=== PATIENT | female | born 1965 | race Caucasian/White ===

== ENCOUNTER 2020-03-23 17:08 | Inpatient (IN) | payer OTHER, SELFPAY ==
[2020-03-23 18:32] VITALS: BP 137/92; PULSE 98; RESP 20; TEMP 36.4; O2SAT 95; BMI 38.7
--- NOTE | 2020-03-23 18:48 | ED_ITS ---
HPI - Psych General Chief Complaint: Psychiatric Symptoms Stated Complaint: crisis Time Seen by Provider: 03/23/20 23:00 Source: patient Mode of arrival: ambulatory Limitations: altered mental status History of Present Illness HPI Narrative: 54-year-old female presents with significant psychiatric history, hypertension, hyperlipidemia, presents with request for ECT. She states that she is not normal and cannot function, states that everything is a mess. She will not disclose any further information, has a flat affect, and keeps repeating that she needs ECT. She denies chest pain or pressure, palpitations, shortness of breath, abdominal pain, abdominal distention, dysuria, hematuria, fevers and chills. She denies auditory visual hallucinations at this time. MD complaint: feels depressed and anxiety Onset (ago): year(s) Duration: constant History of same: Yes Relieving factors: none Associated psychiatric symptoms: depression Associated symptoms: denies other symptoms Related Data Home Medications Medication Instructions Recorded Confirmed amitriptyline 1 tab PO BEDTIME 03/24/20 03/24/20 atenolol 1 tab PO DAILY 03/24/20 03/24/20 atorvastatin 1 tab PO DAILY 03/24/20 03/24/20 cetirizine 1 tab PO BEDTIME 03/24/20 03/24/20 clonazepam 1 tab PO BID PRN 03/24/20 03/24/20 fludrocortisone 0.1 mg PO Q12H 03/24/20 03/24/20 levothyroxine 1 tab PO DAILY@0630 03/24/20 03/24/20 losartan 1 tab PO DAILY 03/24/20 03/24/20 montelukast 1 tab PO DAILY@0730 03/24/20 03/24/20 tizanidine 1 tab PO TID 03/24/20 03/24/20 trazodone 1 tab PO BEDTIME 03/24/20 03/24/20 vilazodone [Viibryd] 1 tab PO DAILY@0730 03/24/20 03/24/20 Allergies Allergy/AdvReac Type Severity Reaction Status Date / Time gabapentin [GABAPENTIN] Allergy Unknown UNKNOWN Verified 03/23/20 22:45 morphine [MORPHINE] Allergy Unknown UNKNOWN Verified 03/23/20 22:47 oxycodone [OXYCODONE] Allergy Unknown UNKNOWN Unverified 11/12/20 22:47 topiramate [TOPIRAMATE] Allergy Unknown UNKNOWN Verified 03/23/20 22:47 Review of Systems Review of Systems: Constitutional: No Fever, No Chills ENT/Mouth: No Ear Pain, No Nasal Congestion, No sore throat Eyes: No Eye Pain, No Swelling, No Redness Cardiovascular: No Chest Pain, No SOB Respiratory: No Cough, No Sputum, No Dyspnea Gastrointestinal: No Nausea, No Vomiting, No Diarrhea, No Hematochezia, No Melena Genitourinary: No Dysuria, No Urinary Frequency, No Hematuria Musculoskeletal: No Myalgias Skin: No Skin Lesions, No rash Neuro: No Weakness, No Numbness, No Paresthesias, No Dizziness, No Headache Psych: positive Anxiety, positive Depression, No SI/HI Heme/Lymph: No Lymphadenopathy Endocrine: No Polyuria, No Polydipsia PMFSH Past Medical History Attestation statement: The following information was validated with the patient. Medical History Asthma Autonomic dysfunction Neuropathy Ulnar nerve damage Surgical History H/O spinal fusion H/O tubal ligation H/O ureter repair Previous section Social History Social History Smoking Status: Never smoker Use of substances other than those prescribed or required for medical reasons: Yes Substance Use Type: Marijuana Substance Use Frequency: Occasionally Advance Directives: No Advance Directives Information Provided: No Physical Exam Vital Signs: Vital Signs: Last Vital Signs Temp 98.4 F 03/23/20 23:22 Pulse 85 03/23/20 23:22 Resp 17 03/23/20 23:22 BP 123/85 03/23/20 23:22 Pulse Ox 97 03/23/20 23:22 Body Mass Index 38.7 Appearance: Alert. Oriented X3. No acute distress. Eyes: Pupils equal, round and reactive to light. ENT: Pharynx normal. Neck: Normal inspection. Neck supple. CVS: Normal heart rate and rhythm. Pulses normal. Respiratory: No respiratory distress. Breath sounds normal. Abdomen: Soft and nontender. Skin: Skin warm and dry. Normal skin color. Normal skin turgor. Extremities: No lower extremity edema. Neuro: No motor deficit. No sensory deficit. Course Course Course Narrative: 54-year-old female with significant psychiatric history presents for crisis. States that she is only looking for ECT, cannot function without it. Will order CBC, Chem 7, urinalysis and drugs of abuse screen to medically clear. PH and consult pending. White count is elevated however patient is on significant psychiatric medications which could be the reason why she has this leukocytosis. There is no indication of infection patient is afebrile. N consult completed, plan is to re-evaluate in the morning with N and care team to find a plan for this patient to have ECT or to contact the psychiatric team that has performed this procedure on her in the past to see if this is an option for her. MDM - Psych Differential Diagnosis Differential diagnosis: Likely acute psychosis, bipolar disorder, depression, drug-induced psychotic disorder, acute anxiety, post-traumatic stress disorder and mood disorder Restraints Face to Face Assessment: Face to Face Assessment: Current Situation: After assessment of the patient, a review of the pertinent medical record and a discussion with nursing staff, I feel the patient requires a restrain intervention. Reaction To: [] Medical Condition: [] Behavioral State: [] Continued Need: [] Medical Records Attestation: I reviewed the patient's medical records. Lab Data Attestation: I reviewed the patient's lab results. Result diagrams: 03/23/20 19:29 03/23/20 19:29 Labs: Lab Results 03/23/20 03/23/20 03/23/20 Range/Units 19:21 19:21 19:29 WBC 13.3 H (4.8-10.8) X10*3/uL RBC 4.60 (4.20-5.50) X10*6/uL Hgb 13.7 (12.0-16.0) g/dl Hct 42.3 (37-47) % MCV 92.0 (80-98) fL MCH 29.8 (27.0-33.0) pg MCHC 32.4 (31.0-35.0) g/dl RDW 13.4 (11.0-16.0) % Plt Count 316 (160-400) X10*3/uL MPV 10.0 (9.4-12.3) fL Immature Gran % (Auto) 0.3 (0.0-0.4) % Neut % (Auto) 69.6 (45-73) % Lymph % (Auto) 20.0 (20-40) % Phelps % (Auto) 7.6 (2-11) % Eos % (Auto) 1.9 (0-4) % Baso % (Auto) 0.6 (0-2) % Lymph # (Auto) 2.7 (1.2-4.9) X10*3/uL Phelps # (Auto) 1.0 (0.1-1.2) X10*3/uL Eos # (Auto) 0.3 (0.0-0.4) X10*3/uL Baso # (Auto) 0.1 (0.0-0.2) X10*3/uL Abs Immat Gran (auto) 0.04 H (0.00-0.03) X10*3/uL Absolute Neuts (auto) 9.2 H (2.0-8.3) X10*3/uL Absolute Nucleated RBC 0.000 (0.0-0.012) X10*3/uL Nucleated RBC % (auto) 0.0 (0.0-0.2) /100WBC Sodium (135-145) mmol/L Potassium (3.3-5.1) mmol/l Chloride (96-108) mmol/L Carbon Dioxide (22-29) mmol/L Anion Gap (12-20) BUN (9-16) mg/dL Creatinine (0.5-1.4) mg/dL Estim Creat Clear Calc Estimated GFR Random Glucose (60-115) mg/dL Calcium (8.4-10.2) mg/dL Total Bilirubin (0.0-1.0) mg/dL AST (5-31) U/L ALT (0-31) U/L Alkaline Phosphatase (39-117) U/L Total Protein (6.5-8.0) g/dL Albumin (3.5-5.0) g/dL Urine Test NEGATIVE (NEGATIVE) Salicylates (15-30) mg/dL Urine Opiates Screen Not Detected (Not Detect) Acetaminophen (<30) mcg/mL Ur Barbiturates Screen Not Detected (Not Detect) Ur Phencyclidine Scrn Not Detected (Not Detect) Ur Amphetamines Screen Not Detected (Not Detect) U Benzodiazepines Scrn Not Detected (Not Detect) Urine Cocaine Screen Not Detected (Not Detect) U Marijuana (THC) Screen Not Detected (Not Detect) Ethyl Alcohol mg/dL 03/23/20 03/23/20 Range/Units 19:29 19:29 WBC (4.8-10.8) X10*3/uL RBC (4.20-5.50) X10*6/uL Hgb (12.0-16.0) g/dl Hct (37-47) % MCV (80-98) fL MCH (27.0-33.0) pg MCHC (31.0-35.0) g/dl RDW (11.0-16.0) % Plt Count (160-400) X10*3/uL MPV (9.4-12.3) fL Immature Gran % (Auto) (0.0-0.4) % Neut % (Auto) (45-73) % Lymph % (Auto) (20-40) % Phelps % (Auto) (2-11) % Eos % (Auto) (0-4) % Baso % (Auto) (0-2) % Lymph # (Auto) (1.2-4.9) X10*3/uL Phelps # (Auto) (0.1-1.2) X10*3/uL Eos # (Auto) (0.0-0.4) X10*3/uL Baso # (Auto) (0.0-0.2) X10*3/uL Abs Immat Gran (auto) (0.00-0.03) X10*3/uL Absolute Neuts (auto) (2.0-8.3) X10*3/uL Absolute Nucleated RBC (0.0-0.012) X10*3/uL Nucleated RBC % (auto) (0.0-0.2) /100WBC Sodium 141 (135-145) mmol/L Potassium 4.3 (3.3-5.1) mmol/l Chloride 106 (96-108) mmol/L Carbon Dioxide 27 (22-29) mmol/L Anion Gap 12 (12-20) BUN 19 H (9-16) mg/dL Creatinine 1.06 (0.5-1.4) mg/dL Estim Creat Clear Calc 75.7 Estimated GFR 54 Random Glucose 97 (60-115) mg/dL Calcium 9.4 (8.4-10.2) mg/dL Total Bilirubin 0.4 (0.0-1.0) mg/dL AST 16 (5-31) U/L ALT 16 (0-31) U/L Alkaline Phosphatase 74 (39-117) U/L Total Protein 7.8 (6.5-8.0) g/dL Albumin 4.5 (3.5-5.0) g/dL Urine Test (NEGATIVE) Salicylates < 5.0 L (15-30) mg/dL Urine Opiates Screen (Not Detect) Acetaminophen < 1 (<30) mcg/mL Ur Barbiturates Screen (Not Detect) Ur Phencyclidine Scrn (Not Detect) Ur Amphetamines Screen (Not Detect) U Benzodiazepines Scrn (Not Detect) Urine Cocaine Screen (Not Detect) U Marijuana (THC) Screen (Not Detect) Ethyl Alcohol < 10 mg/dL Discharge Plan Discharge Clinical Impression: Acute psychosis, Chronic schizophrenia, Bipolar disorder Prescriptions: No Action cetirizine 10 mg tablet 1 tab PO BEDTIME RF: 0 atorvastatin 10 mg tablet 1 tab PO DAILY RF: 0 amitriptyline 150 mg tablet 1 tab PO BEDTIME RF: 0 tizanidine 4 mg tablet 1 tab PO TID RF: 0 clonazepam 0.5 mg tablet 1 tab PO BID PRN (Reason: Anxiety) RF: 0 atenolol 25 mg tablet 1 tab PO DAILY RF: 0 trazodone 100 mg tablet 1 tab PO BEDTIME RF: 0 levothyroxine 50 mcg tablet 1 tab PO DAILY@629 RF: 0 losartan 25 mg tablet 1 tab PO DAILY RF: 0 montelukast 10 mg tablet 1 tab PO DAILY@729 RF: 0 Viibryd 40 mg tablet 1 tab PO DAILY@729 RF: 0 fludrocortisone 0.1 mg tablet 0.1 mg PO Q12H RF: 0
[2020-03-23 19:32] LABS: UPreg QC Valid YES; Urine Pregnancy NEGATIVE (NEGATIVE)
[2020-03-23 19:36] LABS: Basophils Absolute Auto 0.1 X10*3/uL (0.0-0.2); Basophils Percent Auto 0.6 % (0-2); Eosinophils Absolute Auto 0.3 X10*3/uL (0.0-0.4); Eosinophils Percent Auto 1.9 % (0-4); Hematocrit 42.3 % (37-47); Hemoglobin 13.7 g/dl (12.0-16.0); Imm Gran Abs Auto 0.04 X10*3/uL (0.00-0.03); Imm Gran Pct Auto 0.3 % (0.0-0.4); Lymphocytes Absolute Auto 2.7 X10*3/uL (1.2-4.9); MANUAL DIFF FLAG NO; Mean Corpuscular HGB Conc 32.4 g/dl (31.0-35.0); Mean Corpuscular Hemoglobin 29.8 pg (27.0-33.0); Monocytes Percent Auto 7.6 % (2-11); Neutrophils Absolute Auto 9.2 X10*3/uL (2.0-8.3); Neutrophils Percent Auto 69.6 % (45-73); Platelet Count 316 X10*3/uL (160-400); Red Cell Distribution Width 13.4 % (11.0-16.0); White Blood Count 13.3 X10*3/uL (4.8-10.8)
[2020-03-23 19:52] LABS: Amphetamine Screen Urine Not Detected (Not Detect); Barbiturates, Urine Not Detected (Not Detect); Benzodiazepines Screen Urine Not Detected (Not Detect); Cannabinoid Screen Urine Not Detected (Not Detect); Cocaine Screen Urine Not Detected (Not Detect); Opiate Screen Urine Not Detected (Not Detect); Phencyclidine Screen Urine Not Detected (Not Detect)
[2020-03-23 20:08] LABS: Ethanol < 10 mg/dL
[2020-03-23 20:13] LABS: Alanine Aminotransferase 16 U/L (0-31); Albumin Level 4.5 g/dL (3.5-5.0); Alkaline Phosphatase 74 U/L (39-117); Anion Gap 12 (12-20); Aspartate Amino Transferase 16 U/L (5-31); Bilirubin Total 0.4 mg/dL (0.0-1.0); Blood Urea Nitrogen 19 mg/dL (9-16); Calcium 9.4 mg/dL (8.4-10.2); Carbon Dioxide 27 mmol/L (22-29); Chloride 106 mmol/L (96-108); Creatinine Clr Calc Pharmacy 75.7; Estimated Glomerular Filt Rate 54; Glucose Random 97 mg/dL (60-115); Potassium 4.3 mmol/l (3.3-5.1); Salicylate < 5.0 mg/dL (15-30); Sodium 141 mmol/L (135-145); Total Protein 7.8 g/dL (6.5-8.0)
[2020-03-23 20:15] LABS: Acetaminophen LAB < 1 mcg/mL (<30)
[2020-03-23 21:40] VITALS: BP 140/90; PULSE 75; RESP 18; TEMP 36.3; O2SAT 96
[2020-03-23] MEDS: TiZANidine HCL 4 MG TABLET 8 MG PO (23:15)
[2020-03-23] MEDS: traZODone HCL 100 MG TABLET PO (23:15)
[2020-03-23] MEDS: Amitriptyline HCl 50 MG TABLET 150 MG PO (23:15)
[2020-03-23 23:22] VITALS: BP 123/85; PULSE 85; RESP 17; TEMP 36.9; O2SAT 97
--- NOTE | 2020-03-23 23:28 | PC.NURSE ---
IVÁN faxed/called/spoke with Tammie/confirmed receipt of referral, patient requested her night time medication, patient'd pharmacy is not in network but patient has list of her medication, patient advised to have her family member fax med [place] [facility] [place] agreed/waiting for fax. One time of order of Amitriptyline 150 mg, Trazadone 100 mg, and Tizanidine 8 mg ordered by provider/administered as ordered/patient compliant. Patient denied distress, will continue to monitor.
--- NOTE | 2020-03-24 01:49 | PC.NURSE ---
PERLAN completed the assessment, patient's disposition is f/u in the morning care team related to ECT treatment program. Patient compliant with assessment process and engaged. No distress reported, will continue to monitor.
--- NOTE | 2020-03-24 04:25 | PC.NURSE ---
Patient in bed appears sleeping, no distress observed/reported, respiration +/=/non-labored bilaterally, will continue to monitor.
[2020-03-24] MEDS: Levothyroxine Sodium 50 MCG TABLET PO (06:38)
--- NOTE | 2020-03-24 06:49 | PC.NURSE ---
Patient in bed appears sleeping, compliant with 0630 medication, no distress observed/reported, respiration +/=/non-labored bilaterally. Will continue to monitor.
--- NOTE | 2020-03-24 07:31 | PC.NURSE ---
Report received from KANU Cintron. Pt resting, resp unlabored.
[2020-03-24] MEDS: Montelukast Sodium 10 MG TABLET PO (08:25)
[2020-03-24 08:44] VITALS: BP 127/81; PULSE 81; TEMP 36.2
[2020-03-24] MEDS: Vilazodone HCL 40 MG TABLET PO (09:01)
[2020-03-24] MEDS: Acetaminophen 325 MG TABLET 650 MG PO (09:02)
[2020-03-24 09:03] VITALS: BP 127/81; PULSE 81
[2020-03-24] MEDS: Losartan Potassium 25 MG TABLET PO (09:03)
[2020-03-24] MEDS: Atorvastatin Calcium 10 MG TABLET PO (09:03)
[2020-03-24] MEDS: TiZANidine HCL 4 MG TABLET PO ×3 (09:04→20:12)
--- NOTE | 2020-03-24 09:38 | PC.NURSE ---
Pt awake, alert- in shower currently, -seen by care team and is aware now of process for applying for ECT- pt states she is in agreement with plan to discharge and await for admission for ECT. pt states she can be safe if discharged. pt calling family for transportation home.
--- NOTE | 2020-03-24 10:08 | PC.NURSE ---
Pt about to be discharged when separator inserter called pt and advised pt not to sign discharge paperwork. Per pt, separator inserter states that pt must be admitted to in order to receive ECT. Care team called- in to evaluate, speaking w/ case repairer.
--- NOTE | 2020-03-24 10:25 | PC.NURSE ---
pt seen by prema vasquez and changed back into hospital [facility]- pt requesting to stay in order to be admitted to for ECT.
--- NOTE | 2020-03-24 12:41 | MHC.CARE ---
Spoke with Dalia OP provider from [facility] for Nyla, she is requesting [facility] admission for her to be able to have ECT treatment and also stating she is not safe on her own. It was explained to Dalia that provider from [facility] will review her case and consult again with N whom cleared her yesterday from their crisis assessment. Provider put in another request for BHN to reevaluated and this law writer informed Dalia to call [facility]N to inform them on her concern about safety this way the clinician evaluating will be able to have a better picture of what is happening. with patient.
--- NOTE | 2020-03-24 15:25 | PC.NURSE ---
pt medicated as requested and ordered for migraine, then nausea. C christina aware, pt given zofran. pt currently resting.
--- NOTE | 2020-03-24 15:36 | PC.NURSE ---
pharmacy called second time for =medication florinef.
[2020-03-24] MEDS: Fludrocortisone Acetate 0.1 MG TABLET PO (16:03)
[2020-03-24 16:52] VITALS: BP 118/82; PULSE 89; TEMP 36.5; O2SAT 96
--- NOTE | 2020-03-24 17:51 | PC.NURSE ---
Pt out in common area, watching television w/ another pt. Pt reports continued headache, aware that she is able to receive PRN, will re evaluate when medication is available. Pt affect even, no other concern reported.
--- NOTE | 2020-03-24 18:45 | PC.NURSE ---
pt requesting to receive atenolol in the evening instead of morning- providers aware.
--- NOTE | 2020-03-24 19:01 | PC.NURSE ---
Report received. PT is currently on the phone. Calm and collected. PT is preparing for discharge.
[2020-03-24 19:38] VITALS: BP 119/64; PULSE 95; RESP 18; TEMP 36.2; O2SAT 96
[2020-03-24 20:13] VITALS: BP 119/64; PULSE 95
[2020-03-24] MEDS: traZODone HCL 100 MG TABLET PO (20:13)
[2020-03-24] MEDS: atenoloL 25 MG TABLET PO (20:13)
[2020-03-24] MEDS: Loratadine 10 MG TABLET PO (20:15)
[2020-03-24] MEDS: Amitriptyline HCl 50 MG TABLET 150 MG PO (20:41)
[2020-03-24 21:25] VITALS: BP 103/53; PULSE 97; RESP 20; O2SAT 96
[2020-03-25] MEDS: Levothyroxine Sodium 50 MCG TABLET PO (06:22)
[2020-03-25] MEDS: Fludrocortisone Acetate 0.1 MG TABLET PO ×2 (06:23→13:33)
[2020-03-25 06:37] VITALS: BP 119/44; PULSE 87; RESP 18; TEMP 36.2; O2SAT 100
--- NOTE | 2020-03-25 07:13 | PC.NURSE ---
Report received. PT currently watching tv, pt denies complaints at this time. PT is inpatient bedsearch.
[2020-03-25] MEDS: clonazePAM 0.5 MG TABLET PO ×2 (07:16→19:58)
[2020-03-25] MEDS: Montelukast Sodium 10 MG TABLET PO (07:40)
[2020-03-25] MEDS: Vilazodone HCL 40 MG TABLET PO (08:08)
--- NOTE | 2020-03-25 08:10 | PC.NURSE ---
pt medicated per emar, tolerating po w/o issue. pleasant affect w this rn.
[2020-03-25 09:08] VITALS: BP 119/44; PULSE 87
[2020-03-25] MEDS: atenoloL 25 MG TABLET PO (09:08)
[2020-03-25 09:09] VITALS: BP 119/44; PULSE 87
[2020-03-25] MEDS: Losartan Potassium 25 MG TABLET PO (09:09)
[2020-03-25] MEDS: TiZANidine HCL 4 MG TABLET PO ×3 (09:09→20:32)
[2020-03-25] MEDS: Atorvastatin Calcium 10 MG TABLET PO (09:09)
[2020-03-25 10:09] VITALS: BP 94/61; PULSE 87; RESP 16; TEMP 36.3; O2SAT 97
[2020-03-25] MEDS: Lidocaine 4 % Patch ADH..PATCH 2 PATCH TRANSDERMA (11:24)
--- NOTE | 2020-03-25 13:21 | PC.NURSE ---
andrade called for ordered natali
--- NOTE | 2020-03-25 16:15 | PC.NURSE ---
pt sitting in millieu, conversing w other pts, calm and cooperative.
[2020-03-25 16:25] VITALS: BP 101/64; PULSE 89; RESP 18; TEMP 36.9; O2SAT 97
--- NOTE | 2020-03-25 20:26 | PC.NURSE ---
pt becoming increasingly anxious due to acuity in the pod, prn klonopin not effective
[2020-03-25] MEDS: Amitriptyline HCl 50 MG TABLET 150 MG PO (20:32)
[2020-03-25] MEDS: Loratadine 10 MG TABLET PO (20:33)
[2020-03-25] MEDS: traZODone HCL 100 MG TABLET PO (20:33)
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
[2020-03-25] MEDS: LORazepam 1 MG TABLET 2 MG PO (21:25)
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
--- NOTE | 2020-03-25 23:10 | PC.NURSE ---
PT found lying on the floor of the shower CAOx3. When asked why she was lying on the floor PT stated that she was trying to relax . PT was able to stand up, dry off, and get dressed on her own after being found. PT then went into her room and fell asleep.
[2020-03-26 06:22] VITALS: BP 102/53; PULSE 65; RESP 16; TEMP 36.6; O2SAT 95
[2020-03-26] MEDS: Levothyroxine Sodium 50 MCG TABLET PO (06:31)
[2020-03-26] MEDS: LORazepam 1 MG TABLET PO (07:19)
[2020-03-26] MEDS: Montelukast Sodium 10 MG TABLET PO (07:19)
[2020-03-26] MEDS: Vilazodone HCL 40 MG TABLET PO (07:19)
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
[2020-03-26 09:12] VITALS: BP 114/76; PULSE 88; RESP 18; TEMP 36.6; O2SAT 98
[2020-03-26 09:46] VITALS: BP 114/76; PULSE 88
[2020-03-26] MEDS: Fludrocortisone Acetate 0.1 MG TABLET PO ×2 (09:46→20:31)
[2020-03-26] MEDS: atenoloL 25 MG TABLET PO (09:46)
[2020-03-26] MEDS: Losartan Potassium 25 MG TABLET PO (09:46)
[2020-03-26] MEDS: Atorvastatin Calcium 10 MG TABLET PO (09:46)
[2020-03-26] MEDS: TiZANidine HCL 4 MG TABLET PO ×2 (09:47→20:30)
[2020-03-26] MEDS: clonazePAM 1 MG TABLET 0.5 MG PO (14:09)
--- NOTE | 2020-03-26 14:14 | PC.NURSE ---
PT requested medication for anxiety, while being medicated PT dropped a broken piece of peanut butter container, pt stated she was going to use it to cut but did not yet. Piece removed, pt medicated per EMAR, peanut butter containers removed from room, pt denied having anything else in the room. Pt then brought out an additional broken piece of peanut butter container to the nurse station, stated she found it in the blanket. Pt agrees to remain safe and to let staff know if feeling unsafe.
[2020-03-26 17:02] VITALS: BP 104/63; PULSE 72; RESP 20; TEMP 36.6; O2SAT 97
--- NOTE | 2020-03-26 18:08 | PC.NURSE ---
Pt reporting that she is feeling better than before, pt social with select peers, calm and cooperative, denies complaints at this time.
[2020-03-26] MEDS: traZODone HCL 100 MG TABLET PO (20:30)
[2020-03-26 20:31] VITALS: BP 104/73; PULSE 84; RESP 20; TEMP 36.6; O2SAT 96
[2020-03-26] MEDS: Loratadine 10 MG TABLET PO (20:31)
[2020-03-26] MEDS: Amitriptyline HCl 50 MG TABLET 150 MG PO (20:31)
[2020-03-26 22:00] VITALS: RESP 18
[2020-03-27] VITALS (12 sets, daily range): BP systolic 96–130; BP diastolic 59–99; PULSE 73–105; RESP 16–24; TEMP 36.1–36.9; O2SAT 95–97
--- NOTE | 2020-03-27 05:05 | PC.NURSE ---
S/E: Pt alert and oriented. Clear speech. Engaged to talking with other pod members and staffs. Calm and cooperative. No SI/HI during this shift. All scheduled HS med given and tolerated well. Slept well. NAD. BHN re-eval done. Pt will be placed on Section 12 as of today, and inpatient bed search continues.
[2020-03-27] MEDS: Levothyroxine Sodium 50 MCG TABLET PO (06:06)
--- NOTE | 2020-03-27 07:21 | PC.NURSE ---
Report received from KANU Sharma. Pt awake, alert. Affect even.
[2020-03-27] MEDS: Montelukast Sodium 10 MG TABLET PO (07:49)
[2020-03-27] MEDS: Vilazodone HCL 40 MG TABLET PO (07:49)
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
[2020-03-27] MEDS: TiZANidine HCL 4 MG TABLET PO ×3 (08:33→20:34)
[2020-03-27] MEDS: Atorvastatin Calcium 10 MG TABLET PO (08:33)
[2020-03-27] MEDS: Losartan Potassium 25 MG TABLET PO (08:34)
[2020-03-27] MEDS: Fludrocortisone Acetate 0.1 MG TABLET PO ×2 (08:37→20:35)
[2020-03-27] MEDS: clonazePAM 1 MG TABLET 0.5 MG PO (08:57)
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
--- NOTE | 2020-03-27 10:18 | PC.NURSE ---
Pt had requested bacitracin for abrasions but is currently sleeping. Resp unlabored.
--- NOTE | 2020-03-27 11:21 | PC.NURSE ---
Pt requested to receive atenelol later today.
--- NOTE | 2020-03-27 12:24 | PC.NURSE ---
pt resting, resp unlabored.
--- NOTE | 2020-03-27 13:33 | PC.NURSE ---
pt found sitting in a corner of her room. reporting anxiety. denies any attempt to harm herself. States she will let staff know if she feels unsafe. requesting something for anxiety- andre saul aware. States a weighted blanket would be helpful. M5, ICU, and [facility] called- unable to locate weighted blanket.
[2020-03-27] MEDS: clonazePAM 0.5 MG TABLET PO (13:59)
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
--- NOTE | 2020-03-27 15:15 | MHC.CARE ---
t/w met briefly with pt to provide additional support due to pt reporting feeling flooded from past trauma. Pt was given warm blankets and hot tea and was pleased with this reporting it was helping. Pt was also doing a word search and tv was on for added distraction.
--- NOTE | 2020-03-27 16:23 | PC.NURSE ---
Pt awake, alert. States that the interventions provided by Zahraa from the Care team were helpful.
--- NOTE | 2020-03-27 19:27 | PC.NURSE ---
Patient currently at Nurses station talking to staff member about puzzle, denied distress, received phone call from care team, patient will be going to M5 after 2300. Will continue to monitor.
[2020-03-27] MEDS: Loratadine 10 MG TABLET PO (20:35)
[2020-03-27] MEDS: atenoloL 25 MG TABLET PO (20:36)
[2020-03-27 22:35] LABS: Influenza A PCR NEGATIVE (Negative); Influenza B PCR NEGATIVE (Negative); Resp Syncy Virus RNA Qual PCR NEGATIVE (Negative); SARS COV2 PCR INHOUSE NEGATIVE (Negative)
--- NOTE | 2020-03-28 | ECG_ITS ---
Test Reason : PREOP ECT Blood Pressure : / mmHG Vent. Rate : 088 BPM Atrial Rate : 088 BPM P-R Int : 146 ms QRS Dur : 090 ms QT Int : 354 ms P-R-T Axes : 059 046 082 degrees QTc Int : 428 ms Normal sinus rhythm Nonspecific ST and T wave abnormality Abnormal ECG When compared with ECG of 07-MAR-2018 11:32, No significant change was found Referred By: Taye Courtney Electronically Signed By:SHAKA BERMUDEZ MD
[2020-03-28] MEDS: traZODone HCL 100 MG TABLET PO ×2 (00:36→21:15)
[2020-03-28] MEDS: Amitriptyline HCl 50 MG TABLET 150 MG PO ×2 (02:05→21:06)
[2020-03-28 06:00] VITALS: BP 130/80; PULSE 82; TEMP 36.9
[2020-03-28] MEDS: Levothyroxine Sodium 50 MCG TABLET PO (06:17)
[2020-03-28 06:30] VITALS: BP 130/80; PULSE 82
[2020-03-28] MEDS: Losartan Potassium 25 MG TABLET PO (06:30)
[2020-03-28 07:51] LABS: MANUAL DIFF FLAG NO
[2020-03-28 07:56] LABS: Basophils Absolute Auto 0.1 X10*3/uL (0.0-0.2); Basophils Percent Auto 0.6 % (0-2); Eosinophils Absolute Auto 0.4 X10*3/uL (0.0-0.4); Eosinophils Percent Auto 3.3 % (0-4); Hematocrit 40.3 % (37-47); Imm Gran Abs Auto 0.03 X10*3/uL (0.00-0.03); Imm Gran Pct Auto 0.2 % (0.0-0.4); Lymphocytes Absolute Auto 3.7 X10*3/uL (1.2-4.9); Lymphocytes Percent Auto 29.8 % (20-40); Mean Corpuscular HGB Conc 32.3 g/dl (31.0-35.0); Mean Corpuscular Hemoglobin 29.8 pg (27.0-33.0); Mean Corpuscular Volume 92.4 fL (80-98); Mean Platelet Volume 10.2 fL (9.4-12.3); Monocytes Absolute Auto 1.1 X10*3/uL (0.1-1.2); Monocytes Percent Auto 8.8 % (2-11); Neutrophils Absolute Auto 7.1 X10*3/uL (2.0-8.3); Neutrophils Percent Auto 57.3 % (45-73); Platelet Count 288 X10*3/uL (160-400); Red Blood Count 4.36 X10*6/uL (4.20-5.50); Red Cell Distribution Width 13.2 % (11.0-16.0); White Blood Count 12.3 X10*3/uL (4.8-10.8)
[2020-03-28 08:18] LABS: Alanine Aminotransferase 15 U/L (0-31); Alkaline Phosphatase 68 U/L (39-117); Anion Gap 12 (12-20); Aspartate Amino Transferase 14 U/L (5-31); Bilirubin Total 0.5 mg/dL (0.0-1.0); Blood Urea Nitrogen 18 mg/dL (9-16); Calcium 9.1 mg/dL (8.4-10.2); Carbon Dioxide 29 mmol/L (22-29); Chloride 104 mmol/L (96-108); Creatinine Clr Calc Pharmacy 81.9; Estimated Glomerular Filt Rate 59; Glucose Fasting 88 mg/dL (60-99); Potassium 4.5 mmol/l (3.3-5.1); Sodium 140 mmol/L (135-145); Total Protein 6.9 g/dL (6.5-8.0)
[2020-03-28] MEDS: Montelukast Sodium 10 MG TABLET PO (08:50)
[2020-03-28] MEDS: TiZANidine HCL 4 MG TABLET PO ×3 (08:50→21:06)
[2020-03-28] MEDS: Fludrocortisone Acetate 0.1 MG TABLET PO ×2 (08:50→21:15)
[2020-03-28] MEDS: Vilazodone HCL 40 MG TABLET PO (08:53)
[2020-03-28] MEDS: Atorvastatin Calcium 10 MG TABLET PO (08:53)
[2020-03-28] MEDS: clonazePAM 1 MG TABLET 0.5 MG PO (16:49)
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
[2020-03-28 16:58] VITALS: BP 102/69; PULSE 91; TEMP 36.4
[2020-03-28] MEDS: Loratadine 10 MG TABLET PO (21:06)
[2020-03-28 21:15] VITALS: BP 101/59; PULSE 82
--- NOTE | 2020-03-28 21:44 | HO.PSYCHPN ---
Subjective Subjective Reason For Visit: Depression Diagnostics Vital Signs (24Hr): Vital Signs - 24 hr 03/28/20 06:00 03/28/20 06:30 03/28/20 16:58 Temperature 98.5 F 97.5 F Pulse Rate 82 82 91 Blood Pressure 130/80 130/80 102/69 03/28/20 21:15 Temperature Pulse Rate 82 Blood Pressure 101/59 L Body Mass Index 38.7 Labs Results: 03/28/20 07:43 03/28/20 07:43 Labs: Laboratory Results - last 48 hr 03/27/20 03/28/20 03/28/20 21:51 07:43 07:43 WBC 12.3 H RBC 4.36 Hgb 13.0 Hct 40.3 MCV 92.4 MCH 29.8 MCHC 32.3 RDW 13.2 Plt Count 288 MPV 10.2 Immature Gran % (Auto) 0.2 Neut % (Auto) 57.3 Lymph % (Auto) 29.8 [place] % (Auto) 8.8 Eos % (Auto) 3.3 Baso % (Auto) 0.6 Lymph # (Auto) 3.7 [place] # (Auto) 1.1 Eos # (Auto) 0.4 Baso # (Auto) 0.1 Abs Immat Gran (auto) 0.03 Absolute Neuts (auto) 7.1 Absolute Nucleated RBC 0.000 Nucleated RBC % (auto) 0.0 Sodium 140 Potassium 4.5 Chloride 104 Carbon Dioxide 29 Anion Gap 12 BUN 18 H Creatinine 0.98 Estim Creat Clear Calc 81.9 Estimated GFR 59 Fasting Glucose 88 Calcium 9.1 Total Bilirubin 0.5 AST 14 ALT 15 Alkaline Phosphatase 68 Total Protein 6.9 Albumin 4.0 Coronavirus (PCR) NEGATIVE Influenza Type A (PCR) NEGATIVE Influenza Type B (PCR) NEGATIVE RSV RNA Qual (PCR) NEGATIVE Medications Medications Current Medications Generic Name Dose Route Start Last Admin Trade Name Freq PRN Reason Stop Dose Admin Acetaminophen 650 mg 03/28/20 00:48 Acetaminophen 325 Mg Tablet PO Q6H PRN Headache/Pain Mild Scale (1-3) Acetaminophen/Butalbital/Caffeine 1 tab 03/24/20 14:40 03/25/20 06:13 Butalb/Acetamin/Caff 50/325/40 1 Tab Tablet PO 1 tab RQ4H PRN Administration headache Al Hydroxide/Mg Hydroxide 30 ml 03/28/20 00:48 Magnesium Hydrox/Alum Hydrox 30 Ml Oral.Susp PO Q6H PRN Heartburn/Nausea Amitriptyline HCl 150 mg 03/24/20 21:00 03/28/20 21:06 Amitriptyline Hcl 50 Mg Tablet PO 150 mg BEDTIME SOO Administration Atenolol 25 mg 03/27/20 21:00 03/28/20 21:15 Atenolol 25 Mg Tablet PO Not Given BEDTIME SOO Protocol Atorvastatin Calcium 10 mg 03/24/20 09:00 03/28/20 08:53 Atorvastatin Calcium 10 Mg Tablet PO 10 mg DAILY SOO Administration Clonazepam 0.5 mg 03/28/20 16:53 Clonazepam 0.5 Mg Tablet PO BID PRN Anxiety Fludrocortisone Acetate 0.1 mg 03/26/20 09:00 03/28/20 21:15 Fludrocortisone Acetate 0.1 Mg Tablet PO 0.1 mg BID SOO Administration Hydroxyzine HCl 25 mg 03/28/20 00:48 Hydroxyzine Hcl 25 Mg Tablet PO BEDTIME PRN Anxiety Levothyroxine Sodium 50 mcg 03/24/20 06:30 03/28/20 06:17 Levothyroxine Sodium 50 Mcg Tablet PO 50 mcg DAILY@0630 SOO Administration Loratadine 10 mg 03/24/20 21:00 03/28/20 21:06 Loratadine 10 Mg Tablet PO 10 mg BEDTIME SOO Administration Losartan Potassium 25 mg 03/24/20 09:00 03/28/20 06:30 Losartan Potassium 25 Mg Tablet PO 25 mg DAILY SOO Administration Protocol Magnesium Hydroxide 30 ml 03/28/20 00:48 Milk Of Magnesia 30 Ml Oral.Susp PO DAILY PRN Constipation Montelukast Sodium 10 mg 03/24/20 07:30 03/28/20 08:50 Montelukast Sodium 10 Mg Tablet PO 10 mg DAILY@0730 SOO Administration Ondansetron HCl 4 mg 03/24/20 14:40 03/24/20 14:47 Ondansetron Odt 4 Mg Tab.Rapdis TRANSLINGU 4 mg RQ6H PRN Administration Nausea/Vomiting Tizanidine HCl 4 mg 03/24/20 09:00 03/28/20 21:06 Tizanidine Hcl 4 Mg Tablet PO 4 mg TID OSO Administration Trazodone HCl 100 mg 03/24/20 21:00 03/28/20 21:15 Trazodone Hcl 100 Mg Tablet PO 100 mg BEDTIME SOO Administration Vilazodone HCl 40 mg 03/24/20 07:30 03/28/20 08:53 Vilazodone Hcl 40 Mg Tablet PO 40 mg DAILY@0730 SOO Administration Allergies Allergies Allergy/AdvReac Type Severity Reaction Status Date / Time gabapentin [GABAPENTIN] Allergy Unknown UNKNOWN Verified 03/25/20 19:56 morphine [MORPHINE] Allergy Unknown UNKNOWN Verified 03/25/20 19:56 oxycodone [OXYCODONE] Allergy Unknown UNKNOWN Verified 03/25/20 19:56 topiramate [TOPIRAMATE] Allergy Unknown UNKNOWN Verified 03/25/20 19:56 Assessment & Plan Greater than 50% of the session was spent on counseling and/or coordination of care
[2020-03-29 06:00] VITALS: BP 115/60; PULSE 70; RESP 18; TEMP 36.8
[2020-03-29] MEDS: Levothyroxine Sodium 50 MCG TABLET PO (06:42)
[2020-03-29 08:30] VITALS: BP 115/60; PULSE 70
[2020-03-29] MEDS: Losartan Potassium 25 MG TABLET PO (08:30)
[2020-03-29] MEDS: TiZANidine HCL 4 MG TABLET PO ×3 (08:30→22:27)
[2020-03-29] MEDS: Montelukast Sodium 10 MG TABLET PO (08:31)
[2020-03-29] MEDS: Atorvastatin Calcium 10 MG TABLET PO (08:31)
[2020-03-29] MEDS: Vilazodone HCL 40 MG TABLET PO (08:31)
[2020-03-29] MEDS: Fludrocortisone Acetate 0.1 MG TABLET PO ×2 (08:31→22:26)
--- NOTE | 2020-03-29 12:13 | P.CONIM_ITS ---
History of Present Illness Data of Consult Service Date: 03/29/20 Requesting physician: Taye Courtney Primary Care Provider: Unknown Physician HPI Reason for consult: ECT evaluation 54 year female with asthma, autonomic dysfunction, peripheral neuropathy, CKD3 here with decompensated major depressive desorder and is mali consider for ECT. She has had ECT in the past and benefited and this seem to have any apparent complicatiions. She has no known cardiovascular disease. She has no chest pain, no angina, no heart failure symptoms. ECG shows no acute ischemic changes. No fever, no respiratory symptoms at this time. Review of Systems Review of Systems: Gen: no fever Resp: no sob, no cough CV: no chest, no PAGAN, no leg edema GI: No n/v, no abd pain Neuro: No confusion Yes all other systems are reviewed and are negative [facility] Medical History (Updated 03/29/20 @ 12:19 by Eliezer Herr MD) Asthma At risk for bleeding associated with tonsillectomy and adenoidectomy Autonomic dysfunction HLD (hyperlipidemia) Major depressive disorder, recurrent, severe with psychotic symptoms Neuropathy PTSD (post-traumatic stress disorder) Renal insufficiency Suicidal ideation Ulnar nerve damage Functional capacity: independent ambulation Pertinent family history: HTN in father Surgical History H/O spinal fusion H/O tubal ligation H/O ureter repair Previous section Social History Household Members: Family Housing: House Do you presently have visiting nurse or other home services: No Smoking Status: Never smoker Smoked in Last 30 Days: No Patient Interested in Nicotine Replacement: No Patient Given Instructions on How to Stop Smoking: No Second Hand Smoke Exposure: No Use of substances other than those prescribed or required for medical reasons: Yes Substance Use Type: Marijuana Substance Use Frequency: Monthly Last Used Substance: Unknown Currently Displaying Signs/Symptoms of Drug Intoxication Withdrawal: No Any prior treatment program specific to substance use: No Have you been hit, kicked, punched, or otherwise hurt by someone within the past year? If so, by whom?: No Do you feel safe in your current relationship?: No Current Relationship Is there a partner from a previous relationship who is making you feel unsafe now?: No Are you made to feel afraid or neglected: No Spiritual Healthcare Practices: unable to assess during admit Jewish Healthcare Practices: unable to assess during admit Cultural Healthcare Practices: unable to assess during admit Advance Directives: No Advance Directives Information Provided: No Advance Directives on File: No Do you have thoughts of harming others: None Do you have a plan to hurt others: No Plan Recently lost weight without trying: No service: No Sexual orientation: Straight/Heterosexual Meds Allergies Allergy/AdvReac Type Severity Reaction Status Date / Time gabapentin [GABAPENTIN] Allergy Unknown UNKNOWN Verified 03/25/20 19:56 morphine [MORPHINE] Allergy Unknown UNKNOWN Verified 03/25/20 19:56 oxycodone [OXYCODONE] Allergy Unknown UNKNOWN Verified 03/25/20 19:56 topiramate [TOPIRAMATE] Allergy Unknown UNKNOWN Verified 03/25/20 19:56 Home Medications Medication Instructions Recorded Confirmed Type amitriptyline 1 tab PO BEDTIME 03/24/20 03/24/20 History atenolol 1 tab PO DAILY 03/24/20 03/24/20 History atorvastatin 1 tab PO DAILY 03/24/20 03/24/20 History cetirizine 1 tab PO BEDTIME 03/24/20 03/24/20 History clonazepam 1 tab PO BID PRN 03/24/20 03/24/20 History fludrocortisone 0.1 mg PO Q12H 03/24/20 03/24/20 History levothyroxine 1 tab PO DAILY@0630 03/24/20 03/24/20 History losartan 1 tab PO DAILY 03/24/20 03/24/20 History montelukast 1 tab PO DAILY@0730 03/24/20 03/24/20 History tizanidine 1 tab PO TID 03/24/20 03/24/20 History trazodone 1 tab PO BEDTIME 03/24/20 03/24/20 History vilazodone [Viibryd] 1 tab PO DAILY@0730 03/24/20 03/24/20 History Physical Exam Vital Signs and Narrative: Vital Signs: Last Vital Signs Temp 98.3 F 03/29/20 06:00 Pulse 70 03/29/20 08:30 Resp 18 03/29/20 06:00 BP 115/60 03/29/20 08:30 Pulse Ox 96 03/27/20 20:38 Body Mass Index 38.7 Constitutional Awake and Alert, No apparent distress Neck Supple, No lymphadenopathy Cardiovascular RRR, No M/R/G, S1 S2, No S3 S4, No pedal edema Respiratory Lungs clear, No respiratory distress Gastrointestinal Non tender, Non-distended Skin No rash Neurological Alert & oriented x3 Psychological Appropriate affect, no SI Results Labs CBC and Chem 7: 03/28/20 07:43 03/28/20 07:43 Assessment and Plan (1) PTSD (post-traumatic stress disorder): Status: Acute (2) Major depressive disorder, recurrent, severe with psychotic symptoms: Status: Acute (3) Bipolar disorder: Qualifiers: Active/Remission status: currently active Current bipolar episode type: depressed Current episode severity: severe Psychotic features: with psychotic features Qualified Code(s): F31.5 - Bipolar disorder, current episode depressed, severe, with psychotic features Status: Acute (4) Chronic schizophrenia: Status: Acute (5) Suicidal ideation: Status: Acute 54 year female with major depression being consider for ECT, I reviewd ECG with no acute finding, no anginal or heart failure symptoms. She has tolerated the procedure in the past, At this point no medical contraindication and observe usual ECT standards and protocols. Continue all other care. Thanks for the consult.
[2020-03-29] MEDS: clonazePAM 0.5 MG TABLET PO (13:44)
[2020-03-29] MEDS: Acetaminophen 325 MG TABLET 650 MG PO (16:43)
[2020-03-29] MEDS: QUEtiapine Fumarate 25 MG TABLET PO ×2 (16:44→22:27)
[2020-03-29 18:00] VITALS: BP 98/56; PULSE 101; TEMP 36.8
--- NOTE | 2020-03-29 20:21 | P.PNPSI_ITS ---
Subjective Subjective Reason For Visit: Depression Subjective Notes: Conditional Voluntary Interim History: patient with anxiety and rumination but no self-harming behavior using clonazepam encouraged to use Seroquel for anxiety medically evaluated for ECT Medication Compliance: Yes Side effects from medications: No Attending Groups: Intermittent Review of Systems Review of Systems Gen: no fever Resp: no sob, no cough CV: no chest, no PAGAN, no leg edema GI: No n/v, no abd pain Neuro: No confusion Mental Status Exam Mental Status Exam Patient Appearance: Appropriate Patient Orientation: Person, Place, Time and Situation Level of Consciousness: Awake Patient Behavior: Appropriate and Guarded Mood Description: Blunted, Flat, Sad and Apprehensive Affect Description: Constricted, Depressed, Anxious and Blunted Patient Cognition Impaired: No Ability to Follow Directions: Good Memory Description: Intact Thought Process: Intact and Goal Oriented Thought Content: positive for Obsessional Thoughts and positive for Preoccupation Depressive Symptoms: Increased Anxiety and Feelings of Worthlessness Judgement: Good Judgement and Insight: adequate impulse control this time Diagnostics Vital Signs (24Hr): Vital Signs - 24 hr 03/28/20 21:15 03/29/20 06:00 03/29/20 08:30 Temperature 98.3 F Pulse Rate 82 70 70 Respiratory Rate 18 Blood Pressure 101/59 L 115/60 115/60 Body Mass Index 38.7 Labs Results: 03/28/20 07:43 03/28/20 07:43 Labs: Laboratory Results - last 48 hr 03/27/20 03/28/20 03/28/20 21:51 07:43 07:43 WBC 12.3 H RBC 4.36 Hgb 13.0 Hct 40.3 MCV 92.4 MCH 29.8 MCHC 32.3 RDW 13.2 Plt Count 288 MPV 10.2 Immature Gran % (Auto) 0.2 Neut % (Auto) 57.3 Lymph % (Auto) 29.8 [place] % (Auto) 8.8 Eos % (Auto) 3.3 Baso % (Auto) 0.6 Lymph # (Auto) 3.7 [place] # (Auto) 1.1 Eos # (Auto) 0.4 Baso # (Auto) 0.1 Abs Immat Gran (auto) 0.03 Absolute Neuts (auto) 7.1 Absolute Nucleated RBC 0.000 Nucleated RBC % (auto) 0.0 Sodium 140 Potassium 4.5 Chloride 104 Carbon Dioxide 29 Anion Gap 12 BUN 18 H Creatinine 0.98 Estim Creat Clear Calc 81.9 Estimated GFR 59 Fasting Glucose 88 Calcium 9.1 Total Bilirubin 0.5 AST 14 ALT 15 Alkaline Phosphatase 68 Total Protein 6.9 Albumin 4.0 Coronavirus (PCR) NEGATIVE Influenza Type A (PCR) NEGATIVE Influenza Type B (PCR) NEGATIVE RSV RNA Qual (PCR) NEGATIVE Medications Medications Current Medications Generic Name Dose Route Start Last Admin Trade Name Freq PRN Reason Stop Dose Admin Acetaminophen 650 mg 03/28/20 00:48 03/29/20 16:43 Acetaminophen 325 Mg Tablet PO 650 mg Q6H PRN Administration Headache/Pain Mild Scale (1-3) Acetaminophen/Butalbital/Caffeine 1 tab 03/24/20 14:40 03/25/20 06:13 Butalb/Acetamin/Caff 50/325/40 1 Tab Tablet PO 1 tab RQ4H PRN Administration headache Al Hydroxide/Mg Hydroxide 30 ml 03/28/20 00:48 Magnesium Hydrox/Alum Hydrox 30 Ml Oral.Susp PO Q6H PRN Heartburn/Nausea Albuterol Sulfate 2 puff 03/29/20 15:57 Albuterol Sulfate 90 Mcg 8 Gm Inhaler INHALE RQ4H PRN Shortness of Breath Amitriptyline HCl 150 mg 03/24/20 21:00 03/28/20 21:06 Amitriptyline Hcl 50 Mg Tablet PO 150 mg BEDTIME SOO Administration Atenolol 25 mg 03/27/20 21:00 03/28/20 21:15 Atenolol 25 Mg Tablet PO Not Given BEDTIME SOO Protocol Atorvastatin Calcium 10 mg 03/24/20 09:00 03/29/20 08:31 Atorvastatin Calcium 10 Mg Tablet PO 10 mg DAILY SOO Administration Clonazepam 0.5 mg 03/28/20 16:53 03/29/20 13:44 Clonazepam 0.5 Mg Tablet PO 0.5 mg BID PRN Administration Anxiety Fludrocortisone Acetate 0.1 mg 03/26/20 09:00 03/29/20 08:31 Fludrocortisone Acetate 0.1 Mg Tablet PO 0.1 mg BID SOO Administration Hydroxyzine HCl 25 mg 03/28/20 00:48 Hydroxyzine Hcl 25 Mg Tablet PO BEDTIME PRN Anxiety Levothyroxine Sodium 50 mcg 03/24/20 06:30 03/29/20 06:42 Levothyroxine Sodium 50 Mcg Tablet PO 50 mcg DAILY@0630 SOO Administration Loratadine 10 mg 03/24/20 21:00 03/28/20 21:06 Loratadine 10 Mg Tablet PO 10 mg BEDTIME SOO Administration Losartan Potassium 25 mg 03/24/20 09:00 03/29/20 08:30 Losartan Potassium 25 Mg Tablet PO 25 mg DAILY SOO Administration Protocol Magnesium Hydroxide 30 ml 03/28/20 00:48 Milk Of Magnesia 30 Ml Oral.Susp PO DAILY PRN Constipation Montelukast Sodium 10 mg 03/24/20 07:30 03/29/20 08:31 Montelukast Sodium 10 Mg Tablet PO 10 mg DAILY@0730 SOO Administration Ondansetron HCl 4 mg 03/24/20 14:40 03/24/20 14:47 Ondansetron Odt 4 Mg Tab.Rapdis TRANSLINGU 4 mg RQ6H PRN Administration Nausea/Vomiting Quetiapine Fumarate 25 mg 03/28/20 21:50 03/28/20 23:08 Quetiapine Fumarate 25 Mg Tablet PO Not Given BEDTIME [facility] Quetiapine Fumarate 25 mg 03/28/20 21:52 03/29/20 16:44 Quetiapine Fumarate 25 Mg Tablet PO 25 mg Q4H PRN Administration Anxiety Tizanidine HCl 4 mg 03/24/20 09:00 03/29/20 14:49 Tizanidine Hcl 4 Mg Tablet PO 4 mg TID SOO Administration Trazodone HCl 100 mg 03/24/20 21:00 03/28/20 21:15 Trazodone Hcl 100 Mg Tablet PO 100 mg BEDTIME SOO Administration Vilazodone HCl 40 mg 03/24/20 07:30 03/29/20 08:31 Vilazodone Hcl 40 Mg Tablet PO 40 mg DAILY@0730 SOO Administration Allergies Allergies Allergy/AdvReac Type Severity Reaction Status Date / Time gabapentin [GABAPENTIN] Allergy Unknown UNKNOWN Verified 03/25/20 19:56 morphine [MORPHINE] Allergy Unknown UNKNOWN Verified 03/25/20 19:56 oxycodone [OXYCODONE] Allergy Unknown UNKNOWN Verified 03/25/20 19:56 topiramate [TOPIRAMATE] Allergy Unknown UNKNOWN Verified 03/25/20 19:56 Assessment & Plan Assessment & Plan (1) PTSD (post-traumatic stress disorder): Status: Acute Code(s): F43.10 - Post-traumatic stress disorder, unspecified (2) Major depressive disorder, recurrent, severe with psychotic symptoms: Status: Acute Code(s): F33.3 - Major depressive disorder, recurrent, severe with psychotic symptoms (3) Suicidal ideation: Status: Acute Code(s): R45.851 - Suicidal ideations (4) Renal insufficiency: Status: Acute Code(s): N28.9 - Disorder of kidney and ureter, unspecified Assessment and Plan: you patient medically evaluated for ECT will start as soon as can be scheduled monitor safety Greater than 50% of the session was spent on counseling and/or coordination of care
[2020-03-29] MEDS: Loratadine 10 MG TABLET PO (22:26)
[2020-03-29] MEDS: Amitriptyline HCl 50 MG TABLET 150 MG PO (22:26)
[2020-03-29] MEDS: traZODone HCL 100 MG TABLET PO (22:27)
[2020-03-30 06:17] VITALS: BP 119/69; PULSE 78; RESP 16; TEMP 36.4; O2SAT 97
[2020-03-30] MEDS: Levothyroxine Sodium 50 MCG TABLET PO (06:43)
[2020-03-30 07:00] VITALS: BMI 38.7
[2020-03-30 09:10] VITALS: BP 119/69; PULSE 78
[2020-03-30] MEDS: Vilazodone HCL 40 MG TABLET PO (09:10)
[2020-03-30] MEDS: Fludrocortisone Acetate 0.1 MG TABLET PO ×2 (09:10→20:27)
[2020-03-30] MEDS: Losartan Potassium 25 MG TABLET PO (09:10)
[2020-03-30] MEDS: Montelukast Sodium 10 MG TABLET PO (09:10)
[2020-03-30] MEDS: Atorvastatin Calcium 10 MG TABLET PO (09:11)
[2020-03-30] MEDS: TiZANidine HCL 4 MG TABLET PO ×3 (09:11→20:27)
--- NOTE | 2020-03-30 10:17 | HO.PSYCHPN ---
Subjective Subjective Reason For Visit: Depression Subjective Notes: Conditional Voluntary Interim History: Patient depressed anxious ruminating her Seroquel minimally effective denies active self-harm in this setting ECT to start tomorrow Medication Compliance: Yes Side effects from medications: No Review of Systems Review of Systems Gen: no fever Resp: no sob, no cough CV: no chest, no PAGAN, no leg edema GI: No n/v, no abd pain Neuro: No confusion Mental Status Exam Mental Status Exam Patient Appearance: Appropriate Patient Orientation: Person, Place, Time and Situation Level of Consciousness: Awake Patient Behavior: Appropriate and Guarded Mood Description: Blunted, Flat, Sad and Apprehensive Affect Description: Constricted, Depressed, Anxious and Blunted Patient Cognition Impaired: No Ability to Follow Directions: Good Memory Description: Intact Hallucinations: None Delusions: Not Present Perceptual Disturbances: Depersonalization Thought Process: Goal Oriented Thought Content: positive for Obsessional Thoughts and positive for Suicidal Ideation (denies plan intent ) Depressive Symptoms: Increased Anxiety, Increased Irritability and Hopelessness Judgement: Fair Diagnostics Vital Signs (24Hr): Vital Signs - 24 hr 03/29/20 18:00 03/30/20 06:17 03/30/20 09:10 Temperature 98.3 F 97.5 F Pulse Rate 101 H 78 78 Respiratory Rate 16 Blood Pressure 98/56 L 119/69 119/69 Pulse Oximetry 97 Body Mass Index 38.7 Labs Results: 03/28/20 07:43 03/28/20 07:43 Medications Medications Current Medications Generic Name Dose Route Start Last Admin Trade Name Freq PRN Reason Stop Dose Admin Acetaminophen 650 mg 03/28/20 00:48 03/29/20 16:43 Acetaminophen 325 Mg Tablet PO 650 mg Q6H PRN Administration Headache/Pain Mild Scale (1-3) Acetaminophen/Butalbital/Caffeine 1 tab 03/24/20 14:40 03/25/20 06:13 Butalb/Acetamin/Caff 50/325/40 1 Tab Tablet PO 1 tab RQ4H PRN Administration headache Al Hydroxide/Mg Hydroxide 30 ml 03/28/20 00:48 Magnesium Hydrox/Alum Hydrox 30 Ml Oral.Susp PO Q6H PRN Heartburn/Nausea Albuterol Sulfate 2 puff 03/29/20 15:57 Albuterol Sulfate 90 Mcg 8 Gm Inhaler INHALE RQ4H PRN Shortness of Breath Amitriptyline HCl 150 mg 03/24/20 21:00 03/29/20 22:26 Amitriptyline Hcl 50 Mg Tablet PO 150 mg BEDTIME SOO Administration Atenolol 25 mg 03/27/20 21:00 03/29/20 22:28 Atenolol 25 Mg Tablet PO Not Given BEDTIME SOO Protocol Atorvastatin Calcium 10 mg 03/24/20 09:00 03/30/20 09:11 Atorvastatin Calcium 10 Mg Tablet PO 10 mg DAILY SOO Administration Clonazepam 0.5 mg 03/28/20 16:53 03/29/20 13:44 Clonazepam 0.5 Mg Tablet PO 0.5 mg BID PRN Administration Anxiety Fludrocortisone Acetate 0.1 mg 03/26/20 09:00 03/30/20 09:10 Fludrocortisone Acetate 0.1 Mg Tablet PO 0.1 mg BID SOO Administration Hydroxyzine HCl 25 mg 03/28/20 00:48 Hydroxyzine Hcl 25 Mg Tablet PO BEDTIME PRN Anxiety Levothyroxine Sodium 50 mcg 03/24/20 06:30 03/30/20 06:43 Levothyroxine Sodium 50 Mcg Tablet PO 50 mcg DAILY@0630 SOO Administration Loratadine 10 mg 03/24/20 21:00 03/29/20 22:26 Loratadine 10 Mg Tablet PO 10 mg BEDTIME SOO Administration Losartan Potassium 25 mg 03/24/20 09:00 03/30/20 09:10 Losartan Potassium 25 Mg Tablet PO 25 mg DAILY SOO Administration Protocol Magnesium Hydroxide 30 ml 03/28/20 00:48 Milk Of Magnesia 30 Ml Oral.Susp PO DAILY PRN Constipation Montelukast Sodium 10 mg 03/24/20 07:30 03/30/20 09:10 Montelukast Sodium 10 Mg Tablet PO 10 mg DAILY@0730 SOO Administration Ondansetron HCl 4 mg 03/24/20 14:40 03/24/20 14:47 Ondansetron Odt 4 Mg Tab.Rapdis TRANSLINGU 4 mg RQ6H PRN Administration Nausea/Vomiting Quetiapine Fumarate 25 mg 03/28/20 21:50 03/29/20 22:27 Quetiapine Fumarate 25 Mg Tablet PO 25 mg BEDTIME SOO Administration Quetiapine Fumarate 25 mg 03/28/20 21:52 03/29/20 16:44 Quetiapine Fumarate 25 Mg Tablet PO 25 mg Q4H PRN Administration Anxiety Tizanidine HCl 4 mg 03/24/20 09:00 03/30/20 09:11 Tizanidine Hcl 4 Mg Tablet PO 4 mg TID SOO Administration Trazodone HCl 100 mg 03/24/20 21:00 03/29/20 22:27 Trazodone Hcl 100 Mg Tablet PO 100 mg BEDTIME SOO Administration Vilazodone HCl 40 mg 03/24/20 07:30 03/30/20 09:10 Vilazodone Hcl 40 Mg Tablet PO 40 mg DAILY@0730 SOO Administration Allergies Allergies Allergy/AdvReac Type Severity Reaction Status Date / Time gabapentin [GABAPENTIN] Allergy Unknown UNKNOWN Verified 03/25/20 19:56 morphine [MORPHINE] Allergy Unknown UNKNOWN Verified 03/25/20 19:56 oxycodone [OXYCODONE] Allergy Unknown UNKNOWN Verified 03/25/20 19:56 topiramate [TOPIRAMATE] Allergy Unknown UNKNOWN Verified 03/25/20 19:56 Assessment & Plan Assessment & Plan (1) PTSD (post-traumatic stress disorder): Status: Acute Code(s): F43.10 - Post-traumatic stress disorder, unspecified (2) Major depressive disorder, recurrent, severe with psychotic symptoms: Status: Acute Code(s): F33.3 - Major depressive disorder, recurrent, severe with psychotic symptoms (3) Suicidal ideation: Status: Acute Code(s): R45.851 - Suicidal ideations (4) Renal insufficiency: Status: Acute Code(s): N28.9 - Disorder of kidney and ureter, unspecified Assessment and Plan: ect in am inc seroquel 25 tid monitor safety Greater than 50% of the session was spent on counseling and/or coordination of care
[2020-03-30] MEDS: Acetaminophen 325 MG TABLET 650 MG PO (13:28)
[2020-03-30] MEDS: QUEtiapine Fumarate 25 MG TABLET PO ×2 (14:10→20:27)
[2020-03-30] MEDS: Omeprazole 40 MG CAPSULE.DR PO (15:40)
[2020-03-30 18:00] VITALS: BP 111/63; PULSE 103; TEMP 36.8
[2020-03-30] MEDS: Loratadine 10 MG TABLET PO (20:25)
[2020-03-30] MEDS: Amitriptyline HCl 50 MG TABLET 150 MG PO (20:25)
[2020-03-30 20:26] VITALS: BP 111/67; PULSE 103
[2020-03-30] MEDS: atenoloL 25 MG TABLET PO (20:26)
[2020-03-30] MEDS: traZODone HCL 100 MG TABLET PO (20:26)
[2020-03-31] VITALS (11 sets, daily range): BP systolic 110–132; BP diastolic 64–82; PULSE 63–82; RESP 14–18; TEMP 35.8–37.1; O2SAT 94–97; BMI 38.7
--- NOTE | 2020-03-31 08:48 | P.CONAN_ITS ---
[facility] Past Medical History Medical History Asthma At risk for bleeding associated with tonsillectomy and adenoidectomy Autonomic dysfunction HLD (hyperlipidemia) Major depressive disorder, recurrent, severe with psychotic symptoms Neuropathy PTSD (post-traumatic stress disorder) Renal insufficiency Suicidal ideation Ulnar nerve damage Functional capacity: independent ambulation Surgical History Surgical History H/O spinal fusion H/O tubal ligation H/O ureter repair Previous section Social History Social History Household Members: Family Housing: House Do you presently have visiting nurse or other home services: No Smoking Status: Never smoker Smoked in Last 30 Days: No Patient Interested in Nicotine Replacement: No Patient Given Instructions on How to Stop Smoking: No Second Hand Smoke Exposure: No Use of substances other than those prescribed or required for medical reasons: Yes Substance Use Type: Marijuana Substance Use Frequency: Monthly Last Used Substance: Unknown Currently Displaying Signs/Symptoms of Drug Intoxication Withdrawal: No Any prior treatment program specific to substance use: No Have you been hit, kicked, punched, or otherwise hurt by someone within the past year? If so, by whom?: No Do you feel safe in your current relationship?: No Current Relationship Is there a partner from a previous relationship who is making you feel unsafe now?: No Are you made to feel afraid or neglected: No Spiritual Healthcare Practices: unable to assess during admit Evangelical Healthcare Practices: unable to assess during admit Cultural Healthcare Practices: unable to assess during admit Advance Directives: No Advance Directives Information Provided: No Advance Directives on File: No Do you have thoughts of harming others: None Do you have a plan to hurt others: No Plan Recently lost weight without trying: No service: No Sexual orientation: Straight/Heterosexual Meds Allergies Allergy/AdvReac Type Severity Reaction Status Date / Time gabapentin [GABAPENTIN] Allergy Unknown UNKNOWN Verified 03/25/20 19:56 morphine [MORPHINE] Allergy Unknown UNKNOWN Verified 03/25/20 19:56 oxycodone [OXYCODONE] Allergy Unknown UNKNOWN Verified 03/25/20 19:56 topiramate [TOPIRAMATE] Allergy Unknown UNKNOWN Verified 03/25/20 19:56 Home Medications Medication Instructions Recorded Confirmed Type amitriptyline 1 tab PO BEDTIME 03/24/20 03/24/20 History atenolol 1 tab PO DAILY 03/24/20 03/24/20 History atorvastatin 1 tab PO DAILY 03/24/20 03/24/20 History cetirizine 1 tab PO BEDTIME 03/24/20 03/24/20 History clonazepam 1 tab PO BID PRN 03/24/20 03/24/20 History fludrocortisone 0.1 mg PO Q12H 03/24/20 03/24/20 History levothyroxine 1 tab PO DAILY@0630 03/24/20 03/24/20 History losartan 1 tab PO DAILY 03/24/20 03/24/20 History montelukast 1 tab PO DAILY@0730 03/24/20 03/24/20 History tizanidine 1 tab PO TID 03/24/20 03/24/20 History trazodone 1 tab PO BEDTIME 03/24/20 03/24/20 History vilazodone [Viibryd] 1 tab PO DAILY@0730 03/24/20 03/24/20 History Exam Exam Date and Time: March 31, 2020 0848 Height,Weight and Vital Signs: Height 5 ft 6 in Weight 108.86 kg Last Vital Signs Temp 97.4 F 03/31/20 08:16 Pulse 70 03/31/20 08:16 Resp 18 03/31/20 08:16 BP 117/74 03/31/20 08:16 Pulse Ox 97 03/31/20 08:16 Pertinent Lab Results Pertinent Lab Results: Laboratory Tests 03/23/20 03/23/20 03/23/20 19:21 19:21 19:29 WBC 13.3 H RBC 4.60 Hgb 13.7 Hct 42.3 MCV 92.0 MCH 29.8 MCHC 32.4 RDW 13.4 Plt Count 316 MPV 10.0 Immature Gran % (Auto) 0.3 Neut % (Auto) 69.6 Lymph % (Auto) 20.0 [place] % (Auto) 7.6 Eos % (Auto) 1.9 Baso % (Auto) 0.6 Lymph # (Auto) 2.7 [place] # (Auto) 1.0 Eos # (Auto) 0.3 Baso # (Auto) 0.1 Abs Immat Gran (auto) 0.04 H Absolute Neuts (auto) 9.2 H Absolute Nucleated RBC 0.000 Nucleated RBC % (auto) 0.0 Sodium Potassium Chloride Carbon Dioxide Anion Gap BUN Creatinine Estim Creat Clear Calc Estimated GFR Random Glucose Fasting Glucose Calcium Total Bilirubin AST ALT Alkaline Phosphatase Total Protein Albumin Urine Test NEGATIVE Salicylates Urine Opiates Screen Not Detected Acetaminophen Ur Barbiturates Screen Not Detected Ur Phencyclidine Scrn Not Detected Ur Amphetamines Screen Not Detected U Benzodiazepines Scrn Not Detected Urine Cocaine Screen Not Detected U Marijuana (THC) Screen Not Detected Ethyl Alcohol Coronavirus (PCR) Influenza Type A (PCR) Influenza Type B (PCR) RSV RNA Qual (PCR) 03/23/20 03/23/20 03/27/20 19:29 19:29 21:51 WBC RBC Hgb Hct MCV MCH MCHC RDW Plt Count MPV Immature Gran % (Auto) Neut % (Auto) Lymph % (Auto) [place] % (Auto) Eos % (Auto) Baso % (Auto) Lymph # (Auto) [place] # (Auto) Eos # (Auto) Baso # (Auto) Abs Immat Gran (auto) Absolute Neuts (auto) Absolute Nucleated RBC Nucleated RBC % (auto) Sodium 141 Potassium 4.3 Chloride 106 Carbon Dioxide 27 Anion Gap 12 BUN 19 H Creatinine 1.06 Estim Creat Clear Calc 75.7 Estimated GFR 54 Random Glucose 97 Fasting Glucose Calcium 9.4 Total Bilirubin 0.4 AST 16 ALT 16 Alkaline Phosphatase 74 Total Protein 7.8 Albumin 4.5 Urine Test Salicylates < 5.0 L Urine Opiates Screen Acetaminophen < 1 Ur Barbiturates Screen Ur Phencyclidine Scrn Ur Amphetamines Screen U Benzodiazepines Scrn Urine Cocaine Screen U Marijuana (THC) Screen Ethyl Alcohol < 10 Coronavirus (PCR) NEGATIVE Influenza Type A (PCR) NEGATIVE Influenza Type B (PCR) NEGATIVE RSV RNA Qual (PCR) NEGATIVE 03/28/20 03/28/20 07:43 07:43 WBC 12.3 H RBC 4.36 Hgb 13.0 Hct 40.3 MCV 92.4 MCH 29.8 MCHC 32.3 RDW 13.2 Plt Count 288 MPV 10.2 Immature Gran % (Auto) 0.2 Neut % (Auto) 57.3 Lymph % (Auto) 29.8 [place] % (Auto) 8.8 Eos % (Auto) 3.3 Baso % (Auto) 0.6 Lymph # (Auto) 3.7 [place] # (Auto) 1.1 Eos # (Auto) 0.4 Baso # (Auto) 0.1 Abs Immat Gran (auto) 0.03 Absolute Neuts (auto) 7.1 Absolute Nucleated RBC 0.000 Nucleated RBC % (auto) 0.0 Sodium 140 Potassium 4.5 Chloride 104 Carbon Dioxide 29 Anion Gap 12 BUN 18 H Creatinine 0.98 Estim Creat Clear Calc 81.9 Estimated GFR 59 Random Glucose Fasting Glucose 88 Calcium 9.1 Total Bilirubin 0.5 AST 14 ALT 15 Alkaline Phosphatase 68 Total Protein 6.9 Albumin 4.0 Urine Test Salicylates Urine Opiates Screen Acetaminophen Ur Barbiturates Screen Ur Phencyclidine Scrn Ur Amphetamines Screen U Benzodiazepines Scrn Urine Cocaine Screen U Marijuana (THC) Screen Ethyl Alcohol Coronavirus (PCR) Influenza Type A (PCR) Influenza Type B (PCR) RSV RNA Qual (PCR) Airway Mallampati Class: II TM Dist: >3cm Neck ROM: Full Heart: RRR Lungs: CTA Assessment and Plan Assessment Anesthesia Assessment: Anesthesia Plan Discussed and Chart Reviewed Final Anesthetic Review NPO: Yes ASA Class: II Final Preanesthetic Review: Meds/Allgs Chart Reviewed, Consent Obtained/Reviewed and Anes Risks/Benef Reviewed Patient Risk: Intermediate Procedure Risk: Intermediate Anesthetic Plan Anesthetic Plan: GA Disposition: Standard PACU
--- NOTE | 2020-03-31 09:40 | P.CONAN_ITS ---
[facility] Past Medical History Medical History Asthma At risk for bleeding associated with tonsillectomy and adenoidectomy Autonomic dysfunction HLD (hyperlipidemia) Major depressive disorder, recurrent, severe with psychotic symptoms Neuropathy PTSD (post-traumatic stress disorder) Renal insufficiency Suicidal ideation Ulnar nerve damage Functional capacity: independent ambulation Surgical History Surgical History H/O spinal fusion H/O tubal ligation H/O ureter repair Previous section Social History Social History Household Members: Family Housing: House Do you presently have visiting nurse or other home services: No Smoking Status: Never smoker Smoked in Last 30 Days: No Patient Interested in Nicotine Replacement: No Patient Given Instructions on How to Stop Smoking: No Second Hand Smoke Exposure: No Use of substances other than those prescribed or required for medical reasons: Yes Substance Use Type: Marijuana Substance Use Frequency: Monthly Last Used Substance: Unknown Currently Displaying Signs/Symptoms of Drug Intoxication Withdrawal: No Any prior treatment program specific to substance use: No Have you been hit, kicked, punched, or otherwise hurt by someone within the past year? If so, by whom?: No Do you feel safe in your current relationship?: No Current Relationship Is there a partner from a previous relationship who is making you feel unsafe now?: No Are you made to feel afraid or neglected: No Spiritual Healthcare Practices: unable to assess during admit Orthodoxy Healthcare Practices: unable to assess during admit Cultural Healthcare Practices: unable to assess during admit Advance Directives: No Advance Directives Information Provided: No Advance Directives on File: No Do you have thoughts of harming others: None Do you have a plan to hurt others: No Plan Recently lost weight without trying: No service: No Sexual orientation: Straight/Heterosexual Meds Allergies Allergy/AdvReac Type Severity Reaction Status Date / Time gabapentin [GABAPENTIN] Allergy Unknown UNKNOWN Verified 03/25/20 19:56 morphine [MORPHINE] Allergy Unknown UNKNOWN Verified 03/25/20 19:56 oxycodone [OXYCODONE] Allergy Unknown UNKNOWN Verified 03/25/20 19:56 topiramate [TOPIRAMATE] Allergy Unknown UNKNOWN Verified 03/25/20 19:56 Home Medications Medication Instructions Recorded Confirmed Type amitriptyline 1 tab PO BEDTIME 03/24/20 03/24/20 History atenolol 1 tab PO DAILY 03/24/20 03/24/20 History atorvastatin 1 tab PO DAILY 03/24/20 03/24/20 History cetirizine 1 tab PO BEDTIME 03/24/20 03/24/20 History clonazepam 1 tab PO BID PRN 03/24/20 03/24/20 History fludrocortisone 0.1 mg PO Q12H 03/24/20 03/24/20 History levothyroxine 1 tab PO DAILY@0630 03/24/20 03/24/20 History losartan 1 tab PO DAILY 03/24/20 03/24/20 History montelukast 1 tab PO DAILY@0730 03/24/20 03/24/20 History tizanidine 1 tab PO TID 03/24/20 03/24/20 History trazodone 1 tab PO BEDTIME 03/24/20 03/24/20 History vilazodone [Viibryd] 1 tab PO DAILY@0730 03/24/20 03/24/20 History Exam Exam Date and Time: March 31, 2020 0940 Height,Weight and Vital Signs: Height 5 ft 6 in Weight 108.86 kg Last Vital Signs Temp 97.4 F 03/31/20 08:16 Pulse 70 03/31/20 08:16 Resp 18 03/31/20 08:16 BP 117/74 03/31/20 08:16 Pulse Ox 97 03/31/20 08:16 Pertinent Lab Results Pertinent Lab Results: Laboratory Tests 03/23/20 03/23/20 03/23/20 19:21 19:21 19:29 WBC 13.3 H RBC 4.60 Hgb 13.7 Hct 42.3 MCV 92.0 MCH 29.8 MCHC 32.4 RDW 13.4 Plt Count 316 MPV 10.0 Immature Gran % (Auto) 0.3 Neut % (Auto) 69.6 Lymph % (Auto) 20.0 [place] % (Auto) 7.6 Eos % (Auto) 1.9 Baso % (Auto) 0.6 Lymph # (Auto) 2.7 [place] # (Auto) 1.0 Eos # (Auto) 0.3 Baso # (Auto) 0.1 Abs Immat Gran (auto) 0.04 H Absolute Neuts (auto) 9.2 H Absolute Nucleated RBC 0.000 Nucleated RBC % (auto) 0.0 Sodium Potassium Chloride Carbon Dioxide Anion Gap BUN Creatinine Estim Creat Clear Calc Estimated GFR Random Glucose Fasting Glucose Calcium Total Bilirubin AST ALT Alkaline Phosphatase Total Protein Albumin Urine Test NEGATIVE Salicylates Urine Opiates Screen Not Detected Acetaminophen Ur Barbiturates Screen Not Detected Ur Phencyclidine Scrn Not Detected Ur Amphetamines Screen Not Detected U Benzodiazepines Scrn Not Detected Urine Cocaine Screen Not Detected U Marijuana (THC) Screen Not Detected Ethyl Alcohol Coronavirus (PCR) Influenza Type A (PCR) Influenza Type B (PCR) RSV RNA Qual (PCR) 03/23/20 03/23/20 03/27/20 19:29 19:29 21:51 WBC RBC Hgb Hct MCV MCH MCHC RDW Plt Count MPV Immature Gran % (Auto) Neut % (Auto) Lymph % (Auto) [place] % (Auto) Eos % (Auto) Baso % (Auto) Lymph # (Auto) [place] # (Auto) Eos # (Auto) Baso # (Auto) Abs Immat Gran (auto) Absolute Neuts (auto) Absolute Nucleated RBC Nucleated RBC % (auto) Sodium 141 Potassium 4.3 Chloride 106 Carbon Dioxide 27 Anion Gap 12 BUN 19 H Creatinine 1.06 Estim Creat Clear Calc 75.7 Estimated GFR 54 Random Glucose 97 Fasting Glucose Calcium 9.4 Total Bilirubin 0.4 AST 16 ALT 16 Alkaline Phosphatase 74 Total Protein 7.8 Albumin 4.5 Urine Test Salicylates < 5.0 L Urine Opiates Screen Acetaminophen < 1 Ur Barbiturates Screen Ur Phencyclidine Scrn Ur Amphetamines Screen U Benzodiazepines Scrn Urine Cocaine Screen U Marijuana (THC) Screen Ethyl Alcohol < 10 Coronavirus (PCR) NEGATIVE Influenza Type A (PCR) NEGATIVE Influenza Type B (PCR) NEGATIVE RSV RNA Qual (PCR) NEGATIVE 03/28/20 03/28/20 07:43 07:43 WBC 12.3 H RBC 4.36 Hgb 13.0 Hct 40.3 MCV 92.4 MCH 29.8 MCHC 32.3 RDW 13.2 Plt Count 288 MPV 10.2 Immature Gran % (Auto) 0.2 Neut % (Auto) 57.3 Lymph % (Auto) 29.8 [place] % (Auto) 8.8 Eos % (Auto) 3.3 Baso % (Auto) 0.6 Lymph # (Auto) 3.7 [place] # (Auto) 1.1 Eos # (Auto) 0.4 Baso # (Auto) 0.1 Abs Immat Gran (auto) 0.03 Absolute Neuts (auto) 7.1 Absolute Nucleated RBC 0.000 Nucleated RBC % (auto) 0.0 Sodium 140 Potassium 4.5 Chloride 104 Carbon Dioxide 29 Anion Gap 12 BUN 18 H Creatinine 0.98 Estim Creat Clear Calc 81.9 Estimated GFR 59 Random Glucose Fasting Glucose 88 Calcium 9.1 Total Bilirubin 0.5 AST 14 ALT 15 Alkaline Phosphatase 68 Total Protein 6.9 Albumin 4.0 Urine Test Salicylates Urine Opiates Screen Acetaminophen Ur Barbiturates Screen Ur Phencyclidine Scrn Ur Amphetamines Screen U Benzodiazepines Scrn Urine Cocaine Screen U Marijuana (THC) Screen Ethyl Alcohol Coronavirus (PCR) Influenza Type A (PCR) Influenza Type B (PCR) RSV RNA Qual (PCR) Airway Mallampati Class: II TM Dist: >3cm
--- NOTE | 2020-03-31 09:41 | MHC.SHP ---
Pre-Procedural Eval Section A The patient is an INPATIENT: Yes Changes since office visit: Yes Changes in Medication and Yes Patient answered all questions; No Cold of Flu in the past 2 weeks and No New Medical Problems The History & Physical has been completed within 30 days and I have reviewed it.: Yes Section B Chief Complaint: Depression Allergies: Allergies Allergy/AdvReac Type Severity Reaction Status Date / Time gabapentin [GABAPENTIN] Allergy Unknown UNKNOWN Verified 03/25/20 19:56 morphine [MORPHINE] Allergy Unknown UNKNOWN Verified 03/25/20 19:56 oxycodone [OXYCODONE] Allergy Unknown UNKNOWN Verified 03/25/20 19:56 topiramate [TOPIRAMATE] Allergy Unknown UNKNOWN Verified 03/25/20 19:56 Plan Patient has been examined and remains a candidate for the planned procedure
[2020-03-31] MEDS: QUEtiapine Fumarate 25 MG TABLET PO ×3 (11:18→21:52)
[2020-03-31] MEDS: Omeprazole 40 MG CAPSULE.DR PO (11:18)
[2020-03-31] MEDS: Fludrocortisone Acetate 0.1 MG TABLET PO ×2 (11:19→21:53)
[2020-03-31] MEDS: Vilazodone HCL 40 MG TABLET PO (11:19)
[2020-03-31] MEDS: Levothyroxine Sodium 50 MCG TABLET PO (13:17)
[2020-03-31] MEDS: Losartan Potassium 25 MG TABLET PO (13:17)
[2020-03-31] MEDS: Acetaminophen 325 MG TABLET 650 MG PO (15:27)
[2020-03-31] MEDS: Atorvastatin Calcium 10 MG TABLET PO (21:52)
[2020-03-31] MEDS: Montelukast Sodium 10 MG TABLET PO (21:52)
[2020-03-31] MEDS: Amitriptyline HCl 50 MG TABLET 150 MG PO (21:53)
[2020-03-31] MEDS: atenoloL 25 MG TABLET PO (22:02)
--- NOTE | 2020-03-31 22:07 | HO.ECTPROC ---
ECT Procedure Note Diagnosis/Treatment Diagnosis: Major Depressive Disorder Current Treatment Number: 1 Treatment: Series Interval Clinical Notes: patient severely depressed anxious ruminating history of good response to ECT ECT Settings Device: THYMATRON DGx Electrode Placement: Right Unilateral Program/Pulse Width: 0.50 Energy Percent: 100 Seizure Duration By EEG (in seconds): 52 Medications Administration General Anesthetic: Ketamine (100) Muscle Relaxant: Succinylcholine (100) Ancillary Medications Anti-emetics: Zofran - Pre ECT Miscillaneous Medications: Propofol (30 mg post) and Flumazenil (0.5) Airway Management Airway Management: Bag Mask Ventilation Treatment Recommendations No Changes Recommended: No change Pt Tolerated Procedure w/o Issue: Yes
[2020-04-01] MEDS: Levothyroxine Sodium 50 MCG TABLET PO (06:44)
[2020-04-01] MEDS: Omeprazole 40 MG CAPSULE.DR PO (06:45)
[2020-04-01 07:22] VITALS: TEMP 36.5
[2020-04-01 09:00] VITALS: BP 110/80; PULSE 82
[2020-04-01] MEDS: QUEtiapine Fumarate 25 MG TABLET PO ×3 (09:00→20:56)
[2020-04-01] MEDS: Vilazodone HCL 40 MG TABLET PO (09:00)
[2020-04-01] MEDS: Losartan Potassium 25 MG TABLET PO (09:00)
[2020-04-01] MEDS: Fludrocortisone Acetate 0.1 MG TABLET PO ×2 (09:05→20:56)
[2020-04-01] MEDS: Acetaminophen 325 MG TABLET 650 MG PO (09:09)
--- NOTE | 2020-04-01 11:14 | P.PNPSI_ITS ---
Subjective Subjective Date of Service: 04/01/20 Reason For Visit: Depression Interim History: Pt reports that she is feeling overall better and that she has not engaged in any self-harm since coming to the unit. Pt asks for Zanaflex for post ECT muscle aches, saying she takes it at home. She at first asks for Motrin for headache (post ect), but says her canal superintendent recommended against it; she agrees to increase in Acetaminophen (continuity writer reviewd labs and Liver enzymes WNL). Otherwise pt has no complaints. discussed case with nursing staff who report pt has been doing well on unit, with appropriate behaviors and w/out any SI and not engaging in self harm; nursing staff feels pt is appropriate to go to q15 minutes to which continuity writer agrees. Medication Compliance: Yes Side effects from medications: No Review of Systems Review of Systems Yes all other systems are reviewed and are negative Mental Status Exam Mental Status Exam Patient Appearance: Unkempt Patient Orientation: Person, Place, Time and Situation Level of Consciousness: Awake and Appropriate Patient Behavior: Appropriate, Cooperative and Good Eye Contact Mood Description: Depressed (but pt reports symptoms are better ) Affect Description: Calm and Depressed Patient Cognition Impaired: No Ability to Follow Directions: Good Speech Pattern: Clear and Spontaneous Speech Delusions: Not Present Thought Process: Intact, Goal Oriented and Linear Thought Content: positive for Intact Judgement: Fair Judgement and Insight: appears intact Diagnostics Vital Signs (24Hr): Vital Signs - 24 hr 03/31/20 11:30 03/31/20 13:17 03/31/20 22:02 Temperature Pulse Rate 74 69 82 Blood Pressure 128/72 122/79 110/80 Pulse Oximetry 03/31/20 22:04 04/01/20 07:22 04/01/20 09:00 Temperature 97.7 F Pulse Rate 82 82 Blood Pressure 110/80 110/80 Pulse Oximetry 97 Body Mass Index 38.7 Labs Results: 03/28/20 07:43 03/28/20 07:43 Medications Medications Current Medications Generic Name Dose Route Start Last Admin Trade Name Freq PRN Reason Stop Dose Admin Acetaminophen 1,000 mg 04/01/20 11:06 Acetaminophen 325 Mg Tablet PO Q6H PRN Headache/Pain Mild Scale (1-3) Acetaminophen/Butalbital/Caffeine 1 tab 03/31/20 10:59 03/31/20 11:19 Butalb/Acetamin/Caff 50/325/40 1 Tab Tablet PO 1 tab Q4H PRN Administration Headache Al Hydroxide/Mg Hydroxide 30 ml 03/31/20 10:42 Magnesium Hydrox/Alum Hydrox 30 Ml Oral.Susp PO Q6H PRN Heartburn/Nausea Albuterol Sulfate 2 puff 03/31/20 10:59 Albuterol Sulfate 90 Mcg 8 Gm Inhaler INHALE RQ6H PRN Shortness of Breath Amitriptyline HCl 150 mg 03/31/20 21:00 03/31/20 21:53 Amitriptyline Hcl 50 Mg Tablet PO 150 mg BEDTIME SOO Administration Atenolol 25 mg 03/31/20 21:00 03/31/20 22:02 Atenolol 25 Mg Tablet PO 25 mg BEDTIME SOO Administration Protocol Atorvastatin Calcium 10 mg 03/31/20 21:00 03/31/20 21:52 Atorvastatin Calcium 10 Mg Tablet PO 10 mg BEDTIME SOO Administration Clonazepam 0.5 mg 03/31/20 10:59 Clonazepam 0.5 Mg Tablet PO BID PRN anxiety/restlessness Fludrocortisone Acetate 0.1 mg 03/31/20 11:00 04/01/20 09:05 Fludrocortisone Acetate 0.1 Mg Tablet PO 0.1 mg BID SOO Administration Hydroxyzine HCl 25 mg 03/31/20 10:42 Hydroxyzine Hcl 25 Mg Tablet PO BEDTIME PRN Anxiety Levothyroxine Sodium 50 mcg 03/31/20 13:05 04/01/20 06:44 Levothyroxine Sodium 50 Mcg Tablet PO 50 mcg DAILY@0600 SOO Administration Losartan Potassium 25 mg 03/31/20 13:10 04/01/20 09:00 Losartan Potassium 25 Mg Tablet PO 25 mg DAILY SOO Administration Protocol Magnesium Hydroxide 30 ml 03/31/20 10:42 Milk Of Magnesia 30 Ml Oral.Susp PO DAILY PRN Constipation Montelukast Sodium 10 mg 03/31/20 21:00 03/31/20 21:52 Montelukast Sodium 10 Mg Tablet PO 10 mg BEDTIME SOO Administration Omeprazole 40 mg 03/31/20 11:00 04/01/20 06:45 Omeprazole 40 Mg Capsule.Dr PO 40 mg DAILY@0630 SOO Administration Quetiapine Fumarate 25 mg 03/31/20 11:00 11/21/20 09:00 Quetiapine Fumarate 25 Mg Tablet PO 25 mg TID SOO Administration Tizanidine HCl 4 mg 04/01/20 11:13 Tizanidine Hcl 4 Mg Tablet PO BID PRN muscle cramps Trazodone HCl 50 mg 03/31/20 10:42 Trazodone Hcl 50 Mg Tablet PO BEDTIME PRN Insomnia Vilazodone HCl 40 mg 03/31/20 11:00 04/01/20 09:00 Vilazodone Hcl 40 Mg Tablet PO 40 mg DAILY SOO Administration Allergies Allergies Allergy/AdvReac Type Severity Reaction Status Date / Time gabapentin [GABAPENTIN] Allergy Unknown UNKNOWN Verified 03/25/20 19:56 morphine [MORPHINE] Allergy Unknown UNKNOWN Verified 03/25/20 19:56 oxycodone [OXYCODONE] Allergy Unknown UNKNOWN Verified 03/25/20 19:56 topiramate [TOPIRAMATE] Allergy Unknown UNKNOWN Verified 03/25/20 19:56 Assessment & Plan Pt remains depressed but symptoms are improving stable on unit with appropriate behaviors; no self-harm will advance to q15min checks (but retain low threshold for increasing frequency if needed) Pt c/o headache, muscle aches Increased tylenol to 1000mg (with max daily dose of 3000mg from all sources) Started Prn Zanaflex for muscle aches Otherwise, continue with current tx plan Greater than 50% of the session was spent on counseling and/or coordination of care Patient educated on: medication risk/benefits Informed Consent: understands Reason for contiued inpatient stay Substantial Risk for: harm to self (moderate to low; improving)
[2020-04-01] MEDS: TiZANidine HCL 4 MG TABLET PO ×2 (12:00→20:56)
[2020-04-01 16:07] VITALS: BP 119/83; PULSE 76
[2020-04-01 16:08] VITALS: BP 114/87; PULSE 84
--- NOTE | 2020-04-01 16:32 | HO.POSTANES ---
Post Anesthesia Evaluation Post Anesthesia Evaluation Vital Signs: Vital Signs Temp Pulse BP 04/01/20 16:08 84 114/87 04/01/20 16:07 76 119/83 04/01/20 09:00 82 110/80 04/01/20 07:22 97.7 F Anesthesia: General Mental Status: Awake Pain Control: Satisfactory Nausea/Vomiting: None Hydration: Adequate Anesthesia-Related Issues: No Anes. Related Issues
[2020-04-01] MEDS: clonazePAM 0.5 MG TABLET PO ×2 (16:34→23:47)
[2020-04-01] MEDS: Acetaminophen 325 MG TABLET 975 MG PO (16:35)
[2020-04-01 18:00] VITALS: BP 118/63; PULSE 92; TEMP 36.2
[2020-04-01] MEDS: Atorvastatin Calcium 10 MG TABLET PO (20:56)
[2020-04-01] MEDS: Amitriptyline HCl 50 MG TABLET 150 MG PO (20:56)
[2020-04-01 20:57] VITALS: BP 151/92; PULSE 91
[2020-04-01] MEDS: Montelukast Sodium 10 MG TABLET PO (20:57)
[2020-04-01] MEDS: atenoloL 25 MG TABLET PO (20:57)
[2020-04-01] MEDS: hydrOXYzine HCL 25 MG TABLET PO (23:48)
[2020-04-02 06:00] VITALS: BP 121/74; PULSE 71; TEMP 36.3
[2020-04-02] MEDS: Omeprazole 40 MG CAPSULE.DR PO (07:14)
[2020-04-02] MEDS: Levothyroxine Sodium 50 MCG TABLET PO (07:14)
[2020-04-02 08:55] VITALS: BP 121/74; PULSE 71
[2020-04-02] MEDS: Fludrocortisone Acetate 0.1 MG TABLET PO ×2 (08:55→21:25)
[2020-04-02] MEDS: QUEtiapine Fumarate 25 MG TABLET PO ×3 (08:55→21:27)
[2020-04-02] MEDS: Vilazodone HCL 40 MG TABLET PO (08:55)
[2020-04-02] MEDS: Losartan Potassium 25 MG TABLET PO (08:55)
[2020-04-02 18:00] VITALS: BP 144/63; PULSE 92; TEMP 36.8
--- NOTE | 2020-04-02 20:38 | PC.NURSE ---
Patient signed 3 day notice which is up 04/05/2020. Patient inidciated that she needs to go home after ECT on Friday. Calls placed to Yazmin Barillas and Antonina Mcfadden.
--- NOTE | 2020-04-02 21:07 | P.PNPSI_ITS ---
Subjective Subjective Date of Service: 04/02/20 Reason For Visit: Depression Interim History: Vitals reviewed Labs reviewed Pt seen, chart reviewed and case discussed with nursing staff Pt lying on bed upon approach; pt is quiet and only nods to internal communications writer. When asked how come so quiet, pt does not answer. Eventually she says she has some things on her mind; internal communications writer offers to discuss but she says she rather not talk right now. She denies any SI or urge to superficially self harm. Pt reports muscle relaxant ordered yesterday was helpful. Staff reports pt is med adherent, remains social in milue, eating well and safe on the unit without behavioral incident Medication Compliance: Yes Side effects from medications: No Attending Groups: Yes Mental Status Exam Mental Status Exam Patient Appearance: Unkempt Patient Orientation: Person, Place, Time and Situation Level of Consciousness: Awake and Appropriate Patient Behavior: Uncooperative and Poor Eye Contact Mood Description: Constricted and Depressed Affect Description: Constricted Speech Pattern: Mumbled Thought Process: Goal Oriented Thought Content: positive for Suicidal Ideation (None) Judgement: Fair Judgement and Insight: appears intact Diagnostics Vital Signs (24Hr): Vital Signs - 24 hr 04/02/20 06:00 04/02/20 08:55 04/02/20 18:00 Temperature 97.4 F 98.2 F Pulse Rate 71 71 92 Blood Pressure 121/74 121/74 144/63 H Body Mass Index 38.7 Labs Results: 03/28/20 07:43 03/28/20 07:43 Medications Medications Current Medications Generic Name Dose Route Start Last Admin Trade Name Freq PRN Reason Stop Dose Admin Acetaminophen 975 mg 04/01/20 11:20 04/01/20 16:35 Acetaminophen 325 Mg Tablet PO 975 mg Q6H PRN Administration Headache/Pain Mild Scale (1-3) Acetaminophen/Butalbital/Caffeine 1 tab 03/31/20 10:59 03/31/20 11:19 Butalb/Acetamin/Caff 50/325/40 1 Tab Tablet PO 1 tab Q4H PRN Administration Headache Al Hydroxide/Mg Hydroxide 30 ml 03/31/20 10:42 Magnesium Hydrox/Alum Hydrox 30 Ml Oral.Susp PO Q6H PRN Heartburn/Nausea Albuterol Sulfate 2 puff 03/31/20 10:59 Albuterol Sulfate 90 Mcg 8 Gm Inhaler INHALE RQ6H PRN Shortness of Breath Amitriptyline HCl 150 mg 03/31/20 21:00 04/01/20 20:56 Amitriptyline Hcl 50 Mg Tablet PO 150 mg BEDTIME SOO Administration Atenolol 25 mg 03/31/20 21:00 04/01/20 20:57 Atenolol 25 Mg Tablet PO 25 mg BEDTIME SOO Administration Protocol Atorvastatin Calcium 10 mg 03/31/20 21:00 04/01/20 20:56 Atorvastatin Calcium 10 Mg Tablet PO 10 mg BEDTIME SOO Administration Clonazepam 0.5 mg 03/31/20 10:59 04/01/20 23:47 Clonazepam 0.5 Mg Tablet PO 0.5 mg BID PRN Administration anxiety/restlessness Fludrocortisone Acetate 0.1 mg 03/31/20 11:00 04/02/20 08:55 Fludrocortisone Acetate 0.1 Mg Tablet PO 0.1 mg BID SOO Administration Hydroxyzine HCl 25 mg 03/31/20 10:42 04/01/20 23:48 Hydroxyzine Hcl 25 Mg Tablet PO 25 mg BEDTIME PRN Administration Anxiety Levothyroxine Sodium 50 mcg 03/31/20 13:05 04/02/20 07:14 Levothyroxine Sodium 50 Mcg Tablet PO 50 mcg DAILY@0600 SOO Administration Losartan Potassium 25 mg 03/31/20 13:10 04/02/20 08:55 Losartan Potassium 25 Mg Tablet PO 25 mg DAILY SOO Administration Protocol Magnesium Hydroxide 30 ml 03/31/20 10:42 Milk Of Magnesia 30 Ml Oral.Susp PO DAILY PRN Constipation Montelukast Sodium 10 mg 03/31/20 21:00 04/01/20 20:57 Montelukast Sodium 10 Mg Tablet PO 10 mg BEDTIME SOO Administration Omeprazole 40 mg 03/31/20 11:00 04/02/20 07:14 Omeprazole 40 Mg Capsule.Dr PO 40 mg DAILY@0630 SOO Administration Quetiapine Fumarate 25 mg 03/31/20 11:00 04/02/20 15:13 Quetiapine Fumarate 25 Mg Tablet PO 25 mg TID SOO Administration Tizanidine HCl 4 mg 04/01/20 11:13 04/01/20 20:56 Tizanidine Hcl 4 Mg Tablet PO 4 mg BID PRN Administration muscle cramps Trazodone HCl 50 mg 03/31/20 10:42 Trazodone Hcl 50 Mg Tablet PO BEDTIME PRN Insomnia Vilazodone HCl 40 mg 03/31/20 11:00 04/02/20 08:55 Vilazodone Hcl 40 Mg Tablet PO 40 mg DAILY SOO Administration Allergies Allergies Allergy/AdvReac Type Severity Reaction Status Date / Time gabapentin [GABAPENTIN] Allergy Unknown UNKNOWN Verified 03/25/20 19:56 morphine [MORPHINE] Allergy Unknown UNKNOWN Verified 03/25/20 19:56 oxycodone [OXYCODONE] Allergy Unknown UNKNOWN Verified 03/25/20 19:56 topiramate [TOPIRAMATE] Allergy Unknown UNKNOWN Verified 03/25/20 19:56 Assessment & Plan Pt quiet today, choosing not to engage with internal communications writer. Staff reports pt remains stable continue with current treatment plan
[2020-04-02 21:25] VITALS: BP 151/70; PULSE 97
[2020-04-02] MEDS: Atorvastatin Calcium 10 MG TABLET PO (21:25)
[2020-04-02] MEDS: atenoloL 25 MG TABLET PO (21:25)
[2020-04-02] MEDS: Amitriptyline HCl 50 MG TABLET 150 MG PO (21:26)
[2020-04-02] MEDS: Montelukast Sodium 10 MG TABLET PO (21:27)
[2020-04-02] MEDS: TiZANidine HCL 4 MG TABLET PO (21:35)
[2020-04-02] MEDS: traZODone HCL 50 MG TABLET PO (23:12)
[2020-04-03] VITALS (12 sets, daily range): BP systolic 113–152; BP diastolic 59–80; PULSE 64–91; RESP 14–18; TEMP 35.9–36.7; O2SAT 94–97; BMI 38.7
[2020-04-03] MEDS: traZODone HCL 50 MG TABLET PO ×2 (01:13→21:26)
--- NOTE | 2020-04-03 07:11 | HO.ECTPROC ---
ECT Procedure Note Diagnosis/Treatment Diagnosis: Major Depressive Disorder Previous ECT Date: 03/31/20 Current Treatment Number: 2 Treatment: Series Interval Clinical Notes: Depressed. Had bad ORDONEZ post ECT. Fioricet used w + effect. TyleniolIV not effective ECT Settings Device: THYMATRON DGx Electrode Placement: Right Unilateral Program/Pulse Width: 0.50 Energy Percent: 100 Seizure Duration By EEG (in seconds): 44 By Motor Observation (in seconds): 38 Medications Administration General Anesthetic: Ketamine (100) Muscle Relaxant: Succinylcholine (100) and Rocuronium (5) Ancillary Medications Analgesics: Torodol - Pre ECT (NO NSAIDS) and Acetaminophen (1g pre ECT IV (not effective)) Anti-emetics: Zofran - Pre ECT (4) Cardiovascular Medications: Glycopyrrolate (0.2 to prevent Ketamine related hypersailvation) Miscillaneous Medications: Propofol (30), Midazolam (2mg post) and Flumazenil (0.5) Airway Management Airway Management: Bag Mask Ventilation Treatment Recommendations Electrode Placement: Right Unilateral Program/Pulse Width: 0.50 Energy Percent: 80 Notes: Dc IV Tylenol pre ECT. Check efficacy of Rocuronium and need for postECT Fentanyl. for bad ORDONEZ. Check if needs Glyco Pt Tolerated Procedure w/o Issue: Yes
--- NOTE | 2020-04-03 07:11 | MHC.SHP ---
Pre-Procedural Eval Section A The patient is an INPATIENT: Yes Changes since office visit: No Cold of Flu in the past 2 weeks, No New Medical Problems, No Changes in Medication and No Patient answered all questions The History & Physical has been completed within 30 days and I have reviewed it.: Yes Section B Chief Complaint: Depression Allergies: Allergies Allergy/AdvReac Type Severity Reaction Status Date / Time gabapentin [GABAPENTIN] Allergy Unknown UNKNOWN Verified 03/25/20 19:56 morphine [MORPHINE] Allergy Unknown UNKNOWN Verified 03/25/20 19:56 oxycodone [OXYCODONE] Allergy Unknown UNKNOWN Verified 03/25/20 19:56 topiramate [TOPIRAMATE] Allergy Unknown UNKNOWN Verified 03/25/20 19:56 Plan Patient has been examined and remains a candidate for the planned procedure
[2020-04-03] MEDS: Lactated Ringers 1,000 ML 50 ML IVCONT (07:21)
--- NOTE | 2020-04-03 07:55 | HO.ANESPROP2 ---
[facility] Past Medical History Medical History Asthma At risk for bleeding associated with tonsillectomy and adenoidectomy Autonomic dysfunction HLD (hyperlipidemia) Major depressive disorder, recurrent, severe with psychotic symptoms Neuropathy PTSD (post-traumatic stress disorder) Renal insufficiency Suicidal ideation Ulnar nerve damage Functional capacity: independent ambulation Surgical History Surgical History H/O spinal fusion H/O tubal ligation H/O ureter repair History of sinus surgery History of tonsillectomy Previous section Social History Social History Household Members: Family Housing: House Do you presently have visiting nurse or other home services: No Smoking Status: Never smoker Smoked in Last 30 Days: No Patient Interested in Nicotine Replacement: No Patient Given Instructions on How to Stop Smoking: No Second Hand Smoke Exposure: No Use of substances other than those prescribed or required for medical reasons: Yes Substance Use Type: Marijuana Substance Use Frequency: Monthly Last Used Substance: Unknown Currently Displaying Signs/Symptoms of Drug Intoxication Withdrawal: No Any prior treatment program specific to substance use: No Have you been hit, kicked, punched, or otherwise hurt by someone within the past year? If so, by whom?: No Do you feel safe in your current relationship?: No Current Relationship Is there a partner from a previous relationship who is making you feel unsafe now?: No Are you made to feel afraid or neglected: No Spiritual Healthcare Practices: unable to assess during admit Spiritism Healthcare Practices: unable to assess during admit Cultural Healthcare Practices: unable to assess during admit Advance Directives: No Advance Directives Information Provided: No Advance Directives on File: No Do you have thoughts of harming others: None Do you have a plan to hurt others: No Plan Recently lost weight without trying: No service: No Sexual orientation: Straight/Heterosexual Meds Allergies Allergy/AdvReac Type Severity Reaction Status Date / Time gabapentin [GABAPENTIN] Allergy Unknown UNKNOWN Verified 03/25/20 19:56 morphine [MORPHINE] Allergy Unknown UNKNOWN Verified 03/25/20 19:56 oxycodone [OXYCODONE] Allergy Unknown UNKNOWN Verified 03/25/20 19:56 topiramate [TOPIRAMATE] Allergy Unknown UNKNOWN Verified 03/25/20 19:56 Home Medications Medication Instructions Recorded Confirmed Type amitriptyline 1 tab PO BEDTIME 03/24/20 03/24/20 History atenolol 1 tab PO DAILY 03/24/20 03/24/20 History atorvastatin 1 tab PO DAILY 03/24/20 03/24/20 History cetirizine 1 tab PO BEDTIME 03/24/20 03/24/20 History clonazepam 1 tab PO BID PRN 03/24/20 03/24/20 History fludrocortisone 0.1 mg PO Q12H 03/24/20 03/24/20 History levothyroxine 1 tab PO DAILY@0630 03/24/20 03/24/20 History losartan 1 tab PO DAILY 03/24/20 03/24/20 History montelukast 1 tab PO DAILY@0730 03/24/20 03/24/20 History tizanidine 1 tab PO TID 03/24/20 03/24/20 History trazodone 1 tab PO BEDTIME 03/24/20 03/24/20 History vilazodone [Viibryd] 1 tab PO DAILY@0730 03/24/20 03/24/20 History Exam Exam Date and Time: April 03, 2020 0755 Height,Weight and Vital Signs: Height 5 ft 6 in Weight 108.86 kg Last Vital Signs Temp 98.0 F 04/03/20 06:20 Pulse 75 04/03/20 06:20 Resp 18 04/03/20 06:20 BP 125/71 04/03/20 06:20 Pulse Ox 96 04/03/20 06:20 Pertinent Lab Results Pertinent Lab Results: Laboratory Tests 03/23/20 03/23/20 03/23/20 19:21 19:21 19:29 WBC 13.3 H RBC 4.60 Hgb 13.7 Hct 42.3 MCV 92.0 MCH 29.8 MCHC 32.4 RDW 13.4 Plt Count 316 MPV 10.0 Immature Gran % (Auto) 0.3 Neut % (Auto) 69.6 Lymph % (Auto) 20.0 [place] % (Auto) 7.6 Eos % (Auto) 1.9 Baso % (Auto) 0.6 Lymph # (Auto) 2.7 [place] # (Auto) 1.0 Eos # (Auto) 0.3 Baso # (Auto) 0.1 Abs Immat Gran (auto) 0.04 H Absolute Neuts (auto) 9.2 H Absolute Nucleated RBC 0.000 Nucleated RBC % (auto) 0.0 Sodium Potassium Chloride Carbon Dioxide Anion Gap BUN Creatinine Estim Creat Clear Calc Estimated GFR Random Glucose Fasting Glucose Calcium Total Bilirubin AST ALT Alkaline Phosphatase Total Protein Albumin Urine Test NEGATIVE Salicylates Urine Opiates Screen Not Detected Acetaminophen Ur Barbiturates Screen Not Detected Ur Phencyclidine Scrn Not Detected Ur Amphetamines Screen Not Detected U Benzodiazepines Scrn Not Detected Urine Cocaine Screen Not Detected U Marijuana (THC) Screen Not Detected Ethyl Alcohol Coronavirus (PCR) Influenza Type A (PCR) Influenza Type B (PCR) RSV RNA Qual (PCR) 03/23/20 03/23/20 03/27/20 19:29 19:29 21:51 WBC RBC Hgb Hct MCV MCH MCHC RDW Plt Count MPV Immature Gran % (Auto) Neut % (Auto) Lymph % (Auto) [place] % (Auto) Eos % (Auto) Baso % (Auto) Lymph # (Auto) [place] # (Auto) Eos # (Auto) Baso # (Auto) Abs Immat Gran (auto) Absolute Neuts (auto) Absolute Nucleated RBC Nucleated RBC % (auto) Sodium 141 Potassium 4.3 Chloride 106 Carbon Dioxide 27 Anion Gap 12 BUN 19 H Creatinine 1.06 Estim Creat Clear Calc 75.7 Estimated GFR 54 Random Glucose 97 Fasting Glucose Calcium 9.4 Total Bilirubin 0.4 AST 16 ALT 16 Alkaline Phosphatase 74 Total Protein 7.8 Albumin 4.5 Urine Test Salicylates < 5.0 L Urine Opiates Screen Acetaminophen < 1 Ur Barbiturates Screen Ur Phencyclidine Scrn Ur Amphetamines Screen U Benzodiazepines Scrn Urine Cocaine Screen U Marijuana (THC) Screen Ethyl Alcohol < 10 Coronavirus (PCR) NEGATIVE Influenza Type A (PCR) NEGATIVE Influenza Type B (PCR) NEGATIVE RSV RNA Qual (PCR) NEGATIVE 03/28/20 03/28/20 07:43 07:43 WBC 12.3 H RBC 4.36 Hgb 13.0 Hct 40.3 MCV 92.4 MCH 29.8 MCHC 32.3 RDW 13.2 Plt Count 288 MPV 10.2 Immature Gran % (Auto) 0.2 Neut % (Auto) 57.3 Lymph % (Auto) 29.8 [place] % (Auto) 8.8 Eos % (Auto) 3.3 Baso % (Auto) 0.6 Lymph # (Auto) 3.7 [place] # (Auto) 1.1 Eos # (Auto) 0.4 Baso # (Auto) 0.1 Abs Immat Gran (auto) 0.03 Absolute Neuts (auto) 7.1 Absolute Nucleated RBC 0.000 Nucleated RBC % (auto) 0.0 Sodium 140 Potassium 4.5 Chloride 104 Carbon Dioxide 29 Anion Gap 12 BUN 18 H Creatinine 0.98 Estim Creat Clear Calc 81.9 Estimated GFR 59 Random Glucose Fasting Glucose 88 Calcium 9.1 Total Bilirubin 0.5 AST 14 ALT 15 Alkaline Phosphatase 68 Total Protein 6.9 Albumin 4.0 Urine Test Salicylates Urine Opiates Screen Acetaminophen Ur Barbiturates Screen Ur Phencyclidine Scrn Ur Amphetamines Screen U Benzodiazepines Scrn Urine Cocaine Screen U Marijuana (THC) Screen Ethyl Alcohol Coronavirus (PCR) Influenza Type A (PCR) Influenza Type B (PCR) RSV RNA Qual (PCR) Assessment and Plan Assessment Anesthesia Assessment: Anesthesia Plan Discussed and Chart Reviewed Final Anesthetic Review NPO: Yes ASA Class: III Final Preanesthetic Review: No Changes in Pt Med Stat, Meds/Allgs Chart Reviewed, Consent Obtained/Reviewed and Anes Risks/Benef Reviewed Patient Risk: Intermediate Procedure Risk: Low Anesthetic Plan Anesthetic Plan: GA Disposition: Standard PACU
[2020-04-03] MEDS: QUEtiapine Fumarate 25 MG TABLET PO ×3 (09:26→21:27)
[2020-04-03] MEDS: Omeprazole 40 MG CAPSULE.DR PO (09:26)
[2020-04-03] MEDS: Levothyroxine Sodium 50 MCG TABLET PO (09:26)
[2020-04-03] MEDS: Losartan Potassium 25 MG TABLET PO (09:27)
[2020-04-03] MEDS: Vilazodone HCL 40 MG TABLET PO (09:27)
--- NOTE | 2020-04-03 11:55 | HO.PSYCHPN ---
Subjective Subjective Reason For Visit: Depression Subjective Notes: Conditional Voluntary and 3 Day Interim History: who patient submitted a 3 day notice wants to leave by Thanksgiving. Feeling better with ECT and hoping to complete this as an outpatient. Denies any active thoughts of self-harm see ECT note Medication Compliance: Yes Mental Status Exam Mental Status Exam Patient Appearance: Unkempt Patient Orientation: Person, Place, Time and Situation Level of Consciousness: Awake and Appropriate Patient Behavior: Uncooperative and Poor Eye Contact Mood Description: Constricted and Depressed Affect Description: Constricted Speech Pattern: Mumbled Thought Process: Goal Oriented Thought Content: positive for Suicidal Ideation (None) Judgement: Fair Judgement and Insight: appears intact Diagnostics Vital Signs (24Hr): Vital Signs - 24 hr 04/02/20 18:00 04/02/20 21:25 04/03/20 05:50 Temperature 98.2 F 97.5 F Pulse Rate 92 97 64 Respiratory Rate 18 Blood Pressure 144/63 H 151/70 H 120/67 Pulse Oximetry 95 04/03/20 06:14 04/03/20 06:20 04/03/20 08:20 Temperature 97.5 F 98.0 F 97.8 F Pulse Rate 64 75 77 Respiratory Rate 18 18 14 Blood Pressure 120/67 125/71 124/72 Pulse Oximetry 95 96 95 04/03/20 08:25 04/03/20 08:30 04/03/20 08:35 Temperature Pulse Rate 80 78 85 Respiratory Rate 16 16 18 Blood Pressure 113/78 118/79 121/80 Pulse Oximetry 96 96 97 04/03/20 08:50 04/03/20 09:27 04/03/20 10:00 Temperature 97.8 F Pulse Rate 78 74 74 Respiratory Rate 16 16 Blood Pressure 124/76 115/72 115/72 Pulse Oximetry 95 94 Body Mass Index 38.7 Labs Results: 03/28/20 07:43 03/28/20 07:43 Medications Medications Current Medications Generic Name Dose Route Start Last Admin Trade Name Freq PRN Reason Stop Dose Admin Acetaminophen 975 mg 04/01/20 11:20 04/01/20 16:35 Acetaminophen 325 Mg Tablet PO 975 mg Q6H PRN Administration Headache/Pain Mild Scale (1-3) Acetaminophen/Butalbital/Caffeine 1 tab 03/31/20 10:59 11/20/20 11:19 Butalb/Acetamin/Caff 50/325/40 1 Tab Tablet PO 1 tab Q4H PRN Administration Headache Al Hydroxide/Mg Hydroxide 30 ml 03/31/20 10:42 Magnesium Hydrox/Alum Hydrox 30 Ml Oral.Susp PO Q6H PRN Heartburn/Nausea Albuterol Sulfate 2 puff 03/31/20 10:59 Albuterol Sulfate 90 Mcg 8 Gm Inhaler INHALE RQ6H PRN Shortness of Breath Amitriptyline HCl 150 mg 03/31/20 21:00 04/02/20 21:26 Amitriptyline Hcl 50 Mg Tablet PO 150 mg BEDTIME SOO Administration Atenolol 25 mg 03/31/20 21:00 04/02/20 21:25 Atenolol 25 Mg Tablet PO 25 mg BEDTIME SOO Administration Protocol Atorvastatin Calcium 10 mg 03/31/20 21:00 04/02/20 21:25 Atorvastatin Calcium 10 Mg Tablet PO 10 mg BEDTIME SOO Administration Clonazepam 0.5 mg 03/31/20 10:59 04/01/20 23:47 Clonazepam 0.5 Mg Tablet PO 0.5 mg BID PRN Administration anxiety/restlessness Fentanyl 25 mcg 04/03/20 08:07 Fentanyl Citrate/Pf 100 Mcg/2 Ml Vial IVPUSH Q5M PRN Pain, Moderate (Pain Scale 4-6 Fludrocortisone Acetate 0.1 mg 03/31/20 11:00 04/02/20 21:25 Fludrocortisone Acetate 0.1 Mg Tablet PO 0.1 mg BID SOO Administration Hydroxyzine HCl 25 mg 03/31/20 10:42 04/01/20 23:48 Hydroxyzine Hcl 25 Mg Tablet PO 25 mg BEDTIME PRN Administration Anxiety Levothyroxine Sodium 50 mcg 03/31/20 13:05 04/03/20 09:26 Levothyroxine Sodium 50 Mcg Tablet PO 50 mcg DAILY@0600 SOO Administration Losartan Potassium 25 mg 03/31/20 13:10 04/03/20 09:27 Losartan Potassium 25 Mg Tablet PO 25 mg DAILY SOO Administration Protocol Magnesium Hydroxide 30 ml 03/31/20 10:42 Milk Of Magnesia 30 Ml Oral.Susp PO DAILY PRN Constipation Montelukast Sodium 10 mg 03/31/20 21:00 04/02/20 21:27 Montelukast Sodium 10 Mg Tablet PO 10 mg BEDTIME SOO Administration Omeprazole 40 mg 03/31/20 11:00 04/03/20 09:26 Omeprazole 40 Mg Capsule.Dr PO 40 mg DAILY@0630 SOO Administration Ondansetron HCl 4 mg 04/03/20 08:07 Ondansetron Hcl 4 Mg/2 Ml Vial IVPUSH ONCE PRN Nausea and Vomiting Quetiapine Fumarate 25 mg 03/31/20 11:00 04/03/20 09:26 Quetiapine Fumarate 25 Mg Tablet PO 25 mg TID SOO Administration Tizanidine HCl 4 mg 04/01/20 11:13 04/02/20 21:35 Tizanidine Hcl 4 Mg Tablet PO 4 mg BID PRN Administration muscle cramps Trazodone HCl 50 mg 03/31/20 10:42 04/03/20 01:13 Trazodone Hcl 50 Mg Tablet PO 50 mg BEDTIME PRN Administration Insomnia Vilazodone HCl 40 mg 03/31/20 11:00 04/03/20 09:27 Vilazodone Hcl 40 Mg Tablet PO 40 mg DAILY SOO Administration Allergies Allergies Allergy/AdvReac Type Severity Reaction Status Date / Time gabapentin [GABAPENTIN] Allergy Unknown UNKNOWN Verified 03/25/20 19:56 morphine [MORPHINE] Allergy Unknown UNKNOWN Verified 03/25/20 19:56 oxycodone [OXYCODONE] Allergy Unknown UNKNOWN Verified 03/25/20 19:56 topiramate [TOPIRAMATE] Allergy Unknown UNKNOWN Verified 03/25/20 19:56 Assessment & Plan Assessment & Plan (1) Suicidal ideation: Status: Acute Code(s): R45.851 - Suicidal ideations Assessment and Plan: denies si no self harm urges (2) Renal insufficiency: Status: Acute Code(s): N28.9 - Disorder of kidney and ureter, unspecified Assessment and Plan: no nsaid (3) PTSD (post-traumatic stress disorder): Status: Acute Code(s): F43.10 - Post-traumatic stress disorder, unspecified Assessment and Plan: vilazadone seroquel (4) Major depressive disorder, recurrent, severe with psychotic symptoms: Status: Acute Code(s): F33.3 - Major depressive disorder, recurrent, severe with psychotic symptoms Assessment and Plan: ect Greater than 50% of the session was spent on counseling and/or coordination of care
[2020-04-03] MEDS: Fludrocortisone Acetate 0.1 MG TABLET PO ×2 (14:14→21:26)
[2020-04-03] MEDS: TiZANidine HCL 4 MG TABLET PO ×2 (15:11→21:28)
[2020-04-03] MEDS: Acetaminophen 325 MG TABLET 975 MG PO (19:50)
[2020-04-03] MEDS: Amitriptyline HCl 50 MG TABLET 150 MG PO (21:25)
[2020-04-03] MEDS: clonazePAM 0.5 MG TABLET PO (21:25)
[2020-04-03] MEDS: hydrOXYzine HCL 25 MG TABLET PO (21:26)
[2020-04-03] MEDS: Montelukast Sodium 10 MG TABLET PO (21:27)
[2020-04-03] MEDS: atenoloL 25 MG TABLET PO (21:29)
[2020-04-03] MEDS: Atorvastatin Calcium 10 MG TABLET PO (21:29)
[2020-04-04 06:20] VITALS: BP 101/58; PULSE 59; RESP 18; TEMP 36.4; O2SAT 94
[2020-04-04] MEDS: Levothyroxine Sodium 50 MCG TABLET PO (06:21)
[2020-04-04] MEDS: Omeprazole 40 MG CAPSULE.DR PO (06:21)
[2020-04-04 08:32] VITALS: BP 101/58; PULSE 59
[2020-04-04] MEDS: Losartan Potassium 25 MG TABLET PO (08:32)
[2020-04-04] MEDS: Vilazodone HCL 40 MG TABLET PO (08:32)
[2020-04-04] MEDS: QUEtiapine Fumarate 25 MG TABLET PO ×3 (08:33→20:31)
[2020-04-04] MEDS: Fludrocortisone Acetate 0.1 MG TABLET PO ×2 (08:33→20:32)
[2020-04-04] MEDS: clonazePAM 0.5 MG TABLET PO ×2 (11:22→16:57)
[2020-04-04 12:44] LABS: Cholesterol 170 mg/dL; HDL Cholesterol 41 mg/dL; LDL Cholesterol Calculated 71 mg/dl; Triglycerides 290 mg/dL
[2020-04-04 12:55] LABS: Reflex LDLD? No
--- NOTE | 2020-04-04 13:27 | HO.POSTANES ---
Post Anesthesia Evaluation Post Anesthesia Evaluation Vital Signs: Vital Signs Temp Pulse Resp BP Pulse Ox 04/04/20 08:32 59 101/58 L 04/04/20 06:20 97.6 F 59 18 101/58 L 94 Anesthesia: General Mental Status: Awake Pain Control: Satisfactory Nausea/Vomiting: None Hydration: Adequate Anesthesia-Related Issues: No Anes. Related Issues
[2020-04-04 18:00] VITALS: BP 132/60; PULSE 85; TEMP 36.2
[2020-04-04] MEDS: Montelukast Sodium 10 MG TABLET PO (20:30)
[2020-04-04] MEDS: Atorvastatin Calcium 10 MG TABLET PO (20:31)
[2020-04-04] MEDS: traZODone HCL 50 MG TABLET PO (20:32)
[2020-04-04] MEDS: Amitriptyline HCl 50 MG TABLET 150 MG PO (20:32)
[2020-04-04] MEDS: TiZANidine HCL 4 MG TABLET PO (20:32)
[2020-04-04 20:36] VITALS: BP 132/60; PULSE 85
[2020-04-04] MEDS: atenoloL 25 MG TABLET PO (20:36)
--- NOTE | 2020-04-04 22:11 | HO.PSYCHPN ---
Subjective Subjective Date of Service: 04/04/20 Reason For Visit: Depression Subjective Notes: 3 Day Interim History: patient feeling better less labile less anxiety feels Seroquel is helpful feels safe to leave after tomorrow's ECT Medication Compliance: Yes Mental Status Exam Mental Status Exam Patient Appearance: Appropriate Patient Orientation: Person, Place, Time and Situation Level of Consciousness: Awake and Appropriate Patient Behavior: Uncooperative and Poor Eye Contact Mood Description: Constricted and Depressed Affect Description: Constricted Speech Pattern: Mumbled Thought Process: Goal Oriented Thought Content: positive for Suicidal Ideation (None) Judgement: Fair Judgement and Insight: appears intact Diagnostics Vital Signs (24Hr): Vital Signs - 24 hr 04/04/20 06:20 04/04/20 08:32 04/04/20 20:36 Temperature 97.6 F Pulse Rate 59 59 85 Respiratory Rate 18 Blood Pressure 101/58 L 101/58 L 132/60 Pulse Oximetry 94 Body Mass Index 38.7 Labs Results: 03/28/20 07:43 03/28/20 07:43 Labs: Laboratory Results - last 48 hr 04/04/20 12:06 Triglycerides 290 Cholesterol 170 LDL Cholesterol, Calc 71 HDL Cholesterol 41 Medications Medications Current Medications Generic Name Dose Route Start Last Admin Trade Name Freq PRN Reason Stop Dose Admin Acetaminophen 975 mg 04/01/20 11:20 04/03/20 19:50 Acetaminophen 325 Mg Tablet PO 975 mg Q6H PRN Administration Headache/Pain Mild Scale (1-3) Acetaminophen/Butalbital/Caffeine 1 tab 03/31/20 10:59 03/31/20 11:19 Butalb/Acetamin/Caff 50/325/40 1 Tab Tablet PO 1 tab Q4H PRN Administration Headache Al Hydroxide/Mg Hydroxide 30 ml 03/31/20 10:42 Magnesium Hydrox/Alum Hydrox 30 Ml Oral.Susp PO Q6H PRN Heartburn/Nausea Albuterol Sulfate 2 puff 03/31/20 10:59 Albuterol Sulfate 90 Mcg 8 Gm Inhaler INHALE RQ6H PRN Shortness of Breath Amitriptyline HCl 150 mg 03/31/20 21:00 04/04/20 20:32 Amitriptyline Hcl 50 Mg Tablet PO 150 mg BEDTIME SOO Administration Atenolol 25 mg 03/31/20 21:00 11/24/20 20:36 Atenolol 25 Mg Tablet PO 25 mg BEDTIME SOO Administration Protocol Atorvastatin Calcium 10 mg 03/31/20 21:00 04/04/20 20:31 Atorvastatin Calcium 10 Mg Tablet PO 10 mg BEDTIME SOO Administration Clonazepam 0.5 mg 03/31/20 10:59 04/04/20 16:57 Clonazepam 0.5 Mg Tablet PO 0.5 mg BID PRN Administration anxiety/restlessness Fentanyl 25 mcg 04/03/20 08:07 Fentanyl Citrate/Pf 100 Mcg/2 Ml Vial IVPUSH Q5M PRN Pain, Moderate (Pain Scale 4-6 Fludrocortisone Acetate 0.1 mg 03/31/20 11:00 04/04/20 20:32 Fludrocortisone Acetate 0.1 Mg Tablet PO 0.1 mg BID SOO Administration Hydroxyzine HCl 25 mg 03/31/20 10:42 04/03/20 21:26 Hydroxyzine Hcl 25 Mg Tablet PO 25 mg BEDTIME PRN Administration Anxiety Levothyroxine Sodium 50 mcg 03/31/20 13:05 04/04/20 06:21 Levothyroxine Sodium 50 Mcg Tablet PO 50 mcg DAILY@0600 [place] Administration Losartan Potassium 25 mg 03/31/20 13:10 04/04/20 08:32 Losartan Potassium 25 Mg Tablet PO 25 mg DAILY SOO Administration Protocol Magnesium Hydroxide 30 ml 03/31/20 10:42 Milk Of Magnesia 30 Ml Oral.Susp PO DAILY PRN Constipation Montelukast Sodium 10 mg 03/31/20 21:00 04/04/20 20:30 Montelukast Sodium 10 Mg Tablet PO 10 mg BEDTIME SOO Administration Omeprazole 40 mg 03/31/20 11:00 04/04/20 06:21 Omeprazole 40 Mg Capsule.Dr PO 40 mg DAILY@0630 SOO Administration Ondansetron HCl 4 mg 04/03/20 08:07 Ondansetron Hcl 4 Mg/2 Ml Vial IVPUSH ONCE PRN Nausea and Vomiting Quetiapine Fumarate 25 mg 03/31/20 11:00 04/04/20 20:31 Quetiapine Fumarate 25 Mg Tablet PO 25 mg TID SOO Administration Tizanidine HCl 4 mg 04/01/20 11:13 04/04/20 20:32 Tizanidine Hcl 4 Mg Tablet PO 4 mg BID PRN Administration muscle cramps Trazodone HCl 50 mg 03/31/20 10:42 04/04/20 20:32 Trazodone Hcl 50 Mg Tablet PO 50 mg BEDTIME PRN Administration Insomnia Vilazodone HCl 40 mg 03/31/20 11:00 04/04/20 08:32 Vilazodone Hcl 40 Mg Tablet PO 40 mg DAILY SOO Administration Allergies Allergies Allergy/AdvReac Type Severity Reaction Status Date / Time gabapentin [GABAPENTIN] Allergy Unknown UNKNOWN Verified 03/25/20 19:56 morphine [MORPHINE] Allergy Unknown UNKNOWN Verified 03/25/20 19:56 oxycodone [OXYCODONE] Allergy Unknown UNKNOWN Verified 03/25/20 19:56 topiramate [TOPIRAMATE] Allergy Unknown UNKNOWN Verified 03/25/20 19:56 Assessment & Plan Assessment & Plan (1) PTSD (post-traumatic stress disorder): Status: Acute Code(s): F43.10 - Post-traumatic stress disorder, unspecified (2) Major depressive disorder, recurrent, severe with psychotic symptoms: Status: Acute Code(s): F33.3 - Major depressive disorder, recurrent, severe with psychotic symptoms Assessment and Plan: cont ect ? d/ctomm Greater than 50% of the session was spent on counseling and/or coordination of care Patient educated on: medication risk/benefits, ECT and therapeutic strategies Informed Consent: understands Reason for contiued inpatient stay Substantial Risk for: harm to self
[2020-04-05] VITALS (11 sets, daily range): BP systolic 102–137; BP diastolic 63–85; PULSE 66–87; RESP 14–19; TEMP 36.7–37.1; O2SAT 94–97; BMI 38.7
--- NOTE | 2020-04-05 07:27 | HO.ECTPROC ---
ECT Procedure Note Diagnosis/Treatment Diagnosis: Major Depressive Disorder Current Treatment Number: 3 Treatment: Series Interval Clinical Notes: PT IMPROVING SOME ORDONEZ CAN GIVE OCC TORADOL PRE ECT SEE KIDNEY FX NORMALIZED DO NOT GIVE DAILY ROCURONIUM HELPFUL CONTINUE ECT OUTPT ECT Settings Device: THYMATRON DGx Electrode Placement: Right Unilateral Program/Pulse Width: 0.50 Energy Percent: 80 Seizure Duration By EEG (in seconds): 38 Medications Administration General Anesthetic: Ketamine (100) Muscle Relaxant: Succinylcholine (100) and Rocuronium (5) Ancillary Medications Analgesics: Torodol - Pre ECT (15 MG) Anti-emetics: Zofran - Pre ECT Cardiovascular Medications: Glycopyrrolate Miscillaneous Medications: Propofol (30 MG), Midazolam (2 MG) and Flumazenil (0.5 MG) Airway Management Airway Management: Bag Mask Ventilation Treatment Recommendations No Changes Recommended: No change
[2020-04-05] MEDS: Losartan Potassium 25 MG TABLET PO (09:09)
[2020-04-05] MEDS: Vilazodone HCL 40 MG TABLET PO (09:09)
[2020-04-05] MEDS: Omeprazole 40 MG CAPSULE.DR PO (09:09)
[2020-04-05] MEDS: QUEtiapine Fumarate 25 MG TABLET PO (09:09)
[2020-04-05] MEDS: Levothyroxine Sodium 50 MCG TABLET PO (09:09)
[2020-04-05] MEDS: Fludrocortisone Acetate 0.1 MG TABLET PO (09:10)
[2020-04-05] MEDS: Lactated Ringers 1,000 ML 100 ML IVCONT (10:35)
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
[2020-04-05] MEDS: Acetaminophen 325 MG TABLET 975 MG PO (12:59)
--- NOTE | 2020-04-10 07:15 | HO.ANESPROP2 ---
[facility] Past Medical History Medical History Asthma At risk for bleeding associated with tonsillectomy and adenoidectomy Autonomic dysfunction HLD (hyperlipidemia) Major depressive disorder, recurrent, severe with psychotic symptoms Neuropathy PTSD (post-traumatic stress disorder) Renal insufficiency Suicidal ideation Ulnar nerve damage Functional capacity: independent ambulation Surgical History Surgical History H/O spinal fusion H/O tubal ligation H/O ureter repair History of sinus surgery History of tonsillectomy Previous section Social History Social History Household Members: Family Housing: House Smoking Status: Never smoker Second Hand Smoke Exposure: No Substance Use Type: Marijuana Advance Directives: No Advance Directives Information Provided: No service: No Sexual orientation: Straight/Heterosexual Meds Allergies Allergy/AdvReac Type Severity Reaction Status Date / Time gabapentin [GABAPENTIN] Allergy Unknown UNKNOWN Verified 03/25/20 19:56 morphine [MORPHINE] Allergy Unknown UNKNOWN Verified 03/25/20 19:56 oxycodone [OXYCODONE] Allergy Unknown UNKNOWN Verified 03/25/20 19:56 topiramate [TOPIRAMATE] Allergy Unknown UNKNOWN Verified 03/25/20 19:56 Home Medications Medication Instructions Recorded Confirmed Type Viibryd 1 tab PO DAILY@0730 03/24/20 03/24/20 History amitriptyline 1 tab PO BEDTIME 03/24/20 03/24/20 History atenolol 1 tab PO DAILY 03/24/20 03/24/20 History atorvastatin 1 tab PO DAILY 03/24/20 03/24/20 History cetirizine 1 tab PO BEDTIME 03/24/20 03/24/20 History clonazepam 1 tab PO BID PRN 03/24/20 03/24/20 History fludrocortisone 0.1 mg PO Q12H 03/24/20 03/24/20 History levothyroxine 1 tab PO DAILY@0630 03/24/20 03/24/20 History losartan 1 tab PO DAILY 03/24/20 03/24/20 History montelukast 1 tab PO DAILY@0730 03/24/20 03/24/20 History tizanidine 1 tab PO TID 03/24/20 03/24/20 History trazodone 1 tab PO BEDTIME 03/24/20 03/24/20 History Exam Exam Date and Time: April 10, 2020 0715 Height,Weight and Vital Signs: Height 5 ft 6 in Weight 108.86 kg Last Vital Signs Temp 98.1 F 04/05/20 08:18 Pulse 77 04/05/20 09:09 Resp 16 04/05/20 08:48 BP 120/85 04/05/20 09:09 Pulse Ox 97 04/05/20 08:48 Pertinent Lab Results Pertinent Lab Results: Laboratory Tests 03/23/20 03/23/20 03/23/20 19:21 19:21 19:29 WBC 13.3 H RBC 4.60 Hgb 13.7 Hct 42.3 MCV 92.0 MCH 29.8 MCHC 32.4 RDW 13.4 Plt Count 316 MPV 10.0 Immature Gran % (Auto) 0.3 Neut % (Auto) 69.6 Lymph % (Auto) 20.0 [place] % (Auto) 7.6 Eos % (Auto) 1.9 Baso % (Auto) 0.6 Lymph # (Auto) 2.7 [place] # (Auto) 1.0 Eos # (Auto) 0.3 Baso # (Auto) 0.1 Abs Immat Gran (auto) 0.04 H Absolute Neuts (auto) 9.2 H Absolute Nucleated RBC 0.000 Nucleated RBC % (auto) 0.0 Sodium Potassium Chloride Carbon Dioxide Anion Gap BUN Creatinine Estim Creat Clear Calc Estimated GFR Random Glucose Fasting Glucose Calcium Total Bilirubin AST ALT Alkaline Phosphatase Total Protein Albumin Triglycerides Cholesterol LDL Cholesterol, Calc HDL Cholesterol Urine Test NEGATIVE Salicylates Urine Opiates Screen Not Detected Acetaminophen Ur Barbiturates Screen Not Detected Ur Phencyclidine Scrn Not Detected Ur Amphetamines Screen Not Detected U Benzodiazepines Scrn Not Detected Urine Cocaine Screen Not Detected U Marijuana (THC) Screen Not Detected Ethyl Alcohol Coronavirus (PCR) Influenza Type A (PCR) Influenza Type B (PCR) RSV RNA Qual (PCR) 03/23/20 03/23/20 03/27/20 19:29 19:29 21:51 WBC RBC Hgb Hct MCV MCH MCHC RDW Plt Count MPV Immature Gran % (Auto) Neut % (Auto) Lymph % (Auto) [place] % (Auto) Eos % (Auto) Baso % (Auto) Lymph # (Auto) [place] # (Auto) Eos # (Auto) Baso # (Auto) Abs Immat Gran (auto) Absolute Neuts (auto) Absolute Nucleated RBC Nucleated RBC % (auto) Sodium 141 Potassium 4.3 Chloride 106 Carbon Dioxide 27 Anion Gap 12 BUN 19 H Creatinine 1.06 Estim Creat Clear Calc 75.7 Estimated GFR 54 Random Glucose 97 Fasting Glucose Calcium 9.4 Total Bilirubin 0.4 AST 16 ALT 16 Alkaline Phosphatase 74 Total Protein 7.8 Albumin 4.5 Triglycerides Cholesterol LDL Cholesterol, Calc HDL Cholesterol Urine Test Salicylates < 5.0 L Urine Opiates Screen Acetaminophen < 1 Ur Barbiturates Screen Ur Phencyclidine Scrn Ur Amphetamines Screen U Benzodiazepines Scrn Urine Cocaine Screen U Marijuana (THC) Screen Ethyl Alcohol < 10 Coronavirus (PCR) NEGATIVE Influenza Type A (PCR) NEGATIVE Influenza Type B (PCR) NEGATIVE RSV RNA Qual (PCR) NEGATIVE 03/28/20 03/28/20 04/04/20 07:43 07:43 12:06 WBC 12.3 H RBC 4.36 Hgb 13.0 Hct 40.3 MCV 92.4 MCH 29.8 MCHC 32.3 RDW 13.2 Plt Count 288 MPV 10.2 Immature Gran % (Auto) 0.2 Neut % (Auto) 57.3 Lymph % (Auto) 29.8 [place] % (Auto) 8.8 Eos % (Auto) 3.3 Baso % (Auto) 0.6 Lymph # (Auto) 3.7 [place] # (Auto) 1.1 Eos # (Auto) 0.4 Baso # (Auto) 0.1 Abs Immat Gran (auto) 0.03 Absolute Neuts (auto) 7.1 Absolute Nucleated RBC 0.000 Nucleated RBC % (auto) 0.0 Sodium 140 Potassium 4.5 Chloride 104 Carbon Dioxide 29 Anion Gap 12 BUN 18 H Creatinine 0.98 Estim Creat Clear Calc 81.9 Estimated GFR 59 Random Glucose Fasting Glucose 88 Calcium 9.1 Total Bilirubin 0.5 AST 14 ALT 15 Alkaline Phosphatase 68 Total Protein 6.9 Albumin 4.0 Triglycerides 290 Cholesterol 170 LDL Cholesterol, Calc 71 HDL Cholesterol 41 Urine Test Salicylates Urine Opiates Screen Acetaminophen Ur Barbiturates Screen Ur Phencyclidine Scrn Ur Amphetamines Screen U Benzodiazepines Scrn Urine Cocaine Screen U Marijuana (THC) Screen Ethyl Alcohol Coronavirus (PCR) Influenza Type A (PCR) Influenza Type B (PCR) RSV RNA Qual (PCR) Airway Mallampati Class: III TM Dist: >3cm Neck ROM: Full
--- NOTE | 2020-04-10 08:13 | P.CONAN_ITS ---
[facility] Past Medical History Medical History Asthma At risk for bleeding associated with tonsillectomy and adenoidectomy Autonomic dysfunction HLD (hyperlipidemia) Major depressive disorder, recurrent, severe with psychotic symptoms Neuropathy PTSD (post-traumatic stress disorder) Renal insufficiency Suicidal ideation Ulnar nerve damage Functional capacity: independent ambulation Surgical History Surgical History H/O spinal fusion H/O tubal ligation H/O ureter repair History of sinus surgery History of tonsillectomy Previous section Social History Social History Household Members: Family Housing: House Smoking Status: Never smoker Second Hand Smoke Exposure: No Substance Use Type: Marijuana Advance Directives: No Advance Directives Information Provided: No service: No Sexual orientation: Straight/Heterosexual Meds Allergies Allergy/AdvReac Type Severity Reaction Status Date / Time gabapentin [GABAPENTIN] Allergy Unknown UNKNOWN Verified 03/25/20 19:56 morphine [MORPHINE] Allergy Unknown UNKNOWN Verified 03/25/20 19:56 oxycodone [OXYCODONE] Allergy Unknown UNKNOWN Verified 03/25/20 19:56 topiramate [TOPIRAMATE] Allergy Unknown UNKNOWN Verified 03/25/20 19:56 Home Medications Medication Instructions Recorded Confirmed Type Viibryd 1 tab PO DAILY@0730 03/24/20 03/24/20 History amitriptyline 1 tab PO BEDTIME 03/24/20 03/24/20 History atenolol 1 tab PO DAILY 03/24/20 03/24/20 History atorvastatin 1 tab PO DAILY 03/24/20 03/24/20 History cetirizine 1 tab PO BEDTIME 03/24/20 03/24/20 History clonazepam 1 tab PO BID PRN 03/24/20 03/24/20 History fludrocortisone 0.1 mg PO Q12H 03/24/20 03/24/20 History levothyroxine 1 tab PO DAILY@0630 03/24/20 03/24/20 History losartan 1 tab PO DAILY 03/24/20 03/24/20 History montelukast 1 tab PO DAILY@0730 03/24/20 03/24/20 History tizanidine 1 tab PO TID 03/24/20 03/24/20 History trazodone 1 tab PO BEDTIME 03/24/20 03/24/20 History Exam Exam Date and Time: April 10, 2020 0813 Height,Weight and Vital Signs: Height 5 ft 6 in Weight 108.86 kg Last Vital Signs Temp 98.1 F 04/05/20 08:18 Pulse 77 04/05/20 09:09 Resp 16 04/05/20 08:48 BP 120/85 04/05/20 09:09 Pulse Ox 97 04/05/20 08:48 Pertinent Lab Results Pertinent Lab Results: Laboratory Tests 03/23/20 03/23/20 03/23/20 19:21 19:21 19:29 WBC 13.3 H RBC 4.60 Hgb 13.7 Hct 42.3 MCV 92.0 MCH 29.8 MCHC 32.4 RDW 13.4 Plt Count 316 MPV 10.0 Immature Gran % (Auto) 0.3 Neut % (Auto) 69.6 Lymph % (Auto) 20.0 [place] % (Auto) 7.6 Eos % (Auto) 1.9 Baso % (Auto) 0.6 Lymph # (Auto) 2.7 [place] # (Auto) 1.0 Eos # (Auto) 0.3 Baso # (Auto) 0.1 Abs Immat Gran (auto) 0.04 H Absolute Neuts (auto) 9.2 H Absolute Nucleated RBC 0.000 Nucleated RBC % (auto) 0.0 Sodium Potassium Chloride Carbon Dioxide Anion Gap BUN Creatinine Estim Creat Clear Calc Estimated GFR Random Glucose Fasting Glucose Calcium Total Bilirubin AST ALT Alkaline Phosphatase Total Protein Albumin Triglycerides Cholesterol LDL Cholesterol, Calc HDL Cholesterol Urine Test NEGATIVE Salicylates Urine Opiates Screen Not Detected Acetaminophen Ur Barbiturates Screen Not Detected Ur Phencyclidine Scrn Not Detected Ur Amphetamines Screen Not Detected U Benzodiazepines Scrn Not Detected Urine Cocaine Screen Not Detected U Marijuana (THC) Screen Not Detected Ethyl Alcohol Coronavirus (PCR) Influenza Type A (PCR) Influenza Type B (PCR) RSV RNA Qual (PCR) 03/23/20 03/23/20 03/27/20 19:29 19:29 21:51 WBC RBC Hgb Hct MCV MCH MCHC RDW Plt Count MPV Immature Gran % (Auto) Neut % (Auto) Lymph % (Auto) [place] % (Auto) Eos % (Auto) Baso % (Auto) Lymph # (Auto) [place] # (Auto) Eos # (Auto) Baso # (Auto) Abs Immat Gran (auto) Absolute Neuts (auto) Absolute Nucleated RBC Nucleated RBC % (auto) Sodium 141 Potassium 4.3 Chloride 106 Carbon Dioxide 27 Anion Gap 12 BUN 19 H Creatinine 1.06 Estim Creat Clear Calc 75.7 Estimated GFR 54 Random Glucose 97 Fasting Glucose Calcium 9.4 Total Bilirubin 0.4 AST 16 ALT 16 Alkaline Phosphatase 74 Total Protein 7.8 Albumin 4.5 Triglycerides Cholesterol LDL Cholesterol, Calc HDL Cholesterol Urine Test Salicylates < 5.0 L Urine Opiates Screen Acetaminophen < 1 Ur Barbiturates Screen Ur Phencyclidine Scrn Ur Amphetamines Screen U Benzodiazepines Scrn Urine Cocaine Screen U Marijuana (THC) Screen Ethyl Alcohol < 10 Coronavirus (PCR) NEGATIVE Influenza Type A (PCR) NEGATIVE Influenza Type B (PCR) NEGATIVE RSV RNA Qual (PCR) NEGATIVE 03/28/20 03/28/20 04/04/20 07:43 07:43 12:06 WBC 12.3 H RBC 4.36 Hgb 13.0 Hct 40.3 MCV 92.4 MCH 29.8 MCHC 32.3 RDW 13.2 Plt Count 288 MPV 10.2 Immature Gran % (Auto) 0.2 Neut % (Auto) 57.3 Lymph % (Auto) 29.8 [place] % (Auto) 8.8 Eos % (Auto) 3.3 Baso % (Auto) 0.6 Lymph # (Auto) 3.7 [place] # (Auto) 1.1 Eos # (Auto) 0.4 Baso # (Auto) 0.1 Abs Immat Gran (auto) 0.03 Absolute Neuts (auto) 7.1 Absolute Nucleated RBC 0.000 Nucleated RBC % (auto) 0.0 Sodium 140 Potassium 4.5 Chloride 104 Carbon Dioxide 29 Anion Gap 12 BUN 18 H Creatinine 0.98 Estim Creat Clear Calc 81.9 Estimated GFR 59 Random Glucose Fasting Glucose 88 Calcium 9.1 Total Bilirubin 0.5 AST 14 ALT 15 Alkaline Phosphatase 68 Total Protein 6.9 Albumin 4.0 Triglycerides 290 Cholesterol 170 LDL Cholesterol, Calc 71 HDL Cholesterol 41 Urine Test Salicylates Urine Opiates Screen Acetaminophen Ur Barbiturates Screen Ur Phencyclidine Scrn Ur Amphetamines Screen U Benzodiazepines Scrn Urine Cocaine Screen U Marijuana (THC) Screen Ethyl Alcohol Coronavirus (PCR) Influenza Type A (PCR) Influenza Type B (PCR) RSV RNA Qual (PCR) Airway Mallampati Class: II TM Dist: >3cm Neck ROM: Full
== END 2020-04-05 14:25 | disposition home or self-care (01) | DRG 885 ==
LOC: HO.ED 03-27 20:29 → HO.PM5 03-27 23:51
PROVIDERS: Nurse Practitioner Primary Care; Psychiatry & Neurology Psychiatry; Admitting Provider Psychiatry & Neurology Psychiatry; Emergency Provider Emergency Medicine; Visit Provider Psychiatry & Neurology Psychiatry
PROC: GZB4ZZZ Other Electroconvulsive Therapy (ICD-10-PCS; CPT 90870; principal; 2020-03-31 15:30)
DX: F33.3 Major depressive disorder, recurrent, severe with psychotic symptoms (principal); R45.851 Suicidal ideations; I10 Essential (primary) hypertension; E78.5 Hyperlipidemia, unspecified; Z20.828 Contact with and (suspected) exposure to other viral communicable diseases; Z88.5 Allergy status to narcotic agent; Z79.890 Hormone replacement therapy; Z79.899 Other long term (current) drug therapy
CPT/HCPCS: 0241U; 36415; 80053; 80061; 80307; 80320; 81025; 85025; 90792; 90870; 93005; 99232; 99239; 99285; G0480; J0131; J0330; J2250; J2405; J3010

== ENCOUNTER 2020-04-10 06:56 | Day surgery (SDC) | payer OTHER, SELFPAY ==
[2020-04-10] VITALS (7 sets, daily range): BP systolic 125–140; BP diastolic 71–98; PULSE 84–91; RESP 15–18; TEMP 36.6–37; O2SAT 93–97; BMI 39.5
--- NOTE | 2020-04-10 07:14 | MHC.SHP ---
Pre-Procedural Eval Section A The patient is an INPATIENT: No Changes since office visit: Yes Patient answered all questions; No Cold of Flu in the past 2 weeks and No New Medical Problems The History & Physical has been completed within 30 days and I have reviewed it.: Yes Section B Chief Complaint: Severe Depression Allergies: Allergies Allergy/AdvReac Type Severity Reaction Status Date / Time gabapentin [GABAPENTIN] Allergy Unknown UNKNOWN Verified 03/25/20 19:56 morphine [MORPHINE] Allergy Unknown UNKNOWN Verified 03/25/20 19:56 oxycodone [OXYCODONE] Allergy Unknown UNKNOWN Verified 03/25/20 19:56 topiramate [TOPIRAMATE] Allergy Unknown UNKNOWN Verified 03/25/20 19:56 Plan Patient has been examined and remains a candidate for the planned procedure
--- NOTE | 2020-04-10 07:45 | HO.ECTPROC ---
ECT Procedure Note Diagnosis/Treatment Diagnosis: Major Depressive Disorder Previous ECT Date: 04/05/20 Current Treatment Number: 4 Treatment: Series Interval Clinical Notes: pt remains depressed anxious states she is safe ECT Settings Device: THYMATRON DGx Electrode Placement: Right Unilateral Program/Pulse Width: 0.50 Energy Percent: 90 Seizure Duration By EEG (in seconds): 55 Medications Administration General Anesthetic: Ketamine (100) Muscle Relaxant: Succinylcholine (100) and Rocuronium (5) Ancillary Medications Analgesics: Torodol - Pre ECT (15) Cardiovascular Medications: Glycopyrrolate (0.2) Miscillaneous Medications: Propofol (30 ) and Midazolam (2mg) Airway Management Airway Management: Bag Mask Ventilation Treatment Recommendations No Changes Recommended: No change Notes: inc seroquel 50 tid for depression anxiety consider bifrontal if no improvement continue tx series Pt Tolerated Procedure w/o Issue: Yes
--- NOTE | 2020-04-10 09:00 | HO.POSTANES ---
Post Anesthesia Evaluation Post Anesthesia Evaluation Vital Signs: Vital Signs Temp Pulse Resp BP Pulse Ox 04/10/20 08:27 98.6 F 89 18 140/89 H 96 04/10/20 08:12 91 16 140/87 H 94 04/10/20 07:57 89 15 136/83 96 04/10/20 07:52 91 16 136/82 96 04/10/20 07:47 89 16 134/98 H 96 04/10/20 07:42 98.1 F 84 133/71 93 04/10/20 06:37 97.8 F 85 18 125/80 97 Anesthesia: General (mask) Mental Status: Awake Pain Control: Satisfactory Nausea/Vomiting: None Hydration: Adequate Anesthesia-Related Issues: No Anes. Related Issues
== END 2020-04-10 23:59 | disposition home or self-care (01) ==
PROVIDERS: PCP Psychiatry & Neurology Psychiatry; Visit Provider Psychiatry & Neurology Psychiatry
PROC: (CPT 90870; principal; 2020-04-10 07:00)
DX: F33.2 Major depressive disorder, recurrent severe without psychotic features (principal)
CPT/HCPCS: 90870; J0330; J1885; J2250; J2405

== ENCOUNTER 2020-04-12 06:22 | Day surgery (SDC) | payer OTHER, SELFPAY ==
[2020-04-12] VITALS (7 sets, daily range): BP systolic 112–128; BP diastolic 72–77; PULSE 78–92; RESP 16–18; TEMP 36.1–36.7; O2SAT 94–97; BMI 39.5
--- NOTE | 2020-04-12 07:04 | MHC.SHP ---
Pre-Procedural Eval Section A The patient is an INPATIENT: No Changes since office visit: No Cold of Flu in the past 2 weeks, No New Medical Problems, No Changes in Medication and No Patient answered all questions The History & Physical has been completed within 30 days and I have reviewed it.: Yes Section B Chief Complaint: Severe Depression Allergies: Allergies Allergy/AdvReac Type Severity Reaction Status Date / Time gabapentin [GABAPENTIN] Allergy Unknown UNKNOWN Verified 03/25/20 19:56 morphine [MORPHINE] Allergy Unknown UNKNOWN Verified 03/25/20 19:56 oxycodone [OXYCODONE] Allergy Unknown UNKNOWN Verified 03/25/20 19:56 topiramate [TOPIRAMATE] Allergy Unknown UNKNOWN Verified 03/25/20 19:56 Plan Patient has been examined and remains a candidate for the planned procedure
--- NOTE | 2020-04-12 07:04 | HO.ECTPROC ---
ECT Procedure Note Diagnosis/Treatment Diagnosis: Major Depressive Disorder Previous ECT Date: 04/10/20 Current Treatment Number: 5 Treatment: Series Interval Clinical Notes: No change in mood. Depressed. Increased apathy but safe ECT Settings Device: THYMATRON DGx Electrode Placement: Bifrontal Program/Pulse Width: 0.50 Energy Percent: 90 Seizure Duration By EEG (in seconds): 46 By Motor Observation (in seconds): 28 Medications Administration General Anesthetic: Ketamine (100) Muscle Relaxant: Succinylcholine (100) Ancillary Medications Analgesics: Torodol - Post ECT (15) Anti-emetics: Zofran - Post ECT (4) Cardiovascular Medications: Glycopyrrolate (0.2) Miscillaneous Medications: Propofol (30) and Midazolam (2) Airway Management Airway Management: Bag Mask Ventilation Treatment Recommendations No Changes Recommended: No change Electrode Placement: Bifrontal Program/Pulse Width: 0.50 Energy Percent: 90 Notes: Switched to BiF Pt Tolerated Procedure w/o Issue: Yes
--- NOTE | 2020-04-12 07:10 | HO.ANESPROP2 ---
[facility] Past Medical History Medical History Asthma At risk for bleeding associated with tonsillectomy and adenoidectomy Autonomic dysfunction HLD (hyperlipidemia) Major depressive disorder, recurrent, severe with psychotic symptoms Neuropathy PTSD (post-traumatic stress disorder) Renal insufficiency Suicidal ideation Ulnar nerve damage Surgical History Surgical History H/O spinal fusion H/O tubal ligation H/O ureter repair History of sinus surgery History of tonsillectomy Previous section Social History Social History Household Members: Family Housing: House Smoking Status: Never smoker Second Hand Smoke Exposure: No Substance Use Type: Marijuana Advance Directives: No Advance Directives Information Provided: Yes service: No Sexual orientation: Straight/Heterosexual Meds Allergies Allergy/AdvReac Type Severity Reaction Status Date / Time gabapentin [GABAPENTIN] Allergy Unknown UNKNOWN Verified 03/25/20 19:56 morphine [MORPHINE] Allergy Unknown UNKNOWN Verified 03/25/20 19:56 oxycodone [OXYCODONE] Allergy Unknown UNKNOWN Verified 03/25/20 19:56 topiramate [TOPIRAMATE] Allergy Unknown UNKNOWN Verified 03/25/20 19:56 Home Medications Medication Instructions Recorded Confirmed Type Viibryd 1 tab PO DAILY@0730 03/24/20 03/24/20 History amitriptyline 1 tab PO BEDTIME 03/24/20 03/24/20 History atenolol 1 tab PO DAILY 03/24/20 03/24/20 History atorvastatin 1 tab PO DAILY 03/24/20 03/24/20 History cetirizine 1 tab PO BEDTIME 03/24/20 03/24/20 History clonazepam 1 tab PO BID PRN 03/24/20 03/24/20 History fludrocortisone 0.1 mg PO Q12H 03/24/20 03/24/20 History levothyroxine 1 tab PO DAILY@0630 03/24/20 03/24/20 History losartan 1 tab PO DAILY 03/24/20 03/24/20 History montelukast 1 tab PO DAILY@0730 03/24/20 03/24/20 History tizanidine 1 tab PO TID 03/24/20 03/24/20 History trazodone 1 tab PO BEDTIME 03/24/20 03/24/20 History Exam Exam Date and Time: April 12, 2020 0710 Height,Weight and Vital Signs: Height 5 ft 6 in Weight 111.13 kg Last Vital Signs Temp 98.1 F 04/12/20 06:30 Pulse 78 04/12/20 06:30 Resp 16 04/12/20 06:30 BP 112/72 04/12/20 06:30 Pulse Ox 96 04/12/20 06:30 Airway Mallampati Class: II TM Dist: >3cm Neck ROM: Full Loose/Missing/Broken Teeth: No Heart: RRR Lungs: CTA Assessment and Plan Assessment Anesthesia Assessment: Anesthesia Plan Discussed and Chart Reviewed Final Anesthetic Review NPO: Yes ASA Class: II Final Preanesthetic Review: Meds/Allgs Chart Reviewed, Consent Obtained/Reviewed and Anes Risks/Benef Reviewed Patient Risk: Low Procedure Risk: Intermediate Anesthetic Plan Anesthetic Plan: GA Disposition: Standard PACU
== END 2020-04-12 08:41 | disposition home or self-care (01) ==
PROVIDERS: Visit Provider Psychiatry & Neurology Psychiatry
PROC: (CPT 90870; principal; 2020-04-12 07:00)
DX: F31.5 Bipolar disorder, current episode depressed, severe, with psychotic features (principal); R45.851 Suicidal ideations; F20.9 Schizophrenia, unspecified; F45.8 Other somatoform disorders; N18.30 Chronic kidney disease, stage 3 unspecified; F43.10 Post-traumatic stress disorder, unspecified; J45.909 Unspecified asthma, uncomplicated; G62.9 Polyneuropathy, unspecified; Z88.8 Allergy status to other drugs, medicaments and biological substances
CPT/HCPCS: 90870; J0330; J1885; J2250; J2405

== ENCOUNTER 2020-04-26 06:12 | Day surgery (SDC) | payer OTHER, SELFPAY ==
[2020-04-26] VITALS (7 sets, daily range): BP systolic 131–148; BP diastolic 77–91; PULSE 83–99; RESP 13–20; TEMP 36.3–36.8; O2SAT 96–97; BMI 40.3
--- NOTE | 2020-04-26 07:30 | MHC.SHP ---
Pre-Procedural Eval Section A The patient is an INPATIENT: No Changes since office visit: Yes Patient answered all questions; No Cold of Flu in the past 2 weeks, No New Medical Problems and No Changes in Medication The History & Physical has been completed within 30 days and I have reviewed it.: Yes Section B Chief Complaint: Severe Depression Allergies: Allergies Allergy/AdvReac Type Severity Reaction Status Date / Time gabapentin [GABAPENTIN] Allergy Unknown UNKNOWN Verified 03/25/20 19:56 morphine [MORPHINE] Allergy Unknown UNKNOWN Verified 03/25/20 19:56 oxycodone [OXYCODONE] Allergy Unknown UNKNOWN Verified 03/25/20 19:56 topiramate [TOPIRAMATE] Allergy Unknown UNKNOWN Verified 03/25/20 19:56 Plan Patient has been examined and remains a candidate for the planned procedure
--- NOTE | 2020-04-26 07:50 | HO.ECTPROC ---
ECT Procedure Note Diagnosis/Treatment Current Treatment Number: 6 Treatment: Series Interval Clinical Notes: pt depressed flat denies si staes safe outpt feeling better ECT Settings Device: THYMATRON DGx Electrode Placement: Bifrontal Program/Pulse Width: 0.50 Energy Percent: 90 Seizure Duration By EEG (in seconds): 66 Medications Administration General Anesthetic: Ketamine (100) Muscle Relaxant: Succinylcholine (100) Ancillary Medications Analgesics: Torodol - Post ECT (15) Anti-emetics: Zofran - Post ECT (4) Cardiovascular Medications: Glycopyrrolate (0.2) Miscillaneous Medications: Propofol (30) and Midazolam (2) Airway Management Airway Management: Bag Mask Ventilation Treatment Recommendations No Changes Recommended: No change Notes: continue tx Pt Tolerated Procedure w/o Issue: Yes
--- NOTE | 2020-04-26 09:11 | HO.POSTANES ---
Post Anesthesia Evaluation Post Anesthesia Evaluation Vital Signs: Vital Signs Temp Pulse Resp BP Pulse Ox 04/26/20 08:42 98.2 F 94 20 148/82 H 96 04/26/20 08:26 94 16 137/89 96 04/26/20 08:11 99 16 96 04/26/20 08:06 91 15 131/91 H 96 04/26/20 08:01 93 17 134/86 96 04/26/20 07:56 97.4 F 91 13 131/77 97 04/26/20 06:28 97.5 F 83 18 131/80 96 Anesthesia: General (mask) Mental Status: Awake Pain Control: Satisfactory Nausea/Vomiting: None Hydration: Adequate Anesthesia-Related Issues: No Anes. Related Issues
== END 2020-04-26 09:28 | disposition home or self-care (01) ==
PROVIDERS: Visit Provider Psychiatry & Neurology Psychiatry
PROC: (CPT 90870; principal; 2020-04-26 08:00)
DX: F33.3 Major depressive disorder, recurrent, severe with psychotic symptoms (principal); F43.10 Post-traumatic stress disorder, unspecified; J45.909 Unspecified asthma, uncomplicated; N18.30 Chronic kidney disease, stage 3 unspecified; G90.9 Disorder of the autonomic nervous system, unspecified; Z88.8 Allergy status to other drugs, medicaments and biological substances; Z79.899 Other long term (current) drug therapy
CPT/HCPCS: 90870; J2250

== ENCOUNTER 2020-05-03 06:16 | Day surgery (SDC) | payer OTHER, SELFPAY ==
[2020-05-03 06:15] VITALS: BMI 40.3
--- NOTE | 2020-05-03 07:37 | MHC.SHP ---
Pre-Procedural Eval Section A The patient is an INPATIENT: No Changes since office visit: Yes Patient answered all questions; No Cold of Flu in the past 2 weeks, No New Medical Problems and No Changes in Medication The History & Physical has been completed within 30 days and I have reviewed it.: Yes Section B Chief Complaint: depression Details of Present Illness: recurrent depression Relevant Family History (Specify if Yes): No Relevant Social History: None Present Medications: see Short Stay Collaborative assessment Medical History: Significant History (SUNG) History of Previous Operations: Relevant previous surgery/procedure and date(s) (ect) Allergies: Allergies Allergy/AdvReac Type Severity Reaction Status Date / Time gabapentin [GABAPENTIN] Allergy Unknown UNKNOWN Verified 03/25/20 19:56 morphine [MORPHINE] Allergy Unknown UNKNOWN Verified 03/25/20 19:56 oxycodone [OXYCODONE] Allergy Unknown UNKNOWN Verified 03/25/20 19:56 topiramate [TOPIRAMATE] Allergy Unknown UNKNOWN Verified 03/25/20 19:56 Review of Systems Sugical H&P ROS: Negative: Cardiovascular, Respiratory and Neurological Exam Surgical H&P Exam: Normal: Heart, Normal: Lungs and Normal: Neurological Plan Diagnosis/Plan: Unchanged I have reviewed the history and physical and performed a pertinent physical examination on my patient. No changes have occurred unless specified.
--- NOTE | 2020-05-03 08:04 | HO.ECTPROC ---
ECT Procedure Note Diagnosis/Treatment Diagnosis: Major Depressive Disorder and Other (ptsd) Current Treatment Number: 7 Treatment: Series Interval Clinical Notes: pt depressed flat denies si states safe outpt feeling flat dysphoric ECT Settings Device: THYMATRON DGx Electrode Placement: Bifrontal Program/Pulse Width: 0.50 Energy Percent: 80 Seizure Duration By EEG (in seconds): 36 Medications Administration General Anesthetic: Ketamine (100) Muscle Relaxant: Succinylcholine (100) Ancillary Medications Analgesics: Acetaminophen (IV PRE TX ) Anti-emetics: Zofran - Pre ECT Miscillaneous Medications: Propofol (50 MG) Airway Management Airway Management: Bag Mask Ventilation Treatment Recommendations No Changes Recommended: No change Notes: SCHEDULE 2 TX NEXT WEEK SECONDARY TO CONTINUED DEPRESSIVE SX NO C/O SIDE EFFECTS ALERT NOT CONFUSED Pt Tolerated Procedure w/o Issue: Yes
[2020-05-03 08:15] VITALS: BP 125/67; PULSE 85; RESP 16; TEMP 36.2; O2SAT 97
[2020-05-03 08:20] VITALS: BP 128/75; PULSE 90; RESP 18; O2SAT 97
[2020-05-03 08:25] VITALS: BP 130/75; PULSE 93; RESP 18; O2SAT 97
[2020-05-03 08:30] VITALS: BP 135/87; PULSE 89; RESP 18; O2SAT 98
[2020-05-03 08:45] VITALS: BP 139/82; PULSE 85; RESP 16; O2SAT 97
== END 2020-05-03 09:00 ==
LOC: HO.SSS 06:17
PROVIDERS: Visit Provider Psychiatry & Neurology Psychiatry
PROC: (CPT 90870; principal; 2020-05-03 07:00)
DX: F33.3 Major depressive disorder, recurrent, severe with psychotic symptoms (principal); F43.10 Post-traumatic stress disorder, unspecified; J45.909 Unspecified asthma, uncomplicated; Z88.8 Allergy status to other drugs, medicaments and biological substances
CPT/HCPCS: 90870; J0131; J0330; J2405

== ENCOUNTER 2020-05-08 06:13 | Day surgery (SDC) | payer OTHER, SELFPAY ==
[2020-05-08 06:24] VITALS: BMI 39.5
[2020-05-08 06:31] VITALS: BP 128/79; PULSE 78; RESP 18; TEMP 36.6; O2SAT 97
--- NOTE | 2020-05-08 06:50 | HO.ANESPROP2 ---
[facility] Past Medical History Medical History Asthma At risk for bleeding associated with tonsillectomy and adenoidectomy Autonomic dysfunction HLD (hyperlipidemia) Major depressive disorder, recurrent, severe with psychotic symptoms Neuropathy PTSD (post-traumatic stress disorder) Renal insufficiency Suicidal ideation Ulnar nerve damage Surgical History Surgical History H/O spinal fusion H/O tubal ligation H/O ureter repair History of sinus surgery History of tonsillectomy Previous section Social History Social History Household Members: Family Housing: House Smoking Status: Never smoker Second Hand Smoke Exposure: No Substance Use Type: Marijuana Advance Directives: No Advance Directives Information Provided: No service: No Sexual orientation: Straight/Heterosexual Meds Allergies Allergy/AdvReac Type Severity Reaction Status Date / Time gabapentin [GABAPENTIN] Allergy Unknown UNKNOWN Verified 03/25/20 19:56 morphine [MORPHINE] Allergy Unknown UNKNOWN Verified 03/25/20 19:56 oxycodone [OXYCODONE] Allergy Unknown UNKNOWN Verified 03/25/20 19:56 topiramate [TOPIRAMATE] Allergy Unknown UNKNOWN Verified 03/25/20 19:56 Home Medications Medication Instructions Recorded Confirmed Type Viibryd 1 tab PO DAILY@0730 03/24/20 03/24/20 History amitriptyline 1 tab PO BEDTIME 03/24/20 03/24/20 History atenolol 1 tab PO DAILY 03/24/20 03/24/20 History atorvastatin 1 tab PO DAILY 03/24/20 03/24/20 History cetirizine 1 tab PO BEDTIME 03/24/20 03/24/20 History clonazepam 1 tab PO BID PRN 03/24/20 03/24/20 History fludrocortisone 0.1 mg PO Q12H 03/24/20 03/24/20 History levothyroxine 1 tab PO DAILY@0630 03/24/20 03/24/20 History losartan 1 tab PO DAILY 03/24/20 03/24/20 History montelukast 1 tab PO DAILY@0730 03/24/20 03/24/20 History tizanidine 1 tab PO TID 03/24/20 03/24/20 History trazodone 1 tab PO BEDTIME 03/24/20 03/24/20 History Exam Exam Date and Time: May 08, 2020 0650 Height,Weight and Vital Signs: Height 5 ft 6 in Weight 111.13 kg Last Vital Signs Temp 97.8 F 05/08/20 06:31 Pulse 78 05/08/20 06:31 Resp 18 05/08/20 06:31 BP 128/79 05/08/20 06:31 Pulse Ox 97 05/08/20 06:31 Airway Mallampati Class: III TM Dist: >3cm Denture: Upper Heart: RRR Lungs: CTA
--- NOTE | 2020-05-08 06:56 | MHC.SHP ---
Pre-Procedural Eval Section A The patient is an INPATIENT: No Changes since office visit: No Cold of Flu in the past 2 weeks, No New Medical Problems, No Changes in Medication and No Patient answered all questions The History & Physical has been completed within 30 days and I have reviewed it.: Yes Section B Chief Complaint: depression Allergies: Allergies Allergy/AdvReac Type Severity Reaction Status Date / Time gabapentin [GABAPENTIN] Allergy Unknown UNKNOWN Verified 03/25/20 19:56 morphine [MORPHINE] Allergy Unknown UNKNOWN Verified 03/25/20 19:56 oxycodone [OXYCODONE] Allergy Unknown UNKNOWN Verified 03/25/20 19:56 topiramate [TOPIRAMATE] Allergy Unknown UNKNOWN Verified 03/25/20 19:56 Plan I have reviewed the history and physical and performed a pertinent physical examination on my patient. No changes have occurred unless specified.
--- NOTE | 2020-05-08 07:39 | HO.ANESPROP2 ---
[facility] Past Medical History Medical History Asthma At risk for bleeding associated with tonsillectomy and adenoidectomy Autonomic dysfunction HLD (hyperlipidemia) Major depressive disorder, recurrent, severe with psychotic symptoms Neuropathy PTSD (post-traumatic stress disorder) Renal insufficiency Suicidal ideation Ulnar nerve damage Surgical History Surgical History H/O spinal fusion H/O tubal ligation H/O ureter repair History of sinus surgery History of tonsillectomy Previous section Social History Social History Household Members: Family Housing: House Smoking Status: Never smoker Second Hand Smoke Exposure: No Substance Use Type: Marijuana Advance Directives: No Advance Directives Information Provided: No service: No Sexual orientation: Straight/Heterosexual Meds Allergies Allergy/AdvReac Type Severity Reaction Status Date / Time gabapentin [GABAPENTIN] Allergy Unknown UNKNOWN Verified 03/25/20 19:56 morphine [MORPHINE] Allergy Unknown UNKNOWN Verified 03/25/20 19:56 oxycodone [OXYCODONE] Allergy Unknown UNKNOWN Verified 03/25/20 19:56 topiramate [TOPIRAMATE] Allergy Unknown UNKNOWN Verified 03/25/20 19:56 Home Medications Medication Instructions Recorded Confirmed Type Viibryd 1 tab PO DAILY@0730 03/24/20 03/24/20 History amitriptyline 1 tab PO BEDTIME 03/24/20 03/24/20 History atenolol 1 tab PO DAILY 03/24/20 03/24/20 History atorvastatin 1 tab PO DAILY 03/24/20 03/24/20 History cetirizine 1 tab PO BEDTIME 03/24/20 03/24/20 History clonazepam 1 tab PO BID PRN 03/24/20 03/24/20 History fludrocortisone 0.1 mg PO Q12H 03/24/20 03/24/20 History levothyroxine 1 tab PO DAILY@0630 03/24/20 03/24/20 History losartan 1 tab PO DAILY 03/24/20 03/24/20 History montelukast 1 tab PO DAILY@0730 03/24/20 03/24/20 History tizanidine 1 tab PO TID 03/24/20 03/24/20 History trazodone 1 tab PO BEDTIME 03/24/20 03/24/20 History Exam Exam Date and Time: May 08, 2020 0739 Height,Weight and Vital Signs: Height 5 ft 6 in Weight 111.13 kg Last Vital Signs Temp 97.8 F 05/08/20 06:31 Pulse 78 05/08/20 06:31 Resp 18 05/08/20 06:31 BP 128/79 05/08/20 06:31 Pulse Ox 97 05/08/20 06:31 Assessment and Plan Assessment Anesthesia Assessment: Anesthesia Plan Discussed Final Anesthetic Review NPO: Yes ASA Class: III Final Preanesthetic Review: No Changes in Pt Med Stat, Meds/Allgs Chart Reviewed, Consent Obtained/Reviewed and Anes Risks/Benef Reviewed Patient Risk: Intermediate Procedure Risk: Low Anesthetic Plan Anesthetic Plan: GA Disposition: Standard PACU
--- NOTE | 2020-05-08 07:49 | HO.ECTPROC ---
ECT Procedure Note Diagnosis/Treatment Previous ECT Date: 05/03/20 Current Treatment Number: 8 Treatment: Series Interval Clinical Notes: Mood depressed but improving ECT Settings Device: THYMATRON DGx Electrode Placement: Bifrontal Program/Pulse Width: 0.50 Energy Percent: 80 Seizure Duration By EEG (in seconds): 64 By Motor Observation (in seconds): 42 Medications Administration General Anesthetic: Ketamine (100) Muscle Relaxant: Succinylcholine (100) Ancillary Medications Analgesics: Acetaminophen (1gm) Anti-emetics: Zofran - Pre ECT (4) Miscillaneous Medications: Propofol (50) Airway Management Airway Management: Bag Mask Ventilation Treatment Recommendations No Changes Recommended: No change Electrode Placement: Bifrontal Program/Pulse Width: 0.50 Pt Tolerated Procedure w/o Issue: Yes
[2020-05-08 07:55] VITALS: BP 146/76; PULSE 89; RESP 16; TEMP 36.5; O2SAT 95
[2020-05-08 08:00] VITALS: BP 141/85; PULSE 91; RESP 18; O2SAT 97
[2020-05-08 08:05] VITALS: BP 139/79; PULSE 92; RESP 18; O2SAT 97
[2020-05-08 08:10] VITALS: BP 129/77; PULSE 93; RESP 18; O2SAT 96
[2020-05-08 08:25] VITALS: BP 131/91; PULSE 93; RESP 16; O2SAT 96
== END 2020-05-08 08:55 | disposition home or self-care (01) ==
PROVIDERS: Visit Provider Psychiatry & Neurology Psychiatry
PROC: (CPT 90870; principal; 2020-05-08 15:10)
DX: F33.3 Major depressive disorder, recurrent, severe with psychotic symptoms (principal); F43.10 Post-traumatic stress disorder, unspecified; F45.8 Other somatoform disorders; J45.909 Unspecified asthma, uncomplicated; Z79.51 Long term (current) use of inhaled steroids; Z79.899 Other long term (current) drug therapy; Z88.8 Allergy status to other drugs, medicaments and biological substances
CPT/HCPCS: 90870; J0131; J0330; J2405

== ENCOUNTER 2020-05-10 06:07 | Day surgery (SDC) | payer OTHER, SELFPAY ==
--- NOTE | 2020-05-03 08:09 | P.CONAN_ITS ---
[facility] Past Medical History Medical History Asthma At risk for bleeding associated with tonsillectomy and adenoidectomy Autonomic dysfunction HLD (hyperlipidemia) Major depressive disorder, recurrent, severe with psychotic symptoms Neuropathy PTSD (post-traumatic stress disorder) Renal insufficiency Suicidal ideation Ulnar nerve damage Surgical History Surgical History H/O spinal fusion H/O tubal ligation H/O ureter repair History of sinus surgery History of tonsillectomy Previous section Social History Social History Household Members: Family Housing: House Smoking Status: Never smoker Second Hand Smoke Exposure: No Substance Use Type: Marijuana Advance Directives: No Advance Directives Information Provided: No service: No Sexual orientation: Straight/Heterosexual Meds Allergies Allergy/AdvReac Type Severity Reaction Status Date / Time gabapentin [GABAPENTIN] Allergy Unknown UNKNOWN Verified 03/25/20 19:56 morphine [MORPHINE] Allergy Unknown UNKNOWN Verified 03/25/20 19:56 oxycodone [OXYCODONE] Allergy Unknown UNKNOWN Verified 03/25/20 19:56 topiramate [TOPIRAMATE] Allergy Unknown UNKNOWN Verified 03/25/20 19:56 Home Medications Medication Instructions Recorded Confirmed Type Viibryd 1 tab PO DAILY@0730 03/24/20 03/24/20 History amitriptyline 1 tab PO BEDTIME 03/24/20 03/24/20 History atenolol 1 tab PO DAILY 03/24/20 03/24/20 History atorvastatin 1 tab PO DAILY 03/24/20 03/24/20 History cetirizine 1 tab PO BEDTIME 03/24/20 03/24/20 History clonazepam 1 tab PO BID PRN 03/24/20 03/24/20 History fludrocortisone 0.1 mg PO Q12H 03/24/20 03/24/20 History levothyroxine 1 tab PO DAILY@0630 03/24/20 03/24/20 History losartan 1 tab PO DAILY 03/24/20 03/24/20 History montelukast 1 tab PO DAILY@0730 03/24/20 03/24/20 History tizanidine 1 tab PO TID 03/24/20 03/24/20 History trazodone 1 tab PO BEDTIME 03/24/20 03/24/20 History Exam Exam Date and Time: May 03, 2020 0809 Airway Mallampati Class: III TM Dist: >3cm Neck ROM: Full Heart: RR Lungs: CTA
--- NOTE | 2020-05-03 08:14 | HO.ANESPROP2 ---
[facility] Past Medical History Medical History Asthma At risk for bleeding associated with tonsillectomy and adenoidectomy Autonomic dysfunction HLD (hyperlipidemia) Major depressive disorder, recurrent, severe with psychotic symptoms Neuropathy PTSD (post-traumatic stress disorder) Renal insufficiency Suicidal ideation Ulnar nerve damage Surgical History Surgical History H/O spinal fusion H/O tubal ligation H/O ureter repair History of sinus surgery History of tonsillectomy Previous section Social History Social History Household Members: Family Housing: House Smoking Status: Never smoker Second Hand Smoke Exposure: No Substance Use Type: Marijuana Advance Directives: No Advance Directives Information Provided: No service: No Sexual orientation: Straight/Heterosexual Meds Allergies Allergy/AdvReac Type Severity Reaction Status Date / Time gabapentin [GABAPENTIN] Allergy Unknown UNKNOWN Verified 03/25/20 19:56 morphine [MORPHINE] Allergy Unknown UNKNOWN Verified 03/25/20 19:56 oxycodone [OXYCODONE] Allergy Unknown UNKNOWN Verified 03/25/20 19:56 topiramate [TOPIRAMATE] Allergy Unknown UNKNOWN Verified 03/25/20 19:56 Home Medications Medication Instructions Recorded Confirmed Type Viibryd 1 tab PO DAILY@0730 03/24/20 03/24/20 History amitriptyline 1 tab PO BEDTIME 03/24/20 03/24/20 History atenolol 1 tab PO DAILY 03/24/20 03/24/20 History atorvastatin 1 tab PO DAILY 03/24/20 03/24/20 History cetirizine 1 tab PO BEDTIME 03/24/20 03/24/20 History clonazepam 1 tab PO BID PRN 03/24/20 03/24/20 History fludrocortisone 0.1 mg PO Q12H 03/24/20 03/24/20 History levothyroxine 1 tab PO DAILY@0630 03/24/20 03/24/20 History losartan 1 tab PO DAILY 03/24/20 03/24/20 History montelukast 1 tab PO DAILY@0730 03/24/20 03/24/20 History tizanidine 1 tab PO TID 03/24/20 03/24/20 History trazodone 1 tab PO BEDTIME 03/24/20 03/24/20 History Exam Exam Date and Time: May 03, 2020 0814 Airway Mallampati Class: III TM Dist: >3cm Neck ROM: Full Heart: RR Lungs: CTA
--- NOTE | 2020-05-03 08:26 | HO.POSTANES ---
Post Anesthesia Evaluation Post Anesthesia Evaluation Anesthesia: General Mental Status: Awake Pain Control: Satisfactory Nausea/Vomiting: None Hydration: Adequate Anesthesia-Related Issues: No Anes. Related Issues
[2020-05-10] VITALS (7 sets, daily range): BP systolic 114–155; BP diastolic 77–96; PULSE 76–96; RESP 16–20; TEMP 36.7; O2SAT 95–97; BMI 39.5
--- NOTE | 2020-05-10 07:37 | MHC.SHP ---
Pre-Procedural Eval Section A The patient is an INPATIENT: Yes Changes since office visit: Yes Patient answered all questions; No Cold of Flu in the past 2 weeks, No New Medical Problems and No Changes in Medication The History & Physical has been completed within 30 days and I have reviewed it.: Yes Section B Chief Complaint: depression Allergies: Allergies Allergy/AdvReac Type Severity Reaction Status Date / Time gabapentin [GABAPENTIN] Allergy Unknown UNKNOWN Verified 03/25/20 19:56 morphine [MORPHINE] Allergy Unknown UNKNOWN Verified 03/25/20 19:56 oxycodone [OXYCODONE] Allergy Unknown UNKNOWN Verified 03/25/20 19:56 topiramate [TOPIRAMATE] Allergy Unknown UNKNOWN Verified 03/25/20 19:56 Plan I have reviewed the history and physical and performed a pertinent physical examination on my patient. No changes have occurred unless specified.
--- NOTE | 2020-05-10 07:40 | HO.ECTPROC ---
ECT Procedure Note Diagnosis/Treatment Diagnosis: Major Depressive Disorder Current Treatment Number: 9 Treatment: Series Interval Clinical Notes: pt feeling somewhat better no active si no c/o side effects ECT Settings Device: THYMATRON DGx Electrode Placement: Bitemporal Program/Pulse Width: 0.50 Energy Percent: 65 Seizure Duration By EEG (in seconds): 46 Medications Administration General Anesthetic: Ketamine (100) Muscle Relaxant: Succinylcholine (100) Ancillary Medications Analgesics: Acetaminophen (1gm) Anti-emetics: Zofran - Pre ECT (4) Cardiovascular Medications: Glycopyrrolate Miscillaneous Medications: Propofol (50) Airway Management Airway Management: Bag Mask Ventilation Treatment Recommendations No Changes Recommended: No change Pt Tolerated Procedure w/o Issue: Yes
--- NOTE | 2020-05-10 10:39 | P.CONAN_ITS ---
[facility] Past Medical History Medical History Asthma At risk for bleeding associated with tonsillectomy and adenoidectomy Autonomic dysfunction HLD (hyperlipidemia) Major depressive disorder, recurrent, severe with psychotic symptoms Neuropathy PTSD (post-traumatic stress disorder) Renal insufficiency Suicidal ideation Ulnar nerve damage Surgical History Surgical History H/O spinal fusion H/O tubal ligation H/O ureter repair History of sinus surgery History of tonsillectomy Previous section Social History Social History Household Members: Family Housing: House Smoking Status: Never smoker Second Hand Smoke Exposure: No Substance Use Type: Marijuana service: No Sexual orientation: Straight/Heterosexual Meds Allergies Allergy/AdvReac Type Severity Reaction Status Date / Time gabapentin [GABAPENTIN] Allergy Unknown UNKNOWN Verified 03/25/20 19:56 morphine [MORPHINE] Allergy Unknown UNKNOWN Verified 03/25/20 19:56 oxycodone [OXYCODONE] Allergy Unknown UNKNOWN Verified 03/25/20 19:56 topiramate [TOPIRAMATE] Allergy Unknown UNKNOWN Verified 03/25/20 19:56 Home Medications Medication Instructions Recorded Confirmed Type Viibryd 1 tab PO DAILY@0730 03/24/20 03/24/20 History amitriptyline 1 tab PO BEDTIME 03/24/20 03/24/20 History atenolol 1 tab PO DAILY 03/24/20 03/24/20 History atorvastatin 1 tab PO DAILY 03/24/20 03/24/20 History cetirizine 1 tab PO BEDTIME 03/24/20 03/24/20 History clonazepam 1 tab PO BID PRN 03/24/20 03/24/20 History fludrocortisone 0.1 mg PO Q12H 03/24/20 03/24/20 History levothyroxine 1 tab PO DAILY@0630 03/24/20 03/24/20 History losartan 1 tab PO DAILY 03/24/20 03/24/20 History montelukast 1 tab PO DAILY@0730 03/24/20 03/24/20 History tizanidine 1 tab PO TID 03/24/20 03/24/20 History trazodone 1 tab PO BEDTIME 03/24/20 03/24/20 History Exam Exam Date and Time: May 10, 2020 1039 Height,Weight and Vital Signs: Height 5 ft 6 in Weight 111.13 kg Last Vital Signs Temp 98.1 F 05/10/20 07:55 Pulse 87 05/10/20 08:40 Resp 20 05/10/20 08:40 BP 135/84 05/10/20 08:40 Pulse Ox 96 05/10/20 08:40 Airway Mallampati Class: III TM Dist: >3cm Neck ROM: Full Heart: RRR Lungs: CTA
--- NOTE | 2020-05-10 10:42 | HO.POSTANES ---
Post Anesthesia Evaluation Post Anesthesia Evaluation Vital Signs: Vital Signs Temp Pulse Resp BP Pulse Ox 05/10/20 08:40 87 20 135/84 96 05/10/20 08:25 90 18 114/80 95 05/10/20 08:10 96 17 155/77 H 96 05/10/20 08:05 96 18 143/92 H 95 05/10/20 08:00 96 18 154/91 H 96 05/10/20 07:55 98.1 F 92 16 140/86 H 97 05/10/20 06:10 98.0 F 76 16 123/96 H 96
--- NOTE | 2020-05-10 10:46 | HO.POSTANES ---
Post Anesthesia Evaluation Post Anesthesia Evaluation Vital Signs: Vital Signs Temp Pulse Resp BP Pulse Ox 05/10/20 08:40 87 20 135/84 96 05/10/20 08:25 90 18 114/80 95 05/10/20 08:10 96 17 155/77 H 96 05/10/20 08:05 96 18 143/92 H 95 05/10/20 08:00 96 18 154/91 H 96 05/10/20 07:55 98.1 F 92 16 140/86 H 97 05/10/20 06:10 98.0 F 76 16 123/96 H 96 Anesthesia: Monitored Mental Status: Awake Pain Control: Satisfactory Nausea/Vomiting: None Hydration: Adequate Anesthesia-Related Issues: No Anes. Related Issues
== END 2020-05-10 08:50 | disposition home or self-care (01) ==
PROVIDERS: Visit Provider Psychiatry & Neurology Psychiatry
PROC: (CPT 90870; principal; 2020-05-10 07:00)
DX: F33.3 Major depressive disorder, recurrent, severe with psychotic symptoms (principal); F43.10 Post-traumatic stress disorder, unspecified; F45.8 Other somatoform disorders; J45.909 Unspecified asthma, uncomplicated; Z79.899 Other long term (current) drug therapy; Z79.51 Long term (current) use of inhaled steroids; N28.9 Disorder of kidney and ureter, unspecified; Z88.8 Allergy status to other drugs, medicaments and biological substances
CPT/HCPCS: 90870; J0131; J0330; J2405

== ENCOUNTER 2020-06-09 06:08 | Day surgery (SDC) | payer OTHER, SELFPAY ==
[2020-06-09] VITALS (7 sets, daily range): BP systolic 121–134; BP diastolic 78–83; PULSE 82–95; RESP 16–18; TEMP 36.3–37.1; O2SAT 93–96; BMI 39.5
--- NOTE | 2020-06-09 07:04 | P.CONAN_ITS ---
FORMERLY [facility] Past Medical History Medical History Asthma At risk for bleeding associated with tonsillectomy and adenoidectomy Autonomic dysfunction HLD (hyperlipidemia) Major depressive disorder, recurrent, severe with psychotic symptoms Neuropathy PTSD (post-traumatic stress disorder) Renal insufficiency Suicidal ideation Ulnar nerve damage Surgical History Surgical History H/O spinal fusion H/O tubal ligation H/O ureter repair History of sinus surgery History of tonsillectomy Previous section Social History Social History Household Members: Family Housing: House Smoking Status: Never smoker Second Hand Smoke Exposure: No Substance Use Type: Marijuana Substance Use Frequency: Occasionally Have you been hit, kicked, punched, or otherwise hurt by someone within the past year? If so, by whom?: No Advance Directives: No Advance Directives Information Provided: Yes Recently lost weight without trying: No service: No Sexual orientation: Straight/Heterosexual Meds Allergies Allergy/AdvReac Type Severity Reaction Status Date / Time gabapentin [GABAPENTIN] Allergy Unknown UNKNOWN Verified 03/25/20 19:56 morphine [MORPHINE] Allergy Unknown UNKNOWN Verified 03/25/20 19:56 oxycodone [OXYCODONE] Allergy Unknown UNKNOWN Verified 03/25/20 19:56 topiramate [TOPIRAMATE] Allergy Unknown UNKNOWN Verified 03/25/20 19:56 Home Medications Medication Instructions Recorded Confirmed Type Viibryd 1 tab PO DAILY@0730 03/24/20 03/24/20 History amitriptyline 1 tab PO BEDTIME 03/24/20 03/24/20 History atenolol 1 tab PO DAILY 03/24/20 03/24/20 History atorvastatin 1 tab PO DAILY 03/24/20 03/24/20 History cetirizine 1 tab PO BEDTIME 03/24/20 03/24/20 History clonazepam 1 tab PO BID PRN 03/24/20 03/24/20 History fludrocortisone 0.1 mg PO Q12H 03/24/20 03/24/20 History levothyroxine 1 tab PO DAILY@0630 03/24/20 03/24/20 History losartan 1 tab PO DAILY 03/24/20 03/24/20 History montelukast 1 tab PO DAILY@0730 03/24/20 03/24/20 History tizanidine 1 tab PO TID 03/24/20 03/24/20 History trazodone 1 tab PO BEDTIME 03/24/20 03/24/20 History Exam Exam Date and Time: June 09, 2020 0704 Height,Weight and Vital Signs: Height 5 ft 6 in Weight 111.13 kg Airway Mallampati Class: II TM Dist: >3cm Neck ROM: Full Assessment and Plan Assessment Anesthesia Assessment: Anesthesia Plan Discussed and Chart Reviewed Final Anesthetic Review NPO: Yes ASA Class: II Final Preanesthetic Review: No Changes in Pt Med Stat, Meds/Allgs Chart Reviewed, Consent Obtained/Reviewed and Anes Risks/Benef Reviewed Patient Risk: Low Procedure Risk: Low Assessment/Block/Sedation in SS: Assess/Block/Sedation-SS Anesthetic Plan Anesthetic Plan: GA Disposition: Standard PACU
--- NOTE | 2020-06-09 07:09 | MHC.SHP ---
Pre-Procedural Eval Section B Chief Complaint: severe depression Details of Present Illness: recurrent depression recent 2 weeks ago flu like sx has quarentined x 2 weeks Relevant Social History: None Present Medications: see Short Stay Collaborative assessment Medical History: Significant History (mobley disease ) History of Previous Operations: No relevant previous surgery (ect) Allergies: Allergies Allergy/AdvReac Type Severity Reaction Status Date / Time gabapentin [GABAPENTIN] Allergy Unknown UNKNOWN Verified 03/25/20 19:56 morphine [MORPHINE] Allergy Unknown UNKNOWN Verified 03/25/20 19:56 oxycodone [OXYCODONE] Allergy Unknown UNKNOWN Verified 03/25/20 19:56 topiramate [TOPIRAMATE] Allergy Unknown UNKNOWN Verified 03/25/20 19:56 Review of Systems Sugical H&P ROS: Negative: Cardiovascular, Respiratory, Hem-Onc and Integumentary and Yes, Specify: Constitution (recent fatigue ) Exam Surgical H&P Exam: Normal: HEENT, Normal: Heart (rr no murmur ) and Normal: Lungs Plan Diagnosis/Plan: Unchanged I have reviewed the history and physical and performed a pertinent physical examination on my patient. No changes have occurred unless specified.
--- NOTE | 2020-06-09 07:48 | HO.ECTPROC ---
ECT Procedure Note Diagnosis/Treatment Diagnosis: Major Depressive Disorder Previous ECT Date: 05/08/20 Current Treatment Number: 10 Treatment: Maintenance (10) Interval Clinical Notes: Pt feeling better generally no c/o side effects ECT Settings Device: THYMATRON DGx Electrode Placement: Bitemporal Program/Pulse Width: 0.50 Energy Percent: 100 Seizure Duration By EEG (in seconds): 36 Medications Administration General Anesthetic: Ketamine (100) Muscle Relaxant: Succinylcholine (100) Ancillary Medications Anti-emetics: Zofran - Pre ECT Miscillaneous Medications: Propofol (30 mg) Airway Management Airway Management: Bag Mask Ventilation Treatment Recommendations No Changes Recommended: No change Notes: next tx maintenance 4 weeks cognitively clear Pt Tolerated Procedure w/o Issue: Yes
--- NOTE | 2020-06-09 08:35 | HO.POSTANES ---
Post Anesthesia Evaluation Post Anesthesia Evaluation Vital Signs: Vital Signs Temp Pulse Resp BP Pulse Ox 06/09/20 08:25 98.7 F 82 18 129/83 96 06/09/20 08:10 83 17 134/78 93 06/09/20 07:55 91 18 133/82 94 06/09/20 07:50 95 16 133/82 96 06/09/20 07:45 91 16 125/83 96 06/09/20 07:40 89 18 121/80 96 06/09/20 07:35 97.3 F 86 16 133/81 96 Anesthesia: General Mental Status: Awake Pain Control: Satisfactory Nausea/Vomiting: None Hydration: Adequate Anesthesia-Related Issues: No Anes. Related Issues
[2020-06-09 08:52] LABS: TSH reflex Free T4 3.34 mIU/mL (0.32-4.0)
== END 2020-06-09 08:32 | disposition home or self-care (01) ==
PROVIDERS: Visit Provider Psychiatry & Neurology Psychiatry
PROC: (CPT 90870; principal; 2020-06-09 08:00)
DX: F33.3 Major depressive disorder, recurrent, severe with psychotic symptoms (principal); F43.10 Post-traumatic stress disorder, unspecified; F45.8 Other somatoform disorders; R45.851 Suicidal ideations; N18.30 Chronic kidney disease, stage 3 unspecified; J45.909 Unspecified asthma, uncomplicated; G62.9 Polyneuropathy, unspecified; Z79.899 Other long term (current) drug therapy; Z88.8 Allergy status to other drugs, medicaments and biological substances
CPT/HCPCS: 36415; 84443; 90870; J0131; J0330; J2405

== ENCOUNTER 2024-01-08 22:04 | Inpatient (IN) | payer OTHER, SELFPAY ==
[2024-01-08 22:53] VITALS: BP 113/78; BP 125/67; PULSE 74; PULSE 84; RESP 20; TEMP 36.6; O2SAT 97; BMI 44.6
--- NOTE | 2024-01-08 23:25 | ED.PSYCH ---
HPI - Psych General Chief Complaint: Psychiatric Symptoms Stated Complaint: sect.12 SI Time Seen by Provider: 01/08/24 23:18 Source: patient and EMS Mode of arrival: EMS Limitations: no limitations History of Present Illness ED Provider: Dr. Melinda Mulligan HPI Narrative: patient comes to the emergency room from respite. According to the patient, patient has been feeling very anxious, suicidal, dissociative. Patient states that when she was in respite, she has scratched the sternal area with her nails causing an abrasion. Per patient, patient tried during this to relieve some anxiety. Patient states that in the past she was treated with ECT and it worked very well for her. Patient takes the medications and states she is compliant with them. Patient denies HI. Patient states that someone from her respite program spoke with Dr. Courtney for a possible direct admission Related Data Home Medications ?Medication ?Instructions ?Recorded ?Confirmed amitriptyline 150 mg tablet 1 tab PO BEDTIME 03/24/20 03/24/20 atenolol 25 mg tablet 1 tab PO DAILY 03/24/20 03/24/20 atorvastatin 10 mg tablet 1 tab PO DAILY 03/24/20 03/24/20 cetirizine 10 mg tablet 1 tab PO BEDTIME 03/24/20 03/24/20 clonazepam 0.5 mg tablet 1 tab PO BID PRN Anxiety 03/24/20 03/24/20 fludrocortisone 0.1 mg tablet 0.1 mg PO Q12H 03/24/20 03/24/20 levothyroxine 50 mcg tablet 1 tab PO DAILY@0630 03/24/20 03/24/20 losartan 25 mg tablet 1 tab PO DAILY 03/24/20 03/24/20 montelukast 10 mg tablet 1 tab PO DAILY@0730 03/24/20 03/24/20 tizanidine 4 mg tablet 1 tab PO TID 03/24/20 03/24/20 trazodone 100 mg tablet 1 tab PO BEDTIME 03/24/20 03/24/20 vilazodone 40 mg tablet (Viibryd) 1 tab PO DAILY@0730 03/24/20 03/24/20 Previous Rx's ?Medication ?Instructions ?Recorded quetiapine 25 mg tablet 25 mg PO TID 30 days #90 tabs 04/05/20 prednisone 20 mg tablet 20 mg PO DAILY 9 days #18 tabs 07/10/20 Allergies Allergy/AdvReac Type Severity Reaction Status Date / Time gabapentin [GABAPENTIN] Allergy Unknown UNKNOWN Verified 01/08/24 23:00 morphine [MORPHINE] Allergy Unknown UNKNOWN Verified 01/08/24 23:00 oxycodone [OXYCODONE] Allergy Unknown UNKNOWN Verified 01/08/24 23:00 topiramate [TOPIRAMATE] Allergy Unknown UNKNOWN Verified 01/08/24 23:00 Review of Systems Review of Systems: Constitutional : No Weight loss, No Fever, No Chills, No Night Sweats, No Fatigue, No Malaise ENT/Mouth : No Hearing loss, No Ear Pain, No Nasal Congestion, No Sinus Pain, No Hoarseness, No sore throat, No Rhinorrhea, No Swallowing Difficulty Eyes: No Eye Pain, No Swelling, No Redness, No Foreign Body, No Discharge, No Vision Changes Cardiovascular : No Chest Pain, No SOB, No Dyspnea on Exertion, No Orthopnea, No Edema, No Palpitations Respiratory : No Cough, No Sputum, No Wheezing, No Smoke Exposure, No Dyspnea Gastrointestinal : No Nausea, No Vomiting, No Diarrhea, No Constipation, No abdominal Pain, No Hematochezia, No Melena Genitourinary : no irregular bleeding, No Dysuria, No Urinary Frequency, No Hematuria, No Urinary Incontinence, No Urgency, No Flank Pain, No Urinary Flow Changes, No Hesitancy Musculoskeletal : No joint pain, No Myalgias, No Joint Swelling Skin : minor abrasion to the sternum and forearms Neuro : No Weakness, No Numbness, No Paresthesias, No Loss of Consciousness, No Dizziness, No Headache Psych : complaining of anxiety and depression, vague SI, no HI Heme/Lymph: No Bruising, No Bleeding,No Lymphadenopathy Endocrine : No Polyuria, No Polydipsia, No Temperature Intolerance PMFSH Past Medical History Medical History At risk for bleeding associated with tonsillectomy and adenoidectomy HLD (hyperlipidemia) Suicidal ideation Renal insufficiency PTSD (post-traumatic stress disorder) Major depressive disorder, recurrent, 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 Neuropathy Autonomic dysfunction Asthma Surgical History H/O spinal fusion H/O tubal ligation H/O ureter repair History of sinus surgery History of tonsillectomy Previous section Social History Social History Household Members: Family Housing: House Do you presently have visiting nurse or other home services: No Comment: pt asleep Second Hand Smoke Exposure: No Substance Use Type: Marijuana Advance Directives: Yes Advance Directives Information Provided: No Advance Directives on File: No Do you have a plan to hurt others: No Plan service: No Sexual orientation: Straight/Heterosexual Physical Exam Vital Signs: Vital Signs: Last Vital Signs Temp 98 F 01/08/24 22:53 Pulse 74 01/08/24 22:53 Resp 20 01/08/24 22:53 BP 125/67 01/08/24 22:53 Pulse Ox 97 01/08/24 22:53 O2 Del Method Room Air 01/08/24 22:53 BMI result Body Mass Index 44.6 Const: Other: Appearance: Alert. Oriented X3. No acute distress. Eyes: Pupils equal, round and reactive to light. ENT: Pharynx normal. Neck: Normal inspection. Neck supple. No lymph nodes noted. No crepitus CVS: Normal heart rate and rhythm. Pulses normal. Normal S1 and S2 Respiratory: No respiratory distress. Breath sounds normal. No Wheezing. No rales Abdomen: Soft and nontender. No rigidity. No distention. Skin: 1 cm x 1 cm abrasion to the middle of the sternum, superficial. Extremities: No lower extremity edema. No Lacerations. No Rash Neuro: Oriented X 3. No motor deficit. No sensory deficit. Moving all extremities. No slurred speech. CN 2 through 12 grossly intact Psych: calm, cooperative, normal affect Course Course Course Narrative: - all of patient's labs pending - patient was Sectioned 12 in the community - care team consult pending - physician observation started at 23:30 Medical Decision Making Medical Decision Making MDM Narrative: - 01:00: Patient was accepted by Dr. Gutierrez. Differential Diagnosis Differential Diagnoses: The differential diagnosis associated with the presentation includes ( anxiety, depression, suicidal ideation) Admission/Observation Consideration of admission/observation: Escalation of care including admission/observation considered ( patient is on a Section 12, care team will confirm if the patient has a direct admission to Psychiatry) Consult Healthcare Provider Management of the patient was discussed with: Behavioral Health Provider Lab Data [facility] Lab Attestation statement: I reviewed the patient's lab results. 01/08/24 23:39 01/08/24 23:39 Labs: Lab Results 01/08/24 Range/Units 23:39 WBC 14.2 H (4.8-10.8) X10*3/uL RBC 4.15 L (4.20-5.50) X10*6/uL Hgb 12.5 (12.0-16.0) g/dl Hct 37.3 (37.0-47.0) % MCV 89.9 (80.0-98.0) fL MCH 30.1 (27.0-33.0) pg MCHC 33.5 (31.0-35.0) g/dl RDW 13.6 (11.0-16.0) % Plt Count 262 (160-400) X10*3/uL MPV 10.0 (9.4-12.3) fL Immature Gran % (Auto) 0.8 H (0.0-0.4) % Neut % (Auto) 65.1 (45-73) % Lymph % (Auto) 23.4 (20-40) % Greenlee % (Auto) 8.0 (2-11) % Eos % (Auto) 2.1 (0-4) % Baso % (Auto) 0.6 (0-2) % Lymph # (Auto) 3.3 (1.2-4.9) X10*3/uL Greenlee # (Auto) 1.1 (0.1-1.2) X10*3/uL Eos # (Auto) 0.3 (0.0-0.4) X10*3/uL Baso # (Auto) 0.1 (0.0-0.2) X10*3/uL Abs Immat Gran (auto) 0.11 H (0.00-0.03) X10*3/uL Absolute Neuts (auto) 9.3 H (2.0-8.3) x10*3/uL Absolute Nucleated RBC 0.000 (0.0-0.012) X10*3/uL Nucleated RBC % (auto) 0.0 (0.0-0.2) /100WBC Sodium 142 (135-145) mmol/L Potassium 3.7 (3.3-5.1) mmol/L Chloride 109 H (96-108) mmol/L Carbon Dioxide 27 (22-29) mmol/L Anion Gap 10 L (12-20) BUN 14 (9-16) mg/dL Creatinine 1.08 (0.5-1.4) mg/dL Estim Creat Clear Calc 74.2 Estimated GFR 52 Random Glucose 107 (60-115) mg/dL Calcium 9.2 (8.4-10.2) mg/dL Total Bilirubin 0.3 (0.0-1.0) mg/dL Direct Bilirubin 0.1 (0.0-0.5) mg/dL AST 12 (5-31) U/L ALT 12 (0-31) U/L Alkaline Phosphatase 62 (39-117) U/L Total Protein 6.5 (6.5-8.0) g/dL Albumin 3.7 (3.5-5.0) g/dL Ethyl Alcohol < 10 mg/dL Critical Care Time Critical Care Time Critical Care Time: Yes Total Critical Care Time: 30 Attestation: I have personally provided critical care time. Time includes review of lab data, radiology results, discussion with consultants, and monitoring for potential decompensation. Intervention performed as documented. Discharge Plan Discharge Clinical Impression: Anxiety and depression, Suicidal ideation Patient Disposition: Admitted As Inpatient Prescriptions: No Action cetirizine 10 mg tablet 1 tab PO BEDTIME atorvastatin 10 mg tablet 1 tab PO DAILY amitriptyline 150 mg tablet 1 tab PO BEDTIME tizanidine 4 mg tablet 1 tab PO TID clonazepam 0.5 mg tablet 1 tab PO BID PRN (Reason: Anxiety) atenolol 25 mg tablet 1 tab PO DAILY trazodone 100 mg tablet 1 tab PO BEDTIME levothyroxine 50 mcg tablet 1 tab PO DAILY@0630 losartan 25 mg tablet 1 tab PO DAILY montelukast 10 mg tablet 1 tab PO DAILY@0730 Viibryd 40 mg tablet 1 tab PO DAILY@0730 fludrocortisone 0.1 mg tablet 0.1 mg PO Q12H quetiapine 25 mg Tablet 25 mg PO TID 30 Days Qty: 90 0RF Rx Instructions: may take additional 1 daily as needed anxiety may take 1 with sip of water prior to coming for ect prednisone 20 mg tablet 20 mg PO DAILY 9 Days Qty: 18 0RF Rx Instructions: 3 tabs/60mg for 3 days 2 tabs/40mg for 3 days 1 tab/20mg for 3 days Interventions: Zavala-Suicide Risk Severity Scale Last Done: 01/08/24 23:27 Print Language: Yoruba
[2024-01-08 23:43] LABS: MANUAL DIFF FLAG NO
[2024-01-08 23:46] LABS: Basophils Absolute Auto 0.1 X10*3/uL (0.0-0.2); Basophils Percent Auto 0.6 % (0-2); Eosinophils Absolute Auto 0.3 X10*3/uL (0.0-0.4); Eosinophils Percent Auto 2.1 % (0-4); Hematocrit 37.3 % (37.0-47.0); Hemoglobin 12.5 g/dl (12.0-16.0); Imm Gran Abs Auto 0.11 X10*3/uL (0.00-0.03); Imm Gran Pct Auto 0.8 % (0.0-0.4); Lymphocytes Absolute Auto 3.3 X10*3/uL (1.2-4.9); Lymphocytes Percent Auto 23.4 % (20-40); Mean Corpuscular HGB Conc 33.5 g/dl (31.0-35.0); Mean Corpuscular Hemoglobin 30.1 pg (27.0-33.0); Mean Corpuscular Volume 89.9 fL (80.0-98.0); Monocytes Absolute Auto 1.1 X10*3/uL (0.1-1.2); Neutrophils Absolute Auto 9.3 x10*3/uL (2.0-8.3); Neutrophils Percent Auto 65.1 % (45-73); Platelet Count 262 X10*3/uL (160-400); Red Blood Count 4.15 X10*6/uL (4.20-5.50); Red Cell Distribution Width 13.6 % (11.0-16.0); White Blood Count 14.2 X10*3/uL (4.8-10.8)
--- NOTE | 2024-01-09 | ECG_ITS ---
Test Reason : ECT Blood Pressure : / mmHG Vent. Rate : 074 BPM Atrial Rate : 074 BPM P-R Int : 156 ms QRS Dur : 088 ms QT Int : 376 ms P-R-T Axes : 061 040 069 degrees QTc Int : 417 ms Normal sinus rhythm Nonspecific ST abnormality Abnormal ECG When compared with ECG of 29-MAR-2020 10:12, No significant change was found Referred By: Galo Gutierrez Electronically Signed By:HERO LLAMAS
[2024-01-09 00:04] LABS: Alanine Aminotransferase 12 U/L (0-31); Albumin Level 3.7 g/dL (3.5-5.0); Alkaline Phosphatase 62 U/L (39-117); Anion Gap 10 (12-20); Aspartate Amino Transferase 12 U/L (5-31); Bilirubin Direct 0.1 mg/dL (0.0-0.5); Bilirubin Total 0.3 mg/dL (0.0-1.0); Blood Urea Nitrogen 14 mg/dL (9-16); Calcium 9.2 mg/dL (8.4-10.2); Carbon Dioxide 27 mmol/L (22-29); Chloride 109 mmol/L (96-108); Creatinine Clr Calc Pharmacy 74.2; Estimated Glomerular Filt Rate 52; Ethanol < 10 mg/dL; Glucose Random 107 mg/dL (60-115); Potassium 3.7 mmol/L (3.3-5.1); Sodium 142 mmol/L (135-145); Total Protein 6.5 g/dL (6.5-8.0)
[2024-01-09 02:58] VITALS: BP 136/82; PULSE 74; RESP 17; TEMP 36.4; O2SAT 96
[2024-01-09 03:04] VITALS: BMI 45.2
--- NOTE | 2024-01-09 04:01 | PC.ADMIT ---
58 yr old female who presents to from [facility] for self harm (picking skin and scratching) and worsening depression. Patient reports I am not suicidal, I feel inside She reports no recent stressors. Patient states It's like a switch flips one minute I am feeling good and then I dont. Patient reports dissociation. This patient has a history of chronic Schizophrenia, Bipolar disorder, SI, acute Psychotic episodes, MDD, PTSD, HTN, HLD, CKD, Asthma. Skin check performed by 2 RN's, patient has superficial scratch buck on her chest, in between her breasts, and is actively picking at her arms. She appears anxious, slightly unkempt,wearing hospital johnnies. She does not smoke cigarettes and is refusing nicotine replacement. She normally drinks several times a month but has been drinking approx. 12 oz. Amaretto every day over the past 2 weeks to self medicate. No history of sz or withdrawals. She reports being proactive this time and discussing ECT with her [facility] worker which she feels is the only thing that works which is another reason why she is here. She has a history at [facility] with our providers. She lives with her family, has transportation and appears to have a positive support system with family and providers. She is pleasant and cooperative but came up at 0130 and wanted to get to sleep. She is safe on the unit, has been here before about 3 yrs ago but re-acclimated. Denies SI/HI, AH/VH. Patient states she isolates when upset and does not know if she would speak with staff or advocate for herself if feeling like self harming or having intrusive thoughts. RN encouraged her to do so and is currently placed on 15 minute checks. Will continue to monitor behaviors and sleep pattern and continue care with behavioral health team in the morning.
--- NOTE | 2024-01-09 07:06 | PHA.MEDREC ---
Pharmacy Consult ? Medication Reconciliation Pharmacy has completed the medication reconciliation. Reviewed med rec done by nursing.
[2024-01-09 08:00] VITALS: BP 131/75; PULSE 72; RESP 14; TEMP 36.8; O2SAT 95
[2024-01-09 08:34] LABS: MANUAL DIFF FLAG NO
[2024-01-09 08:37] LABS: Basophils Absolute Auto 0.1 X10*3/uL (0.0-0.2); Basophils Percent Auto 0.8 % (0-2); Eosinophils Absolute Auto 0.3 X10*3/uL (0.0-0.4); Eosinophils Percent Auto 2.3 % (0-4); Hematocrit 40.1 % (37.0-47.0); Hemoglobin 13.5 g/dl (12.0-16.0); Imm Gran Pct Auto 0.8 % (0.0-0.4); Lymphocytes Absolute Auto 3.2 X10*3/uL (1.2-4.9); Lymphocytes Percent Auto 24.7 % (20-40); Mean Corpuscular HGB Conc 33.7 g/dl (31.0-35.0); Mean Corpuscular Volume 89.1 fL (80.0-98.0); Monocytes Percent Auto 7.6 % (2-11); Neutrophils Absolute Auto 8.3 x10*3/uL (2.0-8.3); Neutrophils Percent Auto 63.8 % (45-73); Platelet Count 275 X10*3/uL (160-400); Red Cell Distribution Width 13.4 % (11.0-16.0); White Blood Count 12.9 X10*3/uL (4.8-10.8)
[2024-01-09 08:51] LABS: Estimated Average Glucose 105 mg/dL; Hemoglobin A1c % 5.3 % (<6.0)
[2024-01-09 09:01] LABS: Cholesterol 157 mg/dL (<200); HDL Cholesterol 43 mg/dL (>40); LDL Cholesterol Calculated 80 mg/dL (<100); Triglycerides 174 mg/dL (<150)
[2024-01-09 09:16] LABS: TSH reflex Free T4 2.82 uIU/mL (0.32-4.0)
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
[2024-01-09] MEDS: Omeprazole 20 MG CAPSULE.DR PO (13:14)
[2024-01-09] MEDS: Fludrocortisone Acetate 0.1 MG TABLET PO ×2 (13:14→20:44)
[2024-01-09 13:26] LABS: Appearance Urine Clear; Color Urine Yellow; Glucose Urine UA Negative (Negative); Leukocyte Esterase Urine Negative (Negative); Nitrite Urine Negative (Negative); Specific Gravity - Urine 1.015 (1.005-1.025); Urine Blood Negative (Negative); Urine Ketones Negative (Negative); Urine Protein Negative (Neg-Trace)
[2024-01-09 13:55] LABS: Amphetamine Screen Urine Not Detected (Not Detect); Barbiturates, Urine Not Detected (Not Detect); Benzodiazepines Screen Urine Not Detected (Not Detect); Buprenorphine Scr Not Detected (Not Detect); Cannabinoid Screen Urine Not Detected (Not Detect); Cocaine Screen Urine Not Detected (Not Detect); Fentanyl, urine Not Detected (Not Detect); Methadone Screen, Urine Not Detected (Not Detect); Opiate Screen Urine Not Detected (Not Detect); Oxycodone Screen Urine Not Detected (Not Detect); Phencyclidine Screen Urine Not Detected (Not Detect)
[2024-01-09] MEDS: Vilazodone HCL 40 MG TABLET PO (14:02)
[2024-01-09] MEDS: QUEtiapine Fumarate 50 MG TABLET PO (14:42)
--- NOTE | 2024-01-09 18:06 | HO.ECT-CONS ---
History of Present Illness Data of Consult Service Date: 01/09/24 Primary Care Provider: Nonstaff Physician HPI Reason for consult: ECT risk stratification Patient is a 58-year-old female PMH significant for mild intermittent asthma, pots, peripheral neuropathy, CKD 3, autonomic dysfunction, anxiety, and depression who [facility] anxiety, dissociation, depression, and SI. While at [facility] patient apparently had scratched her chest with her nails in the attempts of causing her self-harm. Hospitalist consult for ECT risk stratification. Patient reports that she has had ECT done in the past which she found helpful, with last ECT in [id number] while at [facility]. Specifically requested to be brought here to resume ECT. Reports history of mild intermittent asthma, though only rarely needs to use her inhaler. Denies history of cerebral hemorrhage or ischemic stroke, space-occupying intracranial lesion, or TBI. No significant cardiac history including CAD, WI, or heart arrhythmias. No severe pulmonary conditions. Denies history PAD or bleeding disorders. No previous complications from anesthesia. EKG reviewed, negative for prolonged QTc or acute ischemic changes. Patient herself denies chest pain/pressure, palpitations. No shortness a breath or difficulty breathing. Denies lightheadedness or dizziness. No fever, chills, nausea, vomiting, abdominal pain. Denies hematemesis, hemoptysis, hematochezia, or melena. Review of Systems Review of Systems: Patient denies any acute medical complaints at this time [facility] Medical History MDD (major depressive disorder), recurrent severe, without psychosis At risk for bleeding associated with tonsillectomy and adenoidectomy HLD (hyperlipidemia) Suicidal ideation Renal insufficiency PTSD (post-traumatic stress disorder) Major depressive disorder, recurrent, 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 Neuropathy Autonomic dysfunction Asthma Surgical History History of sinus surgery History of tonsillectomy H/O ureter repair H/O tubal ligation Previous section H/O spinal fusion Social History Household Members: Family Housing: House Do you presently have visiting nurse or other home services: No Comment: pt asleep Patient Tobacco Use Status: Never used Tobacco Smoked in Last 30 Days: No e-Cigarette/Vaping Use: Never Used Patient Interested in Nicotine Replacement: No Patient Given Instructions on How to Stop Smoking: No (doesnt smoke) Second Hand Smoke Exposure: No Use of substances other than those prescribed or required for medical reasons: Yes Substance Use Type: Marijuana Substance Use Frequency: Weekly Last Used Substance: Days (ago) Currently Displaying Signs/Symptoms of Drug Intoxication Withdrawal: No Any prior treatment program specific to substance use: No Have you been hit, kicked, punched, or otherwise hurt by someone within the past year? If so, by whom?: No Do you feel safe in your current relationship?: No Current Relationship Is there a partner from a previous relationship who is making you feel unsafe now?: No Are you made to feel afraid or neglected: No Spiritual Healthcare Practices: none Cheondoism Healthcare Practices: none Cultural Healthcare Practices: none Advance Directives: Yes Advance Directives Information Provided: No Advance Directives on File: No Do you have thoughts of harming others: None Do you have a plan to hurt others: No Plan Recently lost weight without trying: No Eating poorly because of decreased appetite: No Nutrition Risks: No Nutritional Risk Patient : No : No Poor oral hygiene: No service: No Sexual orientation: Straight/Heterosexual Meds Allergies Allergy/AdvReac Type Severity Reaction Status Date / Time gabapentin [GABAPENTIN] Allergy Unknown UNKNOWN Verified 01/08/24 23:00 morphine [MORPHINE] Allergy Unknown UNKNOWN Verified 01/08/24 23:00 oxycodone [OXYCODONE] Allergy Unknown UNKNOWN Verified 01/08/24 23:00 topiramate [TOPIRAMATE] Allergy Unknown UNKNOWN Verified 01/08/24 23:00 Active Medications: Current Medications Acetaminophen (Acetaminophen 325 Mg Tablet) 650 mg PO Q6H PRN PRN Reason: Headache/Pain Mild Scale (1-3) Al Hydroxide/Mg Hydroxide (Magnesium Hydrox/Alum Hydrox 30 Ml Oral.Susp) 30 ml PO Q6H PRN PRN Reason: Heartburn/Nausea Albuterol Sulfate (Albuterol Sulfate 90 Mcg 8 Gm Inhaler) 2 puff INHALE Q4H PRN PRN Reason: Shortness Of Breath Or Wheezing Amitriptyline HCl (Amitriptyline Hcl 25 Mg Tablet) 25 mg PO BEDTIME SOO Atenolol (Atenolol 25 Mg Tablet) 25 mg PO DAILY SOO; Protocol Atorvastatin Calcium (Atorvastatin Calcium 40 Mg Tablet) 40 mg PO BEDTIME [facility] Chlorpromazine HCl (Chlorpromazine Hcl 25 Mg Tablet) 25 mg PO QID PRN PRN Reason: moderate anxiety Clonazepam (Clonazepam 0.5 Mg Tablet) 0.5 mg PO DAILY PRN PRN Reason: Anxiety Fludrocortisone Acetate (Fludrocortisone Acetate 0.1 Mg Tablet) 0.1 mg PO BID [facility] Last Admin: 01/09/24 13:14 Dose: 0.1 mg Hydroxyzine HCl (Hydroxyzine Hcl 25 Mg Tablet) 25 mg PO Q6H PRN PRN Reason: Anxiety Hydroxyzine HCl (Hydroxyzine Hcl 25 Mg Tablet) 25 mg PO Q6H PRN PRN Reason: mild anxiety Loratadine (Loratadine 10 Mg Tablet) 10 mg PO BEDTIME [facility] Magnesium Hydroxide (Milk Of Magnesia 30 Ml Oral.Susp) 30 ml PO DAILY PRN PRN Reason: Constipation Montelukast Sodium (Montelukast Sodium 10 Mg Tablet) 10 mg PO BEDTIME [facility] Nicotine (Nicotine 21 Mg Patch.Td24) 21 mg TRANSDERMA DAILY PRN PRN Reason: smoking cessation Nicotine Polacrilex (Nicotine Polacrilex 2 Mg Gum) 4 mg BUCCAL Q2H PRN PRN Reason: Nicotine Cravings Omeprazole (Omeprazole 20 Mg Capsule.Dr) 20 mg PO BID@0630,1630 [facility] Last Admin: 01/09/24 17:53 Dose: Not Given Quetiapine Fumarate (Quetiapine Fumarate 100 Mg Tablet) 100 mg PO BEDTIME [facility] Quetiapine Fumarate (Quetiapine Fumarate 50 Mg Tablet) 50 mg PO BID@0900,1200 [facility] Trazodone HCl (Trazodone Hcl 50 Mg Tablet) 50 mg PO BEDTIME MRX1 PRN PRN Reason: Insomnia Trazodone HCl (Trazodone Hcl 100 Mg Tablet) 200 mg PO BEDTIME [facility] Vilazodone HCl (Vilazodone Hcl 40 Mg Tablet) 40 mg PO DAILY@1200 [facility] Last Admin: 01/09/24 14:02 Dose: 40 mg Home Medications ?Medication ?Instructions ?Recorded ?Confirmed ?Last Taken ?Type atenolol 25 mg tablet 1 tab PO DAILY 03/24/20 01/09/24 03/23/20 10:00 History 25 mg cetirizine 10 mg tablet 1 tab PO BEDTIME 03/24/20 01/09/24 03/22/20 21:00 History 10 mg clonazepam 0.5 mg tablet 1 tab PO 1XD PRN Anxiety 03/24/20 01/09/24 Unknown History fludrocortisone 0.1 mg tablet 0.1 mg PO 2XD 03/24/20 01/09/24 Unknown History levothyroxine 50 mcg tablet 1 tab PO DAILY@0630 03/24/20 01/09/24 03/23/20 08:00 History 50 mcg montelukast 10 mg tablet 1 tab PO BEDTIME 03/24/20 01/09/24 03/23/20 08:00 History 10 mg trazodone 100 mg tablet 2 tab PO BEDTIME PRN Insomnia 03/24/20 01/09/24 03/23/20 23:00 History 100 mg vilazodone 40 mg tablet (Viibryd) 1 tab PO 1XD 03/24/20 01/09/24 03/23/20 08:00 History 40 mg albuterol sulfate 90 mcg/actuation 2 puff inhalation Q4-6H PRN 01/09/24 01/09/24 Unknown History aerosol inhaler Shortness Of Breath Or Wheezing amitriptyline 25 mg tablet 25 mg PO BEDTIME 01/09/24 01/09/24 Unknown History atorvastatin 40 mg tablet 40 mg PO BEDTIME 01/09/24 01/09/24 Unknown History diclofenac sodium 1 % topical gel 1 topical PRN Pain, Moderate 01/09/24 Unknown History (Arthritis Pain (diclofenac)) nystatin 100,000 unit/gram topical 1 appl topical 2XD PRN Skin 01/09/24 01/09/24 Unknown History powder Irritation omeprazole 20 mg tablet,delayed 20 mg PO BID 01/09/24 01/09/24 Unknown History release quetiapine 100 mg tablet 100 mg PO BEDTIME 01/09/24 01/09/24 Unknown History quetiapine 50 mg tablet 50 mg PO 2XD 01/09/24 01/09/24 Unknown History Physical Exam Vital Signs and Narrative: Vital Signs: Last Vital Signs Temp 98.2 F 01/09/24 08:00 Pulse 72 01/09/24 08:00 Resp 14 01/09/24 08:00 BP 131/75 01/09/24 08:00 Pulse Ox 95 01/09/24 08:00 O2 Del Method Room Air 01/09/24 08:00 BMI result Body Mass Index 45.2 General: AOx3, no acute distress Resp: CTA bilaterally CVS: S1, S2, RRR GI: +BS, NT, no distention Skin: Warm, dry Neuro: Cranial nerves II-XII grossly intact bilaterally. Motor grossly intact bilaterally Extremities: No edema Psych: Appropriate affect Results Labs 01/09/24 08:27 01/08/24 23:39 Labs: Laboratory Results - last 24 hr 01/08/24 01/09/24 01/09/24 23:39 08:27 13:00 MCV 89.9 89.1 MCH 30.1 30.0 MCHC 33.5 33.7 RDW 13.6 13.4 Plt Count 262 275 MPV 10.0 10.0 Immature Gran % (Auto) 0.8 H 0.8 H Neut % (Auto) 65.1 63.8 Lymph % (Auto) 23.4 24.7 [place] % (Auto) 8.0 7.6 Eos % (Auto) 2.1 2.3 Baso % (Auto) 0.6 0.8 Lymph # (Auto) 3.3 3.2 [place] # (Auto) 1.1 1.0 Eos # (Auto) 0.3 0.3 Baso # (Auto) 0.1 0.1 Abs Immat Gran (auto) 0.11 H 0.10 H Absolute Neuts (auto) 9.3 H 8.3 Absolute Nucleated RBC 0.000 0.000 Nucleated RBC % (auto) 0.0 0.0 Anion Gap 10 L Estim Creat Clear Calc 74.2 Estimated GFR 52 Random Glucose 107 Estimat Average Glucose 105 Hemoglobin A1c % 5.3 Calcium 9.2 Total Bilirubin 0.3 Direct Bilirubin 0.1 AST 12 ALT 12 Alkaline Phosphatase 62 Total Protein 6.5 Albumin 3.7 Triglycerides 174 H Cholesterol 157 LDL Cholesterol, Calc 80 HDL Cholesterol 43 TSH 2.82 Urine Color Yellow Urine Appearance Clear Urine pH 7.0 Ur Specific [place] 1.015 Urine Protein Negative Urine Glucose (UA) Negative Urine Ketones Negative Urine Blood Negative Urine Nitrite Negative Ur Leukocyte Esterase Negative Urine Opiates Screen Not Detected Ur Buprenorphine Scrn Not Detected Ur Oxycodone Screen Not Detected Urine Methadone Screen Not Detected Urine Fentanyl Screen Not Detected Ur Barbiturates Screen Not Detected Ur Phencyclidine Scrn Not Detected Ur Amphetamines Screen Not Detected U Benzodiazepines Scrn Not Detected Urine Cocaine Screen Not Detected U Marijuana (THC) Screen Not Detected Ethyl Alcohol < 10 Assessment and Plan (1) Pre-op evaluation: Status: Acute Plan Patient is a 58-year-old female PMH significant for mild intermittent asthma, pots, peripheral neuropathy, CKD 3, autonomic dysfunction, anxiety, and depression who was [facility] with increased anxiety, dissociation, depression, and SI. While at respite patient apparently had scratched her chest with her nails in the attempts of causing her self-harm. Hospitalist consult for ECT risk stratification. ECT risk stratification Based on stated PMH and exam, there are no apparent medical contraindications indications to the planned procedure Patient without previous problems with anesthesia, has previously underwent ECT RCRI class 1 risk No further treatment or workup indicated at this time Thank you for allowing us to participate in the care of this patient. Signing off at this time. Please re-consult if any acute issue or need arises.
[2024-01-09 20:00] VITALS: BP 131/63; PULSE 75; RESP 16; TEMP 36.5; O2SAT 97
[2024-01-09] MEDS: Amitriptyline HCl 25 MG TABLET PO (20:44)
[2024-01-09] MEDS: Montelukast Sodium 10 MG TABLET PO (20:44)
[2024-01-09] MEDS: QUEtiapine Fumarate 100 MG TABLET PO (20:44)
[2024-01-09] MEDS: Loratadine 10 MG TABLET PO (20:44)
[2024-01-09] MEDS: Atorvastatin Calcium 40 MG TABLET PO (20:44)
[2024-01-09] MEDS: traZODone HCL 100 MG TABLET 200 MG PO (20:44)
[2024-01-09] MEDS: Acetaminophen 325 MG TABLET 650 MG PO (20:48)
[2024-01-10 08:00] VITALS: BP 126/74; PULSE 87; RESP 18; TEMP 36.4; O2SAT 93
[2024-01-10] MEDS: Omeprazole 20 MG CAPSULE.DR PO ×2 (08:34→17:02)
[2024-01-10] MEDS: Fludrocortisone Acetate 0.1 MG TABLET PO ×2 (08:35→20:43)
[2024-01-10] MEDS: QUEtiapine Fumarate 50 MG TABLET PO ×2 (08:35→12:18)
[2024-01-10] MEDS: atenoloL 25 MG TABLET PO (08:35)
[2024-01-10] MEDS: hydrOXYzine HCL 25 MG TABLET PO ×2 (08:48→17:02)
--- NOTE | 2024-01-10 08:48 | P.PNPSI_ITS ---
Subjective Subjective Date of Service: 01/10/24 Reason For Visit: sect.12 SI Interim History: Pt reporting pain with several documented allergies. Review of regime with pt. Will increase Tylenol to 975 mg prn Plans ECT to begin on 01/13. Apprehensive yet hopeful it will address current sx. Diagnostics Vital Signs (24Hr): Vital Signs - 24 hr 01/09/24 20:00 01/10/24 08:00 Temperature 97.7 F 97.5 F Pulse Rate 75 87 Respiratory Rate 16 18 Blood Pressure 131/63 126/74 Pulse Oximetry 97 93 Oxygen Delivery Method Room Air Room Air BMI result Body Mass Index 45.2 Labs 01/09/24 08:27 01/08/24 23:39 Labs: Laboratory Results - last 48 hr 01/08/24 01/09/24 01/09/24 23:39 08:27 13:00 WBC 14.2 H 12.9 H RBC 4.15 L 4.50 Hgb 12.5 13.5 Hct 37.3 40.1 MCV 89.9 89.1 MCH 30.1 30.0 MCHC 33.5 33.7 RDW 13.6 13.4 Plt Count 262 275 MPV 10.0 10.0 Immature Gran % (Auto) 0.8 H 0.8 H Neut % (Auto) 65.1 63.8 Lymph % (Auto) 23.4 24.7 Garrett % (Auto) 8.0 7.6 Eos % (Auto) 2.1 2.3 Baso % (Auto) 0.6 0.8 Lymph # (Auto) 3.3 3.2 Garrett # (Auto) 1.1 1.0 Eos # (Auto) 0.3 0.3 Baso # (Auto) 0.1 0.1 Abs Immat Gran (auto) 0.11 H 0.10 H Absolute Neuts (auto) 9.3 H 8.3 Absolute Nucleated RBC 0.000 0.000 Nucleated RBC % (auto) 0.0 0.0 Sodium 142 Potassium 3.7 Chloride 109 H Carbon Dioxide 27 Anion Gap 10 L BUN 14 Creatinine 1.08 Estim Creat Clear Calc 74.2 Estimated GFR 52 Random Glucose 107 Estimat Average Glucose 105 Hemoglobin A1c % 5.3 Calcium 9.2 Total Bilirubin 0.3 Direct Bilirubin 0.1 AST 12 ALT 12 Alkaline Phosphatase 62 Total Protein 6.5 Albumin 3.7 Triglycerides 174 H Cholesterol 157 LDL Cholesterol, Calc 80 HDL Cholesterol 43 TSH 2.82 Urine Color Yellow Urine Appearance Clear Urine pH 7.0 Ur Specific [place] 1.015 Urine Protein Negative Urine Glucose (UA) Negative Urine Ketones Negative Urine Blood Negative Urine Nitrite Negative Ur Leukocyte Esterase Negative Urine Opiates Screen Not Detected Ur Buprenorphine Scrn Not Detected Ur Oxycodone Screen Not Detected Urine Methadone Screen Not Detected Urine Fentanyl Screen Not Detected Ur Barbiturates Screen Not Detected Ur Phencyclidine Scrn Not Detected Ur Amphetamines Screen Not Detected U Benzodiazepines Scrn Not Detected Urine Cocaine Screen Not Detected U Marijuana (THC) Screen Not Detected Ethyl Alcohol < 10 Medications Medications Current Medications Acetaminophen (Acetaminophen 325 Mg Tablet) 650 mg PO Q6H PRN PRN Reason: Headache/Pain Mild Scale (1-3) Last Admin: 01/09/24 20:48 Dose: 650 mg Al Hydroxide/Mg Hydroxide (Magnesium Hydrox/Alum Hydrox 30 Ml Oral.Susp) 30 ml PO Q6H PRN PRN Reason: Heartburn/Nausea Albuterol Sulfate (Albuterol Sulfate 90 Mcg 8 Gm Inhaler) 2 puff INHALE Q4H PRN PRN Reason: Shortness Of Breath Or Wheezing Amitriptyline HCl (Amitriptyline Hcl 25 Mg Tablet) 25 mg PO BEDTIME [facility] Last Admin: 01/09/24 20:44 Dose: 25 mg Atenolol (Atenolol 25 Mg Tablet) 25 mg PO DAILY [facility]; Protocol Last Admin: 01/10/24 08:35 Dose: 25 mg Atorvastatin Calcium (Atorvastatin Calcium 40 Mg Tablet) 40 mg PO BEDTIME SOO Last Admin: 01/09/24 20:44 Dose: 40 mg Chlorpromazine HCl (Chlorpromazine Hcl 25 Mg Tablet) 25 mg PO QID PRN PRN Reason: moderate anxiety Clonazepam (Clonazepam 0.5 Mg Tablet) 0.5 mg PO DAILY PRN PRN Reason: Anxiety Fludrocortisone Acetate (Fludrocortisone Acetate 0.1 Mg Tablet) 0.1 mg PO BID [facility] Last Admin: 01/10/24 08:35 Dose: 0.1 mg Hydroxyzine HCl (Hydroxyzine Hcl 25 Mg Tablet) 25 mg PO Q6H PRN PRN Reason: Anxiety Last Admin: 01/10/24 08:48 Dose: 25 mg Hydroxyzine HCl (Hydroxyzine Hcl 25 Mg Tablet) 25 mg PO Q6H PRN PRN Reason: mild anxiety Loratadine (Loratadine 10 Mg Tablet) 10 mg PO BEDTIME [facility] Last Admin: 01/09/24 20:44 Dose: 10 mg Magnesium Hydroxide (Milk Of Magnesia 30 Ml Oral.Susp) 30 ml PO DAILY PRN PRN Reason: Constipation Montelukast Sodium (Montelukast Sodium 10 Mg Tablet) 10 mg PO BEDTIME [facility] Last Admin: 01/09/24 20:44 Dose: 10 mg Nicotine (Nicotine 21 Mg Patch.Td24) 21 mg TRANSDERMA DAILY PRN PRN Reason: smoking cessation Nicotine Polacrilex (Nicotine Polacrilex 2 Mg Gum) 4 mg BUCCAL Q2H PRN PRN Reason: Nicotine Cravings Omeprazole (Omeprazole 20 Mg Capsule.Dr) 20 mg PO BID@0630,1630 [facility] Last Admin: 01/10/24 08:34 Dose: 20 mg Quetiapine Fumarate (Quetiapine Fumarate 100 Mg Tablet) 100 mg PO BEDTIME [facility] Last Admin: 01/09/24 20:44 Dose: 100 mg Quetiapine Fumarate (Quetiapine Fumarate 50 Mg Tablet) 50 mg PO BID@0900,1200 [facility] Last Admin: 01/10/24 08:35 Dose: 50 mg Trazodone HCl (Trazodone Hcl 50 Mg Tablet) 50 mg PO BEDTIME MRX1 PRN PRN Reason: Insomnia Trazodone HCl (Trazodone Hcl 100 Mg Tablet) 200 mg PO BEDTIME [facility] Last Admin: 01/09/24 20:44 Dose: 200 mg Vilazodone HCl (Vilazodone Hcl 40 Mg Tablet) 40 mg PO DAILY@1200 [facility] Last Admin: 01/09/24 14:02 Dose: 40 mg Allergies Allergies Allergy/AdvReac Type Severity Reaction Status Date / Time gabapentin [GABAPENTIN] Allergy Unknown UNKNOWN Verified 01/08/24 23:00 morphine [MORPHINE] Allergy Unknown UNKNOWN Verified 01/08/24 23:00 oxycodone [OXYCODONE] Allergy Unknown UNKNOWN Verified 01/08/24 23:00 topiramate [TOPIRAMATE] Allergy Unknown UNKNOWN Verified 01/08/24 23:00 Assessment & Plan Assessment & Plan (1) PTSD (post-traumatic stress disorder): Status: Acute Code(s): F43.10 - Post-traumatic stress disorder, unspecified (2) Major depressive disorder, recurrent, severe with psychotic symptoms: Status: Acute Code(s): F33.3 - Major depressive disorder, recurrent, severe with psychotic symptoms Plan Patient is a 58-year-old female PMH significant for mild intermittent asthma, pots, peripheral neuropathy, CKD 3, autonomic dysfunction, anxiety, and depression who was admitted to Psychiatric unit from respite with increased anxiety, dissociation, depression, and SI. While at respite patient apparently had scratched her chest with her nails in the attempts of causing her self-harm. Hospitalist consult for ECT risk stratification. ECT risk stratification Based on stated PMH and exam, there are no apparent medical contraindications indications to the planned procedure Patient without previous problems with anesthesia, has previously underwent ECT RCRI class 1 risk No further treatment or workup indicated at this time Thank you for allowing us to participate in the care of this patient. Signing off at this time. Please re-consult if any acute issue or need arises. 01/09- Tylenol 975 mg prn for pain Continue plan for ECT on 01/14/24. Reason for continued inpatient stay Substantial Risk for: rapid decompensation Time Spent With Patient Time: Total time managing care of this patient today ____ minutes.
[2024-01-10] MEDS: Vilazodone HCL 40 MG TABLET PO (13:08)
[2024-01-10] MEDS: Acetaminophen 325 MG TABLET 975 MG PO ×2 (13:52→20:48)
[2024-01-10 20:34] VITALS: BP 131/76; PULSE 75; RESP 18; TEMP 36.2; O2SAT 95
[2024-01-10] MEDS: Amitriptyline HCl 25 MG TABLET PO (20:43)
[2024-01-10] MEDS: Loratadine 10 MG TABLET PO (20:43)
[2024-01-10] MEDS: traZODone HCL 100 MG TABLET 200 MG PO (20:43)
[2024-01-10] MEDS: Atorvastatin Calcium 40 MG TABLET PO (20:43)
[2024-01-10] MEDS: Montelukast Sodium 10 MG TABLET PO (20:44)
[2024-01-10] MEDS: QUEtiapine Fumarate 100 MG TABLET PO (20:44)
[2024-01-11] MEDS: Acetaminophen 325 MG TABLET 975 MG PO ×3 (07:55→20:41)
[2024-01-11] MEDS: hydrOXYzine HCL 25 MG TABLET PO (07:57)
[2024-01-11] MEDS: Omeprazole 20 MG CAPSULE.DR PO ×2 (07:57→17:12)
[2024-01-11 08:00] VITALS: BP 131/65; PULSE 76; RESP 18; TEMP 36.7; O2SAT 98
[2024-01-11] MEDS: atenoloL 25 MG TABLET PO (08:00)
[2024-01-11] MEDS: QUEtiapine Fumarate 50 MG TABLET PO ×2 (08:00→12:37)
[2024-01-11] MEDS: Fludrocortisone Acetate 0.1 MG TABLET PO ×2 (08:00→20:42)
[2024-01-11] MEDS: Vilazodone HCL 40 MG TABLET PO (12:37)
[2024-01-11] MEDS: Cyclobenzaprine HCl 10 MG TABLET PO (12:42)
[2024-01-11] MEDS: TiZANidine HCL 4 MG TABLET PO ×2 (14:13→20:44)
--- NOTE | 2024-01-11 16:16 | P.PNPSI_ITS ---
Subjective Subjective Date of Service: 01/11/24 Reason For Visit: sect.12 SI Interim History: Pt continues to report pain. By history, she has used Tinazadine and Flexeril without adverse response she reports. We will trial for efficacy and lack of side effects. Medication Compliance: Yes Side effects from medications: No Attending Groups: Intermittent Review of Systems Acute medical concerns: No Review of Systems Review of Systems back pain Mental Status Exam Mental Status Exam Patient Appearance: Disheveled Patient Orientation: Person, Place, Time and Situation Level of Consciousness: Alert Patient Behavior: Appropriate, Talkative and Cooperative Mood Description: Anxious Affect Description: Anxious Patient Cognition Impaired: No Ability to Follow Directions: Good Speech Pattern: Spontaneous Speech Memory Description: Intact Thought Content: positive for Perseveration Depressive Symptoms: Increased Anxiety Judgement: Fair Judgement and Insight: Reports depression 4/10 and anxiety 4/10. Diagnostics Vital Signs (24Hr): Vital Signs - 24 hr 01/10/24 20:34 01/11/24 08:00 01/11/24 08:00 Temperature 97.1 F 98.0 F Pulse Rate 75 76 76 Respiratory Rate 18 18 Blood Pressure 131/76 131/65 131/65 Pulse Oximetry 95 98 Oxygen Delivery Method Room Air Room Air BMI result Body Mass Index 45.2 Labs 01/09/24 08:27 01/08/24 23:39 Medications Medications Current Medications Acetaminophen (Acetaminophen 325 Mg Tablet) 975 mg PO Q6H PRN PRN Reason: Pain, Severe (Pain Scale 7-10) Last Admin: 01/11/24 14:13 Dose: 975 mg Al Hydroxide/Mg Hydroxide (Magnesium Hydrox/Alum Hydrox 30 Ml Oral.Susp) 30 ml PO Q6H PRN PRN Reason: Heartburn/Nausea Albuterol Sulfate (Albuterol Sulfate 90 Mcg 8 Gm Inhaler) 2 puff INHALE Q4H PRN PRN Reason: Shortness Of Breath Or Wheezing Amitriptyline HCl (Amitriptyline Hcl 25 Mg Tablet) 25 mg PO BEDTIME [facility] Last Admin: 01/10/24 20:43 Dose: 25 mg Atenolol (Atenolol 25 Mg Tablet) 25 mg PO DAILY SOO; Protocol Last Admin: 01/11/24 08:00 Dose: 25 mg Atorvastatin Calcium (Atorvastatin Calcium 40 Mg Tablet) 40 mg PO BEDTIME [facility] Last Admin: 01/10/24 20:43 Dose: 40 mg Chlorpromazine HCl (Chlorpromazine Hcl 25 Mg Tablet) 25 mg PO QID PRN PRN Reason: moderate anxiety Clonazepam (Clonazepam 0.5 Mg Tablet) 0.5 mg PO DAILY PRN PRN Reason: Anxiety Cyclobenzaprine HCl (Cyclobenzaprine Hcl 10 Mg Tablet) 10 mg PO TID PRN PRN Reason: spasm, back pain Last Admin: 01/11/24 12:42 Dose: 10 mg Fludrocortisone Acetate (Fludrocortisone Acetate 0.1 Mg Tablet) 0.1 mg PO BID [facility] Last Admin: 01/11/24 08:00 Dose: 0.1 mg Hydroxyzine HCl (Hydroxyzine Hcl 25 Mg Tablet) 25 mg PO Q6H PRN PRN Reason: Anxiety Last Admin: 01/11/24 07:57 Dose: 25 mg Hydroxyzine HCl (Hydroxyzine Hcl 25 Mg Tablet) 25 mg PO Q6H PRN PRN Reason: mild anxiety Last Admin: 01/10/24 17:02 Dose: 25 mg Loratadine (Loratadine 10 Mg Tablet) 10 mg PO BEDTIME [facility] Last Admin: 01/10/24 20:43 Dose: 10 mg Magnesium Hydroxide (Milk Of Magnesia 30 Ml Oral.Susp) 30 ml PO DAILY PRN PRN Reason: Constipation Montelukast Sodium (Montelukast Sodium 10 Mg Tablet) 10 mg PO BEDTIME [facility] Last Admin: 01/10/24 20:44 Dose: 10 mg Nicotine (Nicotine 21 Mg Patch.Td24) 21 mg TRANSDERMA DAILY PRN PRN Reason: smoking cessation Nicotine Polacrilex (Nicotine Polacrilex 2 Mg Gum) 4 mg BUCCAL Q2H PRN PRN Reason: Nicotine Cravings Omeprazole (Omeprazole 20 Mg Capsule.Dr) 20 mg PO BID@0630,1630 [facility] Last Admin: 01/11/24 07:57 Dose: 20 mg Quetiapine Fumarate (Quetiapine Fumarate 100 Mg Tablet) 100 mg PO BEDTIME [facility] Last Admin: 01/10/24 20:44 Dose: 100 mg Quetiapine Fumarate (Quetiapine Fumarate 50 Mg Tablet) 50 mg PO BID@0900,1200 [facility] Last Admin: 01/11/24 12:37 Dose: 50 mg Tizanidine HCl (Tizanidine Hcl 4 Mg Tablet) 4 mg PO TID [facility] Last Admin: 01/11/24 14:13 Dose: 4 mg Trazodone HCl (Trazodone Hcl 50 Mg Tablet) 50 mg PO BEDTIME MRX1 PRN PRN Reason: Insomnia Trazodone HCl (Trazodone Hcl 100 Mg Tablet) 200 mg PO BEDTIME [facility] Last Admin: 01/10/24 20:43 Dose: 200 mg Vilazodone HCl (Vilazodone Hcl 40 Mg Tablet) 40 mg PO DAILY@1200 [facility] Last Admin: 01/11/24 12:37 Dose: 40 mg Allergies Allergies Allergy/AdvReac Type Severity Reaction Status Date / Time gabapentin [GABAPENTIN] Allergy Unknown UNKNOWN Verified 01/08/24 23:00 morphine [MORPHINE] Allergy Unknown UNKNOWN Verified 01/08/24 23:00 oxycodone [OXYCODONE] Allergy Unknown UNKNOWN Verified 01/08/24 23:00 topiramate [TOPIRAMATE] Allergy Unknown UNKNOWN Verified 01/08/24 23:00 Assessment & Plan Assessment & Plan (1) Major depressive disorder, recurrent, severe with psychotic symptoms: Status: Acute Code(s): F33.3 - Major depressive disorder, recurrent, severe with psychotic symptoms Assessment and Plan: 01/10: Continue current plan of care. ECT 01/13. Plan Patient is a 58-year-old female PMH significant for mild intermittent asthma, pots, peripheral neuropathy, CKD 3, autonomic dysfunction, anxiety, and depression who was admitted to [facility] from respite with increased anxiety, dissociation, depression, and SI. While at respite patient apparently had scratched her chest with her nails in the attempts of causing her self-harm. Hospitalist consult for ECT risk stratification. ECT risk stratification Based on stated PMH and exam, there are no apparent medical contraindications indications to the planned procedure Patient without previous problems with anesthesia, has previously underwent ECT RCRI class 1 risk No further treatment or workup indicated at this time Thank you for allowing us to participate in the care of this patient. Signing off at this time. Please re-consult if any acute issue or need arises. Reason for continued inpatient stay Substantial Risk for: rapid decompensation and med/psych decompensation Time Spent With Patient Time: Total time managing care of this patient today ____ minutes.
[2024-01-11] MEDS: clonazePAM 0.5 MG TABLET PO (17:12)
[2024-01-11 20:00] VITALS: BP 104/56; PULSE 69; RESP 18; TEMP 36.4; O2SAT 93
[2024-01-11] MEDS: QUEtiapine Fumarate 100 MG TABLET PO (20:42)
[2024-01-11] MEDS: traZODone HCL 100 MG TABLET 200 MG PO (20:42)
[2024-01-11] MEDS: Atorvastatin Calcium 40 MG TABLET PO (20:42)
[2024-01-11] MEDS: Montelukast Sodium 10 MG TABLET PO (20:42)
[2024-01-11] MEDS: Loratadine 10 MG TABLET PO (20:42)
[2024-01-11] MEDS: Amitriptyline HCl 25 MG TABLET PO (20:42)
--- NOTE | 2024-01-12 | ECG_ITS ---
Test Reason : reports neck, jaw, chest pain Blood Pressure : / mmHG Vent. Rate : 063 BPM Atrial Rate : 063 BPM P-R Int : 152 ms QRS Dur : 088 ms QT Int : 418 ms P-R-T Axes : 024 039 052 degrees QTc Int : 427 ms Normal sinus rhythm Normal ECG When compared with ECG of 09-JAN-2024 10:44, Nonspecific ST abnormality is no longer Present Referred By: Destini Sinha Electronically Signed By:HERO LLAMAS
[2024-01-12 07:58] VITALS: PULSE 69; RESP 18; TEMP 37.2; O2SAT 94
[2024-01-12] MEDS: QUEtiapine Fumarate 50 MG TABLET PO ×2 (08:26→12:43)
[2024-01-12] MEDS: Fludrocortisone Acetate 0.1 MG TABLET PO ×2 (08:26→21:41)
[2024-01-12] MEDS: TiZANidine HCL 4 MG TABLET PO ×2 (08:26→21:41)
[2024-01-12] MEDS: Omeprazole 20 MG CAPSULE.DR PO ×2 (08:26→16:37)
[2024-01-12 08:34] VITALS: BP 123/57
--- NOTE | 2024-01-12 08:35 | P.PNPSI_ITS ---
Subjective Subjective Date of Service: 01/12/24 Reason For Visit: sect.12 SI Interim History: Pt asking to work with her colored pencils today which were ordered. This a.m. she approached team reporting radiating jaw, neck, chest pain. EKG WNL Hospitalist consult completed. Troponins <2.7 1001 and <2.7 1423 Medication Compliance: Yes Side effects from medications: Yes Review of Systems Acute medical concerns: No Medical Review of Systems: unchanged Review of Systems Review of Systems jaw, neck radiating chest pain today. Medical eval negative thus far. Mental Status Exam Mental Status Exam Patient Appearance: Disheveled Patient Orientation: Person, Place, Time and Situation Level of Consciousness: Alert Patient Behavior: Appropriate, Talkative and Cooperative Mood Description: Anxious Affect Description: Anxious Patient Cognition Impaired: No Ability to Follow Directions: Good Speech Pattern: Spontaneous Speech Memory Description: Intact Thought Content: positive for Perseveration Depressive Symptoms: Increased Anxiety Judgement: Fair Judgement and Insight: Reports depression 4/10 and anxiety 4/10. Diagnostics Vital Signs (24Hr): Vital Signs - 24 hr 01/11/24 20:00 01/12/24 07:58 01/12/24 08:34 Temperature 97.5 F 98.9 F Pulse Rate 69 69 Respiratory Rate 18 18 Blood Pressure 104/56 L 123/57 L Pulse Oximetry 93 94 Oxygen Delivery Method Room Air Room Air BMI result Body Mass Index 45.2 Labs 01/09/24 08:27 01/08/24 23:39 Medications Medications Current Medications Acetaminophen (Acetaminophen 325 Mg Tablet) 975 mg PO Q6H PRN PRN Reason: Pain, Severe (Pain Scale 7-10) Last Admin: 01/11/24 20:41 Dose: 975 mg Al Hydroxide/Mg Hydroxide (Magnesium Hydrox/Alum Hydrox 30 Ml Oral.Susp) 30 ml PO Q6H PRN PRN Reason: Heartburn/Nausea Albuterol Sulfate (Albuterol Sulfate 90 Mcg 8 Gm Inhaler) 2 puff INHALE Q4H PRN PRN Reason: Shortness Of Breath Or Wheezing Amitriptyline HCl (Amitriptyline Hcl 25 Mg Tablet) 25 mg PO BEDTIME [facility] Last Admin: 01/11/24 20:42 Dose: 25 mg Atenolol (Atenolol 25 Mg Tablet) 25 mg PO DAILY [facility]; Protocol Last Admin: 01/11/24 08:00 Dose: 25 mg Atorvastatin Calcium (Atorvastatin Calcium 40 Mg Tablet) 40 mg PO BEDTIME [facility] Last Admin: 01/11/24 20:42 Dose: 40 mg Chlorpromazine HCl (Chlorpromazine Hcl 25 Mg Tablet) 25 mg PO QID PRN PRN Reason: moderate anxiety Clonazepam (Clonazepam 0.5 Mg Tablet) 0.5 mg PO DAILY PRN PRN Reason: Anxiety Last Admin: 01/11/24 17:12 Dose: 0.5 mg Cyclobenzaprine HCl (Cyclobenzaprine Hcl 10 Mg Tablet) 10 mg PO TID PRN PRN Reason: spasm, back pain Last Admin: 01/11/24 12:42 Dose: 10 mg Fludrocortisone Acetate (Fludrocortisone Acetate 0.1 Mg Tablet) 0.1 mg PO BID [facility] Last Admin: 01/12/24 08:26 Dose: 0.1 mg Hydroxyzine HCl (Hydroxyzine Hcl 25 Mg Tablet) 25 mg PO Q6H PRN PRN Reason: Anxiety Last Admin: 01/11/24 07:57 Dose: 25 mg Hydroxyzine HCl (Hydroxyzine Hcl 25 Mg Tablet) 25 mg PO Q6H PRN PRN Reason: mild anxiety Last Admin: 01/10/24 17:02 Dose: 25 mg Loratadine (Loratadine 10 Mg Tablet) 10 mg PO BEDTIME [facility] Last Admin: 01/11/24 20:42 Dose: 10 mg Magnesium Hydroxide (Milk Of Magnesia 30 Ml Oral.Susp) 30 ml PO DAILY PRN PRN Reason: Constipation Montelukast Sodium (Montelukast Sodium 10 Mg Tablet) 10 mg PO BEDTIME [facility] Last Admin: 01/11/24 20:42 Dose: 10 mg Nicotine (Nicotine 21 Mg Patch.Td24) 21 mg TRANSDERMA DAILY PRN PRN Reason: smoking cessation Nicotine Polacrilex (Nicotine Polacrilex 2 Mg Gum) 4 mg BUCCAL Q2H PRN PRN Reason: Nicotine Cravings Omeprazole (Omeprazole 20 Mg Capsule.Dr) 20 mg PO BID@0630,1630 [facility] Last Admin: 01/12/24 08:26 Dose: 20 mg Quetiapine Fumarate (Quetiapine Fumarate 100 Mg Tablet) 100 mg PO BEDTIME [facility] Last Admin: 01/11/24 20:42 Dose: 100 mg Quetiapine Fumarate (Quetiapine Fumarate 50 Mg Tablet) 50 mg PO BID@0900,1200 [facility] Last Admin: 01/12/24 08:26 Dose: 50 mg Tizanidine HCl (Tizanidine Hcl 4 Mg Tablet) 4 mg PO TID [facility] Last Admin: 01/12/24 08:26 Dose: 4 mg Trazodone HCl (Trazodone Hcl 50 Mg Tablet) 50 mg PO BEDTIME MRX1 PRN PRN Reason: Insomnia Trazodone HCl (Trazodone Hcl 100 Mg Tablet) 200 mg PO BEDTIME [facility] Last Admin: 01/11/24 20:42 Dose: 200 mg Vilazodone HCl (Vilazodone Hcl 40 Mg Tablet) 40 mg PO DAILY@1200 [facility] Last Admin: 01/11/24 12:37 Dose: 40 mg Allergies Allergies Allergy/AdvReac Type Severity Reaction Status Date / Time gabapentin [GABAPENTIN] Allergy Unknown UNKNOWN Verified 01/08/24 23:00 morphine [MORPHINE] Allergy Unknown UNKNOWN Verified 01/08/24 23:00 oxycodone [OXYCODONE] Allergy Unknown UNKNOWN Verified 01/08/24 23:00 topiramate [TOPIRAMATE] Allergy Unknown UNKNOWN Verified 01/08/24 23:00 Assessment & Plan Assessment & Plan (1) Major depressive disorder, recurrent, severe with psychotic symptoms: Status: Acute Code(s): F33.3 - Major depressive disorder, recurrent, severe with psychotic symptoms Assessment and Plan: 01/12/24: Anxious with physical sx today. Medical work up negative thus far. Support, encourage milieu. ECT 01/14/24. Plan Patient is a 58-year-old female PMH significant for mild intermittent asthma, pots, peripheral neuropathy, CKD 3, autonomic dysfunction, anxiety, and depression who [facility] anxiety, dissociation, depression, and SI. [facility] patient apparently had scratched her chest with her nails in the attempts of causing her self-harm. Hospitalist consult for ECT risk stratification. ECT risk stratification Based on stated PMH and exam, there are no apparent medical contraindications indications to the planned procedure Patient without previous problems with anesthesia, has previously underwent ECT RCRI class 1 risk No further treatment or workup indicated at this time Thank you for allowing us to participate in the care of this patient. Signing off at this time. Please re-consult if any acute issue or need arises. Reason for continued inpatient stay Substantial Risk for: rapid decompensation Time Spent With Patient Time: Total time managing care of this patient today ____ minutes.
[2024-01-12] MEDS: atenoloL 25 MG TABLET PO (08:36)
[2024-01-12] MEDS: Acetaminophen 325 MG TABLET 975 MG PO (09:33)
[2024-01-12] MEDS: Magnesium Hydrox/Alum Hydrox 30 ML ORAL.SUSP PO (09:33)
[2024-01-12 09:45] VITALS: BP 141/62; PULSE 62; RESP 19; O2SAT 97
--- NOTE | 2024-01-12 10:20 | PM.EVENT ---
Event Note Date of Service: 01/12/24 Event Note: called to see patient, having right sided burning chest pain, ekg NSR no ischemia, follow up troponin, most likely reflux, continue ppi and maalox Time Spent With Patient Time: Total time managing care of this patient today ____ minutes.
[2024-01-12 10:29] LABS: Troponin-I High Sensitivity < 2.7 ng/L (<3.5-17.0)
--- NOTE | 2024-01-12 10:32 | PC.NURSE ---
Addendum entered by Zoie Ruvalcaba RN 01/12/24 15:15: Second troponin normal 2.7 at 1400 and pt reports her heartburn has improved as has her pain between shoulder blades and right jaw. She believes she slept wrong and it was muscular in nature. Original Note: Pt came up to medication window at 9:30 am asking for Tylenol for pain 7/10 to right jaw/throat that radiated down in between shoulder blades. Pain was non reproducible in nature. She also reported having heartburn/nausea and felt fatigued. No additional symptoms reported/observed. She was medicated with Tylenol 975 mg and Maalox. Notified Elvira Martinez and Hospitalist Victor Hugo of above. Vitals obtained at 0945: BP 141/62, pulse 62, oxygen saturation on RA 97%, and breathing comfortably. EKG obtained showing NSR, and high sensitivity Troponin ordered was 2.7. Pt reports pain is still there and hasn't really changed. Lying in bed and trying to sleep. Dr. Gay up to see her at 10:20 am. Will continue to monitor and obtain additional cardiac markers this afternoon.
[2024-01-12] MEDS: Vilazodone HCL 40 MG TABLET PO (12:43)
[2024-01-12] MEDS: hydrOXYzine HCL 25 MG TABLET PO (14:01)
[2024-01-12 14:50] LABS: Troponin-I High Sensitivity < 2.7 ng/L (<3.5-17.0)
[2024-01-12] MEDS: clonazePAM 0.5 MG TABLET PO (16:37)
[2024-01-12 19:47] VITALS: BP 121/78; PULSE 75; RESP 18; TEMP 36.2; O2SAT 97
[2024-01-12] MEDS: QUEtiapine Fumarate 100 MG TABLET PO (21:41)
[2024-01-12] MEDS: traZODone HCL 100 MG TABLET 200 MG PO (21:41)
[2024-01-12] MEDS: Loratadine 10 MG TABLET PO (21:41)
[2024-01-12] MEDS: Atorvastatin Calcium 40 MG TABLET PO (21:41)
[2024-01-12] MEDS: Montelukast Sodium 10 MG TABLET PO (21:41)
[2024-01-12] MEDS: Amitriptyline HCl 25 MG TABLET PO (21:41)
[2024-01-13 08:00] VITALS: BP 106/61; PULSE 69; RESP 14; TEMP 36.3; O2SAT 94
[2024-01-13] MEDS: atenoloL 25 MG TABLET PO (09:02)
[2024-01-13] MEDS: Omeprazole 20 MG CAPSULE.DR PO ×2 (09:03→17:38)
[2024-01-13] MEDS: Fludrocortisone Acetate 0.1 MG TABLET PO ×2 (09:03→21:25)
[2024-01-13] MEDS: TiZANidine HCL 4 MG TABLET PO ×3 (09:03→21:24)
[2024-01-13] MEDS: QUEtiapine Fumarate 50 MG TABLET PO ×2 (09:03→12:47)
--- NOTE | 2024-01-13 10:10 | HO.PSYCHPN ---
Subjective Subjective Date of Service: 01/13/24 Reason For Visit: sect.12 SI Interim History: met with patient; discussed with team; reviewed chart Patient reports that her mood is overall okay but that she is exceedingly anxious and looking forward to ECT. She says that because of the anxiety she is not leaving her room at all and in her room she is able to cope with it. Last night, 01/12/24 Event Note: called to see patient, having right sided burning chest pain, ekg NSR no ischemia, follow up troponin, most likely reflux, continue ppi and maalox Mental Status Exam Mental Status Exam Narrative: Pt is alert and oriented; behavior is cooperative, and calm; patient is not in distress; dressed in casual attire with unkempt hair but adequate hygiene; mood is described as anxious and affect congruent; eye contact appropriate; Speech is normal rate, volume and prosody and not pressured; psychomotor retardation present; thought process is organized and goal directed; Thought content is on dealing with overwhelming anxiety, ECT; otherwise pertinent to relevant topics and without any delusional content, paranoid ideations or grandiosity; denies any SI/HI. Denies AVH and There is no evidence of perceptual disturbance. Patients insight and judgment impaired Diagnostics Vital Signs (24Hr): Vital Signs - 24 hr 01/12/24 19:47 01/13/24 08:00 Temperature 97.1 F 97.3 F Pulse Rate 75 69 Respiratory Rate 18 14 Blood Pressure 121/78 106/61 Pulse Oximetry 97 94 Oxygen Delivery Method Room Air Room Air BMI result Body Mass Index 45.2 Labs 01/09/24 08:27 01/08/24 23:39 Labs: Laboratory Results - last 48 hr 01/12/24 01/12/24 10:02 14:23 Troponin I High Sens < 2.7 < 2.7 Medications Medications Current Medications Acetaminophen (Acetaminophen 325 Mg Tablet) 975 mg PO Q6H PRN PRN Reason: Pain, Severe (Pain Scale 7-10) Last Admin: 01/12/24 09:33 Dose: 975 mg Al Hydroxide/Mg Hydroxide (Magnesium Hydrox/Alum Hydrox 30 Ml Oral.Susp) 30 ml PO Q6H PRN PRN Reason: Heartburn/Nausea Last Admin: 01/12/24 09:33 Dose: 30 ml Albuterol Sulfate (Albuterol Sulfate 90 Mcg 8 Gm Inhaler) 2 puff INHALE Q4H PRN PRN Reason: Shortness Of Breath Or Wheezing Amitriptyline HCl (Amitriptyline Hcl 25 Mg Tablet) 25 mg PO BEDTIME [facility] Last Admin: 01/12/24 21:41 Dose: 25 mg Atenolol (Atenolol 25 Mg Tablet) 25 mg PO DAILY [facility]; Protocol Last Admin: 01/13/24 09:02 Dose: 25 mg Atorvastatin Calcium (Atorvastatin Calcium 40 Mg Tablet) 40 mg PO BEDTIME [facility] Last Admin: 01/12/24 21:41 Dose: 40 mg Chlorpromazine HCl (Chlorpromazine Hcl 25 Mg Tablet) 25 mg PO QID PRN PRN Reason: moderate anxiety Clonazepam (Clonazepam 0.5 Mg Tablet) 0.5 mg PO DAILY PRN PRN Reason: Anxiety Last Admin: 01/12/24 16:37 Dose: 0.5 mg Cyclobenzaprine HCl (Cyclobenzaprine Hcl 10 Mg Tablet) 10 mg PO TID PRN PRN Reason: spasm, back pain Last Admin: 01/11/24 12:42 Dose: 10 mg Fludrocortisone Acetate (Fludrocortisone Acetate 0.1 Mg Tablet) 0.1 mg PO BID [facility] Last Admin: 01/13/24 09:03 Dose: 0.1 mg Hydroxyzine HCl (Hydroxyzine Hcl 25 Mg Tablet) 25 mg PO Q6H PRN PRN Reason: Anxiety Last Admin: 01/12/24 14:01 Dose: 25 mg Hydroxyzine HCl (Hydroxyzine Hcl 25 Mg Tablet) 25 mg PO Q6H PRN PRN Reason: mild anxiety Last Admin: 01/10/24 17:02 Dose: 25 mg Loratadine (Loratadine 10 Mg Tablet) 10 mg PO BEDTIME [facility] Last Admin: 01/12/24 21:41 Dose: 10 mg Magnesium Hydroxide (Milk Of Magnesia 30 Ml Oral.Susp) 30 ml PO DAILY PRN PRN Reason: Constipation Montelukast Sodium (Montelukast Sodium 10 Mg Tablet) 10 mg PO BEDTIME [facility] Last Admin: 01/12/24 21:41 Dose: 10 mg Nicotine (Nicotine 21 Mg Patch.Td24) 21 mg TRANSDERMA DAILY PRN PRN Reason: smoking cessation Nicotine Polacrilex (Nicotine Polacrilex 2 Mg Gum) 4 mg BUCCAL Q2H PRN PRN Reason: Nicotine Cravings Omeprazole (Omeprazole 20 Mg Capsule.Dr) 20 mg PO BID@0630,1630 [facility] Last Admin: 01/13/24 09:03 Dose: 20 mg Quetiapine Fumarate (Quetiapine Fumarate 100 Mg Tablet) 100 mg PO BEDTIME [facility] Last Admin: 01/12/24 21:41 Dose: 100 mg Quetiapine Fumarate (Quetiapine Fumarate 50 Mg Tablet) 50 mg PO BID@0900,1200 [facility] Last Admin: 01/13/24 09:03 Dose: 50 mg Tizanidine HCl (Tizanidine Hcl 4 Mg Tablet) 4 mg PO TID [facility] Last Admin: 01/13/24 09:03 Dose: 4 mg Trazodone HCl (Trazodone Hcl 50 Mg Tablet) 50 mg PO BEDTIME MRX1 PRN PRN Reason: Insomnia Trazodone HCl (Trazodone Hcl 100 Mg Tablet) 200 mg PO BEDTIME [facility] Last Admin: 01/12/24 21:41 Dose: 200 mg Vilazodone HCl (Vilazodone Hcl 40 Mg Tablet) 40 mg PO DAILY@1200 [facility] Last Admin: 01/12/24 12:43 Dose: 40 mg Allergies Allergies Allergy/AdvReac Type Severity Reaction Status Date / Time gabapentin [GABAPENTIN] Allergy Unknown UNKNOWN Verified 01/08/24 23:00 morphine [MORPHINE] Allergy Unknown UNKNOWN Verified 01/08/24 23:00 oxycodone [OXYCODONE] Allergy Unknown UNKNOWN Verified 01/08/24 23:00 topiramate [TOPIRAMATE] Allergy Unknown UNKNOWN Verified 01/08/24 23:00 Assessment & Plan Assessment & Plan (1) Major depressive disorder, recurrent, severe with psychotic symptoms: Status: Acute Code(s): F33.3 - Major depressive disorder, recurrent, severe with psychotic symptoms Assessment and Plan: 01/12/24: Anxious with physical sx today. Medical work up negative thus far. Support, encourage milieu. ECT 01/14/24. Plan Patient is a 58-year-old woman with history major depression, PTSD and intermittent severe anxiety, POTS who self presents for sudden onset of severe anxiety and wanting ECT. Patient reports that for the past 3 and half years she has been overall doing well on current medication regimen. She says about 3 weeks ago, suddenly as a light switch turns on she started becoming extremely anxious, started dissociating, scratching her arms and body, shaking. She denies feeling any significant depression but this constant anxiety has become overwhelming. Sometimes she will have many such episodes that are much less in intensity and resolve on their own after a day or so, so patient try to endured this ongoing anxiety hoping it would resolve. It continued however and felt unbearable. Patient says this happens every few years and it eventually leads to her wanting to end her life due to the overwhelming anxiety. Patient decided this time she would instead present for ECT which he says is the only thing that stops the episode. Patient is organized in speech and behavior and denies all other symptoms of andrew or history of manic episodes; denies any AVH; no drug or alcohol abuse. Formulation/Clinical reason: Patient seems to have been stable on current medication regimen and does not want changes. She says that this event happens every several years and feels that whatever triggers it is not medication related. Patient has had ECT in the past which was a successful treatment and she feels ECT is essential. [employer] Room Custodian agrees that she meets criteria for ECT as it has been helpful in the past and patient reports that if this overwhelming anxiety progresses she will become suicidal. Patient agrees to see if some medications can help as a p.r.n. Hospital course: 01/10 Pt continues to report pain. By history, she has used Tinazadine and Flexeril without adverse response she reports. We will trial for efficacy and lack of side effects. 01/12 Patient reports that her mood is overall okay but that she is exceedingly anxious and looking forward to ECT. She says that because of the anxiety she is not leaving her room at all and in her room she is able to cope with it. Plan: CV Q 15 minute checks ECT #1 pending for 01/13 NPO Continue home medication regimen Add Thorazine 25 mg p.r.n. to see if can help with overwhelming anxiety Continue hydroxyzine which patient said was helpful as a p.r.n. for anxiety Patient educated on: diagnosis, medication risk/benefits, ECT and therapeutic strategies Informed Consent: understands Reason for continued inpatient stay Substantial Risk for: rapid decompensation Time Spent With Patient Time: Total time managing care of this patient today ____ minutes.
[2024-01-13] MEDS: Vilazodone HCL 40 MG TABLET PO (12:47)
[2024-01-13 20:00] VITALS: BP 99/51; PULSE 66; RESP 18; TEMP 36.4; O2SAT 97
[2024-01-13] MEDS: Atorvastatin Calcium 40 MG TABLET PO (21:24)
[2024-01-13] MEDS: QUEtiapine Fumarate 100 MG TABLET PO (21:24)
[2024-01-13] MEDS: Montelukast Sodium 10 MG TABLET PO (21:24)
[2024-01-13] MEDS: Amitriptyline HCl 25 MG TABLET PO (21:24)
[2024-01-13] MEDS: Loratadine 10 MG TABLET PO (21:25)
[2024-01-13] MEDS: traZODone HCL 100 MG TABLET 200 MG PO (21:25)
[2024-01-13] MEDS: clonazePAM 0.5 MG TABLET PO (21:30)
[2024-01-14] VITALS (10 sets, daily range): BP systolic 94–136; BP diastolic 51–92; PULSE 66–77; RESP 14–20; TEMP 36.3–36.9; O2SAT 94–99
[2024-01-14] MEDS: Omeprazole 20 MG CAPSULE.DR PO ×2 (06:47→19:15)
[2024-01-14] MEDS: atenoloL 25 MG TABLET PO (09:47)
[2024-01-14] MEDS: TiZANidine HCL 4 MG TABLET PO ×2 (09:47→14:36)
[2024-01-14] MEDS: Fludrocortisone Acetate 0.1 MG TABLET PO (09:48)
[2024-01-14] MEDS: QUEtiapine Fumarate 50 MG TABLET PO ×2 (09:48→13:33)
[2024-01-14] MEDS: hydrOXYzine HCL 25 MG TABLET PO ×2 (09:52→20:18)
[2024-01-14] MEDS: LORazepam 2 MG/ML VIAL 1 MG IM (14:10)
--- NOTE | 2024-01-14 15:25 | P.PNPSI_ITS ---
Subjective Subjective Date of Service: 01/14/24 Reason For Visit: sect.12 SI Interim History: Met with patient; discussed with team Patient reports severe anxiety and asks for p.r.n. medications; she very much wants ECT. She says she is nervous about getting ECT but knows it will help. Patient reports nightmares; reviewed possible medications including prazosin but does not want to start medication at this time, 1st wanting to see if ECT will help clear up symptoms Mental Status Exam Mental Status Exam Narrative: Pt is alert and oriented; behavior is cooperative, and calm; patient is not in distress; dressed in casual attire with unkempt hair but adequate hygiene; mood is described as anxious and affect congruent; eye contact appropriate; Speech is normal rate, volume and prosody and not pressured; psychomotor retardation present; thought process is organized and goal directed; Thought content is on dealing with overwhelming anxiety, ECT; otherwise pertinent to relevant topics and without any delusional content, paranoid ideations or grandiosity; denies any SI/HI. Denies AVH and There is no evidence of perceptual disturbance. Patients insight and judgment impaired Diagnostics Vital Signs (24Hr): Vital Signs - 24 hr 01/13/24 20:00 01/14/24 08:00 01/14/24 09:47 Temperature 97.5 F 97.5 F Pulse Rate 66 68 68 Respiratory Rate 18 Blood Pressure 99/51 L 125/68 125/68 Pulse Oximetry 97 97 Oxygen Delivery Method Room Air Room Air BMI result Body Mass Index 45.2 Labs 01/09/24 08:27 01/08/24 23:39 Medications Medications Current Medications Acetaminophen (Acetaminophen 325 Mg Tablet) 975 mg PO Q6H PRN PRN Reason: Pain, Severe (Pain Scale 7-10) Last Admin: 01/12/24 09:33 Dose: 975 mg Al Hydroxide/Mg Hydroxide (Magnesium Hydrox/Alum Hydrox 30 Ml Oral.Susp) 30 ml PO Q6H PRN PRN Reason: Heartburn/Nausea Last Admin: 01/12/24 09:33 Dose: 30 ml Albuterol Sulfate (Albuterol Sulfate 90 Mcg 8 Gm Inhaler) 2 puff INHALE Q4H PRN PRN Reason: Shortness Of Breath Or Wheezing Amitriptyline HCl (Amitriptyline Hcl 25 Mg Tablet) 25 mg PO BEDTIME [facility] Last Admin: 01/13/24 21:24 Dose: 25 mg Atenolol (Atenolol 25 Mg Tablet) 25 mg PO DAILY [facility]; Protocol Last Admin: 01/14/24 09:47 Dose: 25 mg Atorvastatin Calcium (Atorvastatin Calcium 40 Mg Tablet) 40 mg PO BEDTIME [facility] Last Admin: 01/13/24 21:24 Dose: 40 mg Chlorpromazine HCl (Chlorpromazine Hcl 25 Mg Tablet) 25 mg PO QID PRN PRN Reason: moderate anxiety Clonazepam (Clonazepam 0.5 Mg Tablet) 0.5 mg PO DAILY PRN PRN Reason: Anxiety Last Admin: 01/13/24 21:30 Dose: 0.5 mg Cyclobenzaprine HCl (Cyclobenzaprine Hcl 10 Mg Tablet) 10 mg PO TID PRN PRN Reason: spasm, back pain Last Admin: 01/11/24 12:42 Dose: 10 mg Fludrocortisone Acetate (Fludrocortisone Acetate 0.1 Mg Tablet) 0.1 mg PO BID [facility] Last Admin: 01/14/24 09:48 Dose: 0.1 mg Hydroxyzine HCl (Hydroxyzine Hcl 25 Mg Tablet) 25 mg PO Q6H PRN PRN Reason: Anxiety Last Admin: 01/14/24 09:52 Dose: 25 mg Hydroxyzine HCl (Hydroxyzine Hcl 25 Mg Tablet) 25 mg PO Q6H PRN PRN Reason: mild anxiety Last Admin: 01/10/24 17:02 Dose: 25 mg Loratadine (Loratadine 10 Mg Tablet) 10 mg PO BEDTIME [facility] Last Admin: 01/13/24 21:25 Dose: 10 mg Magnesium Hydroxide (Milk Of Magnesia 30 Ml Oral.Susp) 30 ml PO DAILY PRN PRN Reason: Constipation Montelukast Sodium (Montelukast Sodium 10 Mg Tablet) 10 mg PO BEDTIME [facility] Last Admin: 01/13/24 21:24 Dose: 10 mg Nicotine (Nicotine 21 Mg Patch.Td24) 21 mg TRANSDERMA DAILY PRN PRN Reason: smoking cessation Nicotine Polacrilex (Nicotine Polacrilex 2 Mg Gum) 4 mg BUCCAL Q2H PRN PRN Reason: Nicotine Cravings Omeprazole (Omeprazole 20 Mg Capsule.Dr) 20 mg PO BID@0630,1630 [facility] Last Admin: 01/14/24 06:47 Dose: 20 mg Quetiapine Fumarate (Quetiapine Fumarate 100 Mg Tablet) 100 mg PO BEDTIME [facility] Last Admin: 01/13/24 21:24 Dose: 100 mg Quetiapine Fumarate (Quetiapine Fumarate 50 Mg Tablet) 50 mg PO BID@0900,1200 [facility] Last Admin: 01/14/24 13:33 Dose: 50 mg Tizanidine HCl (Tizanidine Hcl 4 Mg Tablet) 4 mg PO TID [facility] Last Admin: 01/14/24 14:36 Dose: 4 mg Trazodone HCl (Trazodone Hcl 50 Mg Tablet) 50 mg PO BEDTIME MRX1 PRN PRN Reason: Insomnia Trazodone HCl (Trazodone Hcl 100 Mg Tablet) 200 mg PO BEDTIME [facility] Last Admin: 01/13/24 21:25 Dose: 200 mg Vilazodone HCl (Vilazodone Hcl 40 Mg Tablet) 40 mg PO DAILY@1200 [facility] Last Admin: 01/14/24 13:33 Dose: Not Given Allergies Allergies Allergy/AdvReac Type Severity Reaction Status Date / Time gabapentin [GABAPENTIN] Allergy Unknown UNKNOWN Verified 01/08/24 23:00 morphine [MORPHINE] Allergy Unknown UNKNOWN Verified 01/08/24 23:00 oxycodone [OXYCODONE] Allergy Unknown UNKNOWN Verified 01/08/24 23:00 topiramate [TOPIRAMATE] Allergy Unknown UNKNOWN Verified 01/08/24 23:00 Assessment & Plan Assessment & Plan (1) Major depressive disorder, recurrent, severe with psychotic symptoms: Status: Acute Code(s): F33.3 - Major depressive disorder, recurrent, severe with psychotic symptoms Assessment and Plan: 01/12/24: Anxious with physical sx today. Medical work up negative thus far. Support, encourage milieu. ECT 01/14/24. Plan Patient is a 58-year-old woman with history major depression, PTSD and intermittent severe anxiety, POTS who self presents for sudden onset of severe anxiety and wanting ECT. Patient reports that for the past 3 and half years she has been overall doing well on current medication regimen. She says about 3 weeks ago, suddenly as a light switch turns on she started becoming extremely anxious, started dissociating, scratching her arms and body, shaking. She denies feeling any significant depression but this constant anxiety has become overwhelming. Sometimes she will have many such episodes that are much less in intensity and resolve on their own after a day or so, so patient try to endured this ongoing anxiety hoping it would resolve. It continued however and felt unbearable. Patient says this happens every few years and it eventually leads to her wanting to end her life due to the overwhelming anxiety. Patient decided this time she would instead present for ECT which he says is the only thing that stops the episode. Patient is organized in speech and behavior and denies all other symptoms of andrwe or history of manic episodes; denies any AVH; no drug or alcohol abuse. Formulation/Clinical reason: Patient seems to have been stable on current medication regimen and does not want changes. She says that this event happens every several years and feels that whatever triggers it is not medication related. Patient has had ECT in the past which was a successful treatment and she feels ECT is essential. Head Of Digital Advertising & Integration agrees that she meets criteria for ECT as it has been helpful in the past and patient reports that if this overwhelming anxiety progresses she will become suicidal. Patient agrees to see if some medications can help as a p.r.n. Hospital course: 01/10 Pt continues to report pain. By history, she has used Tinazadine and Flexeril without adverse response she reports. We will trial for efficacy and lack of side effects. 01/12 Patient reports that her mood is overall okay but that she is exceedingly anxious and looking forward to ECT. She says that because of the anxiety she is not leaving her room at all and in her room she is able to cope with it. 01/13 very anxious; nightmares; hoping that ECT will be effective which is scheduled for later this afternoon Plan: CV Q 15 minute checks ECT #1 pending for 01/13 NPO Continue home medication regimen Add Thorazine 25 mg p.r.n. to see if can help with overwhelming anxiety Continue hydroxyzine which patient said was helpful as a p.r.n. for anxiety Patient educated on: diagnosis, medication risk/benefits and ECT Informed Consent: understands Reason for continued inpatient stay Substantial Risk for: rapid decompensation Time Spent With Patient Time: Total time managing care of this patient today ____ minutes.
--- NOTE | 2024-01-14 21:31 | MHC.SHP ---
Pre-Procedural Eval Section A - 24 Hr Update-Section A only Date of Service: 01/14/24 The patient is an INPATIENT: Yes Changes since office visit: No Cold of Flu in the past 2 weeks, No New Medical Problems, No Changes in Medication and No Patient answered all questions The patient has been examined within 24 hours of the surgical procedure. The History & Physical has been completed within 30 days and I have reviewed it.: Yes Section B - Complete if H&P > 30 days Chief Complaint: sect.12 SI Details of Present Illness: Chronic depression, now with SI previously improved with ECT Relevant Family History (Specify if Yes): No Relevant Social History: None Present Medications: see Short Stay Collaborative assessment Medical History: No relevant PMH History of Previous Operations: No relevant previous surgery Allergies: Allergies Allergy/AdvReac Type Severity Reaction Status Date / Time gabapentin [GABAPENTIN] Allergy Unknown UNKNOWN Verified 01/08/24 23:00 morphine [MORPHINE] Allergy Unknown UNKNOWN Verified 01/08/24 23:00 oxycodone [OXYCODONE] Allergy Unknown UNKNOWN Verified 01/08/24 23:00 topiramate [TOPIRAMATE] Allergy Unknown UNKNOWN Verified 01/08/24 23:00 Review of Systems Sugical H&P ROS: Negative: Constitution, Cardiovascular, Respiratory, Neurological, Psychiatric, Hem-Onc, Allergic/Immunologic, Gastrointestinal, Genitourinary, Musculoskeletal, Integumentary, Endocrine and Eyes/Ears/Nose/Throat Exam Surgical H&P Exam: Normal: HEENT, Normal: Heart, Normal: Lungs, Normal: Extremities, Normal: Abdomen, Normal: Skin and Normal: Neurological Plan Diagnosis/Plan: Unchanged I have reviewed the history and physical and performed a pertinent physical examination on my patient. No changes have occurred unless specified. Time Spent With Patient Time: Total time managing care of this patient today __15__ minutes.
--- NOTE | 2024-01-14 23:06 | HO.ECTPROC ---
ECT Procedure Note Diagnosis/Treatment Date of Service: 01/14/24 Diagnosis: Major Depressive Disorder Interval Clinical Notes: ECT CANCELLED BY ANESTHESIOLOGIST, UNABLE TO BE SEDATED WITH ETOMIDATE 14, RECEIVED SUCCYINILCHOLINE 100 Time: Total time managing care of this patient today ____ minutes. ECT Settings Device: THYMATRON DGx Treatment Recommendations Notes: ECT CANCELLED BY ANESTHESIOLOGIST
[2024-01-15 00:10] VITALS: BP 125/76; PULSE 68; RESP 14; TEMP 36.4; O2SAT 95
--- NOTE | 2024-01-15 00:16 | P.CONAN_ITS ---
FORMERLY [facility] Active Problems Active Problems: All Active Problems Pre-op evaluation (Acute) MDD (major depressive disorder), recurrent severe, without psychosis (Acute) Suicidal ideation (Acute) Anxiety and depression (Acute) Strain of lumbar paraspinal muscle (Acute) PTSD (post-traumatic stress disorder) (Acute) Major depressive disorder, recurrent, severe with psychotic symptoms (Acute) Past Medical History Medical History MDD (major depressive disorder), recurrent severe, without psychosis At risk for bleeding associated with tonsillectomy and adenoidectomy HLD (hyperlipidemia) Suicidal ideation Renal insufficiency PTSD (post-traumatic stress disorder) Major depressive disorder, recurrent, 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 Neuropathy Autonomic dysfunction Asthma Functional capacity: independent ambulation Family History Family history of problems with anesthesia: No Surgical History Surgical History History of sinus surgery History of tonsillectomy H/O ureter repair H/O tubal ligation Previous section H/O spinal fusion History of Problems with Anesthesia: No Social History Social History Household Members: Family Housing: House Do you presently have visiting nurse or other home services: No Patient Tobacco Use Status: Never used Tobacco Smoked in Last 30 Days: No e-Cigarette/Vaping Use: Never Used Patient Interested in Nicotine Replacement: No Patient Given Instructions on How to Stop Smoking: No (doesnt smoke) Second Hand Smoke Exposure: No Use of substances other than those prescribed or required for medical reasons: Yes Substance Use Type: Marijuana Substance Use Frequency: Weekly Last Used Substance: Days (ago) Currently Displaying Signs/Symptoms of Drug Intoxication Withdrawal: No Any prior treatment program specific to substance use: No Have you been hit, kicked, punched, or otherwise hurt by someone within the past year? If so, by whom?: No Do you feel safe in your current relationship?: No Current Relationship Is there a partner from a previous relationship who is making you feel unsafe now?: No Are you made to feel afraid or neglected: No Spiritual Healthcare Practices: none Nondenominational Healthcare Practices: none Cultural Healthcare Practices: none Advance Directives: Yes Advance Directives Information Provided: No Advance Directives on File: No Do you have thoughts of harming others: None Do you have a plan to hurt others: No Plan Recently lost weight without trying: No Eating poorly because of decreased appetite: No Nutrition Risks: No Nutritional Risk Patient : No : No Poor oral hygiene: No service: No Sexual orientation: Straight/Heterosexual Meds Allergies Allergy/AdvReac Type Severity Reaction Status Date / Time gabapentin [GABAPENTIN] Allergy Unknown UNKNOWN Verified 01/08/24 23:00 morphine [MORPHINE] Allergy Unknown UNKNOWN Verified 01/08/24 23:00 oxycodone [OXYCODONE] Allergy Unknown UNKNOWN Verified 01/08/24 23:00 topiramate [TOPIRAMATE] Allergy Unknown UNKNOWN Verified 01/08/24 23:00 Active Medications: Current Medications Acetaminophen (Acetaminophen 325 Mg Tablet) 975 mg PO Q6H PRN PRN Reason: Pain, Severe (Pain Scale 7-10) Last Admin: 01/12/24 09:33 Dose: 975 mg Al Hydroxide/Mg Hydroxide (Magnesium Hydrox/Alum Hydrox 30 Ml Oral.Susp) 30 ml PO Q6H PRN PRN Reason: Heartburn/Nausea Last Admin: 01/12/24 09:33 Dose: 30 ml Albuterol Sulfate (Albuterol Sulfate 90 Mcg 8 Gm Inhaler) 2 puff INHALE Q4H PRN PRN Reason: Shortness Of Breath Or Wheezing Amitriptyline HCl (Amitriptyline Hcl 25 Mg Tablet) 25 mg PO BEDTIME SOO Last Admin: 01/13/24 21:24 Dose: 25 mg Atenolol (Atenolol 25 Mg Tablet) 25 mg PO DAILY SOO; Protocol Last Admin: 01/14/24 09:47 Dose: 25 mg Atorvastatin Calcium (Atorvastatin Calcium 40 Mg Tablet) 40 mg PO BEDTIME SOO Last Admin: 01/13/24 21:24 Dose: 40 mg Chlorpromazine HCl (Chlorpromazine Hcl 25 Mg Tablet) 25 mg PO QID PRN PRN Reason: moderate anxiety Clonazepam (Clonazepam 0.5 Mg Tablet) 0.5 mg PO DAILY PRN PRN Reason: Anxiety Last Admin: 01/13/24 21:30 Dose: 0.5 mg Cyclobenzaprine HCl (Cyclobenzaprine Hcl 10 Mg Tablet) 10 mg PO TID PRN PRN Reason: spasm, back pain Last Admin: 01/11/24 12:42 Dose: 10 mg Fludrocortisone Acetate (Fludrocortisone Acetate 0.1 Mg Tablet) 0.1 mg PO BID [facility] Last Admin: 01/14/24 09:48 Dose: 0.1 mg Hydroxyzine HCl (Hydroxyzine Hcl 25 Mg Tablet) 25 mg PO Q6H PRN PRN Reason: Anxiety Last Admin: 01/14/24 20:18 Dose: 25 mg Hydroxyzine HCl (Hydroxyzine Hcl 25 Mg Tablet) 25 mg PO Q6H PRN PRN Reason: mild anxiety Last Admin: 01/10/24 17:02 Dose: 25 mg Loratadine (Loratadine 10 Mg Tablet) 10 mg PO BEDTIME [facility] Last Admin: 01/13/24 21:25 Dose: 10 mg Magnesium Hydroxide (Milk Of Magnesia 30 Ml Oral.Susp) 30 ml PO DAILY PRN PRN Reason: Constipation Montelukast Sodium (Montelukast Sodium 10 Mg Tablet) 10 mg PO BEDTIME [facility] Last Admin: 01/13/24 21:24 Dose: 10 mg Nicotine (Nicotine 21 Mg Patch.Td24) 21 mg TRANSDERMA DAILY PRN PRN Reason: smoking cessation Nicotine Polacrilex (Nicotine Polacrilex 2 Mg Gum) 4 mg BUCCAL Q2H PRN PRN Reason: Nicotine Cravings Omeprazole (Omeprazole 20 Mg Capsule.Dr) 20 mg PO BID@0630,1630 [facility] Last Admin: 01/14/24 19:15 Dose: 20 mg Quetiapine Fumarate (Quetiapine Fumarate 100 Mg Tablet) 100 mg PO BEDTIME [facility] Last Admin: 01/13/24 21:24 Dose: 100 mg Quetiapine Fumarate (Quetiapine Fumarate 50 Mg Tablet) 50 mg PO BID@0900,1200 [facility] Last Admin: 01/14/24 13:33 Dose: 50 mg Tizanidine HCl (Tizanidine Hcl 4 Mg Tablet) 4 mg PO TID [facility] Last Admin: 01/14/24 14:36 Dose: 4 mg Trazodone HCl (Trazodone Hcl 50 Mg Tablet) 50 mg PO BEDTIME MRX1 PRN PRN Reason: Insomnia Trazodone HCl (Trazodone Hcl 100 Mg Tablet) 200 mg PO BEDTIME [facility] Last Admin: 01/13/24 21:25 Dose: 200 mg Vilazodone HCl (Vilazodone Hcl 40 Mg Tablet) 40 mg PO DAILY@1200 [facility] Last Admin: 01/14/24 13:33 Dose: Not Given Home Medications ?Medication ?Instructions ?Recorded ?Confirmed ?Last Taken ?Type atenolol 25 mg tablet 1 tab PO DAILY 03/24/20 01/09/24 03/23/20 10:00 History 25 mg cetirizine 10 mg tablet 1 tab PO BEDTIME 03/24/20 01/09/24 03/22/20 21:00 Histor y 10 mg clonazepam 0.5 mg tablet 1 tab PO 1XD PRN Anxiety 03/24/20 01/09/24 Unknown History fludrocortisone 0.1 mg tablet 0.1 mg PO 2XD 03/24/20 01/09/24 Unknown History levothyroxine 50 mcg tablet 1 tab PO DAILY@0630 03/24/20 01/09/24 03/23/20 08:00 History 50 mcg montelukast 10 mg tablet 1 tab PO BEDTIME 03/24/20 01/09/24 03/23/20 08:00 History 10 mg trazodone 100 mg tablet 2 tab PO BEDTIME PRN Insomnia 03/24/20 01/09/24 03/23/20 23:00 History 100 mg vilazodone 40 mg tablet (Viibryd) 1 tab PO 1XD 03/24/20 01/09/24 03/23/20 08:00 History 40 mg albuterol sulfate 90 mcg/actuation 2 puff inhalation Q4-6H PRN 01/09/24 01/09/24 Unknown History aerosol inhaler Shortness Of Breath Or Wheezing amitriptyline 25 mg tablet 25 mg PO BEDTIME 01/09/24 01/09/24 Unknown History atorvastatin 40 mg tablet 40 mg PO BEDTIME 01/09/24 01/09/24 Unknown History diclofenac sodium 1 % topical gel 1 topical PRN Pain, Moderate 01/09/24 Unknown History (Arthritis Pain (diclofenac)) nystatin 100,000 unit/gram topical 1 appl topical 2XD PRN Skin 01/09/24 01/09/24 Unknown History powder Irritation omeprazole 20 mg tablet,delayed 20 mg PO BID 01/09/24 01/09/24 Unknown History release quetiapine 100 mg tablet 100 mg PO BEDTIME 01/09/24 01/09/24 Unknown History quetiapine 50 mg tablet 50 mg PO 2XD 01/09/24 01/09/24 Unknown History Exam Height,Weight and Vital Signs: Height 5 ft 5 in Weight 123.1 kg Last Vital Signs Temp 97.6 F 01/15/24 00:10 Pulse 68 01/15/24 00:10 Resp 14 01/15/24 00:10 BP 125/76 01/15/24 00:10 Pulse Ox 95 01/15/24 00:10 O2 Del Method Room Air 01/14/24 23:45 Pertinent Lab Results Pertinent Lab Results: Laboratory Tests 01/08/24 01/09/24 01/09/24 23:39 08:27 13:00 WBC 14.2 H 12.9 H RBC 4.15 L 4.50 Hgb 12.5 13.5 Hct 37.3 40.1 MCV 89.9 89.1 MCH 30.1 30.0 MCHC 33.5 33.7 RDW 13.6 13.4 Plt Count 262 275 MPV 10.0 10.0 Immature Gran % (Auto) 0.8 H 0.8 H Neut % (Auto) 65.1 63.8 Lymph % (Auto) 23.4 24.7 [place] % (Auto) 8.0 7.6 Eos % (Auto) 2.1 2.3 Baso % (Auto) 0.6 0.8 Lymph # (Auto) 3.3 3.2 [place] # (Auto) 1.1 1.0 Eos # (Auto) 0.3 0.3 Baso # (Auto) 0.1 0.1 Abs Immat Gran (auto) 0.11 H 0.10 H Absolute Neuts (auto) 9.3 H 8.3 Absolute Nucleated RBC 0.000 0.000 Nucleated RBC % (auto) 0.0 0.0 Sodium 142 Potassium 3.7 Chloride 109 H Carbon Dioxide 27 Anion Gap 10 L BUN 14 Creatinine 1.08 Estim Creat Clear Calc 74.2 Estimated GFR 52 Random Glucose 107 Estimat Average Glucose 105 Hemoglobin A1c % 5.3 Calcium 9.2 Total Bilirubin 0.3 Direct Bilirubin 0.1 AST 12 ALT 12 Alkaline Phosphatase 62 Troponin I High Sens Total Protein 6.5 Albumin 3.7 Triglycerides 174 H Cholesterol 157 LDL Cholesterol, Calc 80 HDL Cholesterol 43 TSH 2.82 Urine Color Yellow Urine Appearance Clear Urine pH 7.0 Ur Specific [place] 1.015 Urine Protein Negative Urine Glucose (UA) Negative Urine Ketones Negative Urine Blood Negative Urine Nitrite Negative Ur Leukocyte Esterase Negative Urine Opiates Screen Not Detected Ur Buprenorphine Scrn Not Detected Ur Oxycodone Screen Not Detected Urine Methadone Screen Not Detected Urine Fentanyl Screen Not Detected Ur Barbiturates Screen Not Detected Ur Phencyclidine Scrn Not Detected Ur Amphetamines Screen Not Detected U Benzodiazepines Scrn Not Detected Urine Cocaine Screen Not Detected U Marijuana (THC) Screen Not Detected Ethyl Alcohol < 10 01/12/24 01/12/24 10:02 14:23 WBC RBC Hgb Hct MCV MCH MCHC RDW Plt Count MPV Immature Gran % (Auto) Neut % (Auto) Lymph % (Auto) [place] % (Auto) Eos % (Auto) Baso % (Auto) Lymph # (Auto) [place] # (Auto) Eos # (Auto) Baso # (Auto) Abs Immat Gran (auto) Absolute Neuts (auto) Absolute Nucleated RBC Nucleated RBC % (auto) Sodium Potassium Chloride Carbon Dioxide Anion Gap BUN Creatinine Estim Creat Clear Calc Estimated GFR Random Glucose Estimat Average Glucose Hemoglobin A1c % Calcium Total Bilirubin Direct Bilirubin AST ALT Alkaline Phosphatase Troponin I High Sens < 2.7 < 2.7 Total Protein Albumin Triglycerides Cholesterol LDL Cholesterol, Calc HDL Cholesterol TSH Urine Color Urine Appearance Urine pH Ur Specific [place] Urine Protein Urine Glucose (UA) Urine Ketones Urine Blood Urine Nitrite Ur Leukocyte Esterase Urine Opiates Screen Ur Buprenorphine Scrn Ur Oxycodone Screen Urine Methadone Screen Urine Fentanyl Screen Ur Barbiturates Screen Ur Phencyclidine Scrn Ur Amphetamines Screen U Benzodiazepines Scrn Urine Cocaine Screen U Marijuana (THC) Screen Ethyl Alcohol Airway Mallampati Class: III TM Dist: >3cm Neck ROM: Full Heart: RRR Lungs: CTA Assessment and Plan Assessment Anesthesia Assessment: Anesthesia Plan Discussed, Smoking Cess. Discussed and Chart Reviewed Final Anesthetic Review Family History of Problems with Anesthesia: No History of Problems with Anesthesia: No NPO: Yes ASA Class: III and Emergency Final Preanesthetic Review: Meds/Allgs Chart Reviewed, Consent Obtained/Reviewed and Anes Risks/Benef Reviewed Patient Risk: Intermediate Procedure Risk: Intermediate Anesthetic Plan Anesthetic Plan: GA Disposition: Standard PACU
--- NOTE | 2024-01-15 00:18 | HO.POSTANES ---
Post Anesthesia Evaluation Post Anesthesia Evaluation Date of Service: 01/14/24 Vital Signs: Vital Signs Temp Pulse Resp BP Pulse Ox O2 Del Method 01/15/24 00:10 97.6 F 68 14 125/76 95 01/14/24 23:45 97.4 F 69 20 105/82 98 Room Air 01/14/24 23:30 97.7 F 69 14 105/83 96 Room Air 01/14/24 23:25 66 14 97/51 L 96 Room Air 01/14/24 23:20 69 18 94/59 L 94 Room Air 01/14/24 23:15 97.7 F 73 18 120/70 94 Room Air 01/14/24 21:21 97.9 F 77 20 122/81 99 Room Air 01/14/24 21:09 98.4 F 76 14 136/92 H 96 01/14/24 19:41 97.6 F 67 16 124/70 95 Anesthesia: General Mental Status: Awake Pain Control: Satisfactory Nausea/Vomiting: None Hydration: Adequate Anesthesia-Related Issues: No Anes. Related Issues Comments: ECT abandoned for safety reason , SaO2 decreased,.Pt. needs LMA placement next time
[2024-01-15] MEDS: Montelukast Sodium 10 MG TABLET PO ×2 (00:27→21:36)
[2024-01-15] MEDS: Acetaminophen 325 MG TABLET 975 MG PO ×4 (00:27→22:00)
[2024-01-15] MEDS: Atorvastatin Calcium 40 MG TABLET PO ×2 (00:27→21:36)
[2024-01-15] MEDS: Amitriptyline HCl 25 MG TABLET PO ×2 (00:27→21:36)
[2024-01-15] MEDS: Fludrocortisone Acetate 0.1 MG TABLET PO ×3 (00:27→21:36)
[2024-01-15] MEDS: Loratadine 10 MG TABLET PO ×2 (00:28→21:36)
[2024-01-15] MEDS: TiZANidine HCL 4 MG TABLET PO ×4 (01:42→21:59)
[2024-01-15] MEDS: QUEtiapine Fumarate 100 MG TABLET PO ×2 (01:43→21:36)
[2024-01-15] MEDS: traZODone HCL 100 MG TABLET 200 MG PO ×2 (01:44→21:36)
[2024-01-15] MEDS: Omeprazole 20 MG CAPSULE.DR PO ×2 (06:47→15:48)
[2024-01-15 07:52] VITALS: BP 139/93; PULSE 100; RESP 18; TEMP 36.6; O2SAT 96
[2024-01-15] MEDS: QUEtiapine Fumarate 50 MG TABLET PO ×2 (08:24→11:32)
[2024-01-15] MEDS: atenoloL 25 MG TABLET PO (08:25)
--- NOTE | 2024-01-15 10:02 | HO.PSYCHPN ---
Subjective Subjective Date of Service: 01/15/24 Reason For Visit: sect.12 SI Interim History: met with patient; discussed with team did not get ECT last night; got succ but conscious; expressed that it was a very traumatic experience and not sure if she ECT today; will consider Mental Status Exam Mental Status Exam Narrative: Pt is alert and oriented; behavior is cooperative, and calm; patient is not in distress; dressed in casual attire with unkempt hair but adequate hygiene; mood is described as anxious and affect congruent; eye contact appropriate; Speech is normal rate, volume and prosody and not pressured; psychomotor retardation present; thought process is organized and goal directed; Thought content is on dealing with overwhelming anxiety, ECT; otherwise pertinent to relevant topics and without any delusional content, paranoid ideations or grandiosity; denies any SI/HI. Denies AVH and There is no evidence of perceptual disturbance. Patients insight and judgment impaired Diagnostics Vital Signs (24Hr): Vital Signs - 24 hr 01/14/24 19:41 01/14/24 21:09 01/14/24 21:21 Temperature 97.6 F 98.4 F 97.9 F Pulse Rate 67 76 77 Respiratory Rate 16 14 20 Blood Pressure 124/70 136/92 H 122/81 Pulse Oximetry 95 96 99 Oxygen Delivery Method Room Air 01/14/24 23:15 01/14/24 23:20 01/14/24 23:25 Temperature 97.7 F Pulse Rate 73 69 66 Respiratory Rate 18 18 14 Blood Pressure 120/70 94/59 L 97/51 L Pulse Oximetry 94 94 96 Oxygen Delivery Method Room Air Room Air Room Air 01/14/24 23:30 01/14/24 23:45 01/15/24 00:10 Temperature 97.7 F 97.4 F 97.6 F Pulse Rate 69 69 68 Respiratory Rate 14 20 14 Blood Pressure 105/83 105/82 125/76 Pulse Oximetry 96 98 95 Oxygen Delivery Method Room Air Room Air 01/15/24 07:52 Temperature 97.8 F Pulse Rate 100 Respiratory Rate 18 Blood Pressure 139/93 H Pulse Oximetry 96 Oxygen Delivery Method Room Air BMI result Body Mass Index 45.2 Labs 01/09/24 08:27 01/08/24 23:39 Medications Medications Current Medications Acetaminophen (Acetaminophen 325 Mg Tablet) 975 mg PO Q6H PRN PRN Reason: Pain, Severe (Pain Scale 7-10) Last Admin: 01/15/24 08:52 Dose: 975 mg Al Hydroxide/Mg Hydroxide (Magnesium Hydrox/Alum Hydrox 30 Ml Oral.Susp) 30 ml PO Q6H PRN PRN Reason: Heartburn/Nausea Last Admin: 01/12/24 09:33 Dose: 30 ml Albuterol Sulfate (Albuterol Sulfate 90 Mcg 8 Gm Inhaler) 2 puff INHALE Q4H PRN PRN Reason: Shortness Of Breath Or Wheezing Amitriptyline HCl (Amitriptyline Hcl 25 Mg Tablet) 25 mg PO BEDTIME [facility] Last Admin: 01/15/24 00:27 Dose: 25 mg Atenolol (Atenolol 25 Mg Tablet) 25 mg PO DAILY [facility]; Protocol Last Admin: 01/15/24 08:25 Dose: 25 mg Atorvastatin Calcium (Atorvastatin Calcium 40 Mg Tablet) 40 mg PO BEDTIME SOO Last Admin: 01/15/24 00:27 Dose: 40 mg Chlorpromazine HCl (Chlorpromazine Hcl 25 Mg Tablet) 25 mg PO QID PRN PRN Reason: moderate anxiety Clonazepam (Clonazepam 0.5 Mg Tablet) 0.5 mg PO DAILY PRN PRN Reason: Anxiety Last Admin: 01/13/24 21:30 Dose: 0.5 mg Cyclobenzaprine HCl (Cyclobenzaprine Hcl 10 Mg Tablet) 10 mg PO TID PRN PRN Reason: spasm, back pain Last Admin: 01/11/24 12:42 Dose: 10 mg Fludrocortisone Acetate (Fludrocortisone Acetate 0.1 Mg Tablet) 0.1 mg PO BID [facility] Last Admin: 01/15/24 08:25 Dose: 0.1 mg Hydroxyzine HCl (Hydroxyzine Hcl 25 Mg Tablet) 25 mg PO Q6H PRN PRN Reason: Anxiety Last Admin: 01/14/24 20:18 Dose: 25 mg Hydroxyzine HCl (Hydroxyzine Hcl 25 Mg Tablet) 25 mg PO Q6H PRN PRN Reason: mild anxiety Last Admin: 01/10/24 17:02 Dose: 25 mg Loratadine (Loratadine 10 Mg Tablet) 10 mg PO BEDTIME [facility] Last Admin: 01/15/24 00:28 Dose: 10 mg Magnesium Hydroxide (Milk Of Magnesia 30 Ml Oral.Susp) 30 ml PO DAILY PRN PRN Reason: Constipation Montelukast Sodium (Montelukast Sodium 10 Mg Tablet) 10 mg PO BEDTIME [facility] Last Admin: 01/15/24 00:27 Dose: 10 mg Nicotine (Nicotine 21 Mg Patch.Td24) 21 mg TRANSDERMA DAILY PRN PRN Reason: smoking cessation Nicotine Polacrilex (Nicotine Polacrilex 2 Mg Gum) 4 mg BUCCAL Q2H PRN PRN Reason: Nicotine Cravings Olanzapine (Olanzapine 2.5 Mg Tablet) 2.5 mg PO Q4H PRN PRN Reason: agitation Omeprazole (Omeprazole 20 Mg Capsule.Dr) 20 mg PO BID@0630,1630 [facility] Last Admin: 01/15/24 06:47 Dose: 20 mg Quetiapine Fumarate (Quetiapine Fumarate 100 Mg Tablet) 100 mg PO BEDTIME [facility] Last Admin: 01/15/24 01:43 Dose: 100 mg Quetiapine Fumarate (Quetiapine Fumarate 50 Mg Tablet) 50 mg PO BID@0900,1200 [facility] Last Admin: 01/15/24 08:24 Dose: 50 mg Tizanidine HCl (Tizanidine Hcl 4 Mg Tablet) 4 mg PO TID [facility] Last Admin: 01/15/24 08:24 Dose: 4 mg Trazodone HCl (Trazodone Hcl 50 Mg Tablet) 50 mg PO BEDTIME MRX1 PRN PRN Reason: Insomnia Trazodone HCl (Trazodone Hcl 100 Mg Tablet) 200 mg PO BEDTIME [facility] Last Admin: 01/15/24 01:44 Dose: 200 mg Vilazodone HCl (Vilazodone Hcl 40 Mg Tablet) 40 mg PO DAILY@1200 [facility] Last Admin: 01/14/24 13:33 Dose: Not Given Allergies Allergies Allergy/AdvReac Type Severity Reaction Status Date / Time gabapentin [GABAPENTIN] Allergy Unknown UNKNOWN Verified 01/08/24 23:00 morphine [MORPHINE] Allergy Unknown UNKNOWN Verified 01/08/24 23:00 oxycodone [OXYCODONE] Allergy Unknown UNKNOWN Verified 01/08/24 23:00 topiramate [TOPIRAMATE] Allergy Unknown UNKNOWN Verified 01/08/24 23:00 Assessment & Plan Assessment & Plan (1) Major depressive disorder, recurrent, severe with psychotic symptoms: Status: Acute Code(s): F33.3 - Major depressive disorder, recurrent, severe with psychotic symptoms Assessment and Plan: 01/12/24: Anxious with physical sx today. Medical work up negative thus far. Support, encourage milieu. ECT 01/14/24. Plan Patient is a 58-year-old woman with history major depression, PTSD and intermittent severe anxiety, POTS who self presents for sudden onset of severe anxiety and wanting ECT. Patient reports that for the past 3 and half years she has been overall doing well on current medication regimen. She says about 3 weeks ago, suddenly as a light switch turns on she started becoming extremely anxious, started dissociating, scratching her arms and body, shaking. She denies feeling any significant depression but this constant anxiety has become overwhelming. Sometimes she will have many such episodes that are much less in intensity and resolve on their own after a day or so, so patient try to endured this ongoing anxiety hoping it would resolve. It continued however and felt unbearable. Patient says this happens every few years and it eventually leads to her wanting to end her life due to the overwhelming anxiety. Patient decided this time she would instead present for ECT which he says is the only thing that stops the episode. Patient is organized in speech and behavior and denies all other symptoms of andrew or history of manic episodes; denies any AVH; no drug or alcohol abuse. Formulation/Clinical reason: Patient seems to have been stable on current medication regimen and does not want changes. She says that this event happens every several years and feels that whatever triggers it is not medication related. Patient has had ECT in the past which was a successful treatment and she feels ECT is essential. [employer] agrees that she meets criteria for ECT as it has been helpful in the past and patient reports that if this overwhelming anxiety progresses she will become suicidal. Patient agrees to see if some medications can help as a p.r.n. Hospital course: 01/10 Pt continues to report pain. By history, she has used Tinazadine and Flexeril without adverse response she reports. We will trial for efficacy and lack of side effects. 01/12 Patient reports that her mood is overall okay but that she is exceedingly anxious and looking forward to ECT. She says that because of the anxiety she is not leaving her room at all and in her room she is able to cope with it. 01/13 very anxious; nightmares; hoping that ECT will be effective which is scheduled for later this afternoon 01/14 did not get ECT last night; traumatic experience; not sure if will get Plan: CV Q 15 minute checks ECT #1 pending for 01/15 NPO Continue home medication regimen Add Thorazine 25 mg p.r.n. to see if can help with overwhelming anxiety Continue hydroxyzine which patient said was helpful as a p.r.n. for anxiety Patient educated on: diagnosis and ECT Informed Consent: understands Reason for continued inpatient stay Substantial Risk for: rapid decompensation Time Spent With Patient Time: Total time managing care of this patient today ____ minutes.
[2024-01-15] MEDS: Ondansetron ODT 4 MG TAB.RAPDIS TRANSLINGU (11:32)
[2024-01-15] MEDS: Vilazodone HCL 40 MG TABLET PO (13:03)
[2024-01-15] MEDS: clonazePAM 0.5 MG TABLET PO (14:49)
[2024-01-15] MEDS: hydrOXYzine HCL 25 MG TABLET PO (17:36)
[2024-01-15 20:00] VITALS: BP 123/75; PULSE 79; RESP 15; TEMP 36.4; O2SAT 94
[2024-01-16] VITALS (9 sets, daily range): BP systolic 126–161; BP diastolic 71–92; PULSE 74–91; RESP 15–20; TEMP 36.1–36.9; O2SAT 91–94
--- NOTE | 2024-01-16 10:01 | MHC.SHP ---
Pre-Procedural Eval Section A - 24 Hr Update-Section A only Date of Service: 01/16/24 The patient is an INPATIENT: Yes Changes since office visit: Yes Changes in Medication and Yes Patient answered all questions; No Cold of Flu in the past 2 weeks and No New Medical Problems The patient has been examined within 24 hours of the surgical procedure. The History & Physical has been completed within 30 days and I have reviewed it.: Yes Section B - Complete if H&P > 30 days Chief Complaint: sect.12 SI Allergies: Allergies Allergy/AdvReac Type Severity Reaction Status Date / Time gabapentin [GABAPENTIN] Allergy Unknown UNKNOWN Verified 01/08/24 23:00 morphine [MORPHINE] Allergy Unknown UNKNOWN Verified 01/08/24 23:00 oxycodone [OXYCODONE] Allergy Unknown UNKNOWN Verified 01/08/24 23:00 topiramate [TOPIRAMATE] Allergy Unknown UNKNOWN Verified 01/08/24 23:00 Plan I have reviewed the history and physical and performed a pertinent physical examination on my patient. No changes have occurred unless specified. Time Spent With Patient Time: Total time managing care of this patient today ____ minutes.
--- NOTE | 2024-01-16 10:09 | P.CONAN_ITS ---
[facility] Active Problems Active Problems: All Active Problems Pre-op evaluation (Acute) MDD (major depressive disorder), recurrent severe, without psychosis (Acute) Suicidal ideation (Acute) Anxiety and depression (Acute) Strain of lumbar paraspinal muscle (Acute) PTSD (post-traumatic stress disorder) (Acute) Major depressive disorder, recurrent, severe with psychotic symptoms (Acute) Past Medical History Medical History MDD (major depressive disorder), recurrent severe, without psychosis At risk for bleeding associated with tonsillectomy and adenoidectomy HLD (hyperlipidemia) Suicidal ideation Renal insufficiency PTSD (post-traumatic stress disorder) Major depressive disorder, recurrent, 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 Neuropathy Autonomic dysfunction Asthma Functional capacity: independent ambulation Family History Family history of problems with anesthesia: No Surgical History Surgical History History of sinus surgery History of tonsillectomy H/O ureter repair H/O tubal ligation Previous section H/O spinal fusion History of Problems with Anesthesia: No Social History Social History Household Members: Family Housing: House Do you presently have visiting nurse or other home services: No Patient Tobacco Use Status: Never used Tobacco Smoked in Last 30 Days: No e-Cigarette/Vaping Use: Never Used Patient Interested in Nicotine Replacement: No Patient Given Instructions on How to Stop Smoking: No (doesnt smoke) Second Hand Smoke Exposure: No Use of substances other than those prescribed or required for medical reasons: Yes Substance Use Type: Marijuana Substance Use Frequency: Weekly Last Used Substance: Days (ago) Currently Displaying Signs/Symptoms of Drug Intoxication Withdrawal: No Any prior treatment program specific to substance use: No Have you been hit, kicked, punched, or otherwise hurt by someone within the past year? If so, by whom?: No Do you feel safe in your current relationship?: No Current Relationship Is there a partner from a previous relationship who is making you feel unsafe now?: No Are you made to feel afraid or neglected: No Spiritual Healthcare Practices: none Jewish Healthcare Practices: none Cultural Healthcare Practices: none Advance Directives: Yes Advance Directives Information Provided: No Advance Directives on File: No Do you have thoughts of harming others: None Do you have a plan to hurt others: No Plan Recently lost weight without trying: No Eating poorly because of decreased appetite: No Nutrition Risks: No Nutritional Risk Patient : No : No Poor oral hygiene: No service: No Sexual orientation: Straight/Heterosexual Meds Allergies Allergy/AdvReac Type Severity Reaction Status Date / Time gabapentin [GABAPENTIN] Allergy Unknown UNKNOWN Verified 01/08/24 23:00 morphine [MORPHINE] Allergy Unknown UNKNOWN Verified 01/08/24 23:00 oxycodone [OXYCODONE] Allergy Unknown UNKNOWN Verified 01/08/24 23:00 topiramate [TOPIRAMATE] Allergy Unknown UNKNOWN Verified 01/08/24 23:00 Active Medications: Current Medications Acetaminophen (Acetaminophen 325 Mg Tablet) 975 mg PO Q6H PRN PRN Reason: Pain, Severe (Pain Scale 7-10) Last Admin: 01/15/24 22:00 Dose: 975 mg Al Hydroxide/Mg Hydroxide (Magnesium Hydrox/Alum Hydrox 30 Ml Oral.Susp) 30 ml PO Q6H PRN PRN Reason: Heartburn/Nausea Last Admin: 01/12/24 09:33 Dose: 30 ml Albuterol Sulfate (Albuterol Sulfate 90 Mcg 8 Gm Inhaler) 2 puff INHALE Q4H PRN PRN Reason: Shortness Of Breath Or Wheezing Amitriptyline HCl (Amitriptyline Hcl 25 Mg Tablet) 25 mg PO BEDTIME SOO Last Admin: 01/15/24 21:36 Dose: 25 mg Atenolol (Atenolol 25 Mg Tablet) 25 mg PO DAILY SOO; Protocol Last Admin: 01/15/24 08:25 Dose: 25 mg Atorvastatin Calcium (Atorvastatin Calcium 40 Mg Tablet) 40 mg PO BEDTIME SOO Last Admin: 01/15/24 21:36 Dose: 40 mg Chlorpromazine HCl (Chlorpromazine Hcl 25 Mg Tablet) 25 mg PO QID PRN PRN Reason: moderate anxiety Clonazepam (Clonazepam 0.5 Mg Tablet) 0.5 mg PO DAILY PRN PRN Reason: Anxiety Last Admin: 01/15/24 14:49 Dose: 0.5 mg Cyclobenzaprine HCl (Cyclobenzaprine Hcl 10 Mg Tablet) 10 mg PO TID PRN PRN Reason: spasm, back pain Last Admin: 09/01/24 12:42 Dose: 10 mg Fludrocortisone Acetate (Fludrocortisone Acetate 0.1 Mg Tablet) 0.1 mg PO BID [facility] Last Admin: 01/15/24 21:36 Dose: 0.1 mg Hydroxyzine HCl (Hydroxyzine Hcl 25 Mg Tablet) 25 mg PO Q6H PRN PRN Reason: Anxiety Last Admin: 01/15/24 17:36 Dose: 25 mg Hydroxyzine HCl (Hydroxyzine Hcl 25 Mg Tablet) 25 mg PO Q6H PRN PRN Reason: mild anxiety Last Admin: 01/10/24 17:02 Dose: 25 mg Lactated Ringer's (Lr) 1,000 mls @ 50 mls/hr IVCONT .Q20H [facility] Loratadine (Loratadine 10 Mg Tablet) 10 mg PO BEDTIME [facility] Last Admin: 01/15/24 21:36 Dose: 10 mg Magnesium Hydroxide (Milk Of Magnesia 30 Ml Oral.Susp) 30 ml PO DAILY PRN PRN Reason: Constipation Montelukast Sodium (Montelukast Sodium 10 Mg Tablet) 10 mg PO BEDTIME [facility] Last Admin: 01/15/24 21:36 Dose: 10 mg Nicotine (Nicotine 21 Mg Patch.Td24) 21 mg TRANSDERMA DAILY PRN PRN Reason: smoking cessation Nicotine Polacrilex (Nicotine Polacrilex 2 Mg Gum) 4 mg BUCCAL Q2H PRN PRN Reason: Nicotine Cravings Olanzapine (Olanzapine 2.5 Mg Tablet) 2.5 mg PO Q4H PRN PRN Reason: agitation Omeprazole (Omeprazole 20 Mg Capsule.Dr) 20 mg PO BID@0630,1630 [facility] Last Admin: 01/16/24 06:24 Dose: Not Given Ondansetron HCl (Ondansetron Odt 4 Mg Tab.Rapdis) 4 mg TRANSLINGU Q6H PRN PRN Reason: Nausea and Vomiting Last Admin: 01/15/24 11:32 Dose: 4 mg Quetiapine Fumarate (Quetiapine Fumarate 100 Mg Tablet) 100 mg PO BEDTIME [facility] Last Admin: 01/15/24 21:36 Dose: 100 mg Quetiapine Fumarate (Quetiapine Fumarate 50 Mg Tablet) 50 mg PO BID@0900,1200 [facility] Last Admin: 01/15/24 11:32 Dose: 50 mg Tizanidine HCl (Tizanidine Hcl 4 Mg Tablet) 4 mg PO TID [facility] Last Admin: 01/15/24 21:59 Dose: 4 mg Trazodone HCl (Trazodone Hcl 50 Mg Tablet) 50 mg PO BEDTIME MRX1 PRN PRN Reason: Insomnia Trazodone HCl (Trazodone Hcl 100 Mg Tablet) 200 mg PO BEDTIME [facility] Last Admin: 01/15/24 21:36 Dose: 200 mg Vilazodone HCl (Vilazodone Hcl 40 Mg Tablet) 40 mg PO DAILY@1200 [facility] Last Admin: 01/15/24 13:03 Dose: 40 mg Home Medications ?Medication ?Instructions ?Recorded ?Confirmed ?Last Taken ?Type atenolol 25 mg tablet 1 tab PO DAILY 03/24/20 01/09/24 03/23/20 10:00 History 25 mg cetirizine 10 mg tablet 1 tab PO BEDTIME 03/24/20 01/09/24 03/22/20 21:00 History 10 mg clonazepam 0.5 mg tablet 1 tab PO 1XD PRN Anxiety 03/24/20 01/09/24 Unknown History fludrocortisone 0.1 mg tablet 0.1 mg PO 2XD 03/24/20 01/09/24 Unknown History levothyroxine 50 mcg tablet 1 tab PO DAILY@0630 03/24/20 01/09/24 03/23/20 08:00 History 50 mcg montelukast 10 mg tablet 1 tab PO BEDTIME 03/24/20 01/09/24 03/23/20 08:00 History 10 mg trazodone 100 mg tablet 2 tab PO BEDTIME PRN Insomnia 03/24/20 01/09/24 03/23/20 23:00 History 100 mg vilazodone 40 mg tablet (Viibryd) 1 tab PO 1XD 03/24/20 01/09/24 03/23/20 08:00 History 40 mg albuterol sulfate 90 mcg/actuation 2 puff inhalation Q4-6H PRN 01/09/24 01/09/24 Unknown History aerosol inhaler Shortness Of Breath Or Wheezing amitriptyline 25 mg tablet 25 mg PO BEDTIME 01/09/24 01/09/24 Unknown History atorvastatin 40 mg tablet 40 mg PO BEDTIME 01/09/24 01/09/24 Unknown History diclofenac sodium 1 % topical gel 1 topical PRN Pain, Moderate 01/09/24 Unknown History (Arthritis Pain (diclofenac)) nystatin 100,000 unit/gram topical 1 appl topical 2XD PRN Skin 01/09/24 01/09/24 Unknown History powder Irritation omeprazole 20 mg tablet,delayed 20 mg PO BID 01/09/24 01/09/24 Unknown History release quetiapine 100 mg tablet 100 mg PO BEDTIME 01/09/24 01/09/24 Unknown History quetiapine 50 mg tablet 50 mg PO 2XD 01/09/24 01/09/24 Unknown History Exam Height,Weight and Vital Signs: Height 5 ft 5 in Weight 123.1 kg Last Vital Signs Temp 98.5 F 01/16/24 09:22 Pulse 75 01/16/24 09:22 Resp 16 01/16/24 09:22 BP 131/90 H 01/16/24 09:22 Pulse Ox 94 01/16/24 09:22 O2 Del Method Room Air 01/16/24 09:22 Pertinent Lab Results Pertinent Lab Results: Laboratory Tests 01/08/24 01/09/24 01/09/24 23:39 08:27 13:00 WBC 14.2 H 12.9 H RBC 4.15 L 4.50 Hgb 12.5 13.5 Hct 37.3 40.1 MCV 89.9 89.1 MCH 30.1 30.0 MCHC 33.5 33.7 RDW 13.6 13.4 Plt Count 262 275 MPV 10.0 10.0 Immature Gran % (Auto) 0.8 H 0.8 H Neut % (Auto) 65.1 63.8 Lymph % (Auto) 23.4 24.7 [place] % (Auto) 8.0 7.6 Eos % (Auto) 2.1 2.3 Baso % (Auto) 0.6 0.8 Lymph # (Auto) 3.3 3.2 [place] # (Auto) 1.1 1.0 Eos # (Auto) 0.3 0.3 Baso # (Auto) 0.1 0.1 Abs Immat Gran (auto) 0.11 H 0.10 H Absolute Neuts (auto) 9.3 H 8.3 Absolute Nucleated RBC 0.000 0.000 Nucleated RBC % (auto) 0.0 0.0 Sodium 142 Potassium 3.7 Chloride 109 H Carbon Dioxide 27 Anion Gap 10 L BUN 14 Creatinine 1.08 Estim Creat Clear Calc 74.2 Estimated GFR 52 Random Glucose 107 Estimat Average Glucose 105 Hemoglobin A1c % 5.3 Calcium 9.2 Total Bilirubin 0.3 Direct Bilirubin 0.1 AST 12 ALT 12 Alkaline Phosphatase 62 Troponin I High Sens Total Protein 6.5 Albumin 3.7 Triglycerides 174 H Cholesterol 157 LDL Cholesterol, Calc 80 HDL Cholesterol 43 TSH 2.82 Urine Color Yellow Urine Appearance Clear Urine pH 7.0 Ur Specific [place] 1.015 Urine Protein Negative Urine Glucose (UA) Negative Urine Ketones Negative Urine Blood Negative Urine Nitrite Negative Ur Leukocyte Esterase Negative Urine Opiates Screen Not Detected Ur Buprenorphine Scrn Not Detected Ur Oxycodone Screen Not Detected Urine Methadone Screen Not Detected Urine Fentanyl Screen Not Detected Ur Barbiturates Screen Not Detected Ur Phencyclidine Scrn Not Detected Ur Amphetamines Screen Not Detected U Benzodiazepines Scrn Not Detected Urine Cocaine Screen Not Detected U Marijuana (THC) Screen Not Detected Ethyl Alcohol < 10 01/12/24 01/12/24 10:02 14:23 WBC RBC Hgb Hct MCV MCH MCHC RDW Plt Count MPV Immature Gran % (Auto) Neut % (Auto) Lymph % (Auto) [place] % (Auto) Eos % (Auto) Baso % (Auto) Lymph # (Auto) [place] # (Auto) Eos # (Auto) Baso # (Auto) Abs Immat Gran (auto) Absolute Neuts (auto) Absolute Nucleated RBC Nucleated RBC % (auto) Sodium Potassium Chloride Carbon Dioxide Anion Gap BUN Creatinine Estim Creat Clear Calc Estimated GFR Random Glucose Estimat Average Glucose Hemoglobin A1c % Calcium Total Bilirubin Direct Bilirubin AST ALT Alkaline Phosphatase Troponin I High Sens < 2.7 < 2.7 Total Protein Albumin Triglycerides Cholesterol LDL Cholesterol, Calc HDL Cholesterol TSH Urine Color Urine Appearance Urine pH Ur Specific [place] Urine Protein Urine Glucose (UA) Urine Ketones Urine Blood Urine Nitrite Ur Leukocyte Esterase Urine Opiates Screen Ur Buprenorphine Scrn Ur Oxycodone Screen Urine Methadone Screen Urine Fentanyl Screen Ur Barbiturates Screen Ur Phencyclidine Scrn Ur Amphetamines Screen U Benzodiazepines Scrn Urine Cocaine Screen U Marijuana (THC) Screen Ethyl Alcohol Airway Mallampati Class: III (3 caps laterally) TM Dist: >3cm Neck ROM: Full Heart: rrr Lungs: cta Assessment and Plan Assessment Anesthesia Assessment: Anesthesia Plan Discussed and Chart Reviewed Final Anesthetic Review Family History of Problems with Anesthesia: No History of Problems with Anesthesia: No NPO: Yes ASA Class: III Final Preanesthetic Review: No Changes in Pt Med Stat, Meds/Allgs Chart Reviewed and Consent Obtained/Reviewed Patient Risk: Intermediate Procedure Risk: Intermediate Anesthetic Plan Anesthetic Plan: GA Disposition: Standard PACU
--- NOTE | 2024-01-16 10:15 | P.PNPSI_ITS ---
Subjective Subjective Date of Service: 01/16/24 Reason For Visit: sect.12 SI Interim History: met with pt; discussed with team pt did get ect today; glad she did and says she's feeling better for it; wants to continue Mental Status Exam Mental Status Exam Narrative: Pt is alert and oriented; behavior is cooperative, and calm; patient is not in distress; dressed in casual attire with unkempt hair but adequate hygiene; mood is described as better and affect congruent; eye contact appropriate; Speech is normal rate, volume and prosody and not pressured; psychomotor retardation present; thought process is organized and goal directed; Thought content is on dealing with overwhelming anxiety, ECT; otherwise pertinent to relevant topics and without any delusional content, paranoid ideations or grandiosity; denies any SI/HI. Denies AVH and There is no evidence of perceptual disturbance. Patients insight and judgment impaired Diagnostics Vital Signs (24Hr): Vital Signs - 24 hr 01/15/24 20:00 01/16/24 09:22 Temperature 97.6 F 98.5 F Pulse Rate 79 75 Respiratory Rate 15 16 Blood Pressure 123/75 131/90 H Pulse Oximetry 94 94 Oxygen Delivery Method Room Air BMI result Body Mass Index 45.2 Labs 01/09/24 08:27 01/08/24 23:39 Medications Medications Current Medications Acetaminophen (Acetaminophen 325 Mg Tablet) 975 mg PO Q6H PRN PRN Reason: Pain, Severe (Pain Scale 7-10) Last Admin: 01/15/24 22:00 Dose: 975 mg Al Hydroxide/Mg Hydroxide (Magnesium Hydrox/Alum Hydrox 30 Ml Oral.Susp) 30 ml PO Q6H PRN PRN Reason: Heartburn/Nausea Last Admin: 01/12/24 09:33 Dose: 30 ml Albuterol Sulfate (Albuterol Sulfate 90 Mcg 8 Gm Inhaler) 2 puff INHALE Q4H PRN PRN Reason: Shortness Of Breath Or Wheezing Amitriptyline HCl (Amitriptyline Hcl 25 Mg Tablet) 25 mg PO BEDTIME SOO Last Admin: 01/15/24 21:36 Dose: 25 mg Atenolol (Atenolol 25 Mg Tablet) 25 mg PO DAILY SOO; Protocol Last Admin: 01/15/24 08:25 Dose: 25 mg Atorvastatin Calcium (Atorvastatin Calcium 40 Mg Tablet) 40 mg PO BEDTIME SOO Last Admin: 01/15/24 21:36 Dose: 40 mg Chlorpromazine HCl (Chlorpromazine Hcl 25 Mg Tablet) 25 mg PO QID PRN PRN Reason: moderate anxiety Clonazepam (Clonazepam 0.5 Mg Tablet) 0.5 mg PO DAILY PRN PRN Reason: Anxiety Last Admin: 01/15/24 14:49 Dose: 0.5 mg Cyclobenzaprine HCl (Cyclobenzaprine Hcl 10 Mg Tablet) 10 mg PO TID PRN PRN Reason: spasm, back pain Last Admin: 01/11/24 12:42 Dose: 10 mg Fludrocortisone Acetate (Fludrocortisone Acetate 0.1 Mg Tablet) 0.1 mg PO BID [facility] Last Admin: 01/15/24 21:36 Dose: 0.1 mg Hydroxyzine HCl (Hydroxyzine Hcl 25 Mg Tablet) 25 mg PO Q6H PRN PRN Reason: Anxiety Last Admin: 01/15/24 17:36 Dose: 25 mg Hydroxyzine HCl (Hydroxyzine Hcl 25 Mg Tablet) 25 mg PO Q6H PRN PRN Reason: mild anxiety Last Admin: 01/10/24 17:02 Dose: 25 mg Lactated Ringer's (Lr) 1,000 mls @ 50 mls/hr IVCONT .Q20H [facility] Loratadine (Loratadine 10 Mg Tablet) 10 mg PO BEDTIME [facility] Last Admin: 01/15/24 21:36 Dose: 10 mg Magnesium Hydroxide (Milk Of Magnesia 30 Ml Oral.Susp) 30 ml PO DAILY PRN PRN Reason: Constipation Montelukast Sodium (Montelukast Sodium 10 Mg Tablet) 10 mg PO BEDTIME [facility] Last Admin: 01/15/24 21:36 Dose: 10 mg Nicotine (Nicotine 21 Mg Patch.Td24) 21 mg TRANSDERMA DAILY PRN PRN Reason: smoking cessation Nicotine Polacrilex (Nicotine Polacrilex 2 Mg Gum) 4 mg BUCCAL Q2H PRN PRN Reason: Nicotine Cravings Olanzapine (Olanzapine 2.5 Mg Tablet) 2.5 mg PO Q4H PRN PRN Reason: agitation Omeprazole (Omeprazole 20 Mg Capsule.Dr) 20 mg PO BID@0630,1630 [facility] Last Admin: 01/16/24 06:24 Dose: Not Given Ondansetron HCl (Ondansetron Odt 4 Mg Tab.Rapdis) 4 mg TRANSLINGU Q6H PRN PRN Reason: Nausea and Vomiting Last Admin: 01/15/24 11:32 Dose: 4 mg Quetiapine Fumarate (Quetiapine Fumarate 100 Mg Tablet) 100 mg PO BEDTIME [facility] Last Admin: 01/15/24 21:36 Dose: 100 mg Quetiapine Fumarate (Quetiapine Fumarate 50 Mg Tablet) 50 mg PO BID@0900,1200 [facility] Last Admin: 01/15/24 11:32 Dose: 50 mg Tizanidine HCl (Tizanidine Hcl 4 Mg Tablet) 4 mg PO TID [facility] Last Admin: 01/15/24 21:59 Dose: 4 mg Trazodone HCl (Trazodone Hcl 50 Mg Tablet) 50 mg PO BEDTIME MRX1 PRN PRN Reason: Insomnia Trazodone HCl (Trazodone Hcl 100 Mg Tablet) 200 mg PO BEDTIME [facility] Last Admin: 01/15/24 21:36 Dose: 200 mg Vilazodone HCl (Vilazodone Hcl 40 Mg Tablet) 40 mg PO DAILY@1200 [facility] Last Admin: 01/15/24 13:03 Dose: 40 mg Allergies Allergies Allergy/AdvReac Type Severity Reaction Status Date / Time gabapentin [GABAPENTIN] Allergy Unknown UNKNOWN Verified 01/08/24 23:00 morphine [MORPHINE] Allergy Unknown UNKNOWN Verified 01/08/24 23:00 oxycodone [OXYCODONE] Allergy Unknown UNKNOWN Verified 01/08/24 23:00 topiramate [TOPIRAMATE] Allergy Unknown UNKNOWN Verified 01/08/24 23:00 Assessment & Plan Assessment & Plan (1) Major depressive disorder, recurrent, severe with psychotic symptoms: Status: Acute Code(s): F33.3 - Major depressive disorder, recurrent, severe with psychotic symptoms Assessment and Plan: 01/12/24: Anxious with physical sx today. Medical work up negative thus far. Support, encourage milieu. ECT 01/14/24. Plan Patient is a 58-year-old woman with history major depression, PTSD and intermittent severe anxiety, POTS who self presents for sudden onset of severe anxiety and wanting ECT. Patient reports that for the past 3 and half years she has been overall doing well on current medication regimen. She says about 3 weeks ago, suddenly as a light switch turns on she started becoming extremely anxious, started dissociating, scratching her arms and body, shaking. She denies feeling any significant depression but this constant anxiety has become overwhelming. Sometimes she will have many such episodes that are much less in intensity and resolve on their own after a day or so, so patient try to endured this ongoing anxiety hoping it would resolve. It continued however and felt unbearable. Patient says this happens every few years and it eventually leads to her wanting to end her life due to the overwhelming anxiety. Patient decided this time she would instead present for ECT which he says is the only thing that stops the episode. Patient is organized in speech and behavior and denies all other symptoms of andrew or history of manic episodes; denies any AVH; no drug or alcohol abuse. Formulation/Clinical reason: Patient seems to have been stable on current medication regimen and does not want changes. She says that this event happens every several years and feels that whatever triggers it is not medication related. Patient has had ECT in the past which was a successful treatment and she feels ECT is essential. 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 Patient agrees to see if some medications can help as a p.r.n. Hospital course: 01/10 Pt continues to report pain. By history, she has used Tinazadine and Flexeril without adverse response she reports. We will trial for efficacy and lack of side effects. 01/12 Patient reports that her mood is overall okay but that she is exceedingly anxious and looking forward to ECT. She says that because of the anxiety she is not leaving her room at all and in her room she is able to cope with it. 01/13 very anxious; nightmares; hoping that ECT will be effective which is scheduled for later this afternoon 01/14 did not get ECT last night; traumatic experience; not sure if will get 01/15 got ECT, feels better for it Plan: CV Q 15 minute checks ECT #2 pending for 01/18 NPO Continue home medication regimen Add Thorazine 25 mg p.r.n. to see if can help with overwhelming anxiety Continue hydroxyzine which patient said was helpful as a p.r.n. for anxiety Patient educated on: diagnosis and ECT Informed Consent: understands Reason for continued inpatient stay Substantial Risk for: rapid decompensation Time Spent With Patient Time: Total time managing care of this patient today ____ minutes.
--- NOTE | 2024-01-16 10:54 | HO.ECTPROC ---
ECT Procedure Note Diagnosis/Treatment Date of Service: 01/16/24 Diagnosis: Major Depressive Disorder Current Treatment Number: 1 Treatment: Series Interval Clinical Notes: Pt severely depressed anxious was given reassurance and tx with ketamine succ went well . Glyco 0.2 pretx and tylenol IV avoid nsai hx kidney disease. Tx rul given versed post Time: Total time managing care of this patient today ____ minutes. ECT Settings Device: THYMATRON DGx Electrode Placement: Right Unilateral Program/Pulse Width: 0.50 Energy Percent: 100 Seizure Duration By EEG (in seconds): 49 Medications Administration General Anesthetic: Ketamine (100) Muscle Relaxant: Succinylcholine (100) Ancillary Medications Anti-emetics: Zofran - Pre ECT Cardiovascular Medications: Glycopyrrolate (0.2) Miscillaneous Medications: Midazolam (2 mg) Airway Management Airway Management: Bag Mask Ventilation Treatment Recommendations No Changes Recommended: No change Pt Tolerated Procedure w/o Issue: Yes
[2024-01-16] MEDS: Omeprazole 20 MG CAPSULE.DR PO ×2 (12:26→16:15)
[2024-01-16] MEDS: Fludrocortisone Acetate 0.1 MG TABLET PO ×2 (12:26→21:13)
[2024-01-16] MEDS: atenoloL 25 MG TABLET PO (12:26)
[2024-01-16] MEDS: TiZANidine HCL 4 MG TABLET PO ×3 (12:27→21:13)
[2024-01-16] MEDS: Vilazodone HCL 40 MG TABLET PO ×2 (12:28→13:39)
[2024-01-16] MEDS: QUEtiapine Fumarate 50 MG TABLET PO (12:28)
[2024-01-16] MEDS: Acetaminophen 325 MG TABLET 975 MG PO (17:25)
[2024-01-16] MEDS: traZODone HCL 100 MG TABLET 200 MG PO (21:13)
[2024-01-16] MEDS: Loratadine 10 MG TABLET PO (21:13)
[2024-01-16] MEDS: Amitriptyline HCl 25 MG TABLET PO (21:13)
[2024-01-16] MEDS: traZODone HCL 50 MG TABLET PO (21:13)
[2024-01-16] MEDS: Atorvastatin Calcium 40 MG TABLET PO (21:13)
[2024-01-16] MEDS: QUEtiapine Fumarate 100 MG TABLET PO (21:13)
[2024-01-16] MEDS: Montelukast Sodium 10 MG TABLET PO (21:14)
[2024-01-17 08:00] VITALS: BP 122/62; PULSE 71; TEMP 36.8
--- NOTE | 2024-01-17 08:02 | P.PNPSI_ITS ---
Subjective Subjective Date of Service: 01/17/24 Reason For Visit: sect.12 SI Interim History: met with pt; discussed with nursing. Overall reports feeling that things are heading in a good direction. Thankful she had ECT yesterday. Reports pain under reasonable control. Sleep is okay. Appetite okay. Watching television in group room alone. Reports not having had to use any anxiety medications in 2 days which is a positive sign. Medication Compliance: Yes Side effects from medications: No Attending Groups: No Review of Systems Acute medical concerns: No Review of Systems Review of Systems Nothing new/acute Mental Status Exam Mental Status Exam Narrative: In group room watching in television. Casual clothing. Fair self-care. Pleasant. Reports feeling less anxious and depressed. Affect congruent. No SI or HI. No agitation or psychosis evident. Insight and judgment fair Diagnostics Vital Signs (24Hr): Vital Signs - 24 hr 01/16/24 09:22 01/16/24 10:36 01/16/24 10:41 Temperature 98.5 F 97.5 F Pulse Rate 75 83 83 Respiratory Rate 16 16 15 Blood Pressure 131/90 H 160/86 H 161/89 H Pulse Oximetry 94 92 91 L Oxygen Delivery Method Room Air Nasal Cannula with ETCO2 Nasal Cannula with ETCO2 Oxygen Flow Rate 3 3 01/16/24 10:46 01/16/24 10:51 01/16/24 11:06 Temperature Pulse Rate 86 91 87 Respiratory Rate 20 19 16 Blood Pressure 161/88 H 161/88 H 159/92 H Pulse Oximetry 93 92 94 Oxygen Delivery Method Nasal Cannula with ETCO2 Nasal Cannula with ETCO2 Room Air Oxygen Flow Rate 3 3 01/16/24 11:19 01/16/24 12:00 01/16/24 20:00 Temperature 97.0 F 97.5 F 97.5 F Pulse Rate 87 79 74 Respiratory Rate 17 16 Blood Pressure 149/87 H 130/85 126/71 Pulse Oximetry 94 94 93 Oxygen Delivery Method Room Air Room Air Room Air Oxygen Flow Rate BMI result Body Mass Index 45.2 Labs 01/09/24 08:27 01/08/24 23:39 Medications Medications Current Medications Acetaminophen (Acetaminophen 325 Mg Tablet) 975 mg PO Q6H PRN PRN Reason: Pain, Severe (Pain Scale 7-10) Last Admin: 01/16/24 17:25 Dose: 975 mg Al Hydroxide/Mg Hydroxide (Magnesium Hydrox/Alum Hydrox 30 Ml Oral.Susp) 30 ml PO Q6H PRN PRN Reason: Heartburn/Nausea Last Admin: 01/12/24 09:33 Dose: 30 ml Albuterol Sulfate (Albuterol Sulfate 90 Mcg 8 Gm Inhaler) 2 puff INHALE Q4H PRN PRN Reason: Shortness Of Breath Or Wheezing Amitriptyline HCl (Amitriptyline Hcl 25 Mg Tablet) 25 mg PO BEDTIME SOO Last Admin: 01/16/24 21:13 Dose: 25 mg Atenolol (Atenolol 25 Mg Tablet) 25 mg PO DAILY [facility]; Protocol Last Admin: 01/16/24 12:26 Dose: 25 mg Atorvastatin Calcium (Atorvastatin Calcium 40 Mg Tablet) 40 mg PO BEDTIME SOO Last Admin: 01/16/24 21:13 Dose: 40 mg Chlorpromazine HCl (Chlorpromazine Hcl 25 Mg Tablet) 25 mg PO QID PRN PRN Reason: moderate anxiety Clonazepam (Clonazepam 0.5 Mg Tablet) 0.5 mg PO DAILY PRN PRN Reason: Anxiety Last Admin: 01/15/24 14:49 Dose: 0.5 mg Cyclobenzaprine HCl (Cyclobenzaprine Hcl 10 Mg Tablet) 10 mg PO TID PRN PRN Reason: spasm, back pain Last Admin: 01/11/24 12:42 Dose: 10 mg Fludrocortisone Acetate (Fludrocortisone Acetate 0.1 Mg Tablet) 0.1 mg PO BID [facility] Last Admin: 01/16/24 21:13 Dose: 0.1 mg Hydroxyzine HCl (Hydroxyzine Hcl 25 Mg Tablet) 25 mg PO Q6H PRN PRN Reason: Anxiety Last Admin: 01/15/24 17:36 Dose: 25 mg Hydroxyzine HCl (Hydroxyzine Hcl 25 Mg Tablet) 25 mg PO Q6H PRN PRN Reason: mild anxiety Last Admin: 01/10/24 17:02 Dose: 25 mg Loratadine (Loratadine 10 Mg Tablet) 10 mg PO BEDTIME [facility] Last Admin: 01/16/24 21:13 Dose: 10 mg Magnesium Hydroxide (Milk Of Magnesia 30 Ml Oral.Susp) 30 ml PO DAILY PRN PRN Reason: Constipation Montelukast Sodium (Montelukast Sodium 10 Mg Tablet) 10 mg PO BEDTIME [facility] Last Admin: 01/16/24 21:14 Dose: 10 mg Nicotine (Nicotine 21 Mg Patch.Td24) 21 mg TRANSDERMA DAILY PRN PRN Reason: smoking cessation Nicotine Polacrilex (Nicotine Polacrilex 2 Mg Gum) 4 mg BUCCAL Q2H PRN PRN Reason: Nicotine Cravings Olanzapine (Olanzapine 2.5 Mg Tablet) 2.5 mg PO Q4H PRN PRN Reason: agitation Omeprazole (Omeprazole 20 Mg Capsule.Dr) 20 mg PO BID@0630,1630 [facility] Last Admin: 01/16/24 16:15 Dose: 20 mg Ondansetron HCl (Ondansetron Odt 4 Mg Tab.Rapdis) 4 mg TRANSLINGU Q6H PRN PRN Reason: Nausea and Vomiting Last Admin: 01/15/24 11:32 Dose: 4 mg Quetiapine Fumarate (Quetiapine Fumarate 100 Mg Tablet) 100 mg PO BEDTIME [facility] Last Admin: 01/16/24 21:13 Dose: 100 mg Quetiapine Fumarate (Quetiapine Fumarate 50 Mg Tablet) 50 mg PO BID@0900,1200 [facility] Last Admin: 01/16/24 12:31 Dose: Not Given Tizanidine HCl (Tizanidine Hcl 4 Mg Tablet) 4 mg PO TID [facility] Last Admin: 01/16/24 21:13 Dose: 4 mg Trazodone HCl (Trazodone Hcl 50 Mg Tablet) 50 mg PO BEDTIME MRX1 PRN PRN Reason: Insomnia Last Admin: 01/16/24 21:13 Dose: 50 mg Trazodone HCl (Trazodone Hcl 100 Mg Tablet) 200 mg PO BEDTIME [facility] Last Admin: 01/16/24 21:13 Dose: 200 mg Vilazodone HCl (Vilazodone Hcl 40 Mg Tablet) 40 mg PO DAILY@1200 [facility] Last Admin: 01/16/24 13:39 Dose: 40 mg Allergies Allergies Allergy/AdvReac Type Severity Reaction Status Date / Time gabapentin [GABAPENTIN] Allergy Unknown UNKNOWN Verified 01/08/24 23:00 morphine [MORPHINE] Allergy Unknown UNKNOWN Verified 01/08/24 23:00 oxycodone [OXYCODONE] Allergy Unknown UNKNOWN Verified 01/08/24 23:00 topiramate [TOPIRAMATE] Allergy Unknown UNKNOWN Verified 01/08/24 23:00 Assessment & Plan Assessment & Plan (1) Major depressive disorder, recurrent, severe with psychotic symptoms: Status: Acute Code(s): F33.3 - Major depressive disorder, recurrent, severe with psychotic symptoms Assessment and Plan: 01/12/24: Anxious with physical sx today. Medical work up negative thus far. Support, encourage milieu. ECT 01/14/24. Plan Patient is a 58-year-old woman with history major depression, PTSD and intermittent severe anxiety, POTS who self presents for sudden onset of severe anxiety and wanting ECT. Patient reports that for the past 3 and half years she has been overall doing well on current medication regimen. She says about 3 weeks ago, suddenly as a light switch turns on she started becoming extremely anxious, started dissociating, scratching her arms and body, shaking. She denies feeling any significant depression but this constant anxiety has become overwhelming. Sometimes she will have many such episodes that are much less in intensity and resolve on their own after a day or so, so patient try to endured this ongoing anxiety hoping it would resolve. It continued however and felt unbearable. Patient says this happens every few years and it eventually leads to her wanting to end her life due to the overwhelming anxiety. Patient decided this time she would instead present for ECT which he says is the only thing that stops the episode. Patient is organized in speech and behavior and denies all other symptoms of andrew or history of manic episodes; denies any AVH; no drug or alcohol abuse. Formulation/Clinical reason: Patient seems to have been stable on current medication regimen and does not want changes. She says that this event happens every several years and feels that whatever triggers it is not medication related. Patient has had ECT in the past which was a successful treatment and she feels ECT is essential. 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 Patient agrees to see if some medications can help as a p.r.n. Hospital course: 01/10 Pt continues to report pain. By history, she has used Tinazadine and Flexeril without adverse response she reports. We will trial for efficacy and lack of side effects. 01/12 Patient reports that her mood is overall okay but that she is exceedingly anxious and looking forward to ECT. She says that because of the anxiety she is not leaving her room at all and in her room she is able to cope with it. 01/13 very anxious; nightmares; hoping that ECT will be effective which is scheduled for later this afternoon 01/14 did not get ECT last night; traumatic experience; not sure if will get 01/15 got ECT, feels better for it 01/16: no changes Plan: CV Q 15 minute checks ECT #2 pending for 01/18 NPO Continue home medication regimen Add Thorazine 25 mg p.r.n. to see if can help with overwhelming anxiety Continue hydroxyzine which patient said was helpful as a p.r.n. for anxiety Reason for continued inpatient stay Substantial Risk for: inability to function Time Spent With Patient Time: Total time managing care of this patient today ____ minutes.
[2024-01-17] MEDS: Omeprazole 20 MG CAPSULE.DR PO ×2 (08:28→17:46)
[2024-01-17] MEDS: TiZANidine HCL 4 MG TABLET PO ×3 (08:28→20:58)
[2024-01-17 08:29] VITALS: BP 122/62; PULSE 71
[2024-01-17] MEDS: QUEtiapine Fumarate 50 MG TABLET PO ×2 (08:29→12:44)
[2024-01-17] MEDS: Fludrocortisone Acetate 0.1 MG TABLET PO ×2 (08:29→20:58)
[2024-01-17] MEDS: atenoloL 25 MG TABLET PO (08:29)
[2024-01-17] MEDS: Acetaminophen 325 MG TABLET 975 MG PO ×2 (12:44→20:10)
[2024-01-17] MEDS: Vilazodone HCL 40 MG TABLET PO (12:44)
[2024-01-17 19:50] VITALS: BP 111/64; PULSE 66; RESP 14; TEMP 36.4; O2SAT 96
[2024-01-17] MEDS: Montelukast Sodium 10 MG TABLET PO (20:58)
[2024-01-17] MEDS: Loratadine 10 MG TABLET PO (20:58)
[2024-01-17] MEDS: Amitriptyline HCl 25 MG TABLET PO (20:58)
[2024-01-17] MEDS: traZODone HCL 100 MG TABLET 200 MG PO (20:58)
[2024-01-17] MEDS: Atorvastatin Calcium 40 MG TABLET PO (20:58)
[2024-01-17] MEDS: traZODone HCL 50 MG TABLET PO (20:58)
[2024-01-17] MEDS: QUEtiapine Fumarate 100 MG TABLET PO (20:58)
[2024-01-18 07:44] VITALS: BP 136/75; PULSE 63; RESP 16; TEMP 37.1; O2SAT 97
--- NOTE | 2024-01-18 08:08 | HO.PSYCHPN ---
Subjective Subjective Date of Service: 01/18/24 Reason For Visit: sect.12 SI Medical Problems Affecting Mental Status: No Interim History: met with pt; discussed with nursing. Overall reports feeling that things are heading in a good direction. Sleep is okay. Appetite okay. Looking forward to football today on TV. Reports not having had to use any anxiety medications in 3 days which is a positive sign. Medication Compliance: Yes Side effects from medications: No Attending Groups: Intermittent Review of Systems Review of Systems Nothing new/acute Mental Status Exam Mental Status Exam Narrative: In groom reading. Casual clothing. Fair self-care. Pleasant. Reports feeling less anxious and depressed. Affect congruent. No SI or HI. No agitation or psychosis evident. Insight and judgment fair Diagnostics Vital Signs (24Hr): Vital Signs - 24 hr 01/17/24 08:29 01/17/24 19:50 01/18/24 07:44 Temperature 97.5 F 98.7 F Pulse Rate 71 66 63 Respiratory Rate 14 16 Blood Pressure 122/62 111/64 136/75 Pulse Oximetry 96 97 Oxygen Delivery Method Room Air Room Air BMI result Body Mass Index 45.2 Labs 01/09/24 08:27 01/08/24 23:39 Medications Medications Current Medications Acetaminophen (Acetaminophen 325 Mg Tablet) 975 mg PO Q6H PRN PRN Reason: Pain, Severe (Pain Scale 7-10) Last Admin: 01/17/24 20:10 Dose: 975 mg Al Hydroxide/Mg Hydroxide (Magnesium Hydrox/Alum Hydrox 30 Ml Oral.Susp) 30 ml PO Q6H PRN PRN Reason: Heartburn/Nausea Last Admin: 01/12/24 09:33 Dose: 30 ml Albuterol Sulfate (Albuterol Sulfate 90 Mcg 8 Gm Inhaler) 2 puff INHALE Q4H PRN PRN Reason: Shortness Of Breath Or Wheezing Amitriptyline HCl (Amitriptyline Hcl 25 Mg Tablet) 25 mg PO BEDTIME SOO Last Admin: 01/17/24 20:58 Dose: 25 mg Atenolol (Atenolol 25 Mg Tablet) 25 mg PO DAILY [facility]; Protocol Last Admin: 01/17/24 08:29 Dose: 25 mg Atorvastatin Calcium (Atorvastatin Calcium 40 Mg Tablet) 40 mg PO BEDTIME SOO Last Admin: 01/17/24 20:58 Dose: 40 mg Chlorpromazine HCl (Chlorpromazine Hcl 25 Mg Tablet) 25 mg PO QID PRN PRN Reason: moderate anxiety Clonazepam (Clonazepam 0.5 Mg Tablet) 0.5 mg PO DAILY PRN PRN Reason: Anxiety Last Admin: 01/15/24 14:49 Dose: 0.5 mg Cyclobenzaprine HCl (Cyclobenzaprine Hcl 10 Mg Tablet) 10 mg PO TID PRN PRN Reason: spasm, back pain Last Admin: 01/11/24 12:42 Dose: 10 mg Fludrocortisone Acetate (Fludrocortisone Acetate 0.1 Mg Tablet) 0.1 mg PO BID [facility] Last Admin: 01/17/24 20:58 Dose: 0.1 mg Hydroxyzine HCl (Hydroxyzine Hcl 25 Mg Tablet) 25 mg PO Q6H PRN PRN Reason: Anxiety Last Admin: 01/15/24 17:36 Dose: 25 mg Hydroxyzine HCl (Hydroxyzine Hcl 25 Mg Tablet) 25 mg PO Q6H PRN PRN Reason: mild anxiety Last Admin: 01/10/24 17:02 Dose: 25 mg Loratadine (Loratadine 10 Mg Tablet) 10 mg PO BEDTIME [facility] Last Admin: 01/17/24 20:58 Dose: 10 mg Magnesium Hydroxide (Milk Of Magnesia 30 Ml Oral.Susp) 30 ml PO DAILY PRN PRN Reason: Constipation Montelukast Sodium (Montelukast Sodium 10 Mg Tablet) 10 mg PO BEDTIME [facility] Last Admin: 01/17/24 20:58 Dose: 10 mg Nicotine (Nicotine 21 Mg Patch.Td24) 21 mg TRANSDERMA DAILY PRN PRN Reason: smoking cessation Nicotine Polacrilex (Nicotine Polacrilex 2 Mg Gum) 4 mg BUCCAL Q2H PRN PRN Reason: Nicotine Cravings Olanzapine (Olanzapine 2.5 Mg Tablet) 2.5 mg PO Q4H PRN PRN Reason: agitation Omeprazole (Omeprazole 20 Mg Capsule.Dr) 20 mg PO BID@0630,1630 [facility] Last Admin: 01/17/24 17:46 Dose: 20 mg Ondansetron HCl (Ondansetron Odt 4 Mg Tab.Rapdis) 4 mg TRANSLINGU Q6H PRN PRN Reason: Nausea and Vomiting Last Admin: 01/15/24 11:32 Dose: 4 mg Quetiapine Fumarate (Quetiapine Fumarate 100 Mg Tablet) 100 mg PO BEDTIME [facility] Last Admin: 01/17/24 20:58 Dose: 100 mg Quetiapine Fumarate (Quetiapine Fumarate 50 Mg Tablet) 50 mg PO BID@0900,1200 [facility] Last Admin: 01/17/24 12:44 Dose: 50 mg Tizanidine HCl (Tizanidine Hcl 4 Mg Tablet) 4 mg PO TID [facility] Last Admin: 01/17/24 20:58 Dose: 4 mg Trazodone HCl (Trazodone Hcl 50 Mg Tablet) 50 mg PO BEDTIME MRX1 PRN PRN Reason: Insomnia Last Admin: 01/17/24 20:58 Dose: 50 mg Trazodone HCl (Trazodone Hcl 100 Mg Tablet) 200 mg PO BEDTIME [facility] Last Admin: 01/17/24 20:58 Dose: 200 mg Vilazodone HCl (Vilazodone Hcl 40 Mg Tablet) 40 mg PO DAILY@1200 [facility] Last Admin: 01/17/24 12:44 Dose: 40 mg Allergies Allergies Allergy/AdvReac Type Severity Reaction Status Date / Time gabapentin [GABAPENTIN] Allergy Unknown UNKNOWN Verified 01/08/24 23:00 morphine [MORPHINE] Allergy Unknown UNKNOWN Verified 01/08/24 23:00 oxycodone [OXYCODONE] Allergy Unknown UNKNOWN Verified 01/08/24 23:00 topiramate [TOPIRAMATE] Allergy Unknown UNKNOWN Verified 01/08/24 23:00 Assessment & Plan Assessment & Plan (1) Major depressive disorder, recurrent, severe with psychotic symptoms: Status: Acute Code(s): F33.3 - Major depressive disorder, recurrent, severe with psychotic symptoms Assessment and Plan: 01/12/24: Anxious with physical sx today. Medical work up negative thus far. Support, encourage milieu. ECT 01/14/24. Plan Patient is a 58-year-old woman with history major depression, PTSD and intermittent severe anxiety, POTS who self presents for sudden onset of severe anxiety and wanting ECT. Patient reports that for the past 3 and half years she has been overall doing well on current medication regimen. She says about 3 weeks ago, suddenly as a light switch turns on she started becoming extremely anxious, started dissociating, scratching her arms and body, shaking. She denies feeling any significant depression but this constant anxiety has become overwhelming. Sometimes she will have many such episodes that are much less in intensity and resolve on their own after a day or so, so patient try to endured this ongoing anxiety hoping it would resolve. It continued however and felt unbearable. Patient says this happens every few years and it eventually leads to her wanting to end her life due to the overwhelming anxiety. Patient decided this time she would instead present for ECT which he says is the only thing that stops the episode. Patient is organized in speech and behavior and denies all other symptoms of andrew or history of manic episodes; denies any AVH; no drug or alcohol abuse. Formulation/Clinical reason: Patient seems to have been stable on current medication regimen and does not want changes. She says that this event happens every several years and feels that whatever triggers it is not medication related. Patient has had ECT in the past which was a successful treatment and she feels ECT is essential. 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 Patient agrees to see if some medications can help as a p.r.n. Hospital course: 01/10 Pt continues to report pain. By history, she has used Tinazadine and Flexeril without adverse response she reports. We will trial for efficacy and lack of side effects. 01/12 Patient reports that her mood is overall okay but that she is exceedingly anxious and looking forward to ECT. She says that because of the anxiety she is not leaving her room at all and in her room she is able to cope with it. 01/13 very anxious; nightmares; hoping that ECT will be effective which is scheduled for later this afternoon 01/14 did not get ECT last night; traumatic experience; not sure if will get 01/15 got ECT, feels better for it 01/17: no changes Plan: CV Q 15 minute checks ECT #2 pending for 01/18 NPO Continue home medication regimen Add Thorazine 25 mg p.r.n. to see if can help with overwhelming anxiety Continue hydroxyzine which patient said was helpful as a p.r.n. for anxiety Reason for continued inpatient stay Substantial Risk for: inability to function Time Spent With Patient Time: Total time managing care of this patient today ____ minutes.
[2024-01-18] MEDS: TiZANidine HCL 4 MG TABLET PO ×3 (08:12→20:11)
[2024-01-18] MEDS: Omeprazole 20 MG CAPSULE.DR PO ×2 (08:12→17:39)
[2024-01-18 08:13] VITALS: BP 136/75; PULSE 63
[2024-01-18] MEDS: atenoloL 25 MG TABLET PO (08:13)
[2024-01-18] MEDS: Fludrocortisone Acetate 0.1 MG TABLET PO ×2 (08:13→20:12)
[2024-01-18] MEDS: QUEtiapine Fumarate 50 MG TABLET PO ×2 (08:13→13:03)
[2024-01-18] MEDS: Vilazodone HCL 40 MG TABLET PO (13:03)
[2024-01-18 20:00] VITALS: BP 141/71; PULSE 74; RESP 15; TEMP 36.5; O2SAT 95
[2024-01-18] MEDS: Atorvastatin Calcium 40 MG TABLET PO (20:12)
[2024-01-18] MEDS: Montelukast Sodium 10 MG TABLET PO (20:12)
[2024-01-18] MEDS: Amitriptyline HCl 25 MG TABLET PO (20:12)
[2024-01-18] MEDS: traZODone HCL 100 MG TABLET 200 MG PO (20:12)
[2024-01-18] MEDS: Loratadine 10 MG TABLET PO (20:12)
[2024-01-18] MEDS: QUEtiapine Fumarate 100 MG TABLET PO (20:13)
[2024-01-19] VITALS (10 sets, daily range): BP systolic 122–153; BP diastolic 62–93; PULSE 69–81; RESP 12–20; TEMP 36.7–37.4; O2SAT 92–98
[2024-01-19] MEDS: Omeprazole 20 MG CAPSULE.DR PO (06:56)
[2024-01-19] MEDS: Vilazodone HCL 40 MG TABLET PO (08:58)
[2024-01-19] MEDS: QUEtiapine Fumarate 50 MG TABLET PO ×2 (08:58→12:58)
[2024-01-19] MEDS: Fludrocortisone Acetate 0.1 MG TABLET PO ×2 (08:58→21:06)
[2024-01-19] MEDS: TiZANidine HCL 4 MG TABLET PO ×3 (08:59→21:06)
[2024-01-19] MEDS: atenoloL 25 MG TABLET PO (08:59)
--- NOTE | 2024-01-19 09:56 | HO.PSYCHPN ---
Subjective Subjective Date of Service: 01/19/24 Reason For Visit: sect.12 SI Interim History: met with patient; discussed with team pt feeling overall better and anxiety much more manageable. Thinks that maybe now since she's taking Vraylar with food, she's getting more actual medication and that's why mood is better. Still feeling traumatized from last weeks ECT; ambivalent now about it but decides to get it today. Will decide if to proceed further Mental Status Exam Mental Status Exam Narrative: Pt is alert and oriented; behavior is cooperative, friendly and calm; patient is not in distress; dressed in casual attire with unkempt hair but adequate hygiene; mood is described as better and affect congruent; eye contact appropriate; Speech is normal rate, volume and prosody and not pressured; no psychomotor agitation/retardation present; thought process is organized and goal directed; Thought content is on tx; otherwise pertinent to relevant topics and without any delusional content, paranoid ideations or grandiosity; denies any SI/HI. There is no evidence of perceptual disturbance. Patients insight and judgment appear intact. Diagnostics Vital Signs (24Hr): Vital Signs - 24 hr 01/18/24 20:00 01/19/24 08:09 01/19/24 08:59 Temperature 97.7 F 98.0 F Pulse Rate 74 69 69 Respiratory Rate 15 Blood Pressure 141/71 H 125/62 125/62 Pulse Oximetry 95 93 Oxygen Delivery Method Room Air BMI result Body Mass Index 45.2 Labs 01/09/24 08:27 01/08/24 23:39 Medications Medications Current Medications Acetaminophen (Acetaminophen 325 Mg Tablet) 975 mg PO Q6H PRN PRN Reason: Pain, Severe (Pain Scale 7-10) Last Admin: 01/17/24 20:10 Dose: 975 mg Al Hydroxide/Mg Hydroxide (Magnesium Hydrox/Alum Hydrox 30 Ml Oral.Susp) 30 ml PO Q6H PRN PRN Reason: Heartburn/Nausea Last Admin: 01/12/24 09:33 Dose: 30 ml Albuterol Sulfate (Albuterol Sulfate 90 Mcg 8 Gm Inhaler) 2 puff INHALE Q4H PRN PRN Reason: Shortness Of Breath Or Wheezing Amitriptyline HCl (Amitriptyline Hcl 25 Mg Tablet) 25 mg PO BEDTIME SOO Last Admin: 09/08/24 20:12 Dose: 25 mg Atenolol (Atenolol 25 Mg Tablet) 25 mg PO DAILY [facility]; Protocol Last Admin: 01/19/24 08:59 Dose: 25 mg Atorvastatin Calcium (Atorvastatin Calcium 40 Mg Tablet) 40 mg PO BEDTIME [facility] Last Admin: 01/18/24 20:12 Dose: 40 mg Chlorpromazine HCl (Chlorpromazine Hcl 25 Mg Tablet) 25 mg PO QID PRN PRN Reason: moderate anxiety Clonazepam (Clonazepam 0.5 Mg Tablet) 0.5 mg PO DAILY PRN PRN Reason: Anxiety Last Admin: 01/15/24 14:49 Dose: 0.5 mg Cyclobenzaprine HCl (Cyclobenzaprine Hcl 10 Mg Tablet) 10 mg PO TID PRN PRN Reason: spasm, back pain Last Admin: 01/11/24 12:42 Dose: 10 mg Fludrocortisone Acetate (Fludrocortisone Acetate 0.1 Mg Tablet) 0.1 mg PO BID [facility] Last Admin: 01/19/24 08:58 Dose: 0.1 mg Hydroxyzine HCl (Hydroxyzine Hcl 25 Mg Tablet) 25 mg PO Q6H PRN PRN Reason: Anxiety Last Admin: 01/15/24 17:36 Dose: 25 mg Hydroxyzine HCl (Hydroxyzine Hcl 25 Mg Tablet) 25 mg PO Q6H PRN PRN Reason: mild anxiety Last Admin: 01/10/24 17:02 Dose: 25 mg Loratadine (Loratadine 10 Mg Tablet) 10 mg PO BEDTIME [facility] Last Admin: 01/18/24 20:12 Dose: 10 mg Magnesium Hydroxide (Milk Of Magnesia 30 Ml Oral.Susp) 30 ml PO DAILY PRN PRN Reason: Constipation Montelukast Sodium (Montelukast Sodium 10 Mg Tablet) 10 mg PO BEDTIME [facility] Last Admin: 01/18/24 20:12 Dose: 10 mg Nicotine (Nicotine 21 Mg Patch.Td24) 21 mg TRANSDERMA DAILY PRN PRN Reason: smoking cessation Nicotine Polacrilex (Nicotine Polacrilex 2 Mg Gum) 4 mg BUCCAL Q2H PRN PRN Reason: Nicotine Cravings Olanzapine (Olanzapine 2.5 Mg Tablet) 2.5 mg PO Q4H PRN PRN Reason: agitation Omeprazole (Omeprazole 20 Mg Capsule.Dr) 20 mg PO BID@0630,1630 [facility] Last Admin: 01/19/24 06:56 Dose: 20 mg Ondansetron HCl (Ondansetron Odt 4 Mg Tab.Rapdis) 4 mg TRANSLINGU Q6H PRN PRN Reason: Nausea and Vomiting Last Admin: 01/15/24 11:32 Dose: 4 mg Quetiapine Fumarate (Quetiapine Fumarate 100 Mg Tablet) 100 mg PO BEDTIME [facility] Last Admin: 01/18/24 20:13 Dose: 100 mg Quetiapine Fumarate (Quetiapine Fumarate 50 Mg Tablet) 50 mg PO BID@0900,1200 [facility] Last Admin: 01/19/24 08:58 Dose: 50 mg Tizanidine HCl (Tizanidine Hcl 4 Mg Tablet) 4 mg PO TID [facility] Last Admin: 01/19/24 08:59 Dose: 4 mg Trazodone HCl (Trazodone Hcl 50 Mg Tablet) 50 mg PO BEDTIME MRX1 PRN PRN Reason: Insomnia Last Admin: 01/17/24 20:58 Dose: 50 mg Trazodone HCl (Trazodone Hcl 100 Mg Tablet) 200 mg PO BEDTIME [facility] Last Admin: 01/18/24 20:12 Dose: 200 mg Vilazodone HCl (Vilazodone Hcl 40 Mg Tablet) 40 mg PO DAILY@1200 [facility] Last Admin: 01/19/24 08:58 Dose: 40 mg Allergies Allergies Allergy/AdvReac Type Severity Reaction Status Date / Time gabapentin [GABAPENTIN] Allergy Unknown UNKNOWN Verified 01/08/24 23:00 morphine [MORPHINE] Allergy Unknown UNKNOWN Verified 01/08/24 23:00 oxycodone [OXYCODONE] Allergy Unknown UNKNOWN Verified 01/08/24 23:00 topiramate [TOPIRAMATE] Allergy Unknown UNKNOWN Verified 01/08/24 23:00 Assessment & Plan Assessment & Plan (1) Major depressive disorder, recurrent, severe with psychotic symptoms: Status: Acute Code(s): F33.3 - Major depressive disorder, recurrent, severe with psychotic symptoms Assessment and Plan: 01/12/24: Anxious with physical sx today. Medical work up negative thus far. Support, encourage milieu. ECT 01/14/24. Plan Patient is a 58-year-old woman with history major depression, PTSD and intermittent severe anxiety, POTS who self presents for sudden onset of severe anxiety and wanting ECT. Patient reports that for the past 3 and half years she has been overall doing well on current medication regimen. She says about 3 weeks ago, suddenly as a light switch turns on she started becoming extremely anxious, started dissociating, scratching her arms and body, shaking. She denies feeling any significant depression but this constant anxiety has become overwhelming. Sometimes she will have many such episodes that are much less in intensity and resolve on their own after a day or so, so patient try to endured this ongoing anxiety hoping it would resolve. It continued however and felt unbearable. Patient says this happens every few years and it eventually leads to her wanting to end her life due to the overwhelming anxiety. Patient decided this time she would instead present for ECT which he says is the only thing that stops the episode. Patient is organized in speech and behavior and denies all other symptoms of andrew or history of manic episodes; denies any AVH; no drug or alcohol abuse. Formulation/Clinical reason: Patient seems to have been stable on current medication regimen and does not want changes. She says that this event happens every several years and feels that whatever triggers it is not medication related. Patient has had ECT in the past which was a successful treatment and she feels ECT is essential. 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 Patient agrees to see if some medications can help as a p.r.n. Hospital course: 01/10 Pt continues to report pain. By history, she has used Tinazadine and Flexeril without adverse response she reports. We will trial for efficacy and lack of side effects. 01/12 Patient reports that her mood is overall okay but that she is exceedingly anxious and looking forward to ECT. She says that because of the anxiety she is not leaving her room at all and in her room she is able to cope with it. 01/13 very anxious; nightmares; hoping that ECT will be effective which is scheduled for later this afternoon 01/14 did not get ECT last night; traumatic experience; not sure if will get 01/15 got ECT, feels better for it 01/17: no changes 01/18 much improved; anxiety better; thinks maybe due to Vraylar now taken w/ food. Will get ECT today but not sure how many more after. Plan: CV Q 15 minute checks ECT #2 pending for 01/18 NPO Continue home medication regimen Add Thorazine 25 mg p.r.n. to see if can help with overwhelming anxiety Continue hydroxyzine which patient said was helpful as a p.r.n. for anxiety Patient educated on: diagnosis, medication risk/benefits and ECT Informed Consent: understands Reason for continued inpatient stay Substantial Risk for: stable for discharge Time Spent With Patient Time: Total time managing care of this patient today ____ minutes.
--- NOTE | 2024-01-19 18:41 | MHC.SHP ---
Pre-Procedural Eval Section A - 24 Hr Update-Section A only Date of Service: 01/19/24 The patient is an INPATIENT: Yes Changes since office visit: Yes Changes in Medication and Yes Patient answered all questions; No Cold of Flu in the past 2 weeks and No New Medical Problems The patient has been examined within 24 hours of the surgical procedure. The History & Physical has been completed within 30 days and I have reviewed it.: Yes Section B - Complete if H&P > 30 days Chief Complaint: sect.12 SI Allergies: Allergies Allergy/AdvReac Type Severity Reaction Status Date / Time gabapentin [GABAPENTIN] Allergy Unknown UNKNOWN Verified 01/08/24 23:00 morphine [MORPHINE] Allergy Unknown UNKNOWN Verified 01/08/24 23:00 oxycodone [OXYCODONE] Allergy Unknown UNKNOWN Verified 01/08/24 23:00 topiramate [TOPIRAMATE] Allergy Unknown UNKNOWN Verified 01/08/24 23:00 Plan I have reviewed the history and physical and performed a pertinent physical examination on my patient. No changes have occurred unless specified. Time Spent With Patient Time: Total time managing care of this patient today ____ minutes.
--- NOTE | 2024-01-19 19:40 | HO.ECTPROC ---
ECT Procedure Note Diagnosis/Treatment Date of Service: 01/19/24 Diagnosis: Major Depressive Disorder Current Treatment Number: 2 Treatment: Series Interval Clinical Notes: Pt improved with vilazadone ect ketamine . Glyco 0.2 pretx and tylenol IV avoid nsai hx kidney disease. Tx rul given versed post with good effect Time: Total time managing care of this patient today 30____ minutes. ECT Settings Device: THYMATRON DGx Electrode Placement: Right Unilateral Program/Pulse Width: 0.50 Energy Percent: 100 Seizure Duration By EEG (in seconds): 52 Medications Administration General Anesthetic: Ketamine (100) Muscle Relaxant: Succinylcholine (100) Ancillary Medications Analgesics: Acetaminophen (1g iv) Anti-emetics: Zofran - Pre ECT Cardiovascular Medications: Glycopyrrolate (0.2) Miscillaneous Medications: Midazolam (2 mg) Airway Management Airway Management: Bag Mask Ventilation Treatment Recommendations No Changes Recommended: No change Pt Tolerated Procedure w/o Issue: Yes
--- NOTE | 2024-01-19 20:24 | P.CONAN_ITS ---
[facility] Active Problems Active Problems: All Active Problems Pre-op evaluation (Acute) MDD (major depressive disorder), recurrent severe, without psychosis (Acute) Suicidal ideation (Acute) Anxiety and depression (Acute) Strain of lumbar paraspinal muscle (Acute) PTSD (post-traumatic stress disorder) (Acute) Major depressive disorder, recurrent, severe with psychotic symptoms (Acute) Past Medical History Medical History MDD (major depressive disorder), recurrent severe, without psychosis At risk for bleeding associated with tonsillectomy and adenoidectomy HLD (hyperlipidemia) Suicidal ideation Renal insufficiency PTSD (post-traumatic stress disorder) Major depressive disorder, recurrent, 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 Neuropathy Autonomic dysfunction Asthma Functional capacity: independent ambulation Family History Family history of problems with anesthesia: No Surgical History Surgical History History of sinus surgery History of tonsillectomy H/O ureter repair H/O tubal ligation Previous section H/O spinal fusion History of Problems with Anesthesia: No Social History Social History Household Members: Family Housing: House Do you presently have visiting nurse or other home services: No Patient Tobacco Use Status: Never used Tobacco Smoked in Last 30 Days: No e-Cigarette/Vaping Use: Never Used Patient Interested in Nicotine Replacement: No Patient Given Instructions on How to Stop Smoking: No (doesnt smoke) Second Hand Smoke Exposure: No Use of substances other than those prescribed or required for medical reasons: Yes Substance Use Type: Marijuana Substance Use Frequency: Weekly Last Used Substance: Days (ago) Currently Displaying Signs/Symptoms of Drug Intoxication Withdrawal: No Any prior treatment program specific to substance use: No Have you been hit, kicked, punched, or otherwise hurt by someone within the past year? If so, by whom?: No Do you feel safe in your current relationship?: No Current Relationship Is there a partner from a previous relationship who is making you feel unsafe now?: No Are you made to feel afraid or neglected: No Spiritual Healthcare Practices: none Pentecost[employer]ism Healthcare Practices: none Cultural Healthcare Practices: none Advance Directives: Yes Advance Directives Information Provided: No Advance Directives on File: No Do you have thoughts of harming others: None Do you have a plan to hurt others: No Plan Recently lost weight without trying: No Eating poorly because of decreased appetite: No Nutrition Risks: No Nutritional Risk Patient : No : No Poor oral hygiene: No service: No Sexual orientation: Straight/Heterosexual Meds Allergies Allergy/AdvReac Type Severity Reaction Status Date / Time gabapentin [GABAPENTIN] Allergy Unknown UNKNOWN Verified 01/08/24 23:00 morphine [MORPHINE] Allergy Unknown UNKNOWN Verified 01/08/24 23:00 oxycodone [OXYCODONE] Allergy Unknown UNKNOWN Verified 01/08/24 23:00 topiramate [TOPIRAMATE] Allergy Unknown UNKNOWN Verified 01/08/24 23:00 Active Medications: Current Medications Acetaminophen (Acetaminophen 325 Mg Tablet) 975 mg PO Q6H PRN PRN Reason: Pain, Severe (Pain Scale 7-10) Last Admin: 01/17/24 20:10 Dose: 975 mg Al Hydroxide/Mg Hydroxide (Magnesium Hydrox/Alum Hydrox 30 Ml Oral.Susp) 30 ml PO Q6H PRN PRN Reason: Heartburn/Nausea Last Admin: 01/12/24 09:33 Dose: 30 ml Albuterol Sulfate (Albuterol Sulfate 90 Mcg 8 Gm Inhaler) 2 puff INHALE Q4H PRN PRN Reason: Shortness Of Breath Or Wheezing Amitriptyline HCl (Amitriptyline Hcl 25 Mg Tablet) 25 mg PO BEDTIME SOO Last Admin: 01/18/24 20:12 Dose: 25 mg Atenolol (Atenolol 25 Mg Tablet) 25 mg PO DAILY [facility]; Protocol Last Admin: 01/19/24 08:59 Dose: 25 mg Atorvastatin Calcium (Atorvastatin Calcium 40 Mg Tablet) 40 mg PO BEDTIME [facility]OO Last Admin: 01/18/24 20:12 Dose: 40 mg Chlorpromazine HCl (Chlorpromazine Hcl 25 Mg Tablet) 25 mg PO QID PRN PRN Reason: moderate anxiety Clonazepam (Clonazepam 0.5 Mg Tablet) 0.5 mg PO DAILY PRN PRN Reason: Anxiety Last Admin: 01/15/24 14:49 Dose: 0.5 mg Cyclobenzaprine HCl (Cyclobenzaprine Hcl 10 Mg Tablet) 10 mg PO TID PRN PRN Reason: spasm, back pain Last Admin: 01/11/24 12:42 Dose: 10 mg Fludrocortisone Acetate (Fludrocortisone Acetate 0.1 Mg Tablet) 0.1 mg PO BID [facility] Last Admin: 01/19/24 08:58 Dose: 0.1 mg Hydroxyzine HCl (Hydroxyzine Hcl 25 Mg Tablet) 25 mg PO Q6H PRN PRN Reason: Anxiety Last Admin: 01/15/24 17:36 Dose: 25 mg Hydroxyzine HCl (Hydroxyzine Hcl 25 Mg Tablet) 25 mg PO Q6H PRN PRN Reason: mild anxiety Last Admin: 01/10/24 17:02 Dose: 25 mg Loratadine (Loratadine 10 Mg Tablet) 10 mg PO BEDTIME [facility] Last Admin: 01/18/24 20:12 Dose: 10 mg Magnesium Hydroxide (Milk Of Magnesia 30 Ml Oral.Susp) 30 ml PO DAILY PRN PRN Reason: Constipation Montelukast Sodium (Montelukast Sodium 10 Mg Tablet) 10 mg PO BEDTIME [facility] Last Admin: 01/18/24 20:12 Dose: 10 mg Nicotine (Nicotine 21 Mg Patch.Td24) 21 mg TRANSDERMA DAILY PRN PRN Reason: smoking cessation Nicotine Polacrilex (Nicotine Polacrilex 2 Mg Gum) 4 mg BUCCAL Q2H PRN PRN Reason: Nicotine Cravings Olanzapine (Olanzapine 2.5 Mg Tablet) 2.5 mg PO Q4H PRN PRN Reason: agitation Omeprazole (Omeprazole 20 Mg Capsule.Dr) 20 mg PO BID@0630,1630 [facility] Last Admin: 01/19/24 06:56 Dose: 20 mg Ondansetron HCl (Ondansetron Odt 4 Mg Tab.Rapdis) 4 mg TRANSLINGU Q6H PRN PRN Reason: Nausea and Vomiting Last Admin: 01/15/24 11:32 Dose: 4 mg Quetiapine Fumarate (Quetiapine Fumarate 100 Mg Tablet) 100 mg PO BEDTIME [facility] Last Admin: 01/18/24 20:13 Dose: 100 mg Quetiapine Fumarate (Quetiapine Fumarate 50 Mg Tablet) 50 mg PO BID@0900,1200 [facility] Last Admin: 01/19/24 12:58 Dose: 50 mg Tizanidine HCl (Tizanidine Hcl 4 Mg Tablet) 4 mg PO TID [facility] Last Admin: 01/19/24 14:39 Dose: 4 mg Trazodone HCl (Trazodone Hcl 50 Mg Tablet) 50 mg PO BEDTIME MRX1 PRN PRN Reason: Insomnia Last Admin: 01/17/24 20:58 Dose: 50 mg Trazodone HCl (Trazodone Hcl 100 Mg Tablet) 200 mg PO BEDTIME [facility] Last Admin: 01/18/24 20:12 Dose: 200 mg Vilazodone HCl (Vilazodone Hcl 40 Mg Tablet) 40 mg PO DAILY@1200 [facility] Last Admin: 01/19/24 08:58 Dose: 40 mg Home Medications ?Medication ?Instructions ?Recorded ?Confirmed ?Last Taken ?Type atenolol 25 mg tablet 1 tab PO DAILY 03/24/20 01/09/24 03/23/20 10:00 History 25 mg cetirizine 10 mg tablet 1 tab PO BEDTIME 03/24/20 01/09/24 03/22/20 21:00 History 10 mg clonazepam 0.5 mg tablet 1 tab PO 1XD PRN Anxiety 03/24/20 01/09/24 Unknown History fludrocortisone 0.1 mg tablet 0.1 mg PO 2XD 03/24/20 01/09/24 Unknown History levothyroxine 50 mcg tablet 1 tab PO DAILY@0630 03/24/20 01/09/24 03/23/20 08:00 History 50 mcg montelukast 10 mg tablet 1 tab PO BEDTIME 03/24/20 01/09/24 03/23/20 08:00 History 10 mg trazodone 100 mg tablet 2 tab PO BEDTIME PRN Insomnia 03/24/20 01/09/24 03/23/20 23:00 History 100 mg vilazodone 40 mg tablet (Viibryd) 1 tab PO 1XD 03/24/20 01/09/24 03/23/20 08:00 History 40 mg albuterol sulfate 90 mcg/actuation 2 puff inhalation Q4-6H PRN 01/09/24 01/09/24 Unknown History aerosol inhaler Shortness Of Breath Or Wheezing amitriptyline 25 mg tablet 25 mg PO BEDTIME 01/09/24 01/09/24 Unknown History atorvastatin 40 mg tablet 40 mg PO BEDTIME 01/09/24 01/09/24 Unknown History diclofenac sodium 1 % topical gel 1 topical PRN Pain, Moderate 01/09/24 Unknown History (Arthritis Pain (diclofenac)) nystatin 100,000 unit/gram topical 1 appl topical 2XD PRN Skin 01/09/24 01/09/24 Unknown History powder Irritation omeprazole 20 mg tablet,delayed 20 mg PO BID 01/09/24 01/09/24 Unknown History release quetiapine 100 mg tablet 100 mg PO BEDTIME 01/09/24 01/09/24 Unknown History quetiapine 50 mg tablet 50 mg PO 2XD 01/09/24 01/09/24 Unknown History Exam Height,Weight and Vital Signs: Height 5 ft 5 in Weight 123.1 kg Last Vital Signs Temp 98.3 F 01/19/24 20:22 Pulse 79 01/19/24 20:22 Resp 12 01/19/24 20:22 BP 153/81 H 01/19/24 20:22 Pulse Ox 92 01/19/24 20:22 O2 Del Method Nasal Cannula with Capnography 01/19/24 20:22 O2 Flow Rate 4 01/19/24 20:22 Pertinent Lab Results Pertinent Lab Results: Laboratory Tests 01/08/24 01/09/24 01/09/24 23:39 08:27 13:00 WBC 14.2 H 12.9 H RBC 4.15 L 4.50 Hgb 12.5 13.5 Hct 37.3 40.1 MCV 89.9 89.1 MCH 30.1 30.0 MCHC 33.5 33.7 RDW 13.6 13.4 Plt Count 262 275 MPV 10.0 10.0 Immature Gran % (Auto) 0.8 H 0.8 H Neut % (Auto) 65.1 63.8 Lymph % (Auto) 23.4 24.7 [place] % (Auto) 8.0 7.6 Eos % (Auto) 2.1 2.3 Baso % (Auto) 0.6 0.8 Lymph # (Auto) 3.3 3.2 [place] # (Auto) 1.1 1.0 Eos # (Auto) 0.3 0.3 Baso # (Auto) 0.1 0.1 Abs Immat Gran (auto) 0.11 H 0.10 H Absolute Neuts (auto) 9.3 H 8.3 Absolute Nucleated RBC 0.000 0.000 Nucleated RBC % (auto) 0.0 0.0 Sodium 142 Potassium 3.7 Chloride 109 H Carbon Dioxide 27 Anion Gap 10 L BUN 14 Creatinine 1.08 Estim Creat Clear Calc 74.2 Estimated GFR 52 Random Glucose 107 Estimat Average Glucose 105 Hemoglobin A1c % 5.3 Calcium 9.2 Total Bilirubin 0.3 Direct Bilirubin 0.1 AST 12 ALT 12 Alkaline Phosphatase 62 Troponin I High Sens Total Protein 6.5 Albumin 3.7 Triglycerides 174 H Cholesterol 157 LDL Cholesterol, Calc 80 HDL Cholesterol 43 TSH 2.82 Urine Color Yellow Urine Appearance Clear Urine pH 7.0 Ur Specific [place] 1.015 Urine Protein Negative Urine Glucose (UA) Negative Urine Ketones Negative Urine Blood Negative Urine Nitrite Negative Ur Leukocyte Esterase Negative Urine Opiates Screen Not Detected Ur Buprenorphine Scrn Not Detected Ur Oxycodone Screen Not Detected Urine Methadone Screen Not Detected Urine Fentanyl Screen Not Detected Ur Barbiturates Screen Not Detected Ur Phencyclidine Scrn Not Detected Ur Amphetamines Screen Not Detected U Benzodiazepines Scrn Not Detected Urine Cocaine Screen Not Detected U Marijuana (THC) Screen Not Detected Ethyl Alcohol < 10 01/12/24 01/12/24 10:02 14:23 WBC RBC Hgb Hct MCV MCH MCHC RDW Plt Count MPV Immature Gran % (Auto) Neut % (Auto) Lymph % (Auto) [place] % (Auto) Eos % (Auto) Baso % (Auto) Lymph # (Auto) [place] # (Auto) Eos # (Auto) Baso # (Auto) Abs Immat Gran (auto) Absolute Neuts (auto) Absolute Nucleated RBC Nucleated RBC % (auto) Sodium Potassium Chloride Carbon Dioxide Anion Gap BUN Creatinine Estim Creat Clear Calc Estimated GFR Random Glucose Estimat Average Glucose Hemoglobin A1c % Calcium Total Bilirubin Direct Bilirubin AST ALT Alkaline Phosphatase Troponin I High Sens < 2.7 < 2.7 Total Protein Albumin Triglycerides Cholesterol LDL Cholesterol, Calc HDL Cholesterol TSH Urine Color Urine Appearance Urine pH Ur Specific [place] Urine Protein Urine Glucose (UA) Urine Ketones Urine Blood Urine Nitrite Ur Leukocyte Esterase Urine Opiates Screen Ur Buprenorphine Scrn Ur Oxycodone Screen Urine Methadone Screen Urine Fentanyl Screen Ur Barbiturates Screen Ur Phencyclidine Scrn Ur Amphetamines Screen U Benzodiazepines Scrn Urine Cocaine Screen U Marijuana (THC) Screen Ethyl Alcohol Airway Mallampati Class: III TM Dist: >3cm Neck ROM: Full Assessment and Plan Assessment Anesthesia Assessment: Anesthesia Plan Discussed and Chart Reviewed Final Anesthetic Review Family History of Problems with Anesthesia: No History of Problems with Anesthesia: No NPO: Yes ASA Class: III Final Preanesthetic Review: No Changes in Pt Med Stat, Meds/Allgs Chart Reviewed, Consent Obtained/Reviewed and Anes Risks/Benef Reviewed Patient Risk: Intermediate Procedure Risk: Intermediate Anesthetic Plan Anesthetic Plan: GA Disposition: Standard PACU
[2024-01-19] MEDS: QUEtiapine Fumarate 100 MG TABLET PO (21:06)
[2024-01-19] MEDS: traZODone HCL 50 MG TABLET PO (21:06)
[2024-01-19] MEDS: Loratadine 10 MG TABLET PO (21:06)
[2024-01-19] MEDS: Atorvastatin Calcium 40 MG TABLET PO (21:06)
[2024-01-19] MEDS: Acetaminophen 325 MG TABLET 975 MG PO (21:06)
[2024-01-19] MEDS: traZODone HCL 100 MG TABLET 200 MG PO (21:06)
[2024-01-19] MEDS: Amitriptyline HCl 25 MG TABLET PO (21:06)
[2024-01-19] MEDS: Montelukast Sodium 10 MG TABLET PO (21:06)
[2024-01-20] MEDS: Omeprazole 20 MG CAPSULE.DR PO ×2 (07:10→17:50)
[2024-01-20 08:00] VITALS: BP 130/77; PULSE 81; RESP 18; TEMP 36.8; O2SAT 93
[2024-01-20] MEDS: QUEtiapine Fumarate 50 MG TABLET PO ×2 (08:33→12:05)
[2024-01-20] MEDS: TiZANidine HCL 4 MG TABLET PO ×3 (08:33→22:06)
[2024-01-20] MEDS: Fludrocortisone Acetate 0.1 MG TABLET PO ×2 (08:34→22:07)
[2024-01-20] MEDS: Acetaminophen 325 MG TABLET 975 MG PO ×2 (08:34→15:01)
[2024-01-20 09:12] VITALS: BP 130/70; PULSE 77
[2024-01-20] MEDS: atenoloL 25 MG TABLET PO (09:12)
--- NOTE | 2024-01-20 10:00 | HO.PSYCHPN ---
Subjective Subjective Date of Service: 01/20/24 Reason For Visit: sect.12 SI Interim History: Met with patient; discussed with team Patient remains ambivalent about getting ECT, saying she does feel much better and back to her regular self, again saying that it may be because she is now taking Vraylar with food, increasing his bile availability. She denies any thoughts of SI or any thoughts of self-harm at all for which she is proud. She thinks getting ECT another time would be a good idea and consents to it for tomorrow. Will discuss with Dr. Courtney how to proceed following Mental Status Exam Mental Status Exam Narrative: Pt is alert and oriented; behavior is cooperative, friendly and calm; patient is not in distress; dressed in casual attire with unkempt hair but adequate hygiene; mood is described as better and affect congruent; eye contact appropriate; Speech is normal rate, volume and prosody and not pressured; no psychomotor agitation/retardation present; thought process is organized and goal directed; Thought content is on tx; otherwise pertinent to relevant topics and without any delusional content, paranoid ideations or grandiosity; denies any SI/HI; denies any urges to self-harm. There is no evidence of perceptual disturbance. Patients insight and judgment appear intact. Diagnostics Vital Signs (24Hr): Vital Signs - 24 hr 01/19/24 10:02 01/19/24 18:23 01/19/24 20:00 Temperature 98.2 F 98.4 F Pulse Rate 69 72 Respiratory Rate 20 16 Blood Pressure 141/82 H 135/78 Pulse Oximetry 98 96 97 Oxygen Delivery Method Room Air Oxygen Flow Rate 01/19/24 20:22 01/19/24 20:27 01/19/24 20:32 Temperature 98.3 F Pulse Rate 79 80 81 Respiratory Rate 12 14 16 Blood Pressure 153/81 H 144/93 H 142/84 H Pulse Oximetry 92 93 96 Oxygen Delivery Method Nasal Cannula with ETCO2 Nasal Cannula with ETCO2 Nasal Cannula with ETCO2 Oxygen Flow Rate 4 4 2 01/19/24 20:37 01/19/24 20:52 01/20/24 08:00 Temperature 99.3 F 98.2 F Pulse Rate 80 80 81 Respiratory Rate 16 18 18 Blood Pressure 138/82 122/86 130/77 Pulse Oximetry 92 93 93 Oxygen Delivery Method Room Air Room Air Room Air Oxygen Flow Rate 01/20/24 09:12 Temperature Pulse Rate 77 Respiratory Rate Blood Pressure 130/70 Pulse Oximetry Oxygen Delivery Method Oxygen Flow Rate BMI result Body Mass Index 45.2 Labs 01/09/24 08:27 01/08/24 23:39 Medications Medications Current Medications Acetaminophen (Acetaminophen 325 Mg Tablet) 975 mg PO Q6H PRN PRN Reason: Pain, Severe (Pain Scale 7-10) Last Admin: 01/20/24 08:34 Dose: 975 mg Al Hydroxide/Mg Hydroxide (Magnesium Hydrox/Alum Hydrox 30 Ml Oral.Susp) 30 ml PO Q6H PRN PRN Reason: Heartburn/Nausea Last Admin: 01/12/24 09:33 Dose: 30 ml Albuterol Sulfate (Albuterol Sulfate 90 Mcg 8 Gm Inhaler) 2 puff INHALE Q4H PRN PRN Reason: Shortness Of Breath Or Wheezing Amitriptyline HCl (Amitriptyline Hcl 25 Mg Tablet) 25 mg PO BEDTIME SOO Last Admin: 01/19/24 21:06 Dose: 25 mg Atenolol (Atenolol 25 Mg Tablet) 25 mg PO DAILY SOO; Protocol Last Admin: 01/20/24 09:12 Dose: 25 mg Atorvastatin Calcium (Atorvastatin Calcium 40 Mg Tablet) 40 mg PO BEDTIME SOO Last Admin: 01/19/24 21:06 Dose: 40 mg Chlorpromazine HCl (Chlorpromazine Hcl 25 Mg Tablet) 25 mg PO QID PRN PRN Reason: moderate anxiety Clonazepam (Clonazepam 0.5 Mg Tablet) 0.5 mg PO DAILY PRN PRN Reason: Anxiety Last Admin: 01/15/24 14:49 Dose: 0.5 mg Cyclobenzaprine HCl (Cyclobenzaprine Hcl 10 Mg Tablet) 10 mg PO TID PRN PRN Reason: spasm, back pain Last Admin: 01/11/24 12:42 Dose: 10 mg Fludrocortisone Acetate (Fludrocortisone Acetate 0.1 Mg Tablet) 0.1 mg PO BID SOO Last Admin: 01/20/24 08:34 Dose: 0.1 mg Hydroxyzine HCl (Hydroxyzine Hcl 25 Mg Tablet) 25 mg PO Q6H PRN PRN Reason: Anxiety Last Admin: 01/15/24 17:36 Dose: 25 mg Hydroxyzine HCl (Hydroxyzine Hcl 25 Mg Tablet) 25 mg PO Q6H PRN PRN Reason: mild anxiety Last Admin: 01/10/24 17:02 Dose: 25 mg Loratadine (Loratadine 10 Mg Tablet) 10 mg PO BEDTIME [facility] Last Admin: 01/19/24 21:06 Dose: 10 mg Magnesium Hydroxide (Milk Of Magnesia 30 Ml Oral.Susp) 30 ml PO DAILY PRN PRN Reason: Constipation Montelukast Sodium (Montelukast Sodium 10 Mg Tablet) 10 mg PO BEDTIME [facility] Last Admin: 01/19/24 21:06 Dose: 10 mg Nicotine (Nicotine 21 Mg Patch.Td24) 21 mg TRANSDERMA DAILY PRN PRN Reason: smoking cessation Nicotine Polacrilex (Nicotine Polacrilex 2 Mg Gum) 4 mg BUCCAL Q2H PRN PRN Reason: Nicotine Cravings Olanzapine (Olanzapine 2.5 Mg Tablet) 2.5 mg PO Q4H PRN PRN Reason: agitation Omeprazole (Omeprazole 20 Mg Capsule.Dr) 20 mg PO BID@0630,1630 [facility] Last Admin: 01/20/24 07:10 Dose: 20 mg Ondansetron HCl (Ondansetron Odt 4 Mg Tab.Rapdis) 4 mg TRANSLINGU Q6H PRN PRN Reason: Nausea and Vomiting Last Admin: 01/15/24 11:32 Dose: 4 mg Quetiapine Fumarate (Quetiapine Fumarate 100 Mg Tablet) 100 mg PO BEDTIME [facility] Last Admin: 01/19/24 21:06 Dose: 100 mg Quetiapine Fumarate (Quetiapine Fumarate 50 Mg Tablet) 50 mg PO BID@0900,1200 [facility] Last Admin: 01/20/24 08:33 Dose: 50 mg Tizanidine HCl (Tizanidine Hcl 4 Mg Tablet) 4 mg PO TID [facility] Last Admin: 01/20/24 08:33 Dose: 4 mg Trazodone HCl (Trazodone Hcl 50 Mg Tablet) 50 mg PO BEDTIME MRX1 PRN PRN Reason: Insomnia Last Admin: 01/19/24 21:06 Dose: 50 mg Trazodone HCl (Trazodone Hcl 100 Mg Tablet) 200 mg PO BEDTIME [facility] Last Admin: 01/19/24 21:06 Dose: 200 mg Vilazodone HCl (Vilazodone Hcl 40 Mg Tablet) 40 mg PO DAILY@1200 [facility] Last Admin: 01/19/24 08:58 Dose: 40 mg Allergies Allergies Allergy/AdvReac Type Severity Reaction Status Date / Time gabapentin [GABAPENTIN] Allergy Unknown UNKNOWN Verified 01/08/24 23:00 morphine [MORPHINE] Allergy Unknown UNKNOWN Verified 01/08/24 23:00 oxycodone [OXYCODONE] Allergy Unknown UNKNOWN Verified 01/08/24 23:00 topiramate [TOPIRAMATE] Allergy Unknown UNKNOWN Verified 01/08/24 23:00 Assessment & Plan Assessment & Plan (1) Major depressive disorder, recurrent, severe with psychotic symptoms: Status: Acute Code(s): F33.3 - Major depressive disorder, recurrent, severe with psychotic symptoms Assessment and Plan: 01/12/24: Anxious with physical sx today. Medical work up negative thus far. Support, encourage milieu. ECT 01/14/24. Plan Patient is a 58-year-old woman with history major depression, PTSD and intermittent severe anxiety, POTS who self presents for sudden onset of severe anxiety and wanting ECT. Patient reports that for the past 3 and half years she has been overall doing well on current medication regimen. She says about 3 weeks ago, suddenly as a light switch turns on she started becoming extremely anxious, started dissociating, scratching her arms and body, shaking. She denies feeling any significant depression but this constant anxiety has become overwhelming. Sometimes she will have many such episodes that are much less in intensity and resolve on their own after a day or so, so patient try to endured this ongoing anxiety hoping it would resolve. It continued however and felt unbearable. Patient says this happens every few years and it eventually leads to her wanting to end her life due to the overwhelming anxiety. Patient decided this time she would instead present for ECT which he says is the only thing that stops the episode. Patient is organized in speech and behavior and denies all other symptoms of andrew or history of manic episodes; denies any AVH; no drug or alcohol abuse. Formulation/Clinical reason: Patient seems to have been stable on current medication regimen and does not want changes. She says that this event happens every several years and feels that whatever triggers it is not medication related. Patient has had ECT in the past which was a successful treatment and she feels ECT is essential. Dental Scheduler agrees that she meets criteria for ECT as it has been helpful in the past and patient reports that if this overwhelming anxiety progresses she will become suicidal. Patient agrees to see if some medications can help as a p.r.n. Hospital course: 01/10 Pt continues to report pain. By history, she has used Tinazadine and Flexeril without adverse response she reports. We will trial for efficacy and lack of side effects. 01/12 Patient reports that her mood is overall okay but that she is exceedingly anxious and looking forward to ECT. She says that because of the anxiety she is not leaving her room at all and in her room she is able to cope with it. 01/13 very anxious; nightmares; hoping that ECT will be effective which is scheduled for later this afternoon 01/14 did not get ECT last night; traumatic experience; not sure if will get 01/15 got ECT, feels better for it 01/17: no changes 01/18 much improved; anxiety better; thinks maybe due to Vraylar now taken w/ food. Will get ECT today but not sure how many more after. 01/19 patient continues to report that her mood overall is much better; ambivalent about getting ECT but thinks it is likely a good idea to make sure. Will schedule ECT for tomorrow; Will discuss case with Dr. Courtney regarding plan for continue treatments. Patient placed a 3 day notice Plan: Three day Q 15 minute checks ECT #3 pending for 01/20 NPO Continue home medication regimen Add Thorazine 25 mg p.r.n. to see if can help with overwhelming anxiety Continue hydroxyzine which patient said was helpful as a p.r.n. for anxiety Patient educated on: diagnosis, medication risk/benefits, ECT and therapeutic strategies Informed Consent: understands Reason for continued inpatient stay Substantial Risk for: stable for discharge Time Spent With Patient Time: Total time managing care of this patient today ____ minutes.
[2024-01-20] MEDS: Vilazodone HCL 40 MG TABLET PO (12:05)
[2024-01-20 20:00] VITALS: BP 141/66; PULSE 79; TEMP 36.4; O2SAT 93
[2024-01-20] MEDS: QUEtiapine Fumarate 100 MG TABLET PO (22:07)
[2024-01-20] MEDS: Amitriptyline HCl 25 MG TABLET PO (22:07)
[2024-01-20] MEDS: traZODone HCL 100 MG TABLET 200 MG PO (22:07)
[2024-01-20] MEDS: Loratadine 10 MG TABLET PO (22:07)
[2024-01-20] MEDS: Atorvastatin Calcium 40 MG TABLET PO (22:08)
[2024-01-20] MEDS: Montelukast Sodium 10 MG TABLET PO (22:08)
[2024-01-21] VITALS (10 sets, daily range): BP systolic 103–156; BP diastolic 66–99; PULSE 66–116; RESP 15–18; TEMP 36.3–36.5; O2SAT 92–97
[2024-01-21] MEDS: Omeprazole 20 MG CAPSULE.DR PO (06:29)
[2024-01-21] MEDS: atenoloL 25 MG TABLET PO (08:49)
[2024-01-21] MEDS: TiZANidine HCL 4 MG TABLET PO ×2 (08:49→21:45)
[2024-01-21] MEDS: QUEtiapine Fumarate 50 MG TABLET PO ×2 (08:49→11:59)
[2024-01-21] MEDS: Fludrocortisone Acetate 0.1 MG TABLET PO ×2 (08:49→21:45)
--- NOTE | 2024-01-21 15:23 | MHC.SHP ---
Pre-Procedural Eval Section A - 24 Hr Update-Section A only Date of Service: 01/21/24 The patient is an INPATIENT: Yes Changes since office visit: Yes Changes in Medication and Yes Patient answered all questions; No Cold of Flu in the past 2 weeks and No New Medical Problems The patient has been examined within 24 hours of the surgical procedure. The History & Physical has been completed within 30 days and I have reviewed it.: Yes Section B - Complete if H&P > 30 days Chief Complaint: sect.12 SI Allergies: Allergies Allergy/AdvReac Type Severity Reaction Status Date / Time gabapentin [GABAPENTIN] Allergy Unknown UNKNOWN Verified 01/08/24 23:00 morphine [MORPHINE] Allergy Unknown UNKNOWN Verified 01/08/24 23:00 oxycodone [OXYCODONE] Allergy Unknown UNKNOWN Verified 01/08/24 23:00 topiramate [TOPIRAMATE] Allergy Unknown UNKNOWN Verified 01/08/24 23:00 Plan I have reviewed the history and physical and performed a pertinent physical examination on my patient. No changes have occurred unless specified. Time Spent With Patient Time: Total time managing care of this patient today ____ minutes.
--- NOTE | 2024-01-21 15:24 | HO.ECTPROC ---
ECT Procedure Note Diagnosis/Treatment Date of Service: 01/21/24 Diagnosis: Major Depressive Disorder Previous ECT Date: 01/19/24 Current Treatment Number: 3 Treatment: Series Interval Clinical Notes: Patient seen psychiatric follow-up discussed trying to do for inpatient for stabilization and then hopeful discharge with potential transition to some kind of continuation treatment as possible if needed . Patient tolerating treatment is feeling better Complete did treatment as usual Time: Total time managing care of this patient today ____ minutes. ECT Settings Device: THYMATRON DGx Electrode Placement: Right Unilateral Program/Pulse Width: 0.50 Energy Percent: 100 Medications Administration General Anesthetic: Ketamine (100) Muscle Relaxant: Succinylcholine (100) Ancillary Medications Anti-emetics: Zofran - Pre ECT Cardiovascular Medications: Glycopyrrolate Miscillaneous Medications: Midazolam (2) Airway Management Airway Management: Bag Mask Ventilation Treatment Recommendations No Changes Recommended: No change Pt Tolerated Procedure w/o Issue: Yes
--- NOTE | 2024-01-21 15:47 | P.PNPSI_ITS ---
Subjective Subjective Date of Service: 01/21/24 Reason For Visit: sect.12 SI Interim History: Met with patient; discussed with team Patient says she is feeling anxious anticipating ECT today; otherwise continues to feel overall much better would like to discharge home at the end of the week. Sleeping well; no SI and no thoughts of self-harm. Says that after ECT treatments, she feels fine and would like to stay until Friday to get final ECT and then discharge after that. She and appeals writer will discuss with Dr. Courtney regarding further treatments Mental Status Exam Mental Status Exam Narrative: Pt is alert and oriented; behavior is cooperative, friendly and calm; patient is not in distress; dressed in casual attire with unkempt hair but adequate hygiene; mood is described as anxious and affect congruent; eye contact appropriate; Speech is normal rate, volume and prosody and not pressured; no psychomotor agitation/retardation present; thought process is organized and goal directed; Thought content is on tx; otherwise pertinent to relevant topics and without any delusional content, paranoid ideations or grandiosity; denies any SI/HI; denies any urges to self-harm. There is no evidence of perceptual disturbance. Patients insight and judgment appear intact. Diagnostics Vital Signs (24Hr): Vital Signs - 24 hr 01/20/24 20:00 01/21/24 08:21 01/21/24 08:49 Temperature 97.5 F 97.7 F Pulse Rate 79 66 66 Blood Pressure 141/66 H 131/66 131/66 Pulse Oximetry 93 94 Oxygen Delivery Method Room Air Room Air 01/21/24 08:52 Temperature Pulse Rate 91 Blood Pressure Pulse Oximetry 97 Oxygen Delivery Method Room Air BMI result Body Mass Index 45.2 Labs 01/09/24 08:27 01/08/24 23:39 Medications Medications Current Medications Acetaminophen (Acetaminophen 325 Mg Tablet) 975 mg PO Q6H PRN PRN Reason: Pain, Severe (Pain Scale 7-10) Last Admin: 01/20/24 15:01 Dose: 975 mg Al Hydroxide/Mg Hydroxide (Magnesium Hydrox/Alum Hydrox 30 Ml Oral.Susp) 30 ml PO Q6H PRN PRN Reason: Heartburn/Nausea Last Admin: 01/12/24 09:33 Dose: 30 ml Albuterol Sulfate (Albuterol Sulfate 90 Mcg 8 Gm Inhaler) 2 puff INHALE Q4H PRN PRN Reason: Shortness Of Breath Or Wheezing Amitriptyline HCl (Amitriptyline Hcl 25 Mg Tablet) 25 mg PO BEDTIME [facility] Last Admin: 01/20/24 22:07 Dose: 25 mg Atenolol (Atenolol 25 Mg Tablet) 25 mg PO DAILY [facility]; Protocol Last Admin: 01/21/24 08:49 Dose: 25 mg Atorvastatin Calcium (Atorvastatin Calcium 40 Mg Tablet) 40 mg PO BEDTIME [facility] Last Admin: 01/20/24 22:08 Dose: 40 mg Chlorpromazine HCl (Chlorpromazine Hcl 25 Mg Tablet) 25 mg PO QID PRN PRN Reason: moderate anxiety Clonazepam (Clonazepam 0.5 Mg Tablet) 0.5 mg PO DAILY PRN PRN Reason: Anxiety Last Admin: 01/15/24 14:49 Dose: 0.5 mg Cyclobenzaprine HCl (Cyclobenzaprine Hcl 10 Mg Tablet) 10 mg PO TID PRN PRN Reason: spasm, back pain Last Admin: 01/11/24 12:42 Dose: 10 mg Fludrocortisone Acetate (Fludrocortisone Acetate 0.1 Mg Tablet) 0.1 mg PO BID [facility] Last Admin: 01/21/24 08:49 Dose: 0.1 mg Hydroxyzine HCl (Hydroxyzine Hcl 25 Mg Tablet) 25 mg PO Q6H PRN PRN Reason: Anxiety Last Admin: 01/15/24 17:36 Dose: 25 mg Hydroxyzine HCl (Hydroxyzine Hcl 25 Mg Tablet) 25 mg PO Q6H PRN PRN Reason: mild anxiety Last Admin: 01/10/24 17:02 Dose: 25 mg Loratadine (Loratadine 10 Mg Tablet) 10 mg PO BEDTIME [facility] Last Admin: 01/20/24 22:07 Dose: 10 mg Magnesium Hydroxide (Milk Of Magnesia 30 Ml Oral.Susp) 30 ml PO DAILY PRN PRN Reason: Constipation Montelukast Sodium (Montelukast Sodium 10 Mg Tablet) 10 mg PO BEDTIME [facility] Last Admin: 01/20/24 22:08 Dose: 10 mg Nicotine (Nicotine 21 Mg Patch.Td24) 21 mg TRANSDERMA DAILY PRN PRN Reason: smoking cessation Nicotine Polacrilex (Nicotine Polacrilex 2 Mg Gum) 4 mg BUCCAL Q2H PRN PRN Reason: Nicotine Cravings Olanzapine (Olanzapine 2.5 Mg Tablet) 2.5 mg PO Q4H PRN PRN Reason: agitation Omeprazole (Omeprazole 20 Mg Capsule.Dr) 20 mg PO BID@0630,1630 [facility] Last Admin: 01/21/24 06:29 Dose: 20 mg Ondansetron HCl (Ondansetron Odt 4 Mg Tab.Rapdis) 4 mg TRANSLINGU Q6H PRN PRN Reason: Nausea and Vomiting Last Admin: 01/15/24 11:32 Dose: 4 mg Quetiapine Fumarate (Quetiapine Fumarate 100 Mg Tablet) 100 mg PO BEDTIME [facility] Last Admin: 01/20/24 22:07 Dose: 100 mg Quetiapine Fumarate (Quetiapine Fumarate 50 Mg Tablet) 50 mg PO BID@0900,1200 [facility] Last Admin: 01/21/24 11:59 Dose: 50 mg Tizanidine HCl (Tizanidine Hcl 4 Mg Tablet) 4 mg PO TID [facility] Last Admin: 01/21/24 08:49 Dose: 4 mg Trazodone HCl (Trazodone Hcl 50 Mg Tablet) 50 mg PO BEDTIME MRX1 PRN PRN Reason: Insomnia Last Admin: 01/19/24 21:06 Dose: 50 mg Trazodone HCl (Trazodone Hcl 100 Mg Tablet) 200 mg PO BEDTIME [facility] Last Admin: 01/20/24 22:07 Dose: 200 mg Vilazodone HCl (Vilazodone Hcl 40 Mg Tablet) 40 mg PO DAILY@1200 [facility] Last Admin: 01/21/24 11:45 Dose: Not Given Allergies Allergies Allergy/AdvReac Type Severity Reaction Status Date / Time gabapentin [GABAPENTIN] Allergy Unknown UNKNOWN Verified 01/08/24 23:00 morphine [MORPHINE] Allergy Unknown UNKNOWN Verified 01/08/24 23:00 oxycodone [OXYCODONE] Allergy Unknown UNKNOWN Verified 01/08/24 23:00 topiramate [TOPIRAMATE] Allergy Unknown UNKNOWN Verified 01/08/24 23:00 Assessment & Plan Assessment & Plan (1) Major depressive disorder, recurrent, severe with psychotic symptoms: Status: Acute Code(s): F33.3 - Major depressive disorder, recurrent, severe with psychotic symptoms Assessment and Plan: 01/12/24: Anxious with physical sx today. Medical work up negative thus far. Support, encourage milieu. ECT 01/14/24. Plan Patient is a 58-year-old woman with history major depression, PTSD and intermittent severe anxiety, POTS who self presents for sudden onset of severe anxiety and wanting ECT. Patient reports that for the past 3 and half years she has been overall doing well on current medication regimen. She says about 3 weeks ago, suddenly as a light switch turns on she started becoming extremely anxious, started dissociating, scratching her arms and body, shaking. She denies feeling any significant depression but this constant anxiety has become overwhelming. Sometimes she will have many such episodes that are much less in intensity and resolve on their own after a day or so, so patient try to endured this ongoing anxiety hoping it would resolve. It continued however and felt unbearable. Patient says this happens every few years and it eventually leads to her wanting to end her life due to the overwhelming anxiety. Patient decided this time she would instead present for ECT which he says is the only thing that stops the episode. Patient is organized in speech and behavior and denies all other symptoms of andrew or history of manic episodes; denies any AVH; no drug or alcohol abuse. Formulation/Clinical reason: Patient seems to have been stable on current medication regimen and does not want changes. She says that this event happens every several years and feels that whatever triggers it is not medication related. Patient has had ECT in the past which was a successful treatment and she feels ECT is essential. Solids Control Technician agrees that she meets criteria for ECT as it has been helpful in the past and patient reports that if this overwhelming anxiety progresses she will become suicidal. Patient agrees to see if some medications can help as a p.r.n. Hospital course: 01/10 Pt continues to report pain. By history, she has used Tinazadine and Flexeril without adverse response she reports. We will trial for efficacy and lack of side effects. 01/12 Patient reports that her mood is overall okay but that she is exceedingly anxious and looking forward to ECT. She says that because of the anxiety she is not leaving her room at all and in her room she is able to cope with it. 01/13 very anxious; nightmares; hoping that ECT will be effective which is scheduled for later this afternoon 01/14 did not get ECT last night; traumatic experience; not sure if will get 01/15 got ECT, feels better for it 01/17: no changes 01/18 much improved; anxiety better; thinks maybe due to Vraylar now taken w/ food. Will get ECT today but not sure how many more after. 01/19 patient continues to report that her mood overall is much better; ambivalent about getting ECT but thinks it is likely a good idea to make sure. Will schedule ECT for tomorrow; Will discuss case with Dr. Courtney regarding plan for continue treatments. Patient placed a 3 day notice 01/20 ECT scheduled for today; continue treatment plan; dispo planning for discharge Friday Plan: Three day Q 15 minute checks ECT #3 pending for 01/20 NPO Continue home medication regimen Add Thorazine 25 mg p.r.n. to see if can help with overwhelming anxiety Continue hydroxyzine which patient said was helpful as a p.r.n. for anxiety Patient educated on: diagnosis, medication risk/benefits and ECT Informed Consent: understands Reason for continued inpatient stay Substantial Risk for: stable for discharge Time Spent With Patient Time: Total time managing care of this patient today ____ minutes.
--- NOTE | 2024-01-21 16:25 | P.CONAN_ITS ---
HPI - Anesthesia Eval Consult details Narrative: 58 yo female patient for ECT PMFSH Active Problems Active Problems: All Active Problems Pre-op evaluation (Acute) MDD (major depressive disorder), recurrent severe, without psychosis (Acute) Suicidal ideation (Acute) Anxiety and depression (Acute) Strain of lumbar paraspinal muscle (Acute) PTSD (post-traumatic stress disorder) (Acute) Major depressive disorder, recurrent, severe with psychotic symptoms (Acute) Past Medical History Medical History MDD (major depressive disorder), recurrent severe, without psychosis At risk for bleeding associated with tonsillectomy and adenoidectomy HLD (hyperlipidemia) Suicidal ideation Renal insufficiency PTSD (post-traumatic stress disorder) Major depressive disorder, recurrent, 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 Neuropathy Autonomic dysfunction Asthma Family History Family history of problems with anesthesia: No Surgical History Surgical History History of sinus surgery History of tonsillectomy H/O ureter repair H/O tubal ligation Previous section H/O spinal fusion History of Problems with Anesthesia: No Social History Social History Household Members: Family Housing: House Do you presently have visiting nurse or other home services: No Patient Tobacco Use Status: Never used Tobacco Smoked in Last 30 Days: No e-Cigarette/Vaping Use: Never Used Patient Interested in Nicotine Replacement: No Patient Given Instructions on How to Stop Smoking: No (doesnt smoke) Second Hand Smoke Exposure: No Use of substances other than those prescribed or required for medical reasons: Yes Substance Use Type: Marijuana Substance Use Frequency: Weekly Last Used Substance: Days (ago) Currently Displaying Signs/Symptoms of Drug Intoxication Withdrawal: No Any prior treatment program specific to substance use: No Have you been hit, kicked, punched, or otherwise hurt by someone within the past year? If so, by whom?: No Do you feel safe in your current relationship?: No Current Relationship Is there a partner from a previous relationship who is making you feel unsafe now?: No Are you made to feel afraid or neglected: No Spiritual Healthcare Practices: none Church Healthcare Practices: none Cultural Healthcare Practices: none Advance Directives: Yes Advance Directives Information Provided: No Advance Directives on File: No Do you have thoughts of harming others: None Do you have a plan to hurt others: No Plan Recently lost weight without trying: No Eating poorly because of decreased appetite: No Nutrition Risks: No Nutritional Risk Patient : No : No Poor oral hygiene: No service: No Sexual orientation: Straight/Heterosexual Meds Allergies Allergy/AdvReac Type Severity Reaction Status Date / Time gabapentin [GABAPENTIN] Allergy Unknown UNKNOWN Verified 01/08/24 23:00 morphine [MORPHINE] Allergy Unknown UNKNOWN Verified 01/08/24 23:00 oxycodone [OXYCODONE] Allergy Unknown UNKNOWN Verified 01/08/24 23:00 topiramate [TOPIRAMATE] Allergy Unknown UNKNOWN Verified 01/08/24 23:00 Active Medications: Current Medications Acetaminophen (Acetaminophen 325 Mg Tablet) 975 mg PO Q6H PRN PRN Reason: Pain, Severe (Pain Scale 7-10) Last Admin: 01/20/24 15:01 Dose: 975 mg Al Hydroxide/Mg Hydroxide (Magnesium Hydrox/Alum Hydrox 30 Ml Oral.Susp) 30 ml PO Q6H PRN PRN Reason: Heartburn/Nausea Last Admin: 01/12/24 09:33 Dose: 30 ml Albuterol Sulfate (Albuterol Sulfate 90 Mcg 8 Gm Inhaler) 2 puff INHALE Q4H PRN PRN Reason: Shortness Of Breath Or Wheezing Amitriptyline HCl (Amitriptyline Hcl 25 Mg Tablet) 25 mg PO BEDTIME SOO Last Admin: 01/20/24 22:07 Dose: 25 mg Atenolol (Atenolol 25 Mg Tablet) 25 mg PO DAILY SOO; Protocol Last Admin: 01/21/24 08:49 Dose: 25 mg Atorvastatin Calcium (Atorvastatin Calcium 40 Mg Tablet) 40 mg PO BEDTIME SOO Last Admin: 01/20/24 22:08 Dose: 40 mg Chlorpromazine HCl (Chlorpromazine Hcl 25 Mg Tablet) 25 mg PO QID PRN PRN Reason: moderate anxiety Clonazepam (Clonazepam 0.5 Mg Tablet) 0.5 mg PO DAILY PRN PRN Reason: Anxiety Last Admin: 01/15/24 14:49 Dose: 0.5 mg Cyclobenzaprine HCl (Cyclobenzaprine Hcl 10 Mg Tablet) 10 mg PO TID PRN PRN Reason: spasm, back pain Last Admin: 01/11/24 12:42 Dose: 10 mg Fludrocortisone Acetate (Fludrocortisone Acetate 0.1 Mg Tablet) 0.1 mg PO BID [facility] Last Admin: 01/21/24 08:49 Dose: 0.1 mg Hydroxyzine HCl (Hydroxyzine Hcl 25 Mg Tablet) 25 mg PO Q6H PRN PRN Reason: Anxiety Last Admin: 01/15/24 17:36 Dose: 25 mg Hydroxyzine HCl (Hydroxyzine Hcl 25 Mg Tablet) 25 mg PO Q6H PRN PRN Reason: mild anxiety Last Admin: 01/10/24 17:02 Dose: 25 mg Loratadine (Loratadine 10 Mg Tablet) 10 mg PO BEDTIME [facility] Last Admin: 01/20/24 22:07 Dose: 10 mg Magnesium Hydroxide (Milk Of Magnesia 30 Ml Oral.Susp) 30 ml PO DAILY PRN PRN Reason: Constipation Montelukast Sodium (Montelukast Sodium 10 Mg Tablet) 10 mg PO BEDTIME [facility] Last Admin: 01/20/24 22:08 Dose: 10 mg Nicotine (Nicotine 21 Mg Patch.Td24) 21 mg TRANSDERMA DAILY PRN PRN Reason: smoking cessation Nicotine Polacrilex (Nicotine Polacrilex 2 Mg Gum) 4 mg BUCCAL Q2H PRN PRN Reason: Nicotine Cravings Olanzapine (Olanzapine 2.5 Mg Tablet) 2.5 mg PO Q4H PRN PRN Reason: agitation Omeprazole (Omeprazole 20 Mg Capsule.Dr) 20 mg PO BID@0630,1630 [facility] Last Admin: 01/21/24 06:29 Dose: 20 mg Ondansetron HCl (Ondansetron Odt 4 Mg Tab.Rapdis) 4 mg TRANSLINGU Q6H PRN PRN Reason: Nausea and Vomiting Last Admin: 01/15/24 11:32 Dose: 4 mg Quetiapine Fumarate (Quetiapine Fumarate 100 Mg Tablet) 100 mg PO BEDTIME [facility] Last Admin: 01/20/24 22:07 Dose: 100 mg Quetiapine Fumarate (Quetiapine Fumarate 50 Mg Tablet) 50 mg PO BID@0900,1200 [facility] Last Admin: 01/21/24 11:59 Dose: 50 mg Tizanidine HCl (Tizanidine Hcl 4 Mg Tablet) 4 mg PO TID [facility] Last Admin: 01/21/24 16:12 Dose: Not Given Trazodone HCl (Trazodone Hcl 50 Mg Tablet) 50 mg PO BEDTIME MRX1 PRN PRN Reason: Insomnia Last Admin: 01/19/24 21:06 Dose: 50 mg Trazodone HCl (Trazodone Hcl 100 Mg Tablet) 200 mg PO BEDTIME [facility] Last Admin: 01/20/24 22:07 Dose: 200 mg Vilazodone HCl (Vilazodone Hcl 40 Mg Tablet) 40 mg PO DAILY@1200 [facility] Last Admin: 01/21/24 11:45 Dose: Not Given Home Medications ?Medication ?Instructions ?Recorded ?Confirmed ?Last Taken ?Type atenolol 25 mg tablet 1 tab PO DAILY 03/24/20 01/09/24 03/23/20 10:00 History 25 mg cetirizine 10 mg tablet 1 tab PO BEDTIME 03/24/20 01/09/24 03/22/20 21:00 History 10 mg clonazepam 0.5 mg tablet 1 tab PO 1XD PRN Anxiety 03/24/20 01/09/24 Unknown History fludrocortisone 0.1 mg tablet 0.1 mg PO 2XD 03/24/20 01/09/24 Unknown History levothyroxine 50 mcg tablet 1 tab PO DAILY@0630 03/24/20 01/09/24 03/23/20 08:00 History 50 mcg montelukast 10 mg tablet 1 tab PO BEDTIME 03/24/20 01/09/24 03/23/20 08:00 History 10 mg trazodone 100 mg tablet 2 tab PO BEDTIME PRN Insomnia 03/24/20 01/09/24 03/23/20 23:00 History 100 mg vilazodone 40 mg tablet (Viibryd) 1 tab PO 1XD 03/24/20 01/09/24 03/23/20 08:00 History 40 mg albuterol sulfate 90 mcg/actuation 2 puff inhalation Q4-6H PRN 01/09/24 01/09/24 Unknown History aerosol inhaler Shortness Of Breath Or Wheezing amitriptyline 25 mg tablet 25 mg PO BEDTIME 01/09/24 01/09/24 Unknown History atorvastatin 40 mg tablet 40 mg PO BEDTIME 01/09/24 01/09/24 Unknown History diclofenac sodium 1 % topical gel 1 topical PRN Pain, Moderate 01/09/24 Unknown History (Arthritis Pain (diclofenac)) nystatin 100,000 unit/gram topical 1 appl topical 2XD PRN Skin 01/09/24 01/09/24 Unknown History powder Irritation omeprazole 20 mg tablet,delayed 20 mg PO BID 01/09/24 01/09/24 Unknown History release quetiapine 100 mg tablet 100 mg PO BEDTIME 01/09/24 01/09/24 Unknown History quetiapine 50 mg tablet 50 mg PO 2XD 01/09/24 01/09/24 Unknown History Exam Height,Weight and Vital Signs: Height 5 ft 5 in Weight 123.1 kg Last Vital Signs Temp 97.7 F 01/21/24 08:21 Pulse 77 01/21/24 16:39 Resp 18 01/21/24 16:39 BP 129/105 01/21/24 16:40 Pulse Ox 98 01/21/24 16:39 O2 Del Method NC 01/21/24 16:39 O2 Flow Rate 2 01/21/24 16:39 Pertinent Lab Results Pertinent Lab Results: Laboratory Tests 01/08/24 01/09/24 01/09/24 23:39 08:27 13:00 WBC 14.2 H 12.9 H RBC 4.15 L 4.50 Hgb 12.5 13.5 Hct 37.3 40.1 MCV 89.9 89.1 MCH 30.1 30.0 MCHC 33.5 33.7 RDW 13.6 13.4 Plt Count 262 275 MPV 10.0 10.0 Immature Gran % (Auto) 0.8 H 0.8 H Neut % (Auto) 65.1 63.8 Lymph % (Auto) 23.4 24.7 Ellis % (Auto) 8.0 7.6 Eos % (Auto) 2.1 2.3 Baso % (Auto) 0.6 0.8 Lymph # (Auto) 3.3 3.2 Ellis # (Auto) 1.1 1.0 Eos # (Auto) 0.3 0.3 Baso # (Auto) 0.1 0.1 Abs Immat Gran (auto) 0.11 H 0.10 H Absolute Neuts (auto) 9.3 H 8.3 Absolute Nucleated RBC 0.000 0.000 Nucleated RBC % (auto) 0.0 0.0 Sodium 142 Potassium 3.7 Chloride 109 H Carbon Dioxide 27 Anion Gap 10 L BUN 14 Creatinine 1.08 Estim Creat Clear Calc 74.2 Estimated GFR 52 Random Glucose 107 Estimat Average Glucose 105 Hemoglobin A1c % 5.3 Calcium 9.2 Total Bilirubin 0.3 Direct Bilirubin 0.1 AST 12 ALT 12 Alkaline Phosphatase 62 Troponin I High Sens Total Protein 6.5 Albumin 3.7 Triglycerides 174 H Cholesterol 157 LDL Cholesterol, Calc 80 HDL Cholesterol 43 TSH 2.82 Urine Color Yellow Urine Appearance Clear Urine pH 7.0 Ur Specific [place] 1.015 Urine Protein Negative Urine Glucose (UA) Negative Urine Ketones Negative Urine Blood Negative Urine Nitrite Negative Ur Leukocyte Esterase Negative Urine Opiates Screen Not Detected Ur Buprenorphine Scrn Not Detected Ur Oxycodone Screen Not Detected Urine Methadone Screen Not Detected Urine Fentanyl Screen Not Detected Ur Barbiturates Screen Not Detected Ur Phencyclidine Scrn Not Detected Ur Amphetamines Screen Not Detected U Benzodiazepines Scrn Not Detected Urine Cocaine Screen Not Detected U Marijuana (THC) Screen Not Detected Ethyl Alcohol < 10 01/12/24 01/12/24 10:02 14:23 WBC RBC Hgb Hct MCV MCH MCHC RDW Plt Count MPV Immature Gran % (Auto) Neut % (Auto) Lymph % (Auto) Ellis % (Auto) Eos % (Auto) Baso % (Auto) Lymph # (Auto) Ellis # (Auto) Eos # (Auto) Baso # (Auto) Abs Immat Gran (auto) Absolute Neuts (auto) Absolute Nucleated RBC Nucleated RBC % (auto) Sodium Potassium Chloride Carbon Dioxide Anion Gap BUN Creatinine Estim Creat Clear Calc Estimated GFR Random Glucose Estimat Average Glucose Hemoglobin A1c % Calcium Total Bilirubin Direct Bilirubin AST ALT Alkaline Phosphatase Troponin I High Sens < 2.7 < 2.7 Total Protein Albumin Triglycerides Cholesterol LDL Cholesterol, Calc HDL Cholesterol TSH Urine Color Urine Appearance Urine pH Ur Specific [place] Urine Protein Urine Glucose (UA) Urine Ketones Urine Blood Urine Nitrite Ur Leukocyte Esterase Urine Opiates Screen Ur Buprenorphine Scrn Ur Oxycodone Screen Urine Methadone Screen Urine Fentanyl Screen Ur Barbiturates Screen Ur Phencyclidine Scrn Ur Amphetamines Screen U Benzodiazepines Scrn Urine Cocaine Screen U Marijuana (THC) Screen Ethyl Alcohol Airway Mallampati Class: II TM Dist: >3cm Neck ROM: Full Loose/Missing/Broken Teeth: Yes (Missing tooth top and bottom right back. Denies broken or loose teeth) Heart: RRR Lungs: CTAB Assessment and Plan Assessment Anesthesia Assessment: Anesthesia Plan Discussed and Chart Reviewed Final Anesthetic Review Family History of Problems with Anesthesia: No History of Problems with Anesthesia: No NPO: Yes ASA Class: III Final Preanesthetic Review: No Changes in Pt Med Stat, Meds/Allgs Chart Reviewed, Consent Obtained/Reviewed and Anes Risks/Benef Reviewed Patient Risk: Intermediate Procedure Risk: Intermediate Assessment/Block/Sedation in SS: Assess/Block/Sedation-SS Anesthetic Plan Anesthetic Plan: GA Disposition: Standard PACU and Inp. Admit - Standard Bed
[2024-01-21] MEDS: Acetaminophen 1,000 MG/100 ML PIGGYBACK 400 MG IV (16:30)
--- NOTE | 2024-01-21 18:04 | PC.NURSE ---
Ms. Zuñiga returned to via wheel chair at 5:45pm. Oriented to person but not place or time. She knew this science writer's name and who is running for presidency. Vitals on arrival were as follows: T97.5- P88- R16- BP132/88- O2 sat 92%. Will recheck O2 sat in 20minutes.
[2024-01-21] MEDS: traZODone HCL 100 MG TABLET 200 MG PO (21:45)
[2024-01-21] MEDS: Vilazodone HCL 40 MG TABLET PO (21:45)
[2024-01-21] MEDS: Amitriptyline HCl 25 MG TABLET PO (21:45)
[2024-01-21] MEDS: Loratadine 10 MG TABLET PO (21:45)
[2024-01-21] MEDS: Montelukast Sodium 10 MG TABLET PO (21:45)
[2024-01-21] MEDS: Atorvastatin Calcium 40 MG TABLET PO (21:45)
[2024-01-21] MEDS: QUEtiapine Fumarate 100 MG TABLET PO (21:45)
[2024-01-22] MEDS: Omeprazole 20 MG CAPSULE.DR PO ×2 (06:45→17:05)
[2024-01-22 08:00] VITALS: BP 136/97; PULSE 90; RESP 18; TEMP 36.4; O2SAT 94
[2024-01-22] MEDS: atenoloL 25 MG TABLET PO (08:46)
[2024-01-22] MEDS: Fludrocortisone Acetate 0.1 MG TABLET PO ×2 (08:46→21:02)
[2024-01-22] MEDS: TiZANidine HCL 4 MG TABLET PO ×2 (08:47→21:01)
[2024-01-22] MEDS: QUEtiapine Fumarate 50 MG TABLET PO ×2 (08:48→13:04)
--- NOTE | 2024-01-22 09:23 | P.PNPSI_ITS ---
Subjective Subjective Date of Service: 01/22/24 Reason For Visit: sect.12 SI Interim History: Met with Patient; discussed with team; discussed with Dr. Courtney Patient reported that she was in a good mood, anxiety under good control and she no longer wanted ECT; she felt that she had returned to her regular self and had been there for several days and continued to deny any SI or any urges to self- harm. Patient felt she did not need ECT as an outpatient and was optimistic she remained stable; patient has a 3 day notice in and wants to discharge tomorrow. Feeder/Folder discussed that she had received ketamine post ECT and that could be part of her improved mood and patient would keep this in mind regarding whether or not to pursue ketamine as an outpatient. Discussed case with Dr. Courtney who agrees with discharge plan. Mental Status Exam Mental Status Exam Narrative: Pt is alert and oriented; behavior is cooperative, friendly and calm; patient is not in distress; dressed in casual attire with unkempt hair but adequate hygiene; mood is described as good and affect congruent; eye contact appropriate; Speech is normal rate, volume and prosody and not pressured; no psychomotor agitation/retardation present; thought process is organized and goal directed; Thought content is on tx; otherwise pertinent to relevant topics and without any delusional content, paranoid ideations or grandiosity; denies any SI/HI; denies any urges to self-harm. There is no evidence of perceptual disturbance. Patients insight and judgment are fair. Diagnostics Vital Signs (24Hr): Vital Signs - 24 hr 01/21/24 16:58 01/21/24 17:03 01/21/24 17:08 Temperature 97.7 F Pulse Rate 80 89 91 Respiratory Rate 15 18 18 Blood Pressure 156/93 H 135/96 H 118/93 H Pulse Oximetry 94 95 96 Oxygen Delivery Method Nasal Cannula Nasal Cannula Nasal Cannula Oxygen Flow Rate 3.5 3.5 3.5 01/21/24 17:13 01/21/24 17:26 01/21/24 19:18 Temperature 97.5 F 97.5 F Pulse Rate 90 97 88 Respiratory Rate 18 16 16 Blood Pressure 127/90 H 103/84 132/88 Pulse Oximetry 96 94 92 Oxygen Delivery Method Nasal Cannula Room Air Oxygen Flow Rate 3.5 01/21/24 20:00 01/22/24 08:00 Temperature 97.4 F 97.6 F Pulse Rate 116 H 90 Respiratory Rate 16 18 Blood Pressure 143/99 H 136/97 H Pulse Oximetry 97 94 Oxygen Delivery Method Room Air Room Air Oxygen Flow Rate BMI result Body Mass Index 45.2 Labs 01/09/24 08:27 01/08/24 23:39 Medications Medications Current Medications Acetaminophen (Acetaminophen 325 Mg Tablet) 975 mg PO Q6H PRN PRN Reason: Pain, Severe (Pain Scale 7-10) Last Admin: 01/20/24 15:01 Dose: 975 mg Al Hydroxide/Mg Hydroxide (Magnesium Hydrox/Alum Hydrox 30 Ml Oral.Susp) 30 ml PO Q6H PRN PRN Reason: Heartburn/Nausea Last Admin: 01/12/24 09:33 Dose: 30 ml Albuterol Sulfate (Albuterol Sulfate 90 Mcg 8 Gm Inhaler) 2 puff INHALE Q4H PRN PRN Reason: Shortness Of Breath Or Wheezing Amitriptyline HCl (Amitriptyline Hcl 25 Mg Tablet) 25 mg PO BEDTIME [facility] Last Admin: 01/21/24 21:45 Dose: 25 mg Atenolol (Atenolol 25 Mg Tablet) 25 mg PO DAILY [facility]; Protocol Last Admin: 01/22/24 08:46 Dose: 25 mg Atorvastatin Calcium (Atorvastatin Calcium 40 Mg Tablet) 40 mg PO BEDTIME [facility] Last Admin: 01/21/24 21:45 Dose: 40 mg Chlorpromazine HCl (Chlorpromazine Hcl 25 Mg Tablet) 25 mg PO QID PRN PRN Reason: moderate anxiety Clonazepam (Clonazepam 0.5 Mg Tablet) 0.5 mg PO DAILY PRN PRN Reason: Anxiety Last Admin: 01/15/24 14:49 Dose: 0.5 mg Cyclobenzaprine HCl (Cyclobenzaprine Hcl 10 Mg Tablet) 10 mg PO TID PRN PRN Reason: spasm, back pain Last Admin: 01/11/24 12:42 Dose: 10 mg Fludrocortisone Acetate (Fludrocortisone Acetate 0.1 Mg Tablet) 0.1 mg PO BID [facility] Last Admin: 01/22/24 08:46 Dose: 0.1 mg Hydroxyzine HCl (Hydroxyzine Hcl 25 Mg Tablet) 25 mg PO Q6H PRN PRN Reason: Anxiety Last Admin: 01/15/24 17:36 Dose: 25 mg Hydroxyzine HCl (Hydroxyzine Hcl 25 Mg Tablet) 25 mg PO Q6H PRN PRN Reason: mild anxiety Last Admin: 01/10/24 17:02 Dose: 25 mg Loratadine (Loratadine 10 Mg Tablet) 10 mg PO BEDTIME [facility] Last Admin: 01/21/24 21:45 Dose: 10 mg Magnesium Hydroxide (Milk Of Magnesia 30 Ml Oral.Susp) 30 ml PO DAILY PRN PRN Reason: Constipation Montelukast Sodium (Montelukast Sodium 10 Mg Tablet) 10 mg PO BEDTIME [facility] Last Admin: 01/21/24 21:45 Dose: 10 mg Nicotine (Nicotine 21 Mg Patch.Td24) 21 mg TRANSDERMA DAILY PRN PRN Reason: smoking cessation Nicotine Polacrilex (Nicotine Polacrilex 2 Mg Gum) 4 mg BUCCAL Q2H PRN PRN Reason: Nicotine Cravings Olanzapine (Olanzapine 2.5 Mg Tablet) 2.5 mg PO Q4H PRN PRN Reason: agitation Omeprazole (Omeprazole 20 Mg Capsule.Dr) 20 mg PO BID@0630,1630 [facility] Last Admin: 01/22/24 06:45 Dose: 20 mg Ondansetron HCl (Ondansetron Odt 4 Mg Tab.Rapdis) 4 mg TRANSLINGU Q6H PRN PRN Reason: Nausea and Vomiting Last Admin: 01/15/24 11:32 Dose: 4 mg Quetiapine Fumarate (Quetiapine Fumarate 100 Mg Tablet) 100 mg PO BEDTIME [facility] Last Admin: 01/21/24 21:45 Dose: 100 mg Quetiapine Fumarate (Quetiapine Fumarate 50 Mg Tablet) 50 mg PO BID@0900,1200 [facility] Last Admin: 01/22/24 08:48 Dose: 50 mg Tizanidine HCl (Tizanidine Hcl 4 Mg Tablet) 4 mg PO TID [facility] Last Admin: 01/22/24 08:47 Dose: 4 mg Trazodone HCl (Trazodone Hcl 50 Mg Tablet) 50 mg PO BEDTIME MRX1 PRN PRN Reason: Insomnia Last Admin: 01/19/24 21:06 Dose: 50 mg Trazodone HCl (Trazodone Hcl 100 Mg Tablet) 200 mg PO BEDTIME [facility] Last Admin: 01/21/24 21:45 Dose: 200 mg Vilazodone HCl (Vilazodone Hcl 40 Mg Tablet) 40 mg PO DAILY@1200 [facility] Last Admin: 01/21/24 11:45 Dose: Not Given Allergies Allergies Allergy/AdvReac Type Severity Reaction Status Date / Time gabapentin [GABAPENTIN] Allergy Unknown UNKNOWN Verified 01/08/24 23:00 morphine [MORPHINE] Allergy Unknown UNKNOWN Verified 01/08/24 23:00 oxycodone [OXYCODONE] Allergy Unknown UNKNOWN Verified 01/08/24 23:00 topiramate [TOPIRAMATE] Allergy Unknown UNKNOWN Verified 01/08/24 23:00 Assessment & Plan Assessment & Plan (1) Major depressive disorder, recurrent, severe with psychotic symptoms: Status: Acute Code(s): F33.3 - Major depressive disorder, recurrent, severe with psychotic symptoms Assessment and Plan: 01/12/24: Anxious with physical sx today. Medical work up negative thus far. Support, encourage milieu. ECT 01/14/24. Plan Patient is a 58-year-old woman with history major depression, PTSD and intermittent severe anxiety, POTS who self presents for sudden onset of severe anxiety and wanting ECT. Patient reports that for the past 3 and half years she has been overall doing well on current medication regimen. She says about 3 weeks ago, suddenly as a light switch turns on she started becoming extremely anxious, started dissociating, scratching her arms and body, shaking. She denies feeling any significant depression but this constant anxiety has become overwhelming. Sometimes she will have many such episodes that are much less in intensity and resolve on their own after a day or so, so patient try to endured this ongoing anxiety hoping it would resolve. It continued however and felt unbearable. Patient says this happens every few years and it eventually leads to her wanting to end her life due to the overwhelming anxiety. Patient decided this time she would instead present for ECT which he says is the only thing that stops the episode. Patient is organized in speech and behavior and denies all other symptoms of andrew or history of manic episodes; denies any AVH; no drug or alcohol abuse. Formulation/Clinical reason: Patient seems to have been stable on current medication regimen and does not want changes. She says that this event happens every several years and feels that whatever triggers it is not medication related. Patient has had ECT in the past which was a successful treatment and she feels ECT is essential. Feeder/Folder agrees that she meets criteria for ECT as it has been helpful in the past and patient reports that if this overwhelming anxiety progresses she will become suicidal. Patient agrees to see if some medications can help as a p.r.n. Hospital course: 01/10 Pt continues to report pain. By history, she has used Tinazadine and Flexeril without adverse response she reports. We will trial for efficacy and lack of side effects. 01/12 Patient reports that her mood is overall okay but that she is exceedingly anxious and looking forward to ECT. She says that because of the anxiety she is not leaving her room at all and in her room she is able to cope with it. 01/13 very anxious; nightmares; hoping that ECT will be effective which is scheduled for later this afternoon 01/14 did not get ECT last night; traumatic experience; not sure if will get 01/15 got ECT, feels better for it 01/17: no changes 01/18 much improved; anxiety better; thinks maybe due to Vraylar now taken w/ food. Will get ECT today but not sure how many more after. 01/19 patient continues to report that her mood overall is much better; ambivalent about getting ECT but thinks it is likely a good idea to make sure. Will schedule ECT for tomorrow; Will discuss case with Dr. Courtney regarding plan for continue treatments. Patient placed a 3 day notice 01/20 ECT scheduled for today; continue treatment plan; dispo planning for discharge Sunday 01/21 Patient reported that she was in a good mood, anxiety under good control and she no longer wanted ECT; she felt that she had returned to her regular self and had been there for several days and continued to deny any SI or any urges to self-harm. Patient felt she did not need ECT as an outpatient and was optimistic she remained stable; patient has a 3 day notice in and wants to discharge tomorrow. Feeder/Folder discussed that she had received ketamine post ECT and that could be part of her improved mood and patient would keep this in mind regarding whether or not to pursue ketamine as an outpatient. Discussed case with Dr. Courtney who agrees with discharge plan. Reviewed medication regimen and patient reports she has adequate supply of all her medications; some concern that clonazepam which she seldom takes, may have been re shelved since she never picked it up. Patient has returned to baseline and is in a good mood, anxiety under control and optimistic about remaining stable. She returns home to her supportive family and outpatient providers. Patient's 3 day notice has come due. Patient is not in imminent risk for harm to self or others and her request for discharge honored. Plan: Three day Q 15 minute checks completed ECT #3 Discontinue ECT series Continue home medication regimen Add Thorazine 25 mg p.r.n. to see if can help with overwhelming anxiety Continue hydroxyzine which patient said was helpful as a p.r.n. for anxiety Patient educated on: diagnosis, medication risk/benefits, ECT and therapeutic strategies Informed Consent: understands Reason for continued inpatient stay Substantial Risk for: stable for discharge Time Spent With Patient Time: Total time managing care of this patient today ____ minutes.
[2024-01-22] MEDS: polyethylene glycoL 3350 17 GM POWD.PACK PO (10:14)
[2024-01-22] MEDS: Vilazodone HCL 40 MG TABLET PO (13:04)
--- NOTE | 2024-01-22 13:27 | HO.POSTANES ---
Post Anesthesia Evaluation Post Anesthesia Evaluation Date of Service: 01/21/24 Vital Signs: Vital Signs Temp Pulse Resp BP Pulse Ox O2 Del Method 01/22/24 08:00 97.6 F 90 18 136/97 H 94 Room Air Anesthesia: General Mental Status: Awake Pain Control: Satisfactory Nausea/Vomiting: None Hydration: Adequate Anesthesia-Related Issues: No Anes. Related Issues
[2024-01-22 19:53] VITALS: BP 155/89; PULSE 99; RESP 18; TEMP 36.2; O2SAT 96
[2024-01-22] MEDS: traZODone HCL 100 MG TABLET 200 MG PO (21:01)
[2024-01-22] MEDS: Montelukast Sodium 10 MG TABLET PO (21:02)
[2024-01-22] MEDS: Amitriptyline HCl 25 MG TABLET PO (21:02)
[2024-01-22] MEDS: Loratadine 10 MG TABLET PO (21:02)
[2024-01-22] MEDS: Atorvastatin Calcium 40 MG TABLET PO (21:02)
[2024-01-22] MEDS: QUEtiapine Fumarate 100 MG TABLET PO (21:02)
--- NOTE | 2024-01-22 21:52 | PM.PSYDC ---
DS: Providers Provider Date of Service: 01/23/24 Date of admission: 01/09/24 01:00 Date of discharge: 01/23/24 Primary care physician: Nonstaff Physician Consults: 01/08/24 23:24 Consult to Care Team Stat Comment: Reason for consultation: Supposedly, respite spoke with Dr. Courtney for direct admission 01/09/24 14:44 Consult to Hospitalist Routine Comment: Consulting Provider: Hospitalist Reason For Exam: risk strat for ECT 01/12/24 09:39 Consult to Hospitalist Stat Comment: EKG, labs ordered Consulting Provider: Hospitalist Reason For Exam: Reports neck, jaw, chest pain, abd fullness DS: Diagnosis Discharge Diagnosis (1) Major depressive disorder, recurrent, severe with psychotic symptoms: Status: Acute DS: Medications Discharge Medications Home Medications: Home Medications ?Medication ?Instructions ?Recorded ?Confirmed atenolol 25 mg tablet 1 tab PO DAILY 03/24/20 01/09/24 cetirizine 10 mg tablet 1 tab PO BEDTIME 03/24/20 01/09/24 fludrocortisone 0.1 mg tablet 0.1 mg PO 2XD 03/24/20 01/09/24 levothyroxine 50 mcg tablet 1 tab PO DAILY@0630 03/24/20 01/09/24 montelukast 10 mg tablet 1 tab PO BEDTIME 03/24/20 01/09/24 trazodone 100 mg tablet 2 tab PO BEDTIME PRN Insomnia 03/24/20 01/09/24 vilazodone 40 mg tablet (Viibryd) 1 tab PO 1XD 03/24/20 01/09/24 albuterol sulfate 90 mcg/actuation 2 puff inhalation Q4-6H PRN 01/09/24 01/09/24 aerosol inhaler Shortness Of Breath Or Wheezing amitriptyline 25 mg tablet 25 mg PO BEDTIME 01/09/24 01/09/24 atorvastatin 40 mg tablet 40 mg PO BEDTIME 01/09/24 01/09/24 diclofenac sodium 1 % topical gel 1 topical PRN Pain, Moderate 01/09/24 (Arthritis Pain (diclofenac)) nystatin 100,000 unit/gram topical 1 appl topical 2XD PRN Skin 01/09/24 01/09/24 powder Irritation omeprazole 20 mg tablet,delayed 20 mg PO BID 01/09/24 01/09/24 release quetiapine 100 mg tablet 100 mg PO BEDTIME 01/09/24 01/09/24 quetiapine 50 mg tablet 50 mg PO 2XD 01/09/24 01/09/24 Previous Rx's ?Medication ?Instructions ?Recorded clonazepam 0.5 mg tablet 0.5 mg PO DAILY PRN Anxiety 01/22/24 days #30 tabs Mental Status Exam Mental Status Exam Narrative: Pt is alert and oriented; behavior is cooperative, friendly and calm; patient is not in distress; dressed in casual attire and adequately groomed; mood is described as good and affect congruent; eye contact appropriate; Speech is normal rate, volume and prosody and not pressured; no psychomotor agitation/retardation present; thought process is organized and goal directed; Thought content is on tx; otherwise pertinent to relevant topics and without any delusional content, paranoid ideations or grandiosity; denies any SI/HI; denies any urges to self-harm. There is no evidence of perceptual disturbance. Patients insight and judgment are fair. DS: Summary Hospital Course Hospital Course: Patient is a 58-year-old woman with history major depression, PTSD and intermittent severe anxiety, POTS who self presents for sudden onset of severe anxiety and wanting ECT. Patient reports that for the past 3 and half years she has been overall doing well on current medication regimen. She says about 3 weeks ago, suddenly as a light switch turns on she started becoming extremely anxious, started dissociating, scratching her arms and body, shaking. She denies feeling any significant depression but this constant anxiety has become overwhelming. Sometimes she will have many such episodes that are much less in intensity and resolve on their own after a day or so, so patient try to endured this ongoing anxiety hoping it would resolve. It continued however and felt unbearable. Patient says this happens every few years and it eventually leads to her wanting to end her life due to the overwhelming anxiety. Patient decided this time she would instead present for ECT which he says is the only thing that stops the episode. Patient is organized in speech and behavior and denies all other symptoms of andrew or history of manic episodes; denies any AVH; no drug or alcohol abuse. Hospital course/Formulation/Clinical reason: Patient seems to have been stable on current medication regimen and does not want changes. She says that this type of episode happens every several years and feels that whatever triggers it is not medication related. Patient has had ECT in the past which was a successful treatment and she feels ECT is essential. [employer] agrees that she meets criteria for ECT as it has been helpful in the past and patient reports that if this overwhelming anxiety progresses she will become suicidal. Patient agrees to see if some medications can help as a p.r.n. On admission, patient was exceedingly anxious; no SI but patient very worried this would develop if she was not hospitalized. She denied overt depression though she had symptoms for it. On this admission patient learned that with Viibryd, there is increased by availability if she took it with food which she started doing. She remained exceedingly anxious and anticipating ECT; not leaving her room due to anxiety, anxious nightmares. Unfortunately 1st ECT trial was unsuccessful as anesthesiologist could not sedate her and was not comfortable using ketamine though patient had used ketamine during past ECT series. Experience was traumatic for patient as she was intermittently awake but could not move during procedure. Patient was hesitant to continue with ECT but decided to do so and received it the next session successfully. Over subsequent days patient's mood much improved and anxiety significantly decreased; she denied any SI or any urges to self-harm and wondered if her medications were more effective now that she was taking it with food. Because of her traumatic experience with ECT the following day she was ambivalent whether not to continue, feeling triggered by the idea of it and patient placed a 3 day notice (though she agreed to remain on unit for several more days as she contemplated ECT). She did get another treatment (for total of 3) but ultimately felt that her mood and anxiety were well treated; that she was back to her regular self and was ready to discharge home. Patient firmly concluded she no longer wanted ECT including periodic treatments as an outpatient (Discussed case with Dr. Courtney who agrees with discharge plan). She continued to deny any SI or any urges to self-harm and felt back to her regular baseline. Patient had remained in good behavioral and impulse control throughout her time in the unit; she did not attend groups but was appropriate with peers and staff and optimistic she would remained stable. [employer] discussed that she had received ketamine post ECT and that could be part of her improved mood and patient would keep this in mind regarding whether or not to pursue ketamine as an outpatient. Reviewed medication regimen and patient reports she has adequate supply of all her medications (except for clonazepam). She returns home to her supportive family and outpatient providers including therapist with whom she has a good rapport. Patient was not in imminent risk for harm to self or others and her request for discharge honored. Time spent discussing smoking cessation with patient: 3 to 10 minutes Status at Discharge Functional status at discharge: independent ambulation Overall status at discharge: patient is back to baseline Time Spent with Patient Time attestation: Total time managing care of this patient today _40___ minutes. Time spent: Greater than 30 minutes Specific discharge activities: Met with patient; discussed with team; sent prescription, charting Discharge Plan Discharge Anticipated Discharge Date/Time: 01/23/24 11:30 Patient Disposition: Home, Self-Care Discharge Diagnosis: mdd, recurrent, severe without psychosis, in full remission Referrals: mona abel [Other] - 1 Week Physician,Nonstaff [Primary Care Provider] - 1 Week Discharge Medications: Continued cetirizine 10 mg tablet 1 tab PO BEDTIME atenolol 25 mg tablet 1 tab PO DAILY trazodone 100 mg tablet 2 tab PO BEDTIME PRN (Reason: Insomnia) levothyroxine 50 mcg tablet 1 tab PO DAILY@0630 montelukast 10 mg tablet 1 tab PO BEDTIME vilazodone [Viibryd] 40 mg tablet 1 tab PO 1XD Rx Instructions: takes with lunch fludrocortisone 0.1 mg tablet 0.1 mg PO 2XD atorvastatin 40 mg tablet 40 mg PO BEDTIME amitriptyline 25 mg tablet 25 mg PO BEDTIME quetiapine 100 mg tablet 100 mg PO BEDTIME albuterol sulfate 90 mcg/actuation HFA aerosol inhaler 2 puff inhalation Q4-6H PRN (Reason: Shortness Of Breath Or Wheezing) quetiapine 50 mg tablet 50 mg PO 2XD Rx Instructions: take 1 tablet in the morning and then 1 tablet at noon nystatin 100,000 unit/gram powder 1 appl topical 2XD PRN (Reason: Skin Irritation) diclofenac sodium [Arthritis Pain (diclofenac)] 1 % gel 1 topical PRN (Reason: Pain, Moderate) omeprazole 20 mg Tablet,Delayed Release (Dr/Ec) 20 mg PO BID Changed clonazepam 0.5 mg tablet 0.5 mg PO DAILY PRN (Reason: Anxiety) 30 Days Qty: 30 0RF Discharge Orders: Discharge Order (Routine); Ordered 01/23/24 Ordered By: Galo Gutierrez Diet: Regular diet Activity on Discharge: As tolerated Stand Alone Forms: Patient Portal Discharge page, Community Support Print Language: Tongan Care Plan Goals: Maintain mood and safe behaviors Take medications as prescribed Practice coping skills Continue with outpatient providers and reach out to them as needed Health Concerns: Mood stability and behaviors Plan of Treatment: Follow up with your PCP, psychiatric provider and other outpatient providers regarding above concerns Take medications as prescribed Assessment: Risk assessment at time of discharge:? Patient was interviewed prior to discharge and found to be fully oriented and without any SI or HI. Patient has improved insight and judgment and wants to continue treatment. Patient is not in imminent risk of harm to self or others and has a safety plan that includes presenting to the closest ER or calling 911 if feeling unsafe.? Patient has been observed closely by nursing and unit staff throughout admission; patient has not engaged in any behaviors that suggest dangerousness to self or others and has demonstrated appropriate behaviors and impulse control
[2024-01-23] MEDS: Omeprazole 20 MG CAPSULE.DR PO (06:47)
[2024-01-23 08:00] VITALS: BP 117/68; PULSE 76; RESP 16; TEMP 36.3; O2SAT 95
[2024-01-23 08:56] VITALS: BP 115/68; PULSE 76
[2024-01-23] MEDS: Fludrocortisone Acetate 0.1 MG TABLET PO (08:56)
[2024-01-23] MEDS: atenoloL 25 MG TABLET PO (08:56)
[2024-01-23] MEDS: QUEtiapine Fumarate 50 MG TABLET PO ×2 (08:56→11:05)
[2024-01-23] MEDS: TiZANidine HCL 4 MG TABLET PO (08:56)
[2024-01-23] MEDS: Vilazodone HCL 40 MG TABLET PO (11:05)
== END 2024-01-23 11:25 | disposition home or self-care (01) | DRG 885 ==
LOC: HO.ED 23:55 → HO.PM5 01-09 01:00
PROVIDERS: Clinical Nurse Specialist Psychiatric/Mental Health, Adult; Psychiatry & Neurology Psychiatry; Admitting Provider Psychiatry & Neurology Psychiatry; Emergency Provider Emergency Medicine; Visit Provider Psychiatry & Neurology Psychiatry
PROC: GZB4ZZZ Other Electroconvulsive Therapy (ICD-10-PCS; CPT 90870; principal; 2024-01-14 18:30)
DX: F33.2 Major depressive disorder, recurrent severe without psychotic features (principal); R45.851 Suicidal ideations; F43.10 Post-traumatic stress disorder, unspecified; G90.A Postural orthostatic tachycardia syndrome [POTS]; Z62.810 Personal history of physical and sexual abuse in childhood; Z79.890 Hormone replacement therapy; Z79.899 Other long term (current) drug therapy
CPT/HCPCS: 36415; 80048; 80061; 80076; 80307; 81003; 83036; 84443; 84484; 85025; 90870; 93005; 99285; J0131; J0330; J1596; J1805; J2060; J2250; J2405; J2704

== ENCOUNTER → 2024-01-09 01:00 | Outpatient (BNV) | payer OTHER, SELFPAY | PROVIDERS: Admitting Provider Psychiatry & Neurology Psychiatry; Emergency Provider Emergency Medicine; Visit Provider Psychiatry & Neurology Psychiatry | DX: F33.2 Major depressive disorder, recurrent severe without psychotic features (principal) | CPT/HCPCS: 90870 ==

== ENCOUNTER → 2024-01-09 01:00 | Outpatient (BNV) | payer OTHER, SELFPAY | PROVIDERS: Admitting Provider Psychiatry & Neurology Psychiatry; Emergency Provider Emergency Medicine; Visit Provider Student in an Organized Health Care Education/Training Program | DX: Z01.818 Encounter for other preprocedural examination (principal) | CPT/HCPCS: 99429; 99499 ==

== ENCOUNTER → 2024-01-09 01:00 | Outpatient (BNV) | payer OTHER, SELFPAY | PROVIDERS: Admitting Provider Psychiatry & Neurology Psychiatry; Emergency Provider Emergency Medicine; Visit Provider Psychiatry & Neurology Psychiatry | DX: F33.3 Major depressive disorder, recurrent, severe with psychotic symptoms (principal) | CPT/HCPCS: 90792; 90870; 99231; 99232; 99239 ==